=== PATIENT | female | born 1965 | race Two or more races ===

== ENCOUNTER 2018-10-23 18:36 | Inpatient (IN) | payer MEDICAID, OTHER ==
[~2018-10-23] VITALS: Ht 157.5 cm; Wt 84.8 kg
[2018-10-23] MEDS ORDERED: Nitroglycerin 2% oint pkt TOPIC ONE (19:00)
[2018-10-23 19:06] VITALS: BP 151/69
--- NOTE | 2018-10-23 19:06 | Emergency Room Report ---
History of Present Illness General Chief Complaint: Dyspnea/Respdistress Source: Patient Present Illness HPI Patient presents with chest pain and shortness of breath. Started off more with shortness of breath 4 days ago. The chest pain is been intermittent. She rates at 6/10 at this time and feels more pressure. It doesn't radiate. It's more dyspnea on exertion than orthopnea. The shortness of breath gets better with rest and with laying down. She has edema bilaterally and she states that it's worse on the left-hand side. She is a history of congestive heart failure although she denies this. She's also diabetic, has high cholesterol and hypertension. She states her blood sugar was 192 this morning and she states that that was "high" area she denies fevers or chills. There's no productive cough. The patient was admitted at [facility] a few months ago and told that she had fluid in her lungs and around her heart. Slight constipation. No passing of blood. No dysuria. She's not taking water pill at this time. The patient states that she's had problems with her kidneys for 15 years. She' s never had to have dialysis. She complains about some dizziness. She denies any headache or change in her vision. No palpitations, rashes. No easy bruising. Recent eval for possible PE - studies were negative at [facility]. She denies depression, though is slow to respond and looks sad. Allergies: Coded Allergies: No Known Allergies (Verified Allergy, Unknown, 02/17/11) Patient History Past Medical History: see triage record Social History: Denies: smoking, alcohol use, drug use Social History Narrative with daughter Last Menstrual Period: none Now: No : 5 Para: 5 Reviewed Nursing Documentation: PMH: Agreed; PSxH: Agreed Nursing Documentation-PMH Hx Cardiac Problems: Yes - high cholesterol Hx Hypertension: Yes Hx Diabetes: Yes Hx Gastrointestinal Problems: No - hyperthyroidism Review of Systems All Other Systems: negative except mentioned in HPI Physical Exam Vital Signs Date Time Temp Pulse Resp B/P (MAP) Pulse Ox O2 Delivery O2 Flow Rate FiO2 10/23/18 18:38 98.4 74 18 160/78 85 Room Air Sp02 EP Interpretation: abnormal - hypoxia on room air General Appearance: GCS 15, non-toxic, Chronically Ill Head: normocephalic, atraumatic Eyes: bilateral eye normal inspection, bilateral eye PERRL ENT: moist mucus membranes Neck: full range of motion, supple Respiratory: decreased breath sounds, rales Cardiovascular #1: regular rate, rhythm, JVD, edema - One to 2+ bilaterally Cardiovascular #2: 2+ radial (L) Gastrointestinal: non tender, soft, decreased bowel sounds Genitourinary: no CVA tenderness Musculoskeletal: back normal, normal range of motion, no calf tenderness, Jairon 's Sign negative Neurologic: alert, responsive Psychiatric: depressed affect Skin: other - sallo Procedures Critical Care Time Critical Care Time Total Critical Care Time: 30 min bedside evaluation and treatment excludes procedures (EKG). Reason for critical care: CHF, NSTEMI, hypoxia, consultation with PMD and specialist Possible complications: hypotension, hypertension, FL, shock, arrhythmias, metabolic acidosis, end organ damage, respiratory failure. Interventions: Aspirin, Nitrates, lasix, repeat evaluations Course: Patient with hypoxia, chest pain. EKG no injury. CHF on CXR. Aspirin , nitrates and lasix given. Diuresing. + troponin. Lovenox given. Repeat evaluation with good increase in O2 sat on oxygen - review of information and felt may not be PE (however Lovenox given for +trop). Discussed with admitting MD and pulmonary specialists. Improved. Admit ICU. Consultations: nursing staff, EMS, family, admitting MD, pulm consult. Discussed with family possible dialysis, but as diuresing, will need to assess. Hypothyroid felt to contribute - cortisol declined by admitting MD. Performed by: Dr. Persaud Tolerated well condition = serious Medical Decision Making Diagnostic Impression: Primary Impression: Hypoxia Additional Impressions: Chest pain Qualified Codes: R07.9 - Chest pain, unspecified CHF (congestive heart failure) Qualified Codes: I50.9 - Heart failure, unspecified Hypothyroid Qualified Codes: E03.9 - Hypothyroidism, unspecified Renal failure (ARF), acute on chronic Qualified Codes: N17.9 - Acute kidney failure, unspecified; N18.4 - Chronic kidney disease, stage 4 (severe) NSTEMI (non-ST elevated myocardial infarction) ER Course Patient presents with chest pain and physical evidence of congestive heart failure. Differential includes acute cardial infarction, congestive heart failure, acute coronary syndrome, coronary embolus amongst others. Evaluation will be with EKG, chest x-ray and labs. The patient will be treated with aspirin, nitroglycerin paste and Lasix. She is placed on a satellite project site monitor. In triage she was hypoxemic and most likely will need to be admitted to the hospital. EKG with normal sinus rhythm rate [address]-T wave changes. CXR CHF and pleural effusions. Labs with min elevated WBC. Renal failure. Elevated BNP. UA clear. Elevated TSH. Lab call with + troponin. Patient diuresing. Espinal placed as need for bedrest and continuous cardiac monitoring. Lovenox given (though doubt PE, still covered). As O2 corrects with low dose oxygen, PE less likely. Dr. Ray on way in (after attempt contact Fidelina LANDEROS). Evaluated by Dr. Ray and electronic health records specialist. Discussed cortisol and declined. Admit ICU. Laboratory Tests Test 10/23/18 18:55 10/23/18 20:45 White Blood Count 11.6 K/UL (4.8-10.8) H Red Blood Count 3.68 M/UL (4.20-5.40) L Hemoglobin 10.0 G/DL (12.0-16.0) L Hematocrit 29.8 % (37.0-47.0) L Mean Corpuscular Volume 81 FL (80-99) Mean Corpuscular Hemoglobin 27.2 PG (27.0-31.0) Mean Corpuscular Hemoglobin Concent 33.6 G/DL (32.0-36.0) Red Cell Distribution Width 13.1 % (11.6-14.8) Platelet Count 283 K/UL (150-450) Mean Platelet Volume 7.3 FL (6.5-10.1) Neutrophils (%) (Auto) 58.7 % (45.0-75.0) Lymphocytes (%) (Auto) 31.1 % (20.0-45.0) Monocytes (%) (Auto) 5.3 % (1.0-10.0) Eosinophils (%) (Auto) 3.8 % (0.0-3.0) H Basophils (%) (Auto) 1.1 % (0.0-2.0) Prothrombin Time 10.5 SEC (9.30-11.50) Prothrombin Time INR 1.0 (0.9-1.1) PTT 33 SEC (23-33) Sodium Level 136 MMOL/L (136-145) Potassium Level 4.3 MMOL/L (3.5-5.1) Chloride Level 104 MMOL/L (98-107) Carbon Dioxide Level 23 MMOL/L (21-32) Anion Gap 10 mmol/L (5-15) Blood Urea Nitrogen 47 mg/dL (7-18) H Creatinine 4.0 MG/DL (0.55-1.30) H Estimate Glomerular Filtration Rate 11.6 mL/min (>60) Glucose Level 82 MG/DL (74-106) Calcium Level 8.4 MG/DL (8.5-10.1) L Total Bilirubin 0.3 MG/DL (0.2-1.0) Aspartate Amino Transferase (AST) 12 U/L (15-37) L Alanine Aminotransferase (ALT) 18 U/L (12-78) Alkaline Phosphatase 121 U/L (46-116) H Total Creatine Kinase 141 U/L (26-308) Troponin I 0.285 ng/mL (0.000-0.056) Pro-B-Type Natriuretic Peptide 4304 pg/mL (0-125) H Total Protein 6.9 G/DL (6.4-8.2) Albumin 2.7 G/DL (3.4-5.0) L Globulin 4.2 g/dL Albumin/Globulin Ratio 0.6 (1.0-2.7) L Thyroid Stimulating Hormone (TSH) 5.211 uiU/mL (0.358-3.740) Urine Color Pale yellow Urine Appearance Clear Urine pH 6.5 (4.5-8.0) Urine Specific [place] 1.005 (1.005-1.035) Urine Protein 4+ (NEGATIVE) H Urine Glucose (UA) Negative (NEGATIVE) Urine Ketones Negative (NEGATIVE) Urine Blood 2+ (NEGATIVE) H Urine Nitrite Negative (NEGATIVE) Urine Bilirubin Negative (NEGATIVE) Urine Urobilinogen Normal MG/DL (0.0-1.0) Urine Leukocyte Esterase 1+ (NEGATIVE) H Urine RBC 2-4 /HPF (0 - 2) H Urine WBC 0-2 /HPF (0 - 2) Urine Squamous Epithelial Cells Few /LPF (NONE/OCC) Urine Bacteria Few /HPF (NONE) EKG Diagnostic Results Rate: normal Rhythm: NSR ST Segments: no acute changes Rhythm Strip Diag. Results EP Interpretation: yes Rhythm: NSR, no PVC's, no ectopy Chest X-Ray Diagnostic Results Chest X-Ray Diagnostic Results : Chest X-Ray Ordered: Yes # of Views/Limited/Complete: 1 View Indication: Other EP Interpretation: Yes Interpretation: no pneumothorax, other - CHF and bilat effusions Impression: Other Electronically Signed by: Electronically signed by Panchito Persaud MD Last Vital Signs Date Time Temp Pulse Resp B/P (MAP) Pulse Ox O2 Delivery O2 Flow Rate FiO2 10/24/18 01:39 Nasal Cannula 2.0 10/24/18 01:00 56 22 111/71 (84) 97 10/24/18 00:47 97.0 Status: improved Disposition: ADMITTED INPATIENT Condition: Critical Referrals: [facility],REFERRING (PCP) Panchito Persaud MD Oct 23, 2018 19:06
[2018-10-23] MEDS ORDERED: FERROUS SULFAT325 MG ORAL (19:16)
[2018-10-23] MEDS ORDERED: HUMALOG KW200 UNIT/1 SQ (19:16)
[2018-10-23] MEDS ORDERED: GLIPIZIDE5 MG ORAL (19:16)
[2018-10-23] MEDS ORDERED: LANTUS SOL100 UNIT/1 SUBQ (19:16)
[2018-10-23] MEDS ORDERED: CARVEDILOL3.125 MG ORAL (19:16)
[2018-10-23] MEDS ORDERED: ATORVASTATIN CA80 MG ORAL (19:16)
[2018-10-23] MEDS ORDERED: SYNTHROID25 MCG ORAL (19:16)
[2018-10-23] MEDS ORDERED: HYDRALAZINE HCL10 MG ORAL (19:16)
[2018-10-23 19:30] VITALS: BP 162/73
[2018-10-23 19:38] LABS: BASOPHILS % (AUTO) 1.1 % (0.0-2.0); EOSINOPHILS % (AUTO) 3.8 % (0.0-3.0); HEMATOCRIT 29.8 % (37.0-47.0); LYMPHOCYTES % (AUTO) 31.1 % (20.0-45.0); MEAN CORPUSCULAR VOLUME 81 FL (80-99); MONOCYTES % (AUTO) 5.3 % (1.0-10.0); NEUTROPHILS % (AUTO) 58.7 % (45.0-75.0); PLATELET COUNT 283 K/UL (150-450); RED BLOOD COUNT 3.68 M/UL (4.20-5.40); RED CELL DISTRIBUTION WIDTH 13.1 % (11.6-14.8); WHITE BLOOD COUNT 11.6 K/UL (4.8-10.8)
[2018-10-23 19:45] LABS: ANION GAP 10 mmol/L (5-15); BLOOD UREA NITROGEN 47 mg/dL (7-18); CALCIUM 8.4 MG/DL (8.5-10.1); CARBON DIOXIDE 23 MMOL/L (21-32); CHLORIDE 104 MMOL/L (98-107); POTASSIUM 4.3 MMOL/L (3.5-5.1); SODIUM 136 MMOL/L (136-145)
[2018-10-23 19:55] LABS: ALANINE AMINOTRANSFERASE 18 U/L (12-78); ALBUMIN 2.7 G/DL (3.4-5.0); ALBUMIN/GLOBULIN RATIO 0.6 (1.0-2.7); ALKALINE PHOSPHATASE 121 U/L (46-116); ASPARTATE AMINO TRANSFERASE 12 U/L (15-37); BILIRUBIN,TOTAL 0.3 MG/DL (0.2-1.0); CREATINE KINASE 141 U/L (26-308)
--- NOTE | 2018-10-23 20:20 | Diagnostic Imaging Report ---
EXAM: XR Chest, 1 View CLINICAL HISTORY: DYSPNEA TECHNIQUE: Frontal view of the chest. COMPARISON: Poor/26/09. FINDINGS/IMPRESSION: Basilar opacities, likely a combination of pleural fluid and atelectasis/consolidation. Cardiomegaly.
[2018-10-23] MEDS ORDERED: Enoxaparin 80mg Inj SUBQ ONE (20:30)
[2018-10-23 21:07] LABS: APPEARANCE,URINE CLEAR; BILIRUBIN, URINE NEGATIVE (NEGATIVE); COLOR,URINE PALE YELLOW; GLUCOSE, URINE (UA) NEGATIVE (NEGATIVE); KETONES,URINE NEGATIVE (NEGATIVE); LEUKOCYTE ESTERASE ,URINE 1+ (NEGATIVE); NITRITE,URINE NEGATIVE (NEGATIVE); PH,URINE 6.5 (4.5-8.0); PROTEIN,URINE 4+ (NEGATIVE); UROBILINOGEN,URINE NORMAL MG/DL (0.0-1.0)
[2018-10-23 21:30] VITALS: BP 158/75
[2018-10-23 22:54] VITALS: BP 150/75
[2018-10-23] MEDS ORDERED: Morphine Sulfate 2mg/ml Inj IVP PRN (23:45)
[2018-10-23] MEDS ORDERED: cefTRIAXone 1 GM in D5W 55 ML IVPB SCH (23:45)
--- NOTE | 2018-10-23 23:46 | History & Physical ---
History and Physical History & Physicial History and Physical HPI Patient is a 53 year old woman who presents with chest pain and shortness of breath. Started off more with shortness of breath 4 days ago. The chest pain is been intermittent. She rates at 6/10 at this time and feels more pressure. It doesn't radiate. It's more dyspnea on exertion than orthopnea. The shortness of breath gets better with rest and with laying down. She has edema bilaterally and she states that it's worse on the left-hand side. She is a history of congestive heart failure although she denies this. She's also diabetic, has high cholesterol and hypertension. She states her blood sugar was 192 this morning and she states that that was "high" area she denies fevers or chills. There's no productive cough. The patient was admitted at [facility] a few months ago and told that she had fluid in her lungs and around her heart. Slight constipation. No passing of blood. No dysuria. She's not taking water pill at this time. The patient states that she's had problems with her kidneys for 15 years. She' s never had to have dialysis. She complains about some dizziness. She denies any headache or change in her vision. No palpitations, rashes. No easy bruising. Recent eval for possible PE - studies were negative. Allergies: Coded Allergies: No Known Allergies (Verified Allergy, Unknown, 02/17/11) Patient History Past Medical History: CHF, Hypertension, Hyperlipidemia, Type 2 Diabetes, CKD, Hypothyroidism Social History: Denies: smoking, alcohol use, drug use All Other Systems: negative except mentioned in HPI Objective Vital Signs Date Time Temp Pulse Resp B/P (MAP) Pulse Ox O2 Delivery O2 Flow Rate FiO2 10/23/18 18:38 98.4 74 18 160/78 85 Room Air NCAT, moist mm JVP 8cm Chest: Few basal crackles Heart: HS1, HS2, RRR Abdomen: Soft, NT, ND Extremities: Well perfused, mild edema COAGULATOR: Intact, no focal signs Investigations: Laboratory Tests Test 10/23/18 18:55 10/23/18 20:45 White Blood Count 11.6 K/UL (4.8-10.8) H Red Blood Count 3.68 M/UL (4.20-5.40) L Hemoglobin 10.0 G/DL (12.0-16.0) L Hematocrit 29.8 % (37.0-47.0) L Mean Corpuscular Volume 81 FL (80-99) Mean Corpuscular Hemoglobin 27.2 PG (27.0-31.0) Mean Corpuscular Hemoglobin Concent 33.6 G/DL (32.0-36.0) Red Cell Distribution Width 13.1 % (11.6-14.8) Platelet Count 283 K/UL (150-450) Mean Platelet Volume 7.3 FL (6.5-10.1) Neutrophils (%) (Auto) 58.7 % (45.0-75.0) Lymphocytes (%) (Auto) 31.1 % (20.0-45.0) Monocytes (%) (Auto) 5.3 % (1.0-10.0) Eosinophils (%) (Auto) 3.8 % (0.0-3.0) H Basophils (%) (Auto) 1.1 % (0.0-2.0) Prothrombin Time 10.5 SEC (9.30-11.50) Prothrombin Time INR 1.0 (0.9-1.1) PTT 33 SEC (23-33) Sodium Level 136 MMOL/L (136-145) Potassium Level 4.3 MMOL/L (3.5-5.1) Chloride Level 104 MMOL/L (98-107) Carbon Dioxide Level 23 MMOL/L (21-32) Anion Gap 10 mmol/L (5-15) Blood Urea Nitrogen 47 mg/dL (7-18) H Creatinine 4.0 MG/DL (0.55-1.30) H Estimate Glomerular Filtration Rate 11.6 mL/min (>60) Glucose Level 82 MG/DL (74-106) Calcium Level 8.4 MG/DL (8.5-10.1) L Total Bilirubin 0.3 MG/DL (0.2-1.0) Aspartate Amino Transferase (AST) 12 U/L (15-37) L Alanine Aminotransferase (ALT) 18 U/L (12-78) Alkaline Phosphatase 121 U/L (46-116) H Total Creatine Kinase 141 U/L (26-308) Troponin I 0.285 ng/mL (0.000-0.056) Pro-B-Type Natriuretic Peptide 4304 pg/mL (0-125) H Total Protein 6.9 G/DL (6.4-8.2) Albumin 2.7 G/DL (3.4-5.0) L Globulin 4.2 g/dL Albumin/Globulin Ratio 0.6 (1.0-2.7) L Thyroid Stimulating Hormone (TSH) 5.211 uiU/mL (0.358-3.740) Urine Color Pale yellow Urine Appearance Clear Urine pH 6.5 (4.5-8.0) Urine Specific [place] 1.005 (1.005-1.035) Urine Protein 4+ (NEGATIVE) H Urine Glucose (UA) Negative (NEGATIVE) Urine Ketones Negative (NEGATIVE) Urine Blood 2+ (NEGATIVE) H Urine Nitrite Negative (NEGATIVE) Urine Bilirubin Negative (NEGATIVE) Urine Urobilinogen Normal MG/DL (0.0-1.0) Urine Leukocyte Esterase 1+ (NEGATIVE) H Urine RBC 2-4 /HPF (0 - 2) H Urine WBC 0-2 /HPF (0 - 2) Urine Squamous Epithelial Cells Few /LPF (NONE/OCC) Urine Bacteria Few /HPF (NONE) EKG Diagnostic Results Rate: normal Rhythm: NSR ST Segments: no acute changes Rhythm Strip Diag. Results EP Interpretation: yes Rhythm: NSR, no PVC's, no ectopy Chest X-Ray Diagnostic Results Chest X-Ray Diagnostic Results : Chest X-Ray Ordered: Yes # of Views/Limited/Complete: 1 View Indication: Other EP Interpretation: Yes Interpretation: no pneumothorax, other - CHF and bilat effusions Impression: Other Labs noted EKG with normal sinus rhythm rate [address]-T wave changes. CXR CHF and pleural effusions. Impression: Chest pain, NSTEMI CHF (congestive heart failure) CKD Type 2 Diabetes Hyperlipidemia Hypothyroid Plan: Trend troponins VQ scan LE Dupplex Treat for possible community aquired pneumonia given basal atelectasis on CXR: Ceftriaxone and Doxycycline Lasix PRN Lovenox per Pharmacy Nitro paste ASA Pain meds ISS Panchito Cha MD Oct 23, 2018 23:46
[2018-10-24] VITALS (21 sets, daily range): BP systolic 111–156; BP diastolic 33–76
[2018-10-24] MEDS ORDERED: Metoprolol Succinate XL 25mg tab ORAL ONE (00:30)
[2018-10-24] MEDS: Heparin 5000 units/ml inj SUBQ SCH ×3 (00:30→20:49)
[2018-10-24] MEDS ORDERED: Nitroglycerin Subl 0.4mg tab SL PRN ×2 (00:30→17:45)
--- NOTE | 2018-10-24 00:31 | History & Physical ---
History and Physical History & Physicial Patient seen and examined. Full Dictation completed Rema Ray MD Oct 24, 2018 00:31
--- NOTE | 2018-10-24 01:30 | History and Physical Report ---
DATE OF ADMISSION: 10/23/2018 SOURCE OF INFORMATION: The patient and EMR. HISTORY OF PRESENT ILLNESS: The patient is a 53-year-old female with prior history of diabetes and chronic kidney disease, who presented with worsening shortness of breath and chest pain for the last 3 days. The patient reported sharp pain with no radiation. Denies any nausea, vomiting, diarrhea, or constipation. Denies any blurry vision. PAST MEDICAL HISTORY: Hypertension, diabetes type 2, hyperlipidemia, and hypothyroidism. PAST SURGICAL HISTORY: The patient denies. CURRENT HOSPITAL MEDICATIONS: Aspirin, atorvastatin, Lasix, NovoLog, and metoprolol. ALLERGIES: NKDA. SOCIAL HISTORY: The patient reported that she lives with the family. Denies prior history of illicit drug abuse, smoking, or alcohol abuse. FAMILY HISTORY: Reviewed and noncontributory. REVIEW OF SYSTEMS: All 14 elements of review of systems reviewed. Pertinent positive and negative as above. Chest x-ray dated 10/23/2018 shows bibasilar opacities, likely pleural fluid. PHYSICAL EXAMINATION: VITAL SIGNS: Blood pressure 160/80, temperature 98.2, pulse oximetry 98% on room air, and respiratory rate 18. HEAD AND NECK: Atraumatic and normocephalic. CHEST: Diffuse bronchial breathing sounds. Positive for fine crackles in both lower lungs. ABDOMEN: Obese. Bowel sounds are normal. No organomegaly. MUSCULOSKELETAL: Diffuse swelling and edema in all the extremities, especially in the dependent areas. No gross lateralized motor deficit. NEUROLOGY: The patient is awake, alert, and oriented x3. LABORATORY DATA: Dated 10/23/2018, WBC 11.6, hemoglobin 10, and platelet count of 283. Sodium 136, potassium 4.3, BUN 47, and creatinine 4. AST 12 and ALT 18. TSH of 5.2. Troponin 0.285. ASSESSMENT AND PLAN: 1. Acute congestive heart failure exacerbation - new onset. 2. Community-acquired pneumonia. 3. Renal failure - age indeterminate. 4. Hypothyroidism. 5. Diabetes type 2. 6. Hypertension. 7. Gastrointestinal and deep vein thrombosis prophylaxis. PLAN OF CARE: We will continue with aspirin high dose 325. We will monitor the troponin levels and we will trend. Continue with the levothyroxine. I will check for the echocardiogram. I would start the patient on heparin subcutaneous for the DVT prophylaxis. Continue with nasal oxygen and empiric antibiotic treatment. Dr. Brijesh ____ is consulted. Cardiology and Nephrology are consulted as well. Rema Ray M.D. DR: ZAHRA JOB#: [id number] CC:
[2018-10-24 05:03] LABS: BASOPHILS % (AUTO) 1.1 % (0.0-2.0); HEMATOCRIT 28.4 % (37.0-47.0); HEMOGLOBIN 9.4 G/DL (12.0-16.0); LYMPHOCYTES % (AUTO) 23.5 % (20.0-45.0); MEAN CORPUSCULAR VOLUME 81 FL (80-99); MONOCYTES % (AUTO) 3.9 % (1.0-10.0); NEUTROPHILS % (AUTO) 70.6 % (45.0-75.0); PLATELET COUNT 267 K/UL (150-450); RED BLOOD COUNT 3.51 M/UL (4.20-5.40); RED CELL DISTRIBUTION WIDTH 12.9 % (11.6-14.8); WHITE BLOOD COUNT 8.2 K/UL (4.8-10.8)
[2018-10-24] MEDS: NovoLOG Insulin Flexpen SUBQ SCH ×4 (05:31→20:45)
[2018-10-24 05:41] LABS: % IRON SATURATION 15 % (15-50); IRON 37 ug/dL (50-175); TOTAL IRON BINDING CAPACITY 250 ug/dL (250-450)
[2018-10-24 05:42] LABS: ALANINE AMINOTRANSFERASE 15 U/L (12-78); ALBUMIN 2.4 G/DL (3.4-5.0); ALBUMIN/GLOBULIN RATIO 0.6 (1.0-2.7); ALKALINE PHOSPHATASE 111 U/L (46-116); ANION GAP 8 mmol/L (5-15); ASPARTATE AMINO TRANSFERASE 14 U/L (15-37); BILIRUBIN,TOTAL 0.2 MG/DL (0.2-1.0); BLOOD UREA NITROGEN 50 mg/dL (7-18); CALCIUM 8.5 MG/DL (8.5-10.1); CARBON DIOXIDE 26 MMOL/L (21-32); CHLORIDE 105 MMOL/L (98-107); CREATININE 4.1 MG/DL (0.55-1.30); POTASSIUM 4.5 MMOL/L (3.5-5.1); SODIUM 138 MMOL/L (136-145)
[2018-10-24] MEDS: Nitroglycerin 2% oint pkt TOPIC SCH ×3 (05:46→18:29)
[2018-10-24] MEDS ORDERED: Metoprolol 25mg tab ORAL SCH (09:00)
[2018-10-24] MEDS ORDERED: Metoprolol Succinate XL 25mg tab ORAL SCH (09:00)
--- NOTE | 2018-10-24 13:42 | Consultation ---
Consult Note Consult Note asked to eval for renal failure- Patient presents with chest pain and shortness of breath. Started off more with shortness of breath 4 days ago. The chest pain is been intermittent. She rates at 6/10 at this time and feels more pressure. It doesn't radiate. It's more dyspnea on exertion than orthopnea. The shortness of breath gets better with rest and with laying down. She has edema bilaterally and she states that it's worse on the left-hand side. She is a history of congestive heart failure although she denies this. She's also diabetic, has high cholesterol and hypertension. She states her blood sugar was 192 this morning and she states that that was "high" area she denies fevers or chills. There's no productive cough. The patient was admitted at [facility] a few months ago and told that she had fluid in her lungs and around her heart. Slight constipation. No passing of blood. No dysuria. She's not taking water pill at this time. The patient states that she's had problems with her kidneys for 15 years. She' s never had to have dialysis. She complains about some dizziness. She denies any headache or change in her vision. No palpitations, rashes. No easy bruising. Recent eval for possible PE - studies were negative at [facility]. She denies depression, though is slow to respond and looks sad. seen examined data reviewed discussed with fermentologist/Plan Renal failure, likely diabetic nephropathy and Nephrotic syndrom Hypoxia, CHF Chest pain, NSTEMI (non-ST elevated myocardial infarction) Hypothyroid Anemia 2D echo- 24 h urine CrCl and Total protein Kidney TANK Anemia llamas avoid Nephrotoxics per orders Lito Frank MD Oct 24, 2018 13:42
--- NOTE | 2018-10-24 13:56 | Infectious Diseases Prog Note ---
Assessment/Plan Problems: (1) Community acquired pneumonia Assessment & Plan: continue ceftriaxone and doxycycline empirically , recommend influenza vaccination at discharge (2) CHF (congestive heart failure) Assessment & Plan: with possible exacerbation, continue diuresis , cardiology is following (3) Renal failure (ARF), acute on chronic Assessment & Plan: monitor renal function, avoid nephrotoxics, renal eval (4) Hypoxia Assessment & Plan: due to the above , continue oxygen and nebulizers , may need thoracentesis Subjective Allergies: Coded Allergies: No Known Allergies (Verified Allergy, Unknown, 02/17/11) Objective Vital Signs Last 24 Hour Vital Signs Date Time Temp Pulse Resp B/P (MAP) Pulse Ox O2 Delivery O2 Flow Rate FiO2 10/24/18 12:00 156/67 10/24/18 10:00 75 15 156/67 (96) 99 10/24/18 09:02 72 149/76 10/24/18 09:00 72 15 140/76 (97) 99 10/24/18 08:00 98.0 78 20 145/69 (94) 98 10/24/18 08:00 Nasal Cannula 2.0 10/24/18 08:00 62 10/24/18 07:00 65 15 149/76 (100) 99 10/24/18 06:00 98.0 78 20 155/70 (98) 98 10/24/18 05:46 153/69 10/24/18 05:00 65 15 153/69 (97) 98 10/24/18 04:00 98.0 61 15 124/60 (81) 98 10/24/18 04:00 Nasal Cannula 2.0 10/24/18 03:00 86 19 122/74 (90) 98 10/24/18 02:00 58 16 150/68 (95) 98 10/24/18 01:39 Nasal Cannula 2.0 10/24/18 01:00 56 22 111/71 (84) 97 10/24/18 01:00 97.8 78 16 111/71 (84) 98 10/24/18 01:00 56 111/71 10/24/18 00:54 58 10/24/18 00:47 97.0 58 23 133/60 (84) 94 10/24/18 00:40 97.5 54 18 153/74 97 Nasal Cannula 2.0 10/24/18 00:08 97.5 54 18 153/74 97 Nasal Cannula 2.0 10/23/18 22:54 60 20 150/75 98 Nasal Cannula 2.0 10/23/18 21:30 62 17 158/75 97 Nasal Cannula 2.0 10/23/18 19:30 70 20 162/73 96 Nasal Cannula 2.0 10/23/18 19:19 166/72 10/23/18 19:06 98.4 72 17 151/69 87 Room Air 10/23/18 18:59 74 18 Room Air 10/23/18 18:38 98.4 74 18 160/78 85 Room Air Height (Feet): 5 Height (Inches): 2.00 Weight (Pounds): 192 Laboratory Tests Test 10/23/18 18:55 10/23/18 20:45 10/24/18 04:15 10/24/18 11:54 White Blood Count 11.6 K/UL (4.8-10.8) H 8.2 K/UL (4.8-10.8) Red Blood Count 3.68 M/UL (4.20-5.40) L 3.51 M/UL (4.20-5.40) L Hemoglobin 10.0 G/DL (12.0-16.0) L 9.4 G/DL (12.0-16.0) L Hematocrit 29.8 % (37.0-47.0) L 28.4 % (37.0-47.0) L Mean Corpuscular Volume 81 FL (80-99) 81 FL (80-99) Mean Corpuscular Hemoglobin 27.2 PG (27.0-31.0) 26.8 PG (27.0-31.0) L Mean Corpuscular Hemoglobin Concent 33.6 G/DL (32.0-36.0) 33.2 G/DL (32.0-36.0) Red Cell Distribution Width 13.1 % (11.6-14.8) 12.9 % (11.6-14.8) Platelet Count 283 K/UL (150-450) 267 K/UL (150-450) Mean Platelet Volume 7.3 FL (6.5-10.1) 6.9 FL (6.5-10.1) Neutrophils (%) (Auto) 58.7 % (45.0-75.0) 70.6 % (45.0-75.0) Lymphocytes (%) (Auto) 31.1 % (20.0-45.0) 23.5 % (20.0-45.0) Monocytes (%) (Auto) 5.3 % (1.0-10.0) 3.9 % (1.0-10.0) Eosinophils (%) (Auto) 3.8 % (0.0-3.0) H 1.0 % (0.0-3.0) Basophils (%) (Auto) 1.1 % (0.0-2.0) 1.1 % (0.0-2.0) Prothrombin Time 10.5 SEC (9.30-11.50) Prothromb Time International Ratio 1.0 (0.9-1.1) Activated Partial Thromboplast Time 33 SEC (23-33) Sodium Level 136 MMOL/L (136-145) 138 MMOL/L (136-145) Potassium Level 4.3 MMOL/L (3.5-5.1) 4.5 MMOL/L (3.5-5.1) Chloride Level 104 MMOL/L (98-107) 105 MMOL/L (98-107) Carbon Dioxide Level 23 MMOL/L (21-32) 26 MMOL/L (21-32) Anion Gap 10 mmol/L (5-15) 8 mmol/L (5-15) Blood Urea Nitrogen 47 mg/dL (7-18) H 50 mg/dL (7-18) H Creatinine 4.0 MG/DL (0.55-1.30) H 4.1 MG/DL (0.55-1.30) H Estimat Glomerular Filtration Rate 11.6 mL/min (>60) 11.4 mL/min (>60) Glucose Level 82 MG/DL (74-106) 152 MG/DL (74-106) H Calcium Level 8.4 MG/DL (8.5-10.1) L 8.5 MG/DL (8.5-10.1) Total Bilirubin 0.3 MG/DL (0.2-1.0) 0.2 MG/DL (0.2-1.0) Aspartate Amino Transf (AST/SGOT) 12 U/L (15-37) L 14 U/L (15-37) L Alanine Aminotransferase (ALT/SGPT) 18 U/L (12-78) 15 U/L (12-78) Alkaline Phosphatase 121 U/L (46-116) H 111 U/L (46-116) Total Creatine Kinase 141 U/L (26-308) Troponin I 0.285 ng/mL (0.000-0.056) 0.204 ng/mL (0.000-0.056) 0.192 ng/mL (0.000-0.056) Pro-B-Type Natriuretic Peptide 4304 pg/mL (0-125) H Total Protein 6.9 G/DL (6.4-8.2) 6.4 G/DL (6.4-8.2) Albumin 2.7 G/DL (3.4-5.0) L 2.4 G/DL (3.4-5.0) L Globulin 4.2 g/dL 4.0 g/dL Albumin/Globulin Ratio 0.6 (1.0-2.7) L 0.6 (1.0-2.7) L Thyroid Stimulating Hormone (TSH) 5.211 uiU/mL (0.358-3.740) 2.665 uiU/mL (0.358-3.740) Urine Color Pale yellow Urine Appearance Clear Urine pH 6.5 (4.5-8.0) Urine Specific [place] 1.005 (1.005-1.035) Urine Protein 4+ (NEGATIVE) H Urine Glucose (UA) Negative (NEGATIVE) Urine Ketones Negative (NEGATIVE) Urine Blood 2+ (NEGATIVE) H Urine Nitrite Negative (NEGATIVE) Urine Bilirubin Negative (NEGATIVE) Urine Urobilinogen Normal MG/DL (0.0-1.0) Urine Leukocyte Esterase 1+ (NEGATIVE) H Urine RBC 2-4 /HPF (0 - 2) H Urine WBC 0-2 /HPF (0 - 2) Urine Squamous Epithelial Cells Few /LPF (NONE/OCC) Urine Bacteria Few /HPF (NONE) Iron Level 37 ug/dL (50-175) L Total Iron Binding Capacity 250 ug/dL (250-450) Percent Iron Saturation 15 % (15-50) Unsaturated Iron Binding 213 ug/dL (112-346) Ferritin 102 NG/ML (8-388) Vitamin B12 Level 1113 PG/ML (193-986) H Folate 18.5 NG/ML (8.6-58.9) Free Thyroxine 1.08 NG/DL (0.76-1.46) Current Medications Medications (Trade) Dose Ordered Sig/Miguel Route PRN Reason Start Time Stop Time Status Last Admin Dose Admin Acetaminophen (Tylenol) 650 mg EVERY 6 HOURS PRN ORAL Prn Mod pain/Fever 10/23/18 23:45 11/22/18 23:44 Amlodipine Besylate (Norvasc) 5 mg DAILY ORAL 10/25/18 09:00 11/24/18 08:59 Amlodipine Besylate (Norvasc) 5 mg ONCE ORAL 10/24/18 13:51 10/24/18 14:51 Aspirin (ASA) 325 mg DAILY ORAL 10/24/18 09:00 11/23/18 08:59 10/24/18 09:02 Atorvastatin Calcium (Lipitor) 20 mg BEDTIME ORAL 10/24/18 21:00 11/23/18 20:59 Ceftriaxone Sodium 1 gm/ Dextrose 55 ml @ 110 mls/hr Q24H IVPB 10/23/18 23:45 10/30/18 23:44 10/24/18 02:07 Dextrose (Dextrose 50%) 25 ml Q30M PRN IV Hypoglycemia 10/24/18 00:00 11/23/18 00:00 Dextrose (Dextrose 50%) 50 ml Q30M PRN IV Hypoglycemia 10/24/18 00:00 11/23/18 00:00 Doxycycline Monohydrate (Vibramycin) 100 mg BID ORAL 10/24/18 09:00 10/31/18 08:59 10/24/18 09:03 Furosemide (Lasix) 40 mg EVERY 12 HOURS IV 10/24/18 09:00 11/23/18 08:59 10/24/18 09:03 Heparin Sodium (Porcine) (Heparin 5000 units/ml) 5,000 units EVERY 12 HOURS SUBQ 10/24/18 00:30 11/23/18 00:29 10/24/18 09:04 Insulin Aspart (NovoLOG) BEFORE MEALS AND HS SUBQ 10/24/18 06:30 11/23/18 06:29 Metoprolol Succinate (Toprol XL) 25 mg DAILY ORAL 10/24/18 09:00 11/23/18 08:59 10/24/18 09:02 Morphine Sulfate (Morphine Sulfate) 2 mg EVERY 3 HOURS PRN IVP Severe Pain (Pain Scale 7-10) 10/23/18 23:45 10/30/18 23:44 Nitroglycerin (Nitro-Bid) 1 inch TID@0600,1200,1800 TOPIC 10/24/18 06:00 11/23/18 05:59 10/24/18 12:00 Nitroglycerin (Ntg) 0.4 mg Q5M PRN SL Prn Chest Pain 10/24/18 00:30 11/23/18 00:29 Pantoprazole (Protonix) 40 mg DAILY ORAL 10/24/18 13:49 11/23/18 13:48 Kandis Lipscomb M.D. Oct 24, 2018 13:56
--- NOTE | 2018-10-24 14:47 | General Progress Note ---
Assessment/Plan Assessment/Plan S: My sob is better O: appears comfortable, seen in ICU. at the bedside. PHYSICAL EXAMINATION: HEAD AND NECK: Atraumatic and normocephalic. CHEST: Diffuse bronchial breathing sounds. Positive for fine crackles in both lower lungs. ABDOMEN: Obese. Bowel sounds are normal. No organomegaly. MUSCULOSKELETAL: Diffuse swelling and edema in all the extremities, especially in the dependent areas. No gross lateralized motor deficit. NEUROLOGY: The patient is awake, alert, and oriented x3. Meds: reviewed and reconciled in the chart ASSESSMENT AND PLAN: 1. Acute congestive heart failure exacerbation - new onset. 2. Community-acquired pneumonia. 3. Renal failure - age indeterminate. 4. Hypothyroidism. 5. Diabetes type 2. 6. Hypertension. 7. Gastrointestinal and deep vein thrombosis prophylaxis. Plan: Ok to transfer out of ICU Will monitor renal function Notes from ID and nephro reviewed continue diuresis Subjective Allergies: Coded Allergies: No Known Allergies (Verified Allergy, Unknown, 02/17/11) Objective Last 24 Hour Vital Signs Date Time Temp Pulse Resp B/P (MAP) Pulse Ox O2 Delivery O2 Flow Rate FiO2 10/24/18 14:18 75 156/67 10/24/18 14:00 72 16 118/58 (78) 99 10/24/18 13:00 75 16 122/70 (87) 99 10/24/18 12:00 Nasal Cannula 2.0 10/24/18 12:00 71 10/24/18 12:00 156/67 10/24/18 12:00 97.9 78 20 120/60 (80) 98 10/24/18 11:00 76 15 150/67 (94) 99 10/24/18 10:00 75 15 156/67 (96) 99 10/24/18 09:02 72 149/76 10/24/18 09:00 72 15 140/76 (97) 99 10/24/18 08:00 98.0 78 20 145/69 (94) 98 10/24/18 08:00 Nasal Cannula 2.0 10/24/18 08:00 62 10/24/18 07:00 65 15 149/76 (100) 99 10/24/18 06:00 98.0 78 20 155/70 (98) 98 10/24/18 05:46 153/69 10/24/18 05:00 65 15 153/69 (97) 98 10/24/18 04:00 98.0 61 15 124/60 (81) 98 10/24/18 04:00 Nasal Cannula 2.0 10/24/18 03:00 86 19 122/74 (90) 98 10/24/18 02:00 58 16 150/68 (95) 98 10/24/18 01:39 Nasal Cannula 2.0 10/24/18 01:00 56 22 111/71 (84) 97 10/24/18 01:00 97.8 78 16 111/71 (84) 98 10/24/18 01:00 56 111/71 10/24/18 00:54 58 10/24/18 00:47 97.0 58 23 133/60 (84) 94 10/24/18 00:40 97.5 54 18 153/74 97 Nasal Cannula 2.0 10/24/18 00:08 97.5 54 18 153/74 97 Nasal Cannula 2.0 10/23/18 22:54 60 20 150/75 98 Nasal Cannula 2.0 10/23/18 21:30 62 17 158/75 97 Nasal Cannula 2.0 10/23/18 19:30 70 20 162/73 96 Nasal Cannula 2.0 10/23/18 19:19 166/72 10/23/18 19:06 98.4 72 17 151/69 87 Room Air 10/23/18 18:59 74 18 Room Air 10/23/18 18:38 98.4 74 18 160/78 85 Room Air Intake and Output 10/23/18 10/24/18 18:59 06:59 Intake Total 175 ml Output Total 1400 ml Balance -1225 ml Intake Oral 120 ml IV Total 55 ml Output Urine Total 1400 ml Laboratory Tests 10/23/18 18:55: White Blood Count 11.6H, Red Blood Count 3.68L, Hemoglobin 10.0L, Hematocrit 29.8L, Mean Corpuscular Volume 81, Mean Corpuscular Hemoglobin 27.2, Mean Corpuscular Hemoglobin Concent 33.6, Red Cell Distribution Width 13.1, Platelet Count 283, Mean Platelet Volume 7.3, Neutrophils (%) (Auto) 58.7, Lymphocytes (% ) (Auto) 31.1, Monocytes (%) (Auto) 5.3, Eosinophils (%) (Auto) 3.8H, Basophils (%) (Auto) 1.1, Prothrombin Time 10.5, Prothromb Time International Ratio 1.0, Activated Partial Thromboplast Time 33, Sodium Level 136, Potassium Level 4.3, Chloride Level 104, Carbon Dioxide Level 23, Anion Gap 10, Blood Urea Nitrogen 47H, Creatinine 4.0H, Estimat Glomerular Filtration Rate 11.6, Glucose Level 82 , Calcium Level 8.4L, Total Bilirubin 0.3, Aspartate Amino Transf (AST/SGOT) 12L , Alanine Aminotransferase (ALT/SGPT) 18, Alkaline Phosphatase 121H, Total Creatine Kinase 141, Troponin I 0.285H, Pro-B-Type Natriuretic Peptide 4304H, Total Protein 6.9, Albumin 2.7L, Globulin 4.2, Albumin/Globulin Ratio 0.6L, Thyroid Stimulating Hormone (TSH) 5.211H 10/23/18 20:45: Urine Color Pale yellow, Urine Appearance Clear, Urine pH 6.5, Urine Specific [place] 1.005, Urine Protein 4+H, Urine Glucose (UA) Negative, Urine Ketones Negative, Urine Blood 2+H, Urine Nitrite Negative, Urine Bilirubin Negative, Urine Urobilinogen Normal, Urine Leukocyte Esterase 1+H, Urine RBC 2-4H, Urine WBC 0-2, Urine Squamous Epithelial Cells Few, Urine Bacteria Few 10/24/18 04:15: White Blood Count 8.2, Red Blood Count 3.51L, Hemoglobin 9.4L, Hematocrit 28.4L , Mean Corpuscular Volume 81, Mean Corpuscular Hemoglobin 26.8L, Mean Corpuscular Hemoglobin Concent 33.2, Red Cell Distribution Width 12.9, Platelet Count 267, Mean Platelet Volume 6.9, Neutrophils (%) (Auto) 70.6, Lymphocytes (% ) (Auto) 23.5, Monocytes (%) (Auto) 3.9, Eosinophils (%) (Auto) 1.0, Basophils ( %) (Auto) 1.1, Sodium Level 138, Potassium Level 4.5, Chloride Level 105, Carbon Dioxide Level 26, Anion Gap 8, Blood Urea Nitrogen 50H, Creatinine 4.1H, Estimat Glomerular Filtration Rate 11.4, Glucose Level 152H, Calcium Level 8.5, Total Bilirubin 0.2, Aspartate Amino Transf (AST/SGOT) 14L, Alanine Aminotransferase (ALT/SGPT) 15, Alkaline Phosphatase 111, Troponin I 0.204H, Total Protein 6.4, Albumin 2.4L, Globulin 4.0, Albumin/Globulin Ratio 0.6L, Thyroid Stimulating Hormone (TSH) 2.665, Iron Level 37L, Total Iron Binding Capacity 250, Percent Iron Saturation 15, Unsaturated Iron Binding 213, Ferritin 102, Vitamin B12 Level 1113H, Folate 18.5, Free Thyroxine 1.08 10/24/18 11:54: Troponin I 0.192H, C-Reactive Protein, Quantitative 1.6H Height (Feet): 5 Height (Inches): 2.00 Weight (Pounds): 192 Rema Ray MD Oct 24, 2018 14:47
--- NOTE | 2018-10-24 14:57 | Cardiology Progress Note ---
Assessment/Plan Assessment/Plan The patient is seen and examined, full consult note will be dictated shortly. Objective Last 24 Hour Vital Signs Date Time Temp Pulse Resp B/P (MAP) Pulse Ox O2 Delivery O2 Flow Rate FiO2 10/24/18 14:18 75 156/67 10/24/18 14:00 72 16 118/58 (78) 99 10/24/18 13:00 75 16 122/70 (87) 99 10/24/18 12:00 Nasal Cannula 2.0 10/24/18 12:00 71 10/24/18 12:00 156/67 10/24/18 12:00 97.9 78 20 120/60 (80) 98 10/24/18 11:00 76 15 150/67 (94) 99 10/24/18 10:00 75 15 156/67 (96) 99 10/24/18 09:02 72 149/76 10/24/18 09:00 72 15 140/76 (97) 99 10/24/18 08:00 98.0 78 20 145/69 (94) 98 10/24/18 08:00 Nasal Cannula 2.0 10/24/18 08:00 62 10/24/18 07:00 65 15 149/76 (100) 99 10/24/18 06:00 98.0 78 20 155/70 (98) 98 10/24/18 05:46 153/69 10/24/18 05:00 65 15 153/69 (97) 98 10/24/18 04:00 98.0 61 15 124/60 (81) 98 10/24/18 04:00 Nasal Cannula 2.0 10/24/18 03:00 86 19 122/74 (90) 98 10/24/18 02:00 58 16 150/68 (95) 98 10/24/18 01:39 Nasal Cannula 2.0 10/24/18 01:00 56 22 111/71 (84) 97 10/24/18 01:00 97.8 78 16 111/71 (84) 98 10/24/18 01:00 56 111/71 10/24/18 00:54 58 10/24/18 00:47 97.0 58 23 133/60 (84) 94 10/24/18 00:40 97.5 54 18 153/74 97 Nasal Cannula 2.0 12/16/18 00:08 97.5 54 18 153/74 97 Nasal Cannula 2.0 10/23/18 22:54 60 20 150/75 98 Nasal Cannula 2.0 10/23/18 21:30 62 17 158/75 97 Nasal Cannula 2.0 10/23/18 19:30 70 20 162/73 96 Nasal Cannula 2.0 10/23/18 19:19 166/72 10/23/18 19:06 98.4 72 17 151/69 87 Room Air 10/23/18 18:59 74 18 Room Air 10/23/18 18:38 98.4 74 18 160/78 85 Room Air Intake and Output 10/23/18 10/24/18 18:59 06:59 Intake Total 175 ml Output Total 1400 ml Balance -1225 ml Intake Oral 120 ml IV Total 55 ml Output Urine Total 1400 ml Laboratory Tests Test 10/23/18 18:55 10/23/18 20:45 10/24/18 04:15 10/24/18 11:54 White Blood Count 11.6 K/UL (4.8-10.8) H 8.2 K/UL (4.8-10.8) Red Blood Count 3.68 M/UL (4.20-5.40) L 3.51 M/UL (4.20-5.40) L Hemoglobin 10.0 G/DL (12.0-16.0) L 9.4 G/DL (12.0-16.0) L Hematocrit 29.8 % (37.0-47.0) L 28.4 % (37.0-47.0) L Mean Corpuscular Volume 81 FL (80-99) 81 FL (80-99) Mean Corpuscular Hemoglobin 27.2 PG (27.0-31.0) 26.8 PG (27.0-31.0) L Mean Corpuscular Hemoglobin Concent 33.6 G/DL (32.0-36.0) 33.2 G/DL (32.0-36.0) Red Cell Distribution Width 13.1 % (11.6-14.8) 12.9 % (11.6-14.8) Platelet Count 283 K/UL (150-450) 267 K/UL (150-450) Mean Platelet Volume 7.3 FL (6.5-10.1) 6.9 FL (6.5-10.1) Neutrophils (%) (Auto) 58.7 % (45.0-75.0) 70.6 % (45.0-75.0) Lymphocytes (%) (Auto) 31.1 % (20.0-45.0) 23.5 % (20.0-45.0) Monocytes (%) (Auto) 5.3 % (1.0-10.0) 3.9 % (1.0-10.0) Eosinophils (%) (Auto) 3.8 % (0.0-3.0) H 1.0 % (0.0-3.0) Basophils (%) (Auto) 1.1 % (0.0-2.0) 1.1 % (0.0-2.0) Prothrombin Time 10.5 SEC (9.30-11.50) Prothromb Time International Ratio 1.0 (0.9-1.1) Activated Partial Thromboplast Time 33 SEC (23-33) Sodium Level 136 MMOL/L (136-145) 138 MMOL/L (136-145) Potassium Level 4.3 MMOL/L (3.5-5.1) 4.5 MMOL/L (3.5-5.1) Chloride Level 104 MMOL/L (98-107) 105 MMOL/L (98-107) Carbon Dioxide Level 23 MMOL/L (21-32) 26 MMOL/L (21-32) Anion Gap 10 mmol/L (5-15) 8 mmol/L (5-15) Blood Urea Nitrogen 47 mg/dL (7-18) H 50 mg/dL (7-18) H Creatinine 4.0 MG/DL (0.55-1.30) H 4.1 MG/DL (0.55-1.30) H Estimat Glomerular Filtration Rate 11.6 mL/min (>60) 11.4 mL/min (>60) Glucose Level 82 MG/DL (74-106) 152 MG/DL (74-106) H Calcium Level 8.4 MG/DL (8.5-10.1) L 8.5 MG/DL (8.5-10.1) Total Bilirubin 0.3 MG/DL (0.2-1.0) 0.2 MG/DL (0.2-1.0) Aspartate Amino Transf (AST/SGOT) 12 U/L (15-37) L 14 U/L (15-37) L Alanine Aminotransferase (ALT/SGPT) 18 U/L (12-78) 15 U/L (12-78) Alkaline Phosphatase 121 U/L (46-116) H 111 U/L (46-116) Total Creatine Kinase 141 U/L (26-308) Troponin I 0.285 ng/mL (0.000-0.056) 0.204 ng/mL (0.000-0.056) 0.192 ng/mL (0.000-0.056) Pro-B-Type Natriuretic Peptide 4304 pg/mL (0-125) H Total Protein 6.9 G/DL (6.4-8.2) 6.4 G/DL (6.4-8.2) Albumin 2.7 G/DL (3.4-5.0) L 2.4 G/DL (3.4-5.0) L Globulin 4.2 g/dL 4.0 g/dL Albumin/Globulin Ratio 0.6 (1.0-2.7) L 0.6 (1.0-2.7) L Thyroid Stimulating Hormone (TSH) 5.211 uiU/mL (0.358-3.740) 2.665 uiU/mL (0.358-3.740) Urine Color Pale yellow Urine Appearance Clear Urine pH 6.5 (4.5-8.0) Urine Specific [place] 1.005 (1.005-1.035) Urine Protein 4+ (NEGATIVE) H Urine Glucose (UA) Negative (NEGATIVE) Urine Ketones Negative (NEGATIVE) Urine Blood 2+ (NEGATIVE) H Urine Nitrite Negative (NEGATIVE) Urine Bilirubin Negative (NEGATIVE) Urine Urobilinogen Normal MG/DL (0.0-1.0) Urine Leukocyte Esterase 1+ (NEGATIVE) H Urine RBC 2-4 /HPF (0 - 2) H Urine WBC 0-2 /HPF (0 - 2) Urine Squamous Epithelial Cells Few /LPF (NONE/OCC) Urine Bacteria Few /HPF (NONE) Iron Level 37 ug/dL (50-175) L Total Iron Binding Capacity 250 ug/dL (250-450) Percent Iron Saturation 15 % (15-50) Unsaturated Iron Binding 213 ug/dL (112-346) Ferritin 102 NG/ML (8-388) Vitamin B12 Level 1113 PG/ML (193-986) H Folate 18.5 NG/ML (8.6-58.9) Free Thyroxine 1.08 NG/DL (0.76-1.46) C-Reactive Protein, Quantitative 1.6 mg/dL (0.00-0.90) H Gilmer Lam MD Oct 24, 2018 14:57
[2018-10-24] MEDS ORDERED: Morphine Sulfate 2mg/ml Inj IVP PRN (18:00)
--- NOTE | 2018-10-24 19:29 | Consultation ---
DATE OF CONSULTATION: INFECTIOUS DISEASE CONSULTATION CONSULTING PHYSICIAN: Kandis Lipscomb M.D. REQUESTING PHYSICIAN: Rema Ray M.D. REASON FOR CONSULTATION: Bilateral pulmonary infiltrates and community-acquired pneumonia, recommendation for antibiotics treatment. HISTORY OF PRESENT ILLNESS: The patient is a 53-year-old female with past medical history of hyperlipidemia, hypertension, diabetes, cardiac disease, and presented to [facility] with progressive shortness of breath over the last five days. The patient's short of breath gets worse with activities. It does not change with lying flat or at night at all. She also noticed swelling in both legs, which has been also progressive with her shortness of breath. No phlegm. No recent travel or sick contact. No fever or chills. She was recently hospitalized at [facility] and had extensive workup including cardiac echo, which did not show evidence of heart failure, but her symptom was attributed mainly to her kidney failure at that time as per her son report. In ED, the patient had a chest x-ray, which showed bilateral basal infiltrate with pleural effusions. So, she was started on ceftriaxone and doxycycline empirically and Infectious Disease consultation was requested for antibiotics treatment and further management. The patient denied taking any influenza vaccine this year so far. REVIEW OF SYSTEMS: A 14-point of system reviewed were all negative apart from the one I mentioned above in my History and Physical. PAST MEDICAL HISTORY: Significant for hyperlipidemia, diabetes, coronary artery disease, hypertension, and . PAST SURGICAL HISTORY: Not on record. FAMILY HISTORY: Not significant for coronary artery disease in her father who because of it at uncertain age. SOCIAL HISTORY: The patient lives at home with daughter. No recent drugs, tobacco, or alcohol. She is unemployed. ALLERGIES: No known drug allergy. MEDICATIONS: Currently, she is on doxy and ceftriaxone. For the rest of her medications, please refer to MAR. PHYSICAL EXAMINATION: VITAL SIGNS: Temperature 98 degrees, pulse 78, respirations 20, blood pressure 145/69, and saturation 98% on 2 L nasal cannula. GENERAL: A middle-aged female, lying in bed, awake, alert, oriented x3, not in acute distress. HEENT: Normocephalic and atraumatic. Pupils are reactive to light equally. Pale sclerae. Moist oral mucosa. No exudate or thrush. NECK: Supple. No lymphadenopathy. CARDIOVASCULAR: Regular rate and rhythm. No murmur or gallop. LUNGS: Showed diminished breathing sounds at the bases on both sides with crackles. Normal breathing efforts. ABDOMEN: Soft, obese, nontender, and nondistended. Normal bowel sounds. No hepatosplenomegaly or ascites. EXTREMITIES: Edema +1, distal pulses +2 in both lower extremities. SKIN: No rash or hives. LABORATORY DATA: Labs showed white count of 11.6, hemoglobin of 10, and platelet count of 283,000. BUN of 50, creatinine of 4.1, AST of 14, and ALT of 15. Urinalysis showed negative bilirubin, +1 leukocyte esterase, wbc's 0 to 2, and few bacteria. IMAGING DATA: Chest x-ray showed basilar opacities likely combination of pleural fluid and atelectasis and consolidation with cardiomegaly. ASSESSMENT AND RECOMMENDATION: 1. Community-acquired pneumonia with bilateral basal infiltration or consolidation. We will continue ceftriaxone and doxycycline empiric coverage for community-acquired pneumonia. Monitor chest x-ray. We will send sputum culture if she produces any. Recommend influenza vaccine upon discharge since she did not receive at this year. 2. Congestive heart failure with exacerbation with bilateral pleural effusion. Recommend cardiac evaluation and echo. The patient may need dialysis in the future down the road if she does not respond to diuretics well. Monitor chest x-ray. 3. Acute on chronic renal failure, might be attributing to her fluid overload. The patient may need dialysis if no improvement with diuresis only. Recommend renal evaluation. Avoid nephrotoxics. 4. Hypoxia suspect due to the above. Continue nebulizer treatment, oxygen, and diuresis as needed. Thank you for the consult. ID will continue to follow. Kandis Lipscomb M.D. DR: FRANCINE JOB#: [id number] CC:
[2018-10-24] MEDS: Atorvastatin 20mg tab ORAL SCH (20:44)
[2018-10-24] MEDS ORDERED: Atorvastatin 20mg tab ORAL SCH (21:00)
--- NOTE | 2018-10-24 21:45 | Pulmonology Progress Note ---
Assessment/Plan Assessment/Plan Pulmonary Follow Up HPI Patient is a 53 year old woman who presents with chest pain and shortness of breath. Started off more with shortness of breath 4 days ago. The chest pain is been intermittent. She rates at 6/10 at this time and feels more pressure. It doesn't radiate. It's more dyspnea on exertion than orthopnea. The shortness of breath gets better with rest and with laying down. She has edema bilaterally and she states that it's worse on the left-hand side. She is a history of congestive heart failure although she denies this. She's also diabetic, has high cholesterol and hypertension. She states her blood sugar was 192 this morning and she states that that was "high" area she denies fevers or chills. There's no productive cough. The patient was admitted at [facility] a few months ago and told that she had fluid in her lungs and around her heart. Slight constipation. No passing of blood. No dysuria. She's not taking water pill at this time. The patient states that she's had problems with her kidneys for 15 years. She' s never had to have dialysis. She complains about some dizziness. She denies any headache or change in her vision. No palpitations, rashes. No easy bruising. Recent eval for possible PE - studies were negative. Allergies: Coded Allergies: No Known Allergies (Verified Allergy, Unknown, 02/17/11) Patient History Past Medical History: CHF, Hypertension, Hyperlipidemia, Type 2 Diabetes, CKD, Hypothyroidism Social History: Denies: smoking, alcohol use, drug use All Other Systems: negative except mentioned in HPI Objective Vital Signs Noted NCAT, moist mm JVP 6cm Chest: CTAB Heart: HS1, HS2, RRR Abdomen: Soft, NT, ND Extremities: Well perfused, minimal edema INTENSIVE CARE NURSE: Intact, no focal signs Investigations: Laboratory Tests Test 10/23/18 18:55 10/23/18 20:45 White Blood Count 11.6 K/UL (4.8-10.8) H Red Blood Count 3.68 M/UL (4.20-5.40) L Hemoglobin 10.0 G/DL (12.0-16.0) L Hematocrit 29.8 % (37.0-47.0) L Mean Corpuscular Volume 81 FL (80-99) Mean Corpuscular Hemoglobin 27.2 PG (27.0-31.0) Mean Corpuscular Hemoglobin Concent 33.6 G/DL (32.0-36.0) Red Cell Distribution Width 13.1 % (11.6-14.8) Platelet Count 283 K/UL (150-450) Mean Platelet Volume 7.3 FL (6.5-10.1) Neutrophils (%) (Auto) 58.7 % (45.0-75.0) Lymphocytes (%) (Auto) 31.1 % (20.0-45.0) Monocytes (%) (Auto) 5.3 % (1.0-10.0) Eosinophils (%) (Auto) 3.8 % (0.0-3.0) H Basophils (%) (Auto) 1.1 % (0.0-2.0) Prothrombin Time 10.5 SEC (9.30-11.50) Prothrombin Time INR 1.0 (0.9-1.1) PTT 33 SEC (23-33) Sodium Level 136 MMOL/L (136-145) Potassium Level 4.3 MMOL/L (3.5-5.1) Chloride Level 104 MMOL/L (98-107) Carbon Dioxide Level 23 MMOL/L (21-32) Anion Gap 10 mmol/L (5-15) Blood Urea Nitrogen 47 mg/dL (7-18) H Creatinine 4.0 MG/DL (0.55-1.30) H Estimate Glomerular Filtration Rate 11.6 mL/min (>60) Glucose Level 82 MG/DL (74-106) Calcium Level 8.4 MG/DL (8.5-10.1) L Total Bilirubin 0.3 MG/DL (0.2-1.0) Aspartate Amino Transferase (AST) 12 U/L (15-37) L Alanine Aminotransferase (ALT) 18 U/L (12-78) Alkaline Phosphatase 121 U/L (46-116) H Total Creatine Kinase 141 U/L (26-308) Troponin I 0.285 ng/mL (0.000-0.056) Pro-B-Type Natriuretic Peptide 4304 pg/mL (0-125) H Total Protein 6.9 G/DL (6.4-8.2) Albumin 2.7 G/DL (3.4-5.0) L Globulin 4.2 g/dL Albumin/Globulin Ratio 0.6 (1.0-2.7) L Thyroid Stimulating Hormone (TSH) 5.211 uiU/mL (0.358-3.740) Urine Color Pale yellow Urine Appearance Clear Urine pH 6.5 (4.5-8.0) Urine Specific [place] 1.005 (1.005-1.035) Urine Protein 4+ (NEGATIVE) H Urine Glucose (UA) Negative (NEGATIVE) Urine Ketones Negative (NEGATIVE) Urine Blood 2+ (NEGATIVE) H Urine Nitrite Negative (NEGATIVE) Urine Bilirubin Negative (NEGATIVE) Urine Urobilinogen Normal MG/DL (0.0-1.0) Urine Leukocyte Esterase 1+ (NEGATIVE) H Urine RBC 2-4 /HPF (0 - 2) H Urine WBC 0-2 /HPF (0 - 2) Urine Squamous Epithelial Cells Few /LPF (NONE/OCC) Urine Bacteria Few /HPF (NONE) EKG Diagnostic Results Rate: normal Rhythm: NSR ST Segments: no acute changes Rhythm Strip Diag. Results EP Interpretation: yes Rhythm: NSR, no PVC's, no ectopy Chest X-Ray Diagnostic Results Chest X-Ray Diagnostic Results : Chest X-Ray Ordered: Yes # of Views/Limited/Complete: 1 View Indication: Other EP Interpretation: Yes Interpretation: no pneumothorax, other - CHF and bilat effusions Impression: Other Labs noted EKG with normal sinus rhythm rate [address]-T wave changes. CXR CHF and pleural effusions. Impression: Chest pain, NSTEMI CHF (congestive heart failure) CKD Type 2 Diabetes Hyperlipidemia Hypothyroid Plan: Trend troponins VQ scan LE Dupplex Treat for possible community aquired pneumonia given basal atelectasis on CXR: Ceftriaxone and Doxycycline Lasix PRN Lovenox per Pharmacy Nitro paste ASA Pain meds ISS Oct 23, 2018 23:46 Subjective ROS Limited/Unobtainable: No Allergies: Coded Allergies: No Known Allergies (Verified Allergy, Unknown, 02/17/11) Objective Last 24 Hour Vital Signs Date Time Temp Pulse Resp B/P (MAP) Pulse Ox O2 Delivery O2 Flow Rate FiO2 10/24/18 21:00 Nasal Cannula 2.0 10/24/18 20:00 99.1 76 18 137/68 (91) 95 10/24/18 20:00 77 10/24/18 18:29 133/75 10/24/18 17:00 72 16 120/33 (62) 99 18 16:00 75 10/24/18 16:00 Nasal Cannula 2.0 10/24/18 16:00 98.0 78 16 111/69 (83) 98 18 15:00 75 16 120/58 (78) 99 10/24/18 14:18 75 156/67 10/24/18 14:00 72 16 118/58 (78) 99 10/24/18 13:00 75 16 122/70 (87) 99 10/24/18 12:00 Nasal Cannula 2.0 10/24/18 12:00 71 10/24/18 12:00 156/67 10/24/18 12:00 97.9 78 20 120/60 (80) 98 10/24/18 11:00 76 15 150/67 (94) 99 10/24/18 10:00 75 15 156/67 (96) 99 10/24/18 09:02 72 149/76 10/24/18 09:00 72 15 140/76 (97) 99 10/24/18 08:00 98.0 78 20 145/69 (94) 98 10/24/18 08:00 Nasal Cannula 2.0 10/24/18 08:00 62 10/24/18 07:00 65 15 149/76 (100) 99 10/24/18 06:00 98.0 78 20 155/70 (98) 98 18 05:46 153/69 10/24/18 05:00 65 15 153/69 (97) 98 10/24/18 04:00 98.0 61 15 124/60 (81) 98 10/24/18 04:00 Nasal Cannula 2.0 10/24/18 03:00 86 19 122/74 (90) 98 10/24/18 02:00 58 16 150/68 (95) 98 10/24/18 01:39 Nasal Cannula 2.0 10/24/18 01:00 56 22 111/71 (84) 97 10/24/18 01:00 97.8 78 16 111/71 (84) 98 18 01:00 56 111/71 18 00:54 58 10/24/18 00:47 97.0 58 23 133/60 (84) 94 12/16/18 00:40 97.5 54 18 153/74 97 Nasal Cannula 2.0 10/24/18 00:08 97.5 54 18 153/74 97 Nasal Cannula 2.0 10/23/18 22:54 60 20 150/75 98 Nasal Cannula 2.0 Intake and Output 10/23/18 10/24/18 19:00 07:00 Intake Total 175 ml Output Total 1600 ml Balance -1425 ml Intake Oral 120 ml IV Total 55 ml Output Urine Total 1600 ml Laboratory Tests 10/24/18 04:15: White Blood Count 8.2, Red Blood Count 3.51L, Hemoglobin 9.4L, Hematocrit 28.4L , Mean Corpuscular Volume 81, Mean Corpuscular Hemoglobin 26.8L, Mean Corpuscular Hemoglobin Concent 33.2, Red Cell Distribution Width 12.9, Platelet Count 267, Mean Platelet Volume 6.9, Neutrophils (%) (Auto) 70.6, Lymphocytes (% ) (Auto) 23.5, Monocytes (%) (Auto) 3.9, Eosinophils (%) (Auto) 1.0, Basophils ( %) (Auto) 1.1, Sodium Level 138, Potassium Level 4.5, Chloride Level 105, Carbon Dioxide Level 26, Anion Gap 8, Blood Urea Nitrogen 50H, Creatinine 4.1H, Estimat Glomerular Filtration Rate 11.4, Glucose Level 152H, Calcium Level 8.5, Iron Level 37L, Total Iron Binding Capacity 250, Percent Iron Saturation 15, Unsaturated Iron Binding 213, Ferritin 102, Total Bilirubin 0.2, Aspartate Amino Transf (AST/SGOT) 14L, Alanine Aminotransferase (ALT/SGPT) 15, Alkaline Phosphatase 111, Troponin I 0.204H, Total Protein 6.4, Albumin 2.4L, Globulin 4.0, Albumin/Globulin Ratio 0.6L, Vitamin B12 Level 1113H, Folate 18.5, Thyroid Stimulating Hormone (TSH) 2.665, Free Thyroxine 1.08 10/24/18 11:54: Troponin I 0.192H, C-Reactive Protein, Quantitative 1.6H Current Medications Medications (Trade) Dose Ordered Sig/Miguel Route PRN Reason Start Time Stop Time Status Last Admin Dose Admin Acetaminophen (Tylenol) 650 mg Q6H PRN ORAL Prn Mod pain/Fever 10/24/18 18:00 11/23/18 17:59 Amlodipine Besylate (Norvasc) 5 mg DAILY ORAL 10/25/18 09:00 11/24/18 08:59 Aspirin (ASA) 325 mg DAILY ORAL 10/25/18 09:00 11/23/18 08:59 Atorvastatin Calcium (Lipitor) 20 mg BEDTIME ORAL 10/24/18 21:00 11/23/18 20:59 10/24/18 20:44 Ceftriaxone Sodium 1 gm/ Dextrose 55 ml @ 110 mls/hr DAILY IVPB 10/25/18 09:00 11/01/18 08:59 Dextrose (Dextrose 50%) 25 ml Q30M PRN IV Hypoglycemia 10/24/18 18:00 11/23/18 00:00 Dextrose (Dextrose 50%) 50 ml Q30M PRN IV Hypoglycemia 10/24/18 18:00 11/23/18 00:00 Doxycycline Monohydrate (Vibramycin) 100 mg BID ORAL 10/24/18 18:00 10/31/18 08:59 10/24/18 18:28 Furosemide (Lasix) 40 mg EVERY 12 HOURS IV 10/24/18 21:00 11/23/18 08:59 10/24/18 20:44 Heparin Sodium (Porcine) (Heparin 5000 units/ml) 5,000 units EVERY 12 HOURS SUBQ 10/24/18 21:00 11/23/18 00:29 10/24/18 20:49 Insulin Aspart (NovoLOG) BEFORE MEALS AND HS SUBQ 10/24/18 21:00 11/23/18 06:29 10/24/18 20:45 Metoprolol Succinate (Toprol XL) 25 mg DAILY ORAL 10/25/18 09:00 11/23/18 08:59 Morphine Sulfate (Morphine Sulfate) 2 mg Q3H PRN IVP Severe Pain (Pain Scale 7-10) 10/24/18 18:00 10/31/18 17:59 Nitroglycerin (Nitro-Bid) 1 inch TID@0600,1200,1800 TOPIC 10/24/18 18:00 11/23/18 05:59 10/24/18 18:29 Nitroglycerin (Ntg) 0.4 mg Q5M PRN SL Prn Chest Pain 10/24/18 17:45 11/23/18 00:29 Pantoprazole (Protonix) 40 mg DAILY ORAL 10/25/18 09:00 11/23/18 13:48 Panchito Cha MD Oct 24, 2018 21:45
--- NOTE | 2018-10-24 23:15 | Consultation ---
DATE OF CONSULTATION: 10/24/2018 CARDIOLOGY CONSULTATION CONSULTING PHYSICIAN: Gilmer Lam M.D. REFERRING PHYSICIAN: Rema Ray M.D. REASON FOR CONSULTATION: Management of elevated troponin I level. HISTORY OF PRESENT ILLNESS: The patient is a very unfortunate 53-year-old female, who presents to the hospital with complaints of chest pain and shortness of breath that has started about four days ago. Chest pain is intermittent, grade of 6/10 on a scale of 1 to 10, and feels more pressure-like and nonradiating with associated shortness of breath. The patient has been having trouble with bilateral lower extremity edema, worse on the left than the right. She has a prior history of congestive heart failure and renal failure according to the patient's next of kin at the bedside. She was told that her kidney function is okay. Her history is also significant for presence of fluid in her lungs and around her heart. PAST MEDICAL HISTORY: History of renal failure, history of congestive heart failure, history of pericardial effusion, history of pleural effusion, history of recent admission to [facility] for shortness of breath and renal failure and congestive heart failure. PAST SURGICAL HISTORY: None. MEDICATIONS: List of medications, atorvastatin 80 mg p.o. nightly, carvedilol 3.125 mg q.12 h., ferrous sulfate 325 mg twice daily, glipizide 5 mg p.o. twice daily, hydralazine 10 mg p.o. q.i.d., insulin Lantus, and levothyroxine 50 mcg p.o. daily. ALLERGIES: No known drug allergies. SOCIAL HISTORY: Denies any tobacco, alcohol, or illicit drug use. She is accompanied by her daughter. REVIEW OF SYSTEMS: A 12-system review done essentially negative except what mentioned in the history of present illness. PHYSICAL EXAMINATION: GENERAL: The patient is a very unfortunate 53-year-old lady, who is in no apparent respiratory distress. Alert and oriented x4. as well as Icelandic. VITAL SIGNS: Blood pressure is 160/78, respirations of 18, pulse of 74, temperature 98.4 degrees Fahrenheit, and O2 saturation 85% on room air. At the time of arrival, currently saturation is 95%. HEENT: Atraumatic and normocephalic. Anicteric. Periorbital edema. Pale conjunctivae. NECK: JVP is less than 5 cm. No carotid bruits. Carotid upstrokes 2+ bilaterally. CARDIOVASCULAR: Normal S1 and S2. Regular rate and rhythm. No murmurs, gallops, or rubs. PMI is at fourth intercostal space in the mid clavicular line. LUNGS: Diminished breath sounds in both bases with associated rales. ABDOMEN: Soft, nontender, and nondistended. No hepatosplenomegaly. Positive bowel sounds. EXTREMITIES: There is bilateral lower extremity edema of 1+ to 2+. LABORATORY AND DIAGNOSTIC DATA: Laboratory findings, WBC was 11.6, hemoglobin was 10.0, hematocrit was 29.8, and platelet count is 283,000. Sodium was 136, potassium is 4.3, chloride 104, bicarbonate 23, BUN of 47, creatinine 4.0, glucose 82, and calcium is 8.4. Troponin I is 0.285 and 0.204. ProBNP was 4304. INR was 1.0. A chest x-ray showed cardiomegaly with bilateral pleural effusion as well as atelectasis and possible consolidation. ASSESSMENT AND PLAN: The patient is a very unfortunate 53-year-old lady, who is seen in Cardiology consultation. 1. Most likely acute heart failure with normal ejection fraction in view of chronic kidney disease, accelerated hypertension in this patient being a female. The patient will require to have diuretic, reduction of preload with combination of Lasix as well as metolazone. The patient would require a 2D echocardiography for assessment of left ventricular systolic and diastolic function and re-evaluation of pericardial effusion. 2. Presence of hypervolemia with bilateral pleural effusion, likely secondary to end-stage renal disease in view of stage 5. As the patient may require hemodialysis, Nephrology consultation is warranted. 3. Slight elevation of troponin I, could be secondary to troponin leak due to chronic kidney disease as the pattern of the rise is . There is no evidence of ischemia on 12-lead electrocardiogram. At this time, we will continue with conservative management. In the future, the patient may benefit from cardiac catheterization, however, she requires to be started on dialysis before cardiac catheterization can be proceeded. 4. Further therapeutic and diagnostic decisions will be based on the results of 2D echocardiography and her clinical course in the next few days. 5. Accelerated hypertension. We will use combination of calcium channel elida, beta-blockers, as well as hydralazine to control blood pressure. I would like to thank, Dr. Ray, for the courtesy of this consultation. Gilmer Lam M.D. DR: Francisca JOB#: [id number] CC:
[2018-10-25 04:00] VITALS: BP 135/65
[2018-10-25] MEDS: Nitroglycerin 2% oint pkt TOPIC SCH ×3 (05:59→19:03)
[2018-10-25] MEDS: NovoLOG Insulin Flexpen SUBQ SCH ×4 (06:07→22:07)
[2018-10-25 06:32] LABS: EOSINOPHILS % (AUTO) 3.4 % (0.0-3.0); HEMATOCRIT 28.1 % (37.0-47.0); HEMOGLOBIN 9.2 G/DL (12.0-16.0); LYMPHOCYTES % (AUTO) 32.2 % (20.0-45.0); MEAN CORPUSCULAR VOLUME 82 FL (80-99); MONOCYTES % (AUTO) 5.9 % (1.0-10.0); NEUTROPHILS % (AUTO) 57.6 % (45.0-75.0); PLATELET COUNT 263 K/UL (150-450); RED BLOOD COUNT 3.41 M/UL (4.20-5.40); RED CELL DISTRIBUTION WIDTH 13.5 % (11.6-14.8); WHITE BLOOD COUNT 10.1 K/UL (4.8-10.8)
[2018-10-25 07:15] LABS: ALANINE AMINOTRANSFERASE 13 U/L (12-78); ALBUMIN 2.3 G/DL (3.4-5.0); ALBUMIN/GLOBULIN RATIO 0.6 (1.0-2.7); ALKALINE PHOSPHATASE 111 U/L (46-116); ANION GAP 8 mmol/L (5-15); ASPARTATE AMINO TRANSFERASE 9 U/L (15-37); BILIRUBIN,TOTAL 0.1 MG/DL (0.2-1.0); BLOOD UREA NITROGEN 53 mg/dL (7-18); CALCIUM 8.4 MG/DL (8.5-10.1); CARBON DIOXIDE 26 MMOL/L (21-32); CHLORIDE 106 MMOL/L (98-107); CHOLESTEROL 167 MG/DL (< 200); CREATINE KINASE 46 U/L (26-308); CREATININE 4.8 MG/DL (0.55-1.30); GAMMA GLUTAMYL TRANSPEPTIDASE 28 U/L (5-85); HDL CHOLESTEROL 36 MG/DL (40-60); PHOSPHORUS 5.9 MG/DL (2.5-4.9); POTASSIUM 4.2 MMOL/L (3.5-5.1); SODIUM 140 MMOL/L (136-145); TRIGLYCERIDES 177 MG/DL (30-150)
[2018-10-25 08:00] VITALS: BP 143/68
[2018-10-25] MEDS: cefTRIAXone 1 GM in D5W 55 ML IVPB SCH (08:56)
[2018-10-25] MEDS: Metoprolol Succinate XL 25mg tab ORAL SCH (08:57)
[2018-10-25] MEDS: Heparin 5000 units/ml inj SUBQ SCH ×2 (09:05→22:05)
--- NOTE | 2018-10-25 09:15 | Nephrology Progress Note ---
Assessment/Plan Assessment Renal failure, likely diabetic nephropathy and Nephrotic syndrom Hypoxia, CHF Chest pain, NSTEMI (non-ST elevated myocardial infarction) Hypothyroid Anemia Plan 2D echo- noted 24 h urine CrCl and Total protein Kidney TANK pending Anemia llamas avoid Nephrotoxics hold lasix adjust bp meds per orders Subjective ROS Limited/Unobtainable: No Constitutional: Reports: weakness Objective Objective Last 24 Hour Vital Signs Date Time Temp Pulse Resp B/P (MAP) Pulse Ox O2 Delivery O2 Flow Rate FiO2 10/25/18 08:57 74 143/68 18 08:57 74 143/68 18 05:59 135/65 10/25/18 04:00 71 10/25/18 04:00 98.5 72 18 135/65 (88) 96 10/25/18 00:00 76 10/24/18 23:35 98.5 73 18 120/60 (80) 96 10/24/18 21:00 Nasal Cannula 2.0 10/24/18 20:00 99.1 76 18 137/68 (91) 95 10/24/18 20:00 77 18 18:29 133/75 10/24/18 17:00 72 16 120/33 (62) 99 10/24/18 16:00 75 10/24/18 16:00 Nasal Cannula 2.0 10/24/18 16:00 98.0 78 16 111/69 (83) 98 10/24/18 15:00 75 16 120/58 (78) 99 18 14:18 75 156/67 10/24/18 14:00 72 16 118/58 (78) 99 10/24/18 13:00 75 16 122/70 (87) 99 10/24/18 12:00 Nasal Cannula 2.0 10/24/18 12:00 71 10/24/18 12:00 156/67 10/24/18 12:00 97.9 78 20 120/60 (80) 98 10/24/18 11:00 76 15 150/67 (94) 99 18 10:00 75 15 156/67 (96) 99 Intake and Output 10/24/18 10/25/18 19:00 07:00 Intake Total 200 ml Output Total 1900 ml 1300 ml Balance -1700 ml -1300 ml Intake Oral 200 ml Output Urine Total 1900 ml 1300 ml Laboratory Tests 10/24/18 11:54: Troponin I 0.192H, C-Reactive Protein, Quantitative 1.6H 10/25/18 05:40: Troponin I 0.150H, White Blood Count 10.1, Red Blood Count 3.41L, Hemoglobin 9.2L, Hematocrit 28.1L, Mean Corpuscular Volume 82, Mean Corpuscular Hemoglobin 26.9L, Mean Corpuscular Hemoglobin Concent 32.6, Red Cell Distribution Width 13.5, Platelet Count 263, Mean Platelet Volume 7.2, Neutrophils (%) (Auto) 57.6 , Lymphocytes (%) (Auto) 32.2, Monocytes (%) (Auto) 5.9, Eosinophils (%) (Auto) 3.4H, Basophils (%) (Auto) 1.0, Sodium Level 140, Potassium Level 4.2, Chloride Level 106, Carbon Dioxide Level 26, Anion Gap 8, Blood Urea Nitrogen 53H, Creatinine 4.8H, Estimat Glomerular Filtration Rate 9.4, Glucose Level 165H, Hemoglobin A1c 12.4H, Uric Acid 7.8H, Calcium Level 8.4L, Phosphorus Level 5.9H , Magnesium Level 2.2, Total Bilirubin 0.1L, Gamma Glutamyl Transpeptidase 28, Aspartate Amino Transf (AST/SGOT) 9L, Alanine Aminotransferase (ALT/SGPT) 13, Alkaline Phosphatase 111, Total Creatine Kinase 46, Pro-B-Type Natriuretic Peptide 2735H, Total Protein 6.3L, Albumin 2.3L, Globulin 4.0, Albumin/Globulin Ratio 0.6L, Triglycerides Level 177H, Cholesterol Level 167, LDL Cholesterol 103H, HDL Cholesterol 36L, Cholesterol/HDL Ratio 4.6H Height (Feet): 5 Height (Inches): 2.00 Weight (Pounds): 192 General Appearance: no apparent distress Cardiovascular: normal rate Respiratory/Chest: decreased breath sounds Abdomen: soft, other - obese Lito Frank MD Oct 25, 2018 09:15
--- NOTE | 2018-10-25 11:35 | Diagnostic Imaging Report ---
Indications: Towards of breath and chest pain Technique: IV administration 5.5 mCi 99m technetium macroaggregated albumin. Images obtained over the lungs in multiple projections. Previously, patient inhaled 42 mCi aerosolized 99M technetium DTPA. Images obtained over the lungs in multiple projections Comparison: Chest radiograph dated 10/23/2018 Findings: There is slight heterogeneity to tracer distribution on the perfusion images, but no segmental or subsegmental perfusion defects are demonstrated. No evidence of perfusion aerosol mismatch Impression: Findings deemed low probability for pulmonary embolus
--- NOTE | 2018-10-25 14:47 | General Progress Note ---
Assessment/Plan Assessment/Plan S: My sob is better O: appears comfortable, seen in Telemetry. Son at the bed side PHYSICAL EXAMINATION: HEAD AND NECK: Atraumatic and normocephalic. CHEST: Diffuse bronchial breathing sounds. Positive for fine crackles in both lower lungs. ABDOMEN: Obese. Bowel sounds are normal. No organomegaly. MUSCULOSKELETAL: Diffuse swelling and edema in all the extremities, especially in the dependent areas. No gross lateralized motor deficit. NEUROLOGY: The patient is awake, alert, and oriented x3. Meds: reviewed and reconciled in the chart ASSESSMENT AND PLAN: 1. Acute congestive heart failure exacerbation - new onset. 2. Community-acquired pneumonia, less likely 3. Renal failure - age indeterminate. stable 4. Hypothyroidism. 5. Diabetes type 2. 6. Hypertension. 7. Gastrointestinal and deep vein thrombosis prophylaxis. Plan: Will restart Diuresis Will monitor renal function Notes from ID and nephro reviewed Subjective Allergies: Coded Allergies: No Known Allergies (Verified Allergy, Unknown, 02/17/11) Objective Last 24 Hour Vital Signs Date Time Temp Pulse Resp B/P (MAP) Pulse Ox O2 Delivery O2 Flow Rate FiO2 10/25/18 13:06 152/76 10/25/18 09:00 Nasal Cannula 2.0 10/25/18 08:57 74 143/68 10/25/18 08:57 74 143/68 10/25/18 08:00 98.1 74 19 143/68 (93) 97 10/25/18 08:00 77 10/25/18 05:59 135/65 10/25/18 04:00 71 10/25/18 04:00 98.5 72 18 135/65 (88) 96 10/25/18 00:00 76 10/24/18 23:35 98.5 73 18 120/60 (80) 96 10/24/18 21:00 Nasal Cannula 2.0 10/24/18 20:00 99.1 76 18 137/68 (91) 95 10/24/18 20:00 77 10/24/18 18:29 133/75 10/24/18 17:00 72 16 120/33 (62) 99 10/24/18 16:00 75 10/24/18 16:00 Nasal Cannula 2.0 10/24/18 16:00 98.0 78 16 111/69 (83) 98 10/24/18 15:00 75 16 120/58 (78) 99 Intake and Output 10/24/18 10/25/18 19:00 07:00 Intake Total 200 ml Output Total 1900 ml 1300 ml Balance -1700 ml -1300 ml Intake Oral 200 ml Output Urine Total 1900 ml 1300 ml Laboratory Tests 10/25/18 05:40: White Blood Count 10.1, Red Blood Count 3.41L, Hemoglobin 9.2L, Hematocrit 28.1L , Mean Corpuscular Volume 82, Mean Corpuscular Hemoglobin 26.9L, Mean Corpuscular Hemoglobin Concent 32.6, Red Cell Distribution Width 13.5, Platelet Count 263, Mean Platelet Volume 7.2, Neutrophils (%) (Auto) 57.6, Lymphocytes (% ) (Auto) 32.2, Monocytes (%) (Auto) 5.9, Eosinophils (%) (Auto) 3.4H, Basophils (%) (Auto) 1.0, Sodium Level 140, Potassium Level 4.2, Chloride Level 106, Carbon Dioxide Level 26, Anion Gap 8, Blood Urea Nitrogen 53H, Creatinine 4.8H, Estimat Glomerular Filtration Rate 9.4, Glucose Level 165H, Hemoglobin A1c 12.4H , Uric Acid 7.8H, Calcium Level 8.4L, Phosphorus Level 5.9H, Magnesium Level 2.2 , Total Bilirubin 0.1L, Gamma Glutamyl Transpeptidase 28, Aspartate Amino Transf (AST/SGOT) 9L, Alanine Aminotransferase (ALT/SGPT) 13, Alkaline Phosphatase 111, Total Creatine Kinase 46, Troponin I 0.150H, Pro-B-Type Natriuretic Peptide 2735H, Total Protein 6.3L, Albumin 2.3L, Globulin 4.0, Albumin/Globulin Ratio 0.6L, Triglycerides Level 177H, Cholesterol Level 167, LDL Cholesterol 103H, HDL Cholesterol 36L, Cholesterol/HDL Ratio 4.6H Height (Feet): 5 Height (Inches): 2.00 Weight (Pounds): 192 Rema Ray MD Oct 25, 2018 14:47
--- NOTE | 2018-10-25 14:50 | Infectious Diseases Prog Note ---
Assessment/Plan Problems: (1) Community acquired pneumonia Assessment & Plan: continue ceftriaxone and switch doxycycline to azithromycin empirically , recommend influenza vaccination at discharge (2) CHF (congestive heart failure) Assessment & Plan: with possible exacerbation, continue diuresis , cardiology is following (3) Renal failure (ARF), acute on chronic Assessment & Plan: monitor renal function, avoid nephrotoxics, may need HD in the future , nephrology is following (4) Hypoxia Assessment & Plan: due to the above , continue oxygen and nebulizers , monitor CXR, may need thoracentesis Subjective Constitutional: Reports: no symptoms HEENT: Reports: no symptoms Respiratory: Reports: no symptoms Breasts: Reports: no symptoms Cardiovascular: Reports: no symptoms Gastrointestinal/Abdominal: Reports: no symptoms Genitourinary: Reports: no symptoms Neurologic: Reports: no symptoms Psychiatric: Reports: no symptoms Skin: Reports: no symptoms Endocrine: Reports: no symptoms Hematologic: Reports: no symptoms Musculoskeletal: Reports: no symptoms Allergies: Coded Allergies: No Known Allergies (Verified Allergy, Unknown, 02/17/11) Objective Vital Signs Last 24 Hour Vital Signs Date Time Temp Pulse Resp B/P (MAP) Pulse Ox O2 Delivery O2 Flow Rate FiO2 10/25/18 13:06 152/76 10/25/18 09:00 Nasal Cannula 2.0 10/25/18 08:57 74 143/68 10/25/18 08:57 74 143/68 10/25/18 08:00 98.1 74 19 143/68 (93) 97 10/25/18 08:00 77 10/25/18 05:59 135/65 10/25/18 04:00 71 10/25/18 04:00 98.5 72 18 135/65 (88) 96 10/25/18 00:00 76 10/24/18 23:35 98.5 73 18 120/60 (80) 96 10/24/18 21:00 Nasal Cannula 2.0 10/24/18 20:00 99.1 76 18 137/68 (91) 95 10/24/18 20:00 77 18 18:29 133/75 10/24/18 17:00 72 16 120/33 (62) 99 10/24/18 16:00 75 10/24/18 16:00 Nasal Cannula 2.0 10/24/18 16:00 98.0 78 16 111/69 (83) 98 10/24/18 15:00 75 16 120/58 (78) 99 Height (Feet): 5 Height (Inches): 2.00 Weight (Pounds): 192 General Appearance: WD/WN, no acute distress HEENT: normocephalic, atraumatic, anicteric, mucous membranes moist, PERRL Respiratory/Chest: chest wall non-tender, normal breath sounds, no respiratory distress, no accessory muscle use, decreased breath sounds Cardiovascular: normal peripheral pulses, normal rate, regular rhythm, no gallop/murmur, no JVD Abdomen: normal bowel sounds, soft, non tender, no organomegaly, non distended , no mass, no scars Genitourinary: normal external genitalia Extremities: no cyanosis, no clubbing Skin: no rash, no lesions, no ulcers Neurologic/Psychiatric: alert, oriented x 3, responsive Lymphatic: no neck adenopathy, no groin adenopathy Musculoskeletal: normal muscle bulk, no effusion Laboratory Tests Test 10/25/18 05:40 White Blood Count 10.1 K/UL (4.8-10.8) Red Blood Count 3.41 M/UL (4.20-5.40) L Hemoglobin 9.2 G/DL (12.0-16.0) L Hematocrit 28.1 % (37.0-47.0) L Mean Corpuscular Volume 82 FL (80-99) Mean Corpuscular Hemoglobin 26.9 PG (27.0-31.0) L Mean Corpuscular Hemoglobin Concent 32.6 G/DL (32.0-36.0) Red Cell Distribution Width 13.5 % (11.6-14.8) Platelet Count 263 K/UL (150-450) Mean Platelet Volume 7.2 FL (6.5-10.1) Neutrophils (%) (Auto) 57.6 % (45.0-75.0) Lymphocytes (%) (Auto) 32.2 % (20.0-45.0) Monocytes (%) (Auto) 5.9 % (1.0-10.0) Eosinophils (%) (Auto) 3.4 % (0.0-3.0) H Basophils (%) (Auto) 1.0 % (0.0-2.0) Sodium Level 140 MMOL/L (136-145) Potassium Level 4.2 MMOL/L (3.5-5.1) Chloride Level 106 MMOL/L (98-107) Carbon Dioxide Level 26 MMOL/L (21-32) Anion Gap 8 mmol/L (5-15) Blood Urea Nitrogen 53 mg/dL (7-18) H Creatinine 4.8 MG/DL (0.55-1.30) H Estimat Glomerular Filtration Rate 9.4 mL/min (>60) Glucose Level 165 MG/DL (74-106) H Hemoglobin A1c 12.4 % (4.3-6.0) H Uric Acid 7.8 MG/DL (2.6-7.2) H Calcium Level 8.4 MG/DL (8.5-10.1) L Phosphorus Level 5.9 MG/DL (2.5-4.9) H Magnesium Level 2.2 MG/DL (1.8-2.4) Total Bilirubin 0.1 MG/DL (0.2-1.0) L Gamma Glutamyl Transpeptidase 28 U/L (5-85) Aspartate Amino Transf (AST/SGOT) 9 U/L (15-37) L Alanine Aminotransferase (ALT/SGPT) 13 U/L (12-78) Alkaline Phosphatase 111 U/L (46-116) Total Creatine Kinase 46 U/L (26-308) Troponin I 0.150 ng/mL (0.000-0.056) Pro-B-Type Natriuretic Peptide 2735 pg/mL (0-125) H Total Protein 6.3 G/DL (6.4-8.2) L Albumin 2.3 G/DL (3.4-5.0) L Globulin 4.0 g/dL Albumin/Globulin Ratio 0.6 (1.0-2.7) L Triglycerides Level 177 MG/DL (30-150) H Cholesterol Level 167 MG/DL (< 200) LDL Cholesterol 103 mg/dL (<100) H HDL Cholesterol 36 MG/DL (40-60) L Cholesterol/HDL Ratio 4.6 (3.3-4.4) H Current Medications Medications (Trade) Dose Ordered Sig/Miguel Route PRN Reason Start Time Stop Time Status Last Admin Dose Admin Acetaminophen (Tylenol) 650 mg Q6H PRN ORAL Prn Mod pain/Fever 10/24/18 18:00 11/23/18 17:59 Amlodipine Besylate (Norvasc) 5 mg BID ORAL 10/25/18 18:00 11/24/18 08:59 Aspirin (ASA) 325 mg DAILY ORAL 10/25/18 09:00 11/23/18 08:59 10/25/18 08:56 Atorvastatin Calcium (Lipitor) 20 mg BEDTIME ORAL 10/24/18 21:00 11/23/18 20:59 10/24/18 20:44 Azithromycin (Zithromax) 250 mg DAILY ORAL 10/26/18 09:00 11/02/18 08:59 Ceftriaxone Sodium 1 gm/ Dextrose 55 ml @ 110 mls/hr DAILY IVPB 10/25/18 09:00 11/01/18 08:59 10/25/18 08:56 Dextrose (Dextrose 50%) 25 ml Q30M PRN IV Hypoglycemia 10/24/18 18:00 11/23/18 00:00 Dextrose (Dextrose 50%) 50 ml Q30M PRN IV Hypoglycemia 10/24/18 18:00 11/23/18 00:00 Furosemide (Lasix) 40 mg DAILY IV 10/25/18 14:45 11/24/18 14:44 UNV Heparin Sodium (Porcine) (Heparin 5000 units/ml) 5,000 units EVERY 12 HOURS SUBQ 10/24/18 21:00 11/23/18 00:29 10/25/18 09:05 Insulin Aspart (NovoLOG) BEFORE MEALS AND HS SUBQ 10/24/18 21:00 11/23/18 06:29 10/25/18 13:11 Metoprolol Succinate (Toprol XL) 25 mg DAILY ORAL 10/25/18 09:00 11/23/18 08:59 10/25/18 08:57 Morphine Sulfate (Morphine Sulfate) 2 mg Q3H PRN IVP Severe Pain (Pain Scale 7-10) 10/24/18 18:00 10/31/18 17:59 Nitroglycerin (Nitro-Bid) 1 inch TID@0600,1200,1800 TOPIC 10/24/18 18:00 11/23/18 05:59 10/25/18 13:06 Nitroglycerin (Ntg) 0.4 mg Q5M PRN SL Prn Chest Pain 10/24/18 17:45 11/23/18 00:29 Pantoprazole (Protonix) 40 mg DAILY ORAL 10/25/18 09:00 11/23/18 13:48 10/25/18 08:56 Kandis Lipscomb M.D. Oct 25, 2018 14:50
[2018-10-25 16:00] VITALS: BP 147/68
[2018-10-25 20:00] VITALS: BP 135/60
[2018-10-25] MEDS: Atorvastatin 20mg tab ORAL SCH (22:04)
[2018-10-25] MEDS: Levemir Flexpen SUBQ SCH (22:08)
--- NOTE | 2018-10-25 23:00 | Pulmonology Progress Note ---
Assessment/Plan Assessment/Plan Pulmonary Follow Up HPI Patient is a 53 year old woman who presents with chest pain and shortness of breath. Started off more with shortness of breath 4 days ago. The chest pain is been intermittent. She rates at 6/10 at this time and feels more pressure. It doesn't radiate. It's more dyspnea on exertion than orthopnea. The shortness of breath gets better with rest and with laying down. She has edema bilaterally and she states that it's worse on the left-hand side. She is a history of congestive heart failure although she denies this. She's also diabetic, has high cholesterol and hypertension. She states her blood sugar was 192 this morning and she states that that was "high" area she denies fevers or chills. There's no productive cough. The patient was admitted at [facility] a few months ago and told that she had fluid in her lungs and around her heart. Slight constipation. No passing of blood. No dysuria. She's not taking water pill at this time. The patient states that she's had problems with her kidneys for 15 years. She' s never had to have dialysis. She complains about some dizziness. She denies any headache or change in her vision. No palpitations, rashes. No easy bruising. Recent eval for possible PE - studies were negative. Improved condition Allergies: Coded Allergies: No Known Allergies (Verified Allergy, Unknown, 02/17/11) Patient History Past Medical History: CHF, Hypertension, Hyperlipidemia, Type 2 Diabetes, CKD, Hypothyroidism Social History: Denies: smoking, alcohol use, drug use All Other Systems: negative except mentioned in HPI Objective Vital Signs Noted NCAT, moist mm JVP 6cm Chest: CTAB Heart: HS1, HS2, RRR Abdomen: Soft, NT, ND Extremities: Well perfused, minimal edema TESTING LEAD: Intact, no focal signs Investigations: Laboratory Tests Test 10/23/18 18:55 10/23/18 20:45 White Blood Count 11.6 K/UL (4.8-10.8) H Red Blood Count 3.68 M/UL (4.20-5.40) L Hemoglobin 10.0 G/DL (12.0-16.0) L Hematocrit 29.8 % (37.0-47.0) L Mean Corpuscular Volume 81 FL (80-99) Mean Corpuscular Hemoglobin 27.2 PG (27.0-31.0) Mean Corpuscular Hemoglobin Concent 33.6 G/DL (32.0-36.0) Red Cell Distribution Width 13.1 % (11.6-14.8) Platelet Count 283 K/UL (150-450) Mean Platelet Volume 7.3 FL (6.5-10.1) Neutrophils (%) (Auto) 58.7 % (45.0-75.0) Lymphocytes (%) (Auto) 31.1 % (20.0-45.0) Monocytes (%) (Auto) 5.3 % (1.0-10.0) Eosinophils (%) (Auto) 3.8 % (0.0-3.0) H Basophils (%) (Auto) 1.1 % (0.0-2.0) Prothrombin Time 10.5 SEC (9.30-11.50) Prothrombin Time INR 1.0 (0.9-1.1) PTT 33 SEC (23-33) Sodium Level 136 MMOL/L (136-145) Potassium Level 4.3 MMOL/L (3.5-5.1) Chloride Level 104 MMOL/L (98-107) Carbon Dioxide Level 23 MMOL/L (21-32) Anion Gap 10 mmol/L (5-15) Blood Urea Nitrogen 47 mg/dL (7-18) H Creatinine 4.0 MG/DL (0.55-1.30) H Estimate Glomerular Filtration Rate 11.6 mL/min (>60) Glucose Level 82 MG/DL (74-106) Calcium Level 8.4 MG/DL (8.5-10.1) L Total Bilirubin 0.3 MG/DL (0.2-1.0) Aspartate Amino Transferase (AST) 12 U/L (15-37) L Alanine Aminotransferase (ALT) 18 U/L (12-78) Alkaline Phosphatase 121 U/L (46-116) H Total Creatine Kinase 141 U/L (26-308) Troponin I 0.285 ng/mL (0.000-0.056) Pro-B-Type Natriuretic Peptide 4304 pg/mL (0-125) H Total Protein 6.9 G/DL (6.4-8.2) Albumin 2.7 G/DL (3.4-5.0) L Globulin 4.2 g/dL Albumin/Globulin Ratio 0.6 (1.0-2.7) L Thyroid Stimulating Hormone (TSH) 5.211 uiU/mL (0.358-3.740) Urine Color Pale yellow Urine Appearance Clear Urine pH 6.5 (4.5-8.0) Urine Specific [place] 1.005 (1.005-1.035) Urine Protein 4+ (NEGATIVE) H Urine Glucose (UA) Negative (NEGATIVE) Urine Ketones Negative (NEGATIVE) Urine Blood 2+ (NEGATIVE) H Urine Nitrite Negative (NEGATIVE) Urine Bilirubin Negative (NEGATIVE) Urine Urobilinogen Normal MG/DL (0.0-1.0) Urine Leukocyte Esterase 1+ (NEGATIVE) H Urine RBC 2-4 /HPF (0 - 2) H Urine WBC 0-2 /HPF (0 - 2) Urine Squamous Epithelial Cells Few /LPF (NONE/OCC) Urine Bacteria Few /HPF (NONE) EKG Diagnostic Results Rate: normal Rhythm: NSR ST Segments: no acute changes Rhythm Strip Diag. Results EP Interpretation: yes Rhythm: NSR, no PVC's, no ectopy Chest X-Ray Diagnostic Results Chest X-Ray Diagnostic Results : Chest X-Ray Ordered: Yes # of Views/Limited/Complete: 1 View Indication: Other EP Interpretation: Yes Interpretation: no pneumothorax, other - CHF and bilat effusions Impression: Other Labs noted EKG with normal sinus rhythm rate [address]-T wave changes. CXR CHF and pleural effusions. Impression: Chest pain, NSTEMI CHF (congestive heart failure) CKD Type 2 Diabetes Hyperlipidemia Hypothyroid Plan: Trend troponins VQ scan LE Dupplex Treat for possible community aquired pneumonia given basal atelectasis on CXR: Ceftriaxone and Doxycycline Lasix PRN Lovenox per Pharmacy Nitro paste ASA Pain meds ISS Oct 23, 2018 23:46 Subjective ROS Limited/Unobtainable: No Allergies: Coded Allergies: No Known Allergies (Verified Allergy, Unknown, 02/17/11) Objective Last 24 Hour Vital Signs Date Time Temp Pulse Resp B/P (MAP) Pulse Ox O2 Delivery O2 Flow Rate FiO2 10/25/18 21:00 68 10/25/18 20:00 97.5 70 16 135/60 (85) 93 10/25/18 19:57 Nasal Cannula 2.0 12/17/18 19:03 72 147/66 10/25/18 19:03 147/66 10/25/18 16:59 98.7 10/25/18 16:00 74 10/25/18 16:00 100.2 62 18 147/68 (94) 92 10/25/18 13:06 152/76 10/25/18 12:00 72 10/25/18 09:00 Nasal Cannula 2.0 10/25/18 08:57 74 143/68 10/25/18 08:57 74 143/68 10/25/18 08:00 98.1 74 19 143/68 (93) 97 10/25/18 08:00 77 10/25/18 05:59 135/65 10/25/18 04:00 71 10/25/18 04:00 98.5 72 18 135/65 (88) 96 10/25/18 00:00 76 10/24/18 23:35 98.5 73 18 120/60 (80) 96 Intake and Output 10/24/18 10/25/18 19:00 07:00 Intake Total 200 ml Output Total 1900 ml 1300 ml Balance -1700 ml -1300 ml Intake Oral 200 ml Output Urine Total 1900 ml 1300 ml Laboratory Tests 10/25/18 05:40: White Blood Count 10.1, Red Blood Count 3.41L, Hemoglobin 9.2L, Hematocrit 28.1L , Mean Corpuscular Volume 82, Mean Corpuscular Hemoglobin 26.9L, Mean Corpuscular Hemoglobin Concent 32.6, Red Cell Distribution Width 13.5, Platelet Count 263, Mean Platelet Volume 7.2, Neutrophils (%) (Auto) 57.6, Lymphocytes (% ) (Auto) 32.2, Monocytes (%) (Auto) 5.9, Eosinophils (%) (Auto) 3.4H, Basophils (%) (Auto) 1.0, Sodium Level 140, Potassium Level 4.2, Chloride Level 106, Carbon Dioxide Level 26, Anion Gap 8, Blood Urea Nitrogen 53H, Creatinine 4.8H, Estimat Glomerular Filtration Rate 9.4, Glucose Level 165H, Hemoglobin A1c 12.4H , Uric Acid 7.8H, Calcium Level 8.4L, Phosphorus Level 5.9H, Magnesium Level 2.2 , Total Bilirubin 0.1L, Gamma Glutamyl Transpeptidase 28, Aspartate Amino Transf (AST/SGOT) 9L, Alanine Aminotransferase (ALT/SGPT) 13, Alkaline Phosphatase 111, Total Creatine Kinase 46, Troponin I 0.150H, Pro-B-Type Natriuretic Peptide 2735H, Total Protein 6.3L, Albumin 2.3L, Globulin 4.0, Albumin/Globulin Ratio 0.6L, Triglycerides Level 177H, Cholesterol Level 167, LDL Cholesterol 103H, HDL Cholesterol 36L, Cholesterol/HDL Ratio 4.6H Current Medications Medications (Trade) Dose Ordered Sig/Miguel Route PRN Reason Start Time Stop Time Status Last Admin Dose Admin Acetaminophen (Tylenol) 650 mg Q6H PRN ORAL Prn Mod pain/Fever 10/24/18 18:00 11/23/18 17:59 10/25/18 16:29 Amlodipine Besylate (Norvasc) 5 mg BID ORAL 10/25/18 18:00 11/24/18 08:59 10/25/18 19:03 Aspirin (ASA) 325 mg DAILY ORAL 10/25/18 09:00 11/23/18 08:59 10/25/18 08:56 Atorvastatin Calcium (Lipitor) 20 mg BEDTIME ORAL 10/24/18 21:00 11/23/18 20:59 10/25/18 22:04 Azithromycin (Zithromax) 250 mg DAILY ORAL 10/26/18 09:00 11/02/18 08:59 Ceftriaxone Sodium 1 gm/ Dextrose 55 ml @ 110 mls/hr DAILY IVPB 10/25/18 09:00 11/01/18 08:59 10/25/18 08:56 Dextrose (Dextrose 50%) 25 ml Q30M PRN IV Hypoglycemia 10/24/18 18:00 11/23/18 00:00 Dextrose (Dextrose 50%) 50 ml Q30M PRN IV Hypoglycemia 10/24/18 18:00 11/23/18 00:00 Furosemide (Lasix) 40 mg DAILY IV 10/25/18 14:45 11/24/18 14:44 10/25/18 16:27 Heparin Sodium (Porcine) (Heparin 5000 units/ml) 5,000 units EVERY 12 HOURS SUBQ 10/24/18 21:00 11/23/18 00:29 10/25/18 22:05 Insulin Aspart (NovoLOG) BEFORE MEALS AND HS SUBQ 10/24/18 21:00 11/23/18 06:29 10/25/18 22:07 Insulin Detemir (Levemir) 5 units DAILY SUBQ 10/25/18 17:00 11/24/18 16:59 10/25/18 22:08 Metoprolol Succinate (Toprol XL) 25 mg DAILY ORAL 10/25/18 09:00 11/23/18 08:59 10/25/18 08:57 Morphine Sulfate (Morphine Sulfate) 2 mg Q3H PRN IVP Severe Pain (Pain Scale 7-10) 10/24/18 18:00 10/31/18 17:59 Nitroglycerin (Nitro-Bid) 1 inch TID@0600,1200,1800 TOPIC 10/24/18 18:00 11/23/18 05:59 10/25/18 19:03 Nitroglycerin (Ntg) 0.4 mg Q5M PRN SL Prn Chest Pain 10/24/18 17:45 11/23/18 00:29 Pantoprazole (Protonix) 40 mg DAILY ORAL 10/25/18 09:00 11/23/18 13:48 10/25/18 08:56 Panchito Cha MD Oct 25, 2018 23:00
[2018-10-26] VITALS: BP 147/71
[2018-10-26 04:00] VITALS: BP 133/63
--- NOTE | 2018-10-26 05:23 | Cardiology Progress Note ---
Assessment/Plan Assessment/Plan LATE ENTRY PROGRESS NOTE: DOS: OCT 25, 2017 TIME THE PATIENT SEEN: 12:17pm 1. Most likely acute heart failure with normal ejection fraction in view of chronic kidney disease and accelerated hypertension, continue furosemide and metoprolol, 2D echo has confirmed normal LVEF with mild pulmonary HTN. 2. Large left pleural effusion on echo, pulmonary F/U, continue lasix. 3. Slight elevation of troponin I, most likely troponin leak due to chronic kidney disease as the pattern of the rise is plateaued. There is no evidence of ischemia on 12-lead electrocardiogram. At this time, we will continue with conservative management. Will consider cardiac catheterization once renal function improves or decision about HD made. 4. Accelerated hypertension, continue amlodipine and metoprolol, will add hydralazine if needed to control blood pressure. Subjective Subjective Sinus rhythm at rate of 71. Objective Last 24 Hour Vital Signs Date Time Temp Pulse Resp B/P (MAP) Pulse Ox O2 Delivery O2 Flow Rate FiO2 10/26/18 00:00 97.5 71 16 147/71 (96) 94 10/26/18 00:00 68 10/25/18 21:00 68 10/25/18 20:00 97.5 70 16 135/60 (85) 93 10/25/18 19:57 Nasal Cannula 2.0 10/25/18 19:03 72 147/66 10/25/18 19:03 147/66 10/25/18 16:59 98.7 10/25/18 16:00 74 10/25/18 16:00 100.2 62 18 147/68 (94) 92 10/25/18 13:06 152/76 10/25/18 12:00 72 10/25/18 09:00 Nasal Cannula 2.0 10/25/18 08:57 74 143/68 10/25/18 08:57 74 143/68 10/25/18 08:00 98.1 74 19 143/68 (93) 97 10/25/18 08:00 77 10/25/18 05:59 135/65 Intake and Output 10/25/18 10/26/18 19:00 07:00 Output Total 850 ml Balance -850 ml Output Urine Total 850 ml # Bowel Movements 1 2D Echo: LVEF 55%, small Lucy.eff., large left pl. eff., RVSP 3, Mild LVH, Mild MR Laboratory Tests Test 10/25/18 05:40 White Blood Count 10.1 K/UL (4.8-10.8) Red Blood Count 3.41 M/UL (4.20-5.40) L Hemoglobin 9.2 G/DL (12.0-16.0) L Hematocrit 28.1 % (37.0-47.0) L Mean Corpuscular Volume 82 FL (80-99) Mean Corpuscular Hemoglobin 26.9 PG (27.0-31.0) L Mean Corpuscular Hemoglobin Concent 32.6 G/DL (32.0-36.0) Red Cell Distribution Width 13.5 % (11.6-14.8) Platelet Count 263 K/UL (150-450) Mean Platelet Volume 7.2 FL (6.5-10.1) Neutrophils (%) (Auto) 57.6 % (45.0-75.0) Lymphocytes (%) (Auto) 32.2 % (20.0-45.0) Monocytes (%) (Auto) 5.9 % (1.0-10.0) Eosinophils (%) (Auto) 3.4 % (0.0-3.0) H Basophils (%) (Auto) 1.0 % (0.0-2.0) Sodium Level 140 MMOL/L (136-145) Potassium Level 4.2 MMOL/L (3.5-5.1) Chloride Level 106 MMOL/L (98-107) Carbon Dioxide Level 26 MMOL/L (21-32) Anion Gap 8 mmol/L (5-15) Blood Urea Nitrogen 53 mg/dL (7-18) H Creatinine 4.8 MG/DL (0.55-1.30) H Estimat Glomerular Filtration Rate 9.4 mL/min (>60) Glucose Level 165 MG/DL (74-106) H Hemoglobin A1c 12.4 % (4.3-6.0) H Uric Acid 7.8 MG/DL (2.6-7.2) H Calcium Level 8.4 MG/DL (8.5-10.1) L Phosphorus Level 5.9 MG/DL (2.5-4.9) H Magnesium Level 2.2 MG/DL (1.8-2.4) Total Bilirubin 0.1 MG/DL (0.2-1.0) L Gamma Glutamyl Transpeptidase 28 U/L (5-85) Aspartate Amino Transf (AST/SGOT) 9 U/L (15-37) L Alanine Aminotransferase (ALT/SGPT) 13 U/L (12-78) Alkaline Phosphatase 111 U/L (46-116) Total Creatine Kinase 46 U/L (26-308) Troponin I 0.150 ng/mL (0.000-0.056) Pro-B-Type Natriuretic Peptide 2735 pg/mL (0-125) H Total Protein 6.3 G/DL (6.4-8.2) L Albumin 2.3 G/DL (3.4-5.0) L Globulin 4.0 g/dL Albumin/Globulin Ratio 0.6 (1.0-2.7) L Triglycerides Level 177 MG/DL (30-150) H Cholesterol Level 167 MG/DL (< 200) LDL Cholesterol 103 mg/dL (<100) H HDL Cholesterol 36 MG/DL (40-60) L Cholesterol/HDL Ratio 4.6 (3.3-4.4) H Objective HEENT: Atraumatic and normocephalic. Anicteric. Periorbital edema. Pale conjunctivae. NECK: JVP is less than 5 cm. No carotid bruits. Carotid upstrokes 2+ bilaterally. CARDIOVASCULAR: Normal S1 and S2. Regular rate and rhythm. No murmurs, gallops, or rubs. PMI is at fourth intercostal space in the mid clavicular line. LUNGS: Diminished breath sounds in both bases with associated rales. ABDOMEN: Soft, nontender, and nondistended. No hepatosplenomegaly. Positive bowel sounds. EXTREMITIES: There is bilateral lower extremity edema of 1+ to 2+. Gilmer Lam MD Oct 26, 2018 05:23
[2018-10-26] MEDS: Nitroglycerin 2% oint pkt TOPIC SCH ×3 (06:05→17:14)
[2018-10-26] MEDS: NovoLOG Insulin Flexpen SUBQ SCH ×5 (06:16→21:47)
[2018-10-26 08:00] VITALS: BP 139/71
[2018-10-26] MEDS: Metoprolol Succinate XL 25mg tab ORAL SCH (08:51)
[2018-10-26] MEDS: Azithromycin 250mg tab ORAL SCH (08:52)
[2018-10-26] MEDS: Heparin 5000 units/ml inj SUBQ SCH ×2 (08:55→21:43)
[2018-10-26] MEDS: Levemir Flexpen SUBQ SCH (09:01)
[2018-10-26] MEDS: cefTRIAXone 1 GM in D5W 55 ML IVPB SCH (09:01)
--- NOTE | 2018-10-26 09:03 | Diagnostic Imaging Report ---
Indication: Acute renal failure Technique: Grayscale and duplex images of the kidneys, retroperitoneum, and bladder were obtained. Comparison: Ct abdomen pelvis CT 02/16/2011, ultrasound abdomen 02/17/2011 Findings: Right kidney measures 12.8 cm in length. Left kidney measures 10.2 cm in length. Both kidneys demonstrate normal echogenicity. No hydronephrosis. 6 round hyperechoic focus is seen in the left renal parenchyma, measuring 13 mm in diameter. Similar peripheral focus is seen in the right kidney, smaller. A small parapelvic cysts is seen in the right upper pole. Normal inferior vena cava. Bladder is normal. Impression: Negative for hydronephrosis Bilateral parenchymal echogenic foci. Of uncertain significance, given absence of corresponding abnormality on 2011 CT scan. These nonetheless could represent small angiomyolipomas which have developed in the interim. Small right upper pole parapelvic cyst.
[2018-10-26 12:00] VITALS: BP 140/72
--- NOTE | 2018-10-26 12:15 | Nephrology Progress Note ---
Assessment/Plan Problem List: (1) Renal failure (ARF), acute on chronic (2) Nephrotic syndrome (3) Diabetic nephropathy Assessment Renal failure, likely diabetic nephropathy and Nephrotic syndrom Hypoxia, CHF Chest pain, NSTEMI (non-ST elevated myocardial infarction) Hypothyroid Anemia Plan DC douglas DC Lasix PT eval DC Planning [place] need for HD CrCl 15 8 grams Protein in urine 24 h 2D echo- noted 24 h urine CrCl and Total protein noted Kidney TANK noted Anemia llaams avoid Nephrotoxics adjust bp meds per orders Subjective ROS Limited/Unobtainable: No Constitutional: Reports: malaise, weakness Objective Objective Last 24 Hour Vital Signs Date Time Temp Pulse Resp B/P (MAP) Pulse Ox O2 Delivery O2 Flow Rate FiO2 10/26/18 12:09 140/72 10/26/18 09:00 Nasal Cannula 2.0 10/26/18 08:52 75 139/71 10/26/18 08:51 75 139/71 10/26/18 08:00 99.9 75 20 139/71 (93) 94 10/26/18 07:56 75 10/26/18 06:05 133/63 10/26/18 04:00 97.9 72 16 133/63 (86) 92 10/26/18 04:00 74 10/26/18 00:00 97.5 71 16 147/71 (96) 94 10/26/18 00:00 68 10/25/18 21:00 68 10/25/18 20:00 97.5 70 16 135/60 (85) 93 10/25/18 19:57 Nasal Cannula 2.0 10/25/18 19:03 72 147/66 10/25/18 19:03 147/66 10/25/18 16:59 98.7 10/25/18 16:00 74 10/25/18 16:00 100.2 62 18 147/68 (94) 92 10/25/18 13:06 152/76 Intake and Output 10/25/18 10/26/18 19:00 07:00 Output Total 850 ml 1400 ml Balance -850 ml -1400 ml Output Urine Total 850 ml 1400 ml # Bowel Movements 1 Height (Feet): 5 Height (Inches): 2.00 Weight (Pounds): 189 General Appearance: no apparent distress Cardiovascular: normal rate Respiratory/Chest: decreased breath sounds Abdomen: soft Objective no signs of CHF Lito Frank MD Oct 26, 2018 12:15
[2018-10-26 12:36] LABS: EOSINOPHILS % (AUTO) 4.5 % (0.0-3.0); HEMATOCRIT 30.5 % (37.0-47.0); HEMOGLOBIN 9.8 G/DL (12.0-16.0); LYMPHOCYTES % (AUTO) 30.5 % (20.0-45.0); MEAN CORPUSCULAR VOLUME 84 FL (80-99); MONOCYTES % (AUTO) 5.4 % (1.0-10.0); NEUTROPHILS % (AUTO) 58.6 % (45.0-75.0); PLATELET COUNT 278 K/UL (150-450); RED BLOOD COUNT 3.62 M/UL (4.20-5.40); RED CELL DISTRIBUTION WIDTH 12.7 % (11.6-14.8); WHITE BLOOD COUNT 9.4 K/UL (4.8-10.8)
--- NOTE | 2018-10-26 13:01 | General Progress Note ---
Assessment/Plan Assessment/Plan S: My sob is better O: appears comfortable, seen in Telemetry. Son at the bed side PHYSICAL EXAMINATION: HEAD AND NECK: Atraumatic and normocephalic. CHEST: Diffuse bronchial breathing sounds. Positive for fine crackles in both lower lungs. ABDOMEN: Obese. Bowel sounds are normal. No organomegaly. MUSCULOSKELETAL: Diffuse swelling and edema in all the extremities, especially in the dependent areas. No gross lateralized motor deficit. NEUROLOGY: The patient is awake, alert, and oriented x3. Meds: reviewed and reconciled in the chart ASSESSMENT AND PLAN: 1. Acute congestive heart failure exacerbation - new onset. 2. Community-acquired pneumonia, less likely 3. Renal failure - age indeterminate. stable 4. Hypothyroidism. 5. Diabetes type 2. 6. Hypertension. 7. Gastrointestinal and deep vein thrombosis prophylaxis. Plan: Will otimize Diuresis Will monitor renal function Notes from ID and nephro reviewed Subjective Allergies: Coded Allergies: No Known Allergies (Verified Allergy, Unknown, 02/17/11) Objective Last 24 Hour Vital Signs Date Time Temp Pulse Resp B/P (MAP) Pulse Ox O2 Delivery O2 Flow Rate FiO2 10/26/18 12:09 140/72 10/26/18 09:00 Nasal Cannula 2.0 10/26/18 08:52 75 139/71 10/26/18 08:51 75 139/71 10/26/18 08:00 99.9 75 20 139/71 (93) 94 10/26/18 07:56 75 10/26/18 06:05 133/63 10/26/18 04:00 97.9 72 16 133/63 (86) 92 10/26/18 04:00 74 10/26/18 00:00 97.5 71 16 147/71 (96) 94 10/26/18 00:00 68 10/25/18 21:00 68 10/25/18 20:00 97.5 70 16 135/60 (85) 93 10/25/18 19:57 Nasal Cannula 2.0 10/25/18 19:03 72 147/66 18 19:03 147/66 10/25/18 16:59 98.7 10/25/18 16:00 74 10/25/18 16:00 100.2 62 18 147/68 (94) 92 10/25/18 13:06 152/76 Intake and Output 12/17/18 12/18/18 19:00 07:00 Output Total 850 ml 1400 ml Balance -850 ml -1400 ml Output Urine Total 850 ml 1400 ml # Bowel Movements 1 Laboratory Tests 10/26/18 11:10: White Blood Count 9.4, Red Blood Count 3.62L, Hemoglobin 9.8L, Hematocrit 30.5L , Mean Corpuscular Volume 84, Mean Corpuscular Hemoglobin 27.1, Mean Corpuscular Hemoglobin Concent 32.2, Red Cell Distribution Width 12.7, Platelet Count 278, Mean Platelet Volume 6.9, Neutrophils (%) (Auto) 58.6, Lymphocytes (% ) (Auto) 30.5, Monocytes (%) (Auto) 5.4, Eosinophils (%) (Auto) 4.5H, Basophils (%) (Auto) 1.0 10/26/18 12:00: Urine Collection Time [Pending], Urine Total Volume [Pending], Urine Creatinine [Pending], Urine Creatinine 24 Hour [Pending], Patient Height Inches (Creat Clear) [Pending], Patient Weight Pounds (Creat Clear) [Pending], Creatinine Clearance [Pending], Urine Total Protein mg/dL [Pending], Urine Total Protein 24 Hour [Pending] Height (Feet): 5 Height (Inches): 2.00 Weight (Pounds): 189 Rema Ray MD Oct 26, 2018 13:01
[2018-10-26 14:02] LABS: ANION GAP 13 mmol/L (5-15); BLOOD UREA NITROGEN 62 mg/dL (7-18); CALCIUM 8.6 MG/DL (8.5-10.1); CARBON DIOXIDE 23 MMOL/L (21-32); CHLORIDE 104 MMOL/L (98-107); CREATININE 4.8 MG/DL (0.55-1.30); POTASSIUM 4.2 MMOL/L (3.5-5.1); SODIUM 140 MMOL/L (136-145)
[2018-10-26 14:03] LABS: CREATININE 4.8 MG/DL (0.55-1.30)
[2018-10-26 14:06] LABS: ALANINE AMINOTRANSFERASE 15 U/L (12-78); ALBUMIN 2.4 G/DL (3.4-5.0); ALBUMIN/GLOBULIN RATIO 0.6 (1.0-2.7); ALKALINE PHOSPHATASE 120 U/L (46-116); ASPARTATE AMINO TRANSFERASE 9 U/L (15-37); BILIRUBIN,TOTAL 0.2 MG/DL (0.2-1.0); PHOSPHORUS 6.1 MG/DL (2.5-4.9)
--- NOTE | 2018-10-26 14:22 | Cardiology Report ---
APPROVED REPORT EXAM: Two-dimensional and M-mode echocardiogram with Doppler and color Doppler. INDICATION Congestive Heart Failure M-Mode DIMENSIONS IVSd1.4 (0.7-1.1cm)Left Atrium (MM)4.0 (1.6-4.0cm) LVDd5.0 (3.5-5.6cm) PWd1.1 (0.7-1.1cm) IVSs1.8 cm LVDs2.9 (2.5-4.0cm) PWs1.5 cm Normal left ventricular chamber size, systolic function and wall motion . Left ventricular ejection fraction estimated to be 55-60 %. Mild left ventricular hypertrophy. Small posterior pericardial effusion. Large posterior peural effusion . All other cardiac chamber sizes are within normal limits. Focal aortic valve sclerosis with adequate cusp excursion. Mildly thickened mitral valve leaflets with normal excursion. Mitral annulus and aortic root calcification. Pulmonic valve structure not well visualized . Normal tricuspid valve structure. IVC in normal size with physiologic collapse . A color flow and spectral Doppler study was performed and revealed: No aortic regurgitation. Mild to moderate mitral regurgitation. Normal left ventricular diastolic function. Mild tricuspid regurgitation. Tricuspid systolic velocities suggests peak right ventricular systolic pressure of 34 mmHg,consistent with moderate pulmonary hypertension .
--- NOTE | 2018-10-26 14:42 | Cardiology Report ---
APPROVED REPORT EKG Measurement Heart [id number] Normal sinus rhythm Nonspecific T wave abnormality Abnormal ECG
--- NOTE | 2018-10-26 15:15 | Pulmonology Progress Note ---
Assessment/Plan Assessment/Plan Pulmonary Follow Up HPI Patient is a 53 year old woman who presents with chest pain and shortness of breath. Started off more with shortness of breath 4 days ago. The chest pain is been intermittent. She rates at 6/10 at this time and feels more pressure. It doesn't radiate. It's more dyspnea on exertion than orthopnea. The shortness of breath gets better with rest and with laying down. She has edema bilaterally and she states that it's worse on the left-hand side. She is a history of congestive heart failure although she denies this. She's also diabetic, has high cholesterol and hypertension. She states her blood sugar was 192 this morning and she states that that was "high" area she denies fevers or chills. There's no productive cough. The patient was admitted at [facility] a few months ago and told that she had fluid in her lungs and around her heart. Slight constipation. No passing of blood. No dysuria. She's not taking water pill at this time. The patient states that she's had problems with her kidneys for 15 years. She' s never had to have dialysis. She complains about some dizziness. She denies any headache or change in her vision. No palpitations, rashes. No easy bruising. Recent eval for possible PE - studies were negative. 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, no focal signs Investigations: Laboratory Tests Test 10/23/18 18:55 10/23/18 20:45 White Blood Count 11.6 K/UL (4.8-10.8) H Red Blood Count 3.68 M/UL (4.20-5.40) L Hemoglobin 10.0 G/DL (12.0-16.0) L Hematocrit 29.8 % (37.0-47.0) L Mean Corpuscular Volume 81 FL (80-99) Mean Corpuscular Hemoglobin 27.2 PG (27.0-31.0) Mean Corpuscular Hemoglobin Concent 33.6 G/DL (32.0-36.0) Red Cell Distribution Width 13.1 % (11.6-14.8) Platelet Count 283 K/UL (150-450) Mean Platelet Volume 7.3 FL (6.5-10.1) Neutrophils (%) (Auto) 58.7 % (45.0-75.0) Lymphocytes (%) (Auto) 31.1 % (20.0-45.0) Monocytes (%) (Auto) 5.3 % (1.0-10.0) Eosinophils (%) (Auto) 3.8 % (0.0-3.0) H Basophils (%) (Auto) 1.1 % (0.0-2.0) Prothrombin Time 10.5 SEC (9.30-11.50) Prothrombin Time INR 1.0 (0.9-1.1) PTT 33 SEC (23-33) Sodium Level 136 MMOL/L (136-145) Potassium Level 4.3 MMOL/L (3.5-5.1) Chloride Level 104 MMOL/L (98-107) Carbon Dioxide Level 23 MMOL/L (21-32) Anion Gap 10 mmol/L (5-15) Blood Urea Nitrogen 47 mg/dL (7-18) H Creatinine 4.0 MG/DL (0.55-1.30) H Estimate Glomerular Filtration Rate 11.6 mL/min (>60) Glucose Level 82 MG/DL (74-106) Calcium Level 8.4 MG/DL (8.5-10.1) L Total Bilirubin 0.3 MG/DL (0.2-1.0) Aspartate Amino Transferase (AST) 12 U/L (15-37) L Alanine Aminotransferase (ALT) 18 U/L (12-78) Alkaline Phosphatase 121 U/L (46-116) H Total Creatine Kinase 141 U/L (26-308) Troponin I 0.285 ng/mL (0.000-0.056) Pro-B-Type Natriuretic Peptide 4304 pg/mL (0-125) H Total Protein 6.9 G/DL (6.4-8.2) Albumin 2.7 G/DL (3.4-5.0) L Globulin 4.2 g/dL Albumin/Globulin Ratio 0.6 (1.0-2.7) L Thyroid Stimulating Hormone (TSH) 5.211 uiU/mL (0.358-3.740) Urine Color Pale yellow Urine Appearance Clear Urine pH 6.5 (4.5-8.0) Urine Specific [place] 1.005 (1.005-1.035) Urine Protein 4+ (NEGATIVE) H Urine Glucose (UA) Negative (NEGATIVE) Urine Ketones Negative (NEGATIVE) Urine Blood 2+ (NEGATIVE) H Urine Nitrite Negative (NEGATIVE) Urine Bilirubin Negative (NEGATIVE) Urine Urobilinogen Normal MG/DL (0.0-1.0) Urine Leukocyte Esterase 1+ (NEGATIVE) H Urine RBC 2-4 /HPF (0 - 2) H Urine WBC 0-2 /HPF (0 - 2) Urine Squamous Epithelial Cells Few /LPF (NONE/OCC) Urine Bacteria Few /HPF (NONE) EKG Diagnostic Results Rate: normal Rhythm: NSR ST Segments: no acute changes Rhythm Strip Diag. Results EP Interpretation: yes Rhythm: NSR, no PVC's, no ectopy Chest X-Ray Diagnostic Results Chest X-Ray Diagnostic Results : Chest X-Ray Ordered: Yes # of Views/Limited/Complete: 1 View Indication: Other EP Interpretation: Yes Interpretation: no pneumothorax, other - CHF and bilat effusions Impression: Other Labs noted EKG with normal sinus rhythm rate [address]-T wave changes. CXR CHF and pleural effusions. Impression: Chest pain, NSTEMI CHF (congestive heart failure) CKD Type 2 Diabetes Hyperlipidemia Hypothyroid Plan: Trend troponins VQ scan LE Dupplex Treat for possible community aquired pneumonia given basal atelectasis on CXR: Ceftriaxone and Doxycycline Lasix PRN Lovenox per Pharmacy Nitro paste ASA Pain meds ISS Oct 23, 2018 23:46 Subjective ROS Limited/Unobtainable: No Allergies: Coded Allergies: No Known Allergies (Verified Allergy, Unknown, 02/17/11) Objective Last 24 Hour Vital Signs Date Time Temp Pulse Resp B/P (MAP) Pulse Ox O2 Delivery O2 Flow Rate FiO2 10/26/18 12:09 140/72 10/26/18 12:00 98.1 70 20 140/72 (94) 98 10/26/18 09:00 Nasal Cannula 2.0 10/26/18 08:52 75 139/71 10/26/18 08:51 75 139/71 10/26/18 08:00 99.9 75 20 139/71 (93) 94 10/26/18 07:56 75 10/26/18 06:05 133/63 10/26/18 04:00 97.9 72 16 133/63 (86) 92 10/26/18 04:00 74 10/26/18 00:00 97.5 71 16 147/71 (96) 94 10/26/18 00:00 68 10/25/18 21:00 68 10/25/18 20:00 97.5 70 16 135/60 (85) 93 10/25/18 19:57 Nasal Cannula 2.0 10/25/18 19:03 72 147/66 10/25/18 19:03 147/66 10/25/18 16:59 98.7 10/25/18 16:00 74 10/25/18 16:00 100.2 62 18 147/68 (94) 92 Intake and Output 10/25/18 10/26/18 19:00 07:00 Output Total 850 ml 1400 ml Balance -850 ml -1400 ml Output Urine Total 850 ml 1400 ml # Bowel Movements 1 Microbiology Date/Time Source Procedure Growth Status 10/24/18 01:00 Nasal Nares Right MRSA Culture - Final NO METHICILLIN RESISTANT STAPH AUREUS... Complete 10/24/18 01:00 Rectum VRE Culture - Final NO VANCOMYCIN RESISTANT ENTEROCOCCUS ... Complete 10/24/18 01:00 Rectum - Final NO CARBAPENEM-RESISTANT ENTEROBACTERI... Complete Laboratory Tests 10/26/18 11:10: White Blood Count 9.4, Red Blood Count 3.62L, Hemoglobin 9.8L, Hematocrit 30.5L , Mean Corpuscular Volume 84, Mean Corpuscular Hemoglobin 27.1, Mean Corpuscular Hemoglobin Concent 32.2, Red Cell Distribution Width 12.7, Platelet Count 278, Mean Platelet Volume 6.9, Neutrophils (%) (Auto) 58.6, Lymphocytes (% ) (Auto) 30.5, Monocytes (%) (Auto) 5.4, Eosinophils (%) (Auto) 4.5H, Basophils (%) (Auto) 1.0, Sodium Level 140, Potassium Level 4.2, Chloride Level 104, Carbon Dioxide Level 23, Anion Gap 13, Blood Urea Nitrogen 62H, Creatinine 4.8H , Estimat Glomerular Filtration Rate 9.4, Glucose Level 261H, Calcium Level 8.6 , Phosphorus Level 6.1H, Magnesium Level 2.1, Total Bilirubin 0.2, Aspartate Amino Transf (AST/SGOT) 9L, Alanine Aminotransferase (ALT/SGPT) 15, Alkaline Phosphatase 120H, Total Protein 6.5, Albumin 2.4L, Globulin 4.1, Albumin/ Globulin Ratio 0.6L 10/26/18 12:00: Creatinine 4.8H, Estimat Glomerular Filtration Rate 9.4, Urine Collection Time 24, Urine Total Volume 3000, Urine Creatinine 36, Urine Creatinine 24 Hour 1080 , Patient Height Inches (Creat Clear) 62, Patient Weight Pounds (Creat Clear) 189, Creatinine Clearance 15L, Urine Total Protein mg/dL 289, Urine Total Protein 24 Hour 8670.0H Current Medications Medications (Trade) Dose Ordered Sig/Miguel Route PRN Reason Start Time Stop Time Status Last Admin Dose Admin Acetaminophen (Tylenol) 650 mg Q6H PRN ORAL Prn Mod pain/Fever 10/24/18 18:00 11/23/18 17:59 10/25/18 16:29 Allopurinol (Allopurinol) 300 mg DAILY ORAL 10/27/18 09:00 11/26/18 08:59 Allopurinol (Allopurinol) 300 mg ONCE ORAL 10/26/18 15:00 10/26/18 16:30 Amlodipine Besylate (Norvasc) 5 mg BID ORAL 10/25/18 18:00 11/24/18 08:59 10/26/18 08:52 Aspirin (ASA) 325 mg DAILY ORAL 10/25/18 09:00 11/23/18 08:59 10/26/18 08:52 Atorvastatin Calcium (Lipitor) 20 mg BEDTIME ORAL 10/24/18 21:00 11/23/18 20:59 10/25/18 22:04 Azithromycin (Zithromax) 250 mg DAILY ORAL 10/26/18 09:00 11/02/18 08:59 10/26/18 08:52 Ceftriaxone Sodium 1 gm/ Dextrose 55 ml @ 110 mls/hr DAILY IVPB 10/25/18 09:00 11/01/18 08:59 10/26/18 09:01 Dextrose (Dextrose 50%) 25 ml Q30M PRN IV Hypoglycemia 10/24/18 18:00 11/23/18 00:00 Dextrose (Dextrose 50%) 50 ml Q30M PRN IV Hypoglycemia 10/24/18 18:00 11/23/18 00:00 Heparin Sodium (Porcine) (Heparin 5000 units/ml) 5,000 units EVERY 12 HOURS SUBQ 10/24/18 21:00 11/23/18 00:29 10/26/18 08:55 Insulin Aspart (NovoLOG) BEFORE MEALS AND HS SUBQ 10/24/18 21:00 11/23/18 06:29 10/26/18 12:14 Insulin Detemir (Levemir) 5 units DAILY SUBQ 10/25/18 17:00 11/24/18 16:59 10/26/18 09:01 Metoprolol Succinate (Toprol XL) 25 mg DAILY ORAL 10/25/18 09:00 11/23/18 08:59 10/26/18 08:51 Morphine Sulfate (Morphine Sulfate) 2 mg Q3H PRN IVP Severe Pain (Pain Scale 7-10) 10/24/18 18:00 10/31/18 17:59 Nitroglycerin (Nitro-Bid) 1 inch TID@0600,1200,1800 TOPIC 10/24/18 18:00 11/23/18 05:59 10/26/18 12:09 Nitroglycerin (Ntg) 0.4 mg Q5M PRN SL Prn Chest Pain 10/24/18 17:45 11/23/18 00:29 Pantoprazole (Protonix) 40 mg DAILY ORAL 10/25/18 09:00 11/23/18 13:48 10/26/18 08:51 Panchito Cha MD Oct 26, 2018 15:15
--- NOTE | 2018-10-26 15:23 | Infectious Diseases Prog Note ---
Assessment/Plan Problems: (1) Community acquired pneumonia Assessment & Plan: continue ceftriaxone and azithromycin empirically for 7 days , recommend influenza vaccination at discharge (2) CHF (congestive heart failure) Assessment & Plan: with possible exacerbation, continue diuresis , cardiology is following (3) Renal failure (ARF), acute on chronic Assessment & Plan: monitor renal function, avoid nephrotoxics, may need HD in the future , nephrology is following (4) Hypoxia Assessment & Plan: due to the above , continue oxygen and nebulizers , monitor CXR, may need thoracentesis Subjective Constitutional: Reports: no symptoms HEENT: Reports: no symptoms Respiratory: Reports: dry cough Breasts: Reports: no symptoms Cardiovascular: Reports: no symptoms Gastrointestinal/Abdominal: Reports: no symptoms Genitourinary: Reports: no symptoms Neurologic: Reports: no symptoms Psychiatric: Reports: no symptoms Skin: Reports: no symptoms Endocrine: Reports: no symptoms Hematologic: Reports: no symptoms Musculoskeletal: Reports: no symptoms Allergies: Coded Allergies: No Known Allergies (Verified Allergy, Unknown, 02/17/11) Objective Vital Signs Last 24 Hour Vital Signs Date Time Temp Pulse Resp B/P (MAP) Pulse Ox O2 Delivery O2 Flow Rate FiO2 10/26/18 12:09 140/72 10/26/18 12:00 98.1 70 20 140/72 (94) 98 10/26/18 09:00 Nasal Cannula 2.0 10/26/18 08:52 75 139/71 10/26/18 08:51 75 139/71 10/26/18 08:00 99.9 75 20 139/71 (93) 94 10/26/18 07:56 75 10/26/18 06:05 133/63 10/26/18 04:00 97.9 72 16 133/63 (86) 92 10/26/18 04:00 74 10/26/18 00:00 97.5 71 16 147/71 (96) 94 10/26/18 00:00 68 10/25/18 21:00 68 10/25/18 20:00 97.5 70 16 135/60 (85) 93 10/25/18 19:57 Nasal Cannula 2.0 10/25/18 19:03 72 147/66 10/25/18 19:03 147/66 10/25/18 16:59 98.7 10/25/18 16:00 74 10/25/18 16:00 100.2 62 18 147/68 (94) 92 Height (Feet): 5 Height (Inches): 2.00 Weight (Pounds): 189 General Appearance: WD/WN, no acute distress HEENT: normocephalic, atraumatic, anicteric, mucous membranes moist, PERRL, pharynx normal, supple, no JVD Respiratory/Chest: chest wall non-tender, lungs clear, normal breath sounds, no respiratory distress, no accessory muscle use Cardiovascular: normal peripheral pulses, normal rate, regular rhythm, no gallop/murmur, no JVD Abdomen: normal bowel sounds, soft, non tender, no organomegaly, non distended , no mass, no scars Extremities: no cyanosis, no clubbing Skin: no rash, no lesions, no ulcers Neurologic/Psychiatric: alert, oriented x 3, responsive Lymphatic: no neck adenopathy, no groin adenopathy Musculoskeletal: normal muscle bulk, no effusion Microbiology Date/Time Source Procedure Growth Status 10/24/18 01:00 Nasal Nares Right MRSA Culture - Final NO METHICILLIN RESISTANT STAPH AUREUS... Complete 10/24/18 01:00 Rectum VRE Culture - Final NO VANCOMYCIN RESISTANT ENTEROCOCCUS ... Complete 10/24/18 01:00 Rectum - Final NO CARBAPENEM-RESISTANT ENTEROBACTERI... Complete Laboratory Tests Test 10/26/18 11:10 10/26/18 12:00 White Blood Count 9.4 K/UL (4.8-10.8) Red Blood Count 3.62 M/UL (4.20-5.40) L Hemoglobin 9.8 G/DL (12.0-16.0) L Hematocrit 30.5 % (37.0-47.0) L Mean Corpuscular Volume 84 FL (80-99) Mean Corpuscular Hemoglobin 27.1 PG (27.0-31.0) Mean Corpuscular Hemoglobin Concent 32.2 G/DL (32.0-36.0) Red Cell Distribution Width 12.7 % (11.6-14.8) Platelet Count 278 K/UL (150-450) Mean Platelet Volume 6.9 FL (6.5-10.1) Neutrophils (%) (Auto) 58.6 % (45.0-75.0) Lymphocytes (%) (Auto) 30.5 % (20.0-45.0) Monocytes (%) (Auto) 5.4 % (1.0-10.0) Eosinophils (%) (Auto) 4.5 % (0.0-3.0) H Basophils (%) (Auto) 1.0 % (0.0-2.0) Sodium Level 140 MMOL/L (136-145) Potassium Level 4.2 MMOL/L (3.5-5.1) Chloride Level 104 MMOL/L (98-107) Carbon Dioxide Level 23 MMOL/L (21-32) Anion Gap 13 mmol/L (5-15) Blood Urea Nitrogen 62 mg/dL (7-18) H Creatinine 4.8 MG/DL (0.55-1.30) H 4.8 MG/DL (0.55-1.30) H Estimat Glomerular Filtration Rate 9.4 mL/min (>60) 9.4 mL/min (>60) Glucose Level 261 MG/DL (74-106) H Calcium Level 8.6 MG/DL (8.5-10.1) Phosphorus Level 6.1 MG/DL (2.5-4.9) H Magnesium Level 2.1 MG/DL (1.8-2.4) Total Bilirubin 0.2 MG/DL (0.2-1.0) Aspartate Amino Transf (AST/SGOT) 9 U/L (15-37) L Alanine Aminotransferase (ALT/SGPT) 15 U/L (12-78) Alkaline Phosphatase 120 U/L (46-116) H Total Protein 6.5 G/DL (6.4-8.2) Albumin 2.4 G/DL (3.4-5.0) L Globulin 4.1 g/dL Albumin/Globulin Ratio 0.6 (1.0-2.7) L Urine Collection Time 24 HRS Urine Total Volume 3000 ML Urine Creatinine 36 MG/DL Urine Creatinine 24 Hour 1080 mg/24hr (740-1570) Patient Height Inches (Creat Clear) 62 INCHES Patient Weight Pounds (Creat Clear) 189 LBS Creatinine Clearance 15 mL/min (71-151) L Urine Total Protein mg/dL 289 mg/dL Urine Total Protein 24 Hour 8670.0 mg/24hr (< 150) H Current Medications Medications (Trade) Dose Ordered Sig/Miguel Route PRN Reason Start Time Stop Time Status Last Admin Dose Admin Acetaminophen (Tylenol) 650 mg Q6H PRN ORAL Prn Mod pain/Fever 10/24/18 18:00 11/23/18 17:59 10/25/18 16:29 Allopurinol (Allopurinol) 300 mg DAILY ORAL 10/27/18 09:00 11/26/18 08:59 Allopurinol (Allopurinol) 300 mg ONCE ORAL 10/26/18 15:00 10/26/18 16:30 Amlodipine Besylate (Norvasc) 5 mg BID ORAL 10/25/18 18:00 11/24/18 08:59 10/26/18 08:52 Aspirin (ASA) 325 mg DAILY ORAL 10/25/18 09:00 11/23/18 08:59 10/26/18 08:52 Atorvastatin Calcium (Lipitor) 20 mg BEDTIME ORAL 10/24/18 21:00 11/23/18 20:59 10/25/18 22:04 Azithromycin (Zithromax) 250 mg DAILY ORAL 10/26/18 09:00 11/02/18 08:59 10/26/18 08:52 Ceftriaxone Sodium 1 gm/ Dextrose 55 ml @ 110 mls/hr DAILY IVPB 10/25/18 09:00 11/01/18 08:59 10/26/18 09:01 Dextrose (Dextrose 50%) 25 ml Q30M PRN IV Hypoglycemia 10/24/18 18:00 11/23/18 00:00 Dextrose (Dextrose 50%) 50 ml Q30M PRN IV Hypoglycemia 10/24/18 18:00 11/23/18 00:00 Heparin Sodium (Porcine) (Heparin 5000 units/ml) 5,000 units EVERY 12 HOURS SUBQ 10/24/18 21:00 11/23/18 00:29 10/26/18 08:55 Insulin Aspart (NovoLOG) BEFORE MEALS AND HS SUBQ 10/24/18 21:00 11/23/18 06:29 10/26/18 12:14 Insulin Detemir (Levemir) 5 units DAILY SUBQ 10/25/18 17:00 11/24/18 16:59 10/26/18 09:01 Metoprolol Succinate (Toprol XL) 25 mg DAILY ORAL 10/25/18 09:00 11/23/18 08:59 10/26/18 08:51 Morphine Sulfate (Morphine Sulfate) 2 mg Q3H PRN IVP Severe Pain (Pain Scale 7-10) 10/24/18 18:00 10/31/18 17:59 Nitroglycerin (Nitro-Bid) 1 inch TID@0600,1200,1800 TOPIC 10/24/18 18:00 11/23/18 05:59 10/26/18 12:09 Nitroglycerin (Ntg) 0.4 mg Q5M PRN SL Prn Chest Pain 10/24/18 17:45 11/23/18 00:29 Pantoprazole (Protonix) 40 mg DAILY ORAL 10/25/18 09:00 11/23/18 13:48 10/26/18 08:51 Kandis Lipscomb M.D. Oct 26, 2018 15:23
[2018-10-26 16:00] VITALS: BP 140/66
[2018-10-26 20:00] VITALS: BP 129/68
[2018-10-26] MEDS: Atorvastatin 20mg tab ORAL SCH (21:42)
--- NOTE | 2018-10-26 21:54 | Pulmonology Progress Note ---
Assessment/Plan Assessment/Plan Pulmonary Follow Up HPI Patient is a 53 year old woman who presents with chest pain and shortness of breath. Started off more with shortness of breath 4 days ago. The chest pain is been intermittent. She rates at 6/10 at this time and feels more pressure. It doesn't radiate. It's more dyspnea on exertion than orthopnea. The shortness of breath gets better with rest and with laying down. She has edema bilaterally and she states that it's worse on the left-hand side. She is a history of congestive heart failure although she denies this. She's also diabetic, has high cholesterol and hypertension. She states her blood sugar was 192 this morning and she states that that was "high" area she denies fevers or chills. There's no productive cough. The patient was admitted at [facility] a few months ago and told that she had fluid in her lungs and around her heart. Slight constipation. No passing of blood. No dysuria. She's not taking water pill at this time. The patient states that she's had problems with her kidneys for 15 years. She' s never had to have dialysis. She complains about some dizziness. She denies any headache or change in her vision. No palpitations, rashes. No easy bruising. Recent eval for possible PE - studies were negative. 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, no focal signs Investigations: Laboratory Tests Test 10/23/18 18:55 10/23/18 20:45 White Blood Count 11.6 K/UL (4.8-10.8) H Red Blood Count 3.68 M/UL (4.20-5.40) L Hemoglobin 10.0 G/DL (12.0-16.0) L Hematocrit 29.8 % (37.0-47.0) L Mean Corpuscular Volume 81 FL (80-99) Mean Corpuscular Hemoglobin 27.2 PG (27.0-31.0) Mean Corpuscular Hemoglobin Concent 33.6 G/DL (32.0-36.0) Red Cell Distribution Width 13.1 % (11.6-14.8) Platelet Count 283 K/UL (150-450) Mean Platelet Volume 7.3 FL (6.5-10.1) Neutrophils (%) (Auto) 58.7 % (45.0-75.0) Lymphocytes (%) (Auto) 31.1 % (20.0-45.0) Monocytes (%) (Auto) 5.3 % (1.0-10.0) Eosinophils (%) (Auto) 3.8 % (0.0-3.0) H Basophils (%) (Auto) 1.1 % (0.0-2.0) Prothrombin Time 10.5 SEC (9.30-11.50) Prothrombin Time INR 1.0 (0.9-1.1) PTT 33 SEC (23-33) Sodium Level 136 MMOL/L (136-145) Potassium Level 4.3 MMOL/L (3.5-5.1) Chloride Level 104 MMOL/L (98-107) Carbon Dioxide Level 23 MMOL/L (21-32) Anion Gap 10 mmol/L (5-15) Blood Urea Nitrogen 47 mg/dL (7-18) H Creatinine 4.0 MG/DL (0.55-1.30) H Estimate Glomerular Filtration Rate 11.6 mL/min (>60) Glucose Level 82 MG/DL (74-106) Calcium Level 8.4 MG/DL (8.5-10.1) L Total Bilirubin 0.3 MG/DL (0.2-1.0) Aspartate Amino Transferase (AST) 12 U/L (15-37) L Alanine Aminotransferase (ALT) 18 U/L (12-78) Alkaline Phosphatase 121 U/L (46-116) H Total Creatine Kinase 141 U/L (26-308) Troponin I 0.285 ng/mL (0.000-0.056) Pro-B-Type Natriuretic Peptide 4304 pg/mL (0-125) H Total Protein 6.9 G/DL (6.4-8.2) Albumin 2.7 G/DL (3.4-5.0) L Globulin 4.2 g/dL Albumin/Globulin Ratio 0.6 (1.0-2.7) L Thyroid Stimulating Hormone (TSH) 5.211 uiU/mL (0.358-3.740) Urine Color Pale yellow Urine Appearance Clear Urine pH 6.5 (4.5-8.0) Urine Specific [place] 1.005 (1.005-1.035) Urine Protein 4+ (NEGATIVE) H Urine Glucose (UA) Negative (NEGATIVE) Urine Ketones Negative (NEGATIVE) Urine Blood 2+ (NEGATIVE) H Urine Nitrite Negative (NEGATIVE) Urine Bilirubin Negative (NEGATIVE) Urine Urobilinogen Normal MG/DL (0.0-1.0) Urine Leukocyte Esterase 1+ (NEGATIVE) H Urine RBC 2-4 /HPF (0 - 2) H Urine WBC 0-2 /HPF (0 - 2) Urine Squamous Epithelial Cells Few /LPF (NONE/OCC) Urine Bacteria Few /HPF (NONE) EKG Diagnostic Results Rate: normal Rhythm: NSR ST Segments: no acute changes Rhythm Strip Diag. Results EP Interpretation: yes Rhythm: NSR, no PVC's, no ectopy Chest X-Ray Diagnostic Results Chest X-Ray Diagnostic Results : Chest X-Ray Ordered: Yes # of Views/Limited/Complete: 1 View Indication: Other EP Interpretation: Yes Interpretation: no pneumothorax, other - CHF and bilat effusions Impression: Other Labs noted EKG with normal sinus rhythm rate [address]-T wave changes. CXR CHF and pleural effusions. Impression: Chest pain, NSTEMI CHF (congestive heart failure) CKD Type 2 Diabetes Hyperlipidemia Hypothyroid Plan: Trend troponins VQ scan LE Dupplex Treat for possible community aquired pneumonia given basal atelectasis on CXR: Ceftriaxone and Doxycycline Lasix PRN Lovenox per Pharmacy Nitro paste ASA Pain meds ISS Oct 23, 2018 23:46 Subjective ROS Limited/Unobtainable: No Allergies: Coded Allergies: No Known Allergies (Verified Allergy, Unknown, 02/17/11) Objective Last 24 Hour Vital Signs Date Time Temp Pulse Resp B/P (MAP) Pulse Ox O2 Delivery O2 Flow Rate FiO2 10/26/18 17:14 69 140/66 10/26/18 17:14 140/66 10/26/18 16:00 97.9 69 21 140/66 (90) 97 10/26/18 16:00 74 10/26/18 12:09 140/72 10/26/18 12:00 98.1 70 20 140/72 (94) 98 10/26/18 11:45 71 10/26/18 09:00 Nasal Cannula 2.0 10/26/18 08:52 75 139/71 10/26/18 08:51 75 139/71 10/26/18 08:00 99.9 75 20 139/71 (93) 94 10/26/18 07:56 75 10/26/18 06:05 133/63 10/26/18 04:00 97.9 72 16 133/63 (86) 92 10/26/18 04:00 74 10/26/18 00:00 97.5 71 16 147/71 (96) 94 10/26/18 00:00 68 Intake and Output 10/25/18 10/26/18 18:59 06:59 Output Total 850 ml 1400 ml Balance -850 ml -1400 ml Output Urine Total 850 ml 1400 ml # Bowel Movements 1 Microbiology Date/Time Source Procedure Growth Status 10/24/18 01:00 Nasal Nares Right MRSA Culture - Final NO METHICILLIN RESISTANT STAPH AUREUS... Complete 10/24/18 01:00 Rectum VRE Culture - Final NO VANCOMYCIN RESISTANT ENTEROCOCCUS ... Complete 10/24/18 01:00 Rectum - Final NO CARBAPENEM-RESISTANT ENTEROBACTERI... Complete Laboratory Tests 10/26/18 11:10: White Blood Count 9.4, Red Blood Count 3.62L, Hemoglobin 9.8L, Hematocrit 30.5L , Mean Corpuscular Volume 84, Mean Corpuscular Hemoglobin 27.1, Mean Corpuscular Hemoglobin Concent 32.2, Red Cell Distribution Width 12.7, Platelet Count 278, Mean Platelet Volume 6.9, Neutrophils (%) (Auto) 58.6, Lymphocytes (% ) (Auto) 30.5, Monocytes (%) (Auto) 5.4, Eosinophils (%) (Auto) 4.5H, Basophils (%) (Auto) 1.0, Sodium Level 140, Potassium Level 4.2, Chloride Level 104, Carbon Dioxide Level 23, Anion Gap 13, Blood Urea Nitrogen 62H, Creatinine 4.8H , Estimat Glomerular Filtration Rate 9.4, Glucose Level 261H, Calcium Level 8.6 , Phosphorus Level 6.1H, Magnesium Level 2.1, Total Bilirubin 0.2, Aspartate Amino Transf (AST/SGOT) 9L, Alanine Aminotransferase (ALT/SGPT) 15, Alkaline Phosphatase 120H, Total Protein 6.5, Albumin 2.4L, Globulin 4.1, Albumin/ Globulin Ratio 0.6L 10/26/18 12:00: Creatinine 4.8H, Estimat Glomerular Filtration Rate 9.4, Urine Collection Time 24, Urine Total Volume 3000, Urine Creatinine 36, Urine Creatinine 24 Hour 1080 , Patient Height Inches (Creat Clear) 62, Patient Weight Pounds (Creat Clear) 189, Creatinine Clearance 15L, Urine Total Protein mg/dL 289, Urine Total Protein 24 Hour 8670.0H Current Medications Medications (Trade) Dose Ordered Sig/Miguel Route PRN Reason Start Time Stop Time Status Last Admin Dose Admin Acetaminophen (Tylenol) 650 mg Q6H PRN ORAL Prn Mod pain/Fever 10/24/18 18:00 11/23/18 17:59 10/25/18 16:29 Allopurinol (Allopurinol) 300 mg DAILY ORAL 10/27/18 09:00 11/26/18 08:59 Amlodipine Besylate (Norvasc) 5 mg BID ORAL 10/25/18 18:00 11/24/18 08:59 10/26/18 17:14 Aspirin (ASA) 325 mg DAILY ORAL 10/25/18 09:00 11/23/18 08:59 10/26/18 08:52 Atorvastatin Calcium (Lipitor) 20 mg BEDTIME ORAL 10/24/18 21:00 11/23/18 20:59 10/26/18 21:42 Azithromycin (Zithromax) 250 mg DAILY ORAL 10/26/18 09:00 11/02/18 08:59 10/26/18 08:52 Ceftriaxone Sodium 1 gm/ Dextrose 55 ml @ 110 mls/hr DAILY IVPB 10/25/18 09:00 11/01/18 08:59 10/26/18 09:01 Dextrose (Dextrose 50%) 25 ml Q30M PRN IV Hypoglycemia 10/24/18 18:00 11/23/18 00:00 Dextrose (Dextrose 50%) 50 ml Q30M PRN IV Hypoglycemia 10/24/18 18:00 11/23/18 00:00 Heparin Sodium (Porcine) (Heparin 5000 units/ml) 5,000 units EVERY 12 HOURS SUBQ 10/24/18 21:00 11/23/18 00:29 10/26/18 21:43 Insulin Aspart (NovoLOG) BEFORE MEALS AND HS SUBQ 10/24/18 21:00 11/23/18 06:29 10/26/18 21:47 Insulin Detemir (Levemir) 5 units DAILY SUBQ 10/25/18 17:00 11/24/18 16:59 10/26/18 09:01 Metoprolol Succinate (Toprol XL) 25 mg DAILY ORAL 10/25/18 09:00 11/23/18 08:59 10/26/18 08:51 Morphine Sulfate (Morphine Sulfate) 2 mg Q3H PRN IVP Severe Pain (Pain Scale 7-10) 10/24/18 18:00 10/31/18 17:59 Nitroglycerin (Nitro-Bid) 1 inch TID@0600,1200,1800 TOPIC 10/24/18 18:00 11/23/18 05:59 10/26/18 17:14 Nitroglycerin (Ntg) 0.4 mg Q5M PRN SL Prn Chest Pain 10/24/18 17:45 11/23/18 00:29 Pantoprazole (Protonix) 40 mg DAILY ORAL 10/25/18 09:00 11/23/18 13:48 10/26/18 08:51 Panchito Cha MD Oct 26, 2018 21:54
[2018-10-27] VITALS: BP 140/73
[2018-10-27 04:00] VITALS: BP 136/78
[2018-10-27] MEDS: Nitroglycerin 2% oint pkt TOPIC SCH ×2 (06:50→11:54)
[2018-10-27] MEDS: NovoLOG Insulin Flexpen SUBQ SCH ×3 (06:53→16:58)
[2018-10-27 07:56] LABS: EOSINOPHILS % (AUTO) 5.5 % (0.0-3.0); HEMATOCRIT 33.2 % (37.0-47.0); HEMOGLOBIN 10.8 G/DL (12.0-16.0); LYMPHOCYTES % (AUTO) 29.7 % (20.0-45.0); MEAN CORPUSCULAR VOLUME 84 FL (80-99); MONOCYTES % (AUTO) 5.2 % (1.0-10.0); NEUTROPHILS % (AUTO) 58.6 % (45.0-75.0); PLATELET COUNT 330 K/UL (150-450); RED BLOOD COUNT 3.94 M/UL (4.20-5.40); RED CELL DISTRIBUTION WIDTH 13.3 % (11.6-14.8); WHITE BLOOD COUNT 9.1 K/UL (4.8-10.8)
[2018-10-27 08:00] VITALS: BP 134/75
[2018-10-27 08:35] LABS: ALANINE AMINOTRANSFERASE 19 U/L (12-78); ALBUMIN 2.7 G/DL (3.4-5.0); ALBUMIN/GLOBULIN RATIO 0.6 (1.0-2.7); ALKALINE PHOSPHATASE 131 U/L (46-116); ANION GAP 11 mmol/L (5-15); ASPARTATE AMINO TRANSFERASE 12 U/L (15-37); BILIRUBIN,TOTAL 0.2 MG/DL (0.2-1.0); BLOOD UREA NITROGEN 66 mg/dL (7-18); CALCIUM 9.1 MG/DL (8.5-10.1); CARBON DIOXIDE 25 MMOL/L (21-32); CHLORIDE 103 MMOL/L (98-107); CREATININE 4.9 MG/DL (0.55-1.30); PHOSPHORUS 6.2 MG/DL (2.5-4.9); POTASSIUM 4.4 MMOL/L (3.5-5.1); SODIUM 139 MMOL/L (136-145)
[2018-10-27] MEDS: cefTRIAXone 1 GM in D5W 55 ML IVPB SCH (08:57)
[2018-10-27] MEDS: Metoprolol Succinate XL 25mg tab ORAL SCH (08:58)
[2018-10-27] MEDS: Azithromycin 250mg tab ORAL SCH (08:59)
[2018-10-27] MEDS: Levemir Flexpen SUBQ SCH (09:07)
[2018-10-27] MEDS: Heparin 5000 units/ml inj SUBQ SCH (09:07)
[2018-10-27] MEDS ORDERED: LIPITOR40 MG ORAL (09:56)
[2018-10-27] MEDS ORDERED: ASPIRIN81 MG ORAL (09:56)
[2018-10-27] MEDS ORDERED: VASOTEC5 MG ORAL (09:57)
[2018-10-27 12:00] VITALS: BP 141/72
--- NOTE | 2018-10-27 14:28 | General Progress Note ---
Assessment/Plan Assessment/Plan S: My sob is better O: appears comfortable, seen in Telemetry. having lunch. No shortness of breath PHYSICAL EXAMINATION: HEAD AND NECK: Atraumatic and normocephalic. CHEST: Diffuse bronchial breathing sounds. Positive for fine crackles in both lower lungs. ABDOMEN: Obese. Bowel sounds are normal. No organomegaly. MUSCULOSKELETAL: Diffuse swelling and edema in all the extremities, especially in the dependent areas. No gross lateralized motor deficit. NEUROLOGY: The patient is awake, alert, and oriented x3. Meds: reviewed and reconciled in the chart ASSESSMENT AND PLAN: 1. Acute congestive heart failure exacerbation - new onset. 2. Community-acquired pneumonia, less likely 3. Renal failure - age indeterminate. stable 4. Hypothyroidism. 5. Diabetes type 2. 6. Hypertension. 7. Gastrointestinal and deep vein thrombosis prophylaxis. Plan: Worsening renal functions. Will monitor renal function Notes from ID and nephro reviewed Subjective Allergies: Coded Allergies: No Known Allergies (Verified Allergy, Unknown, 02/17/11) Objective Last 24 Hour Vital Signs Date Time Temp Pulse Resp B/P (MAP) Pulse Ox O2 Delivery O2 Flow Rate FiO2 10/27/18 12:00 97.7 73 21 141/72 (95) 96 10/27/18 12:00 69 10/27/18 11:54 140/78 10/27/18 09:00 Nasal Cannula 2.0 10/27/18 08:58 75 134/75 10/27/18 08:58 75 134/75 10/27/18 08:00 73 10/27/18 08:00 97.7 75 21 134/75 (94) 97 10/27/18 06:50 136/78 10/27/18 04:00 97.9 71 18 136/78 (97) 97 10/27/18 04:00 72 10/27/18 00:00 98.1 71 23 140/73 (95) 93 10/27/18 00:00 68 10/26/18 21:00 Nasal Cannula 2.0 10/26/18 20:00 69 10/26/18 20:00 98.6 69 16 129/68 (88) 93 18 17:14 69 140/66 18 17:14 140/66 10/26/18 16:00 97.9 69 21 140/66 (90) 97 10/26/18 16:00 74 Intake and Output 10/26/18 10/27/18 19:00 07:00 Intake Total 660 ml 200 ml Balance 660 ml 200 ml Intake Oral 660 ml 200 ml Laboratory Tests 10/27/18 07:40: White Blood Count 9.1, Red Blood Count 3.94L, Hemoglobin 10.8L, Hematocrit 33.2L , Mean Corpuscular Volume 84, Mean Corpuscular Hemoglobin 27.5, Mean Corpuscular Hemoglobin Concent 32.6, Red Cell Distribution Width 13.3, Platelet Count 330, Mean Platelet Volume 6.6, Neutrophils (%) (Auto) 58.6, Lymphocytes (% ) (Auto) 29.7, Monocytes (%) (Auto) 5.2, Eosinophils (%) (Auto) 5.5H, Basophils (%) (Auto) 1.0, Sodium Level 139, Potassium Level 4.4, Chloride Level 103, Carbon Dioxide Level 25, Anion Gap 11, Blood Urea Nitrogen 66H, Creatinine 4.9H , Estimat Glomerular Filtration Rate 9.2, Glucose Level 243H, Uric Acid 8.1H, Calcium Level 9.1, Phosphorus Level 6.2H, Magnesium Level 2.1, Total Bilirubin 0.2, Aspartate Amino Transf (AST/SGOT) 12L, Alanine Aminotransferase (ALT/SGPT) 19, Alkaline Phosphatase 131H, Pro-B-Type Natriuretic Peptide 2215H, Total Protein 7.5, Albumin 2.7L, Globulin 4.8, Albumin/Globulin Ratio 0.6L, Thyroid Stimulating Hormone (TSH) 6.490H Height (Feet): 5 Height (Inches): 2.00 Weight (Pounds): 187 Rema Ray MD Oct 27, 2018 14:28
--- NOTE | 2018-10-27 14:54 | Nephrology Progress Note ---
Assessment/Plan Problem List: (1) Renal failure (ARF), acute on chronic (2) Nephrotic syndrome (3) Diabetic nephropathy Assessment Renal failure, likely diabetic nephropathy and Nephrotic syndrom Hypoxia, CHF Chest pain, NSTEMI (non-ST elevated myocardial infarction) Hypothyroid Anemia Plan DC douglas DC Lasix PT eval renal diet phos binders DC Planning Boarderline need for HD CrCl 15 8 grams Protein in urine 24 h fu OP 2D echo- noted 24 h urine CrCl and Total protein noted Kidney TANK noted Anemia llamas avoid Nephrotoxics adjust bp meds per orders Subjective ROS Limited/Unobtainable: No Objective Objective Last 24 Hour Vital Signs Date Time Temp Pulse Resp B/P (MAP) Pulse Ox O2 Delivery O2 Flow Rate FiO2 10/27/18 12:00 97.7 73 21 141/72 (95) 96 10/27/18 12:00 69 10/27/18 11:54 140/78 10/27/18 09:00 Nasal Cannula 2.0 10/27/18 08:58 75 134/75 10/27/18 08:58 75 134/75 10/27/18 08:00 73 10/27/18 08:00 97.7 75 21 134/75 (94) 97 10/27/18 06:50 136/78 10/27/18 04:00 97.9 71 18 136/78 (97) 97 10/27/18 04:00 72 10/27/18 00:00 98.1 71 23 140/73 (95) 93 10/27/18 00:00 68 10/26/18 21:00 Nasal Cannula 2.0 10/26/18 20:00 69 10/26/18 20:00 98.6 69 16 129/68 (88) 93 10/26/18 17:14 69 140/66 18 17:14 140/66 10/26/18 16:00 97.9 69 21 140/66 (90) 97 10/26/18 16:00 74 Intake and Output 10/26/18 10/27/18 19:00 07:00 Intake Total 660 ml 200 ml Balance 660 ml 200 ml Intake Oral 660 ml 200 ml Current Medications Medications (Trade) Dose Ordered Sig/Miguel Route PRN Reason Start Time Stop Time Status Last Admin Dose Admin Acetaminophen (Tylenol) 650 mg Q6H PRN ORAL Prn Mod pain/Fever 10/24/18 18:00 11/23/18 17:59 10/25/18 16:29 Allopurinol (Allopurinol) 300 mg DAILY ORAL 10/27/18 09:00 11/26/18 08:59 10/27/18 08:59 Amlodipine Besylate (Norvasc) 5 mg BID ORAL 10/25/18 18:00 11/24/18 08:59 10/27/18 08:58 Aspirin (ASA) 325 mg DAILY ORAL 10/25/18 09:00 11/23/18 08:59 10/27/18 08:59 Atorvastatin Calcium (Lipitor) 20 mg BEDTIME ORAL 10/24/18 21:00 11/23/18 20:59 10/26/18 21:42 Azithromycin (Zithromax) 250 mg DAILY ORAL 10/26/18 09:00 11/02/18 08:59 10/27/18 08:59 Ceftriaxone Sodium 1 gm/ Dextrose 55 ml @ 110 mls/hr DAILY IVPB 10/25/18 09:00 11/01/18 08:59 10/27/18 08:57 Dextrose (Dextrose 50%) 25 ml Q30M PRN IV Hypoglycemia 10/24/18 18:00 11/23/18 00:00 Dextrose (Dextrose 50%) 50 ml Q30M PRN IV Hypoglycemia 10/24/18 18:00 11/23/18 00:00 Heparin Sodium (Porcine) (Heparin 5000 units/ml) 5,000 units EVERY 12 HOURS SUBQ 10/24/18 21:00 11/23/18 00:29 10/27/18 09:07 Insulin Aspart (NovoLOG) BEFORE MEALS AND HS SUBQ 10/24/18 21:00 11/23/18 06:29 10/27/18 11:41 Insulin Detemir (Levemir) 5 units DAILY SUBQ 10/25/18 17:00 11/24/18 16:59 10/27/18 09:07 Metoprolol Succinate (Toprol XL) 25 mg DAILY ORAL 10/25/18 09:00 11/23/18 08:59 10/27/18 08:58 Morphine Sulfate (Morphine Sulfate) 2 mg Q3H PRN IVP Severe Pain (Pain Scale 7-10) 10/24/18 18:00 12/23/18 17:59 Nitroglycerin (Nitro-Bid) 1 inch TID@0600,1200,1800 TOPIC 10/24/18 18:00 11/23/18 05:59 10/27/18 11:54 Nitroglycerin (Ntg) 0.4 mg Q5M PRN SL Prn Chest Pain 10/24/18 17:45 11/23/18 00:29 Pantoprazole (Protonix) 40 mg DAILY ORAL 10/25/18 09:00 11/23/18 13:48 10/27/18 08:58 Laboratory Tests 10/27/18 07:40: White Blood Count 9.1, Red Blood Count 3.94L, Hemoglobin 10.8L, Hematocrit 33.2L , Mean Corpuscular Volume 84, Mean Corpuscular Hemoglobin 27.5, Mean Corpuscular Hemoglobin Concent 32.6, Red Cell Distribution Width 13.3, Platelet Count 330, Mean Platelet Volume 6.6, Neutrophils (%) (Auto) 58.6, Lymphocytes (% ) (Auto) 29.7, Monocytes (%) (Auto) 5.2, Eosinophils (%) (Auto) 5.5H, Basophils (%) (Auto) 1.0, Sodium Level 139, Potassium Level 4.4, Chloride Level 103, Carbon Dioxide Level 25, Anion Gap 11, Blood Urea Nitrogen 66H, Creatinine 4.9H , Estimat Glomerular Filtration Rate 9.2, Glucose Level 243H, Uric Acid 8.1H, Calcium Level 9.1, Phosphorus Level 6.2H, Magnesium Level 2.1, Total Bilirubin 0.2, Aspartate Amino Transf (AST/SGOT) 12L, Alanine Aminotransferase (ALT/SGPT) 19, Alkaline Phosphatase 131H, Pro-B-Type Natriuretic Peptide 2215H, Total Protein 7.5, Albumin 2.7L, Globulin 4.8, Albumin/Globulin Ratio 0.6L, Thyroid Stimulating Hormone (TSH) 6.490H Height (Feet): 5 Height (Inches): 2.00 Weight (Pounds): 187 General Appearance: no apparent distress Cardiovascular: normal rate Respiratory/Chest: lungs clear Abdomen: soft Objective no signs of CHF Lito Frank MD Oct 27, 2018 14:54
[2018-10-27] MEDS ORDERED: METOPROLOL SUCC25 MG ORAL (15:02)
[2018-10-27] MEDS ORDERED: NORVASC5 MG ORAL (15:02)
[2018-10-27] MEDS ORDERED: ASPIRIN325 MG ORAL (15:02)
[2018-10-27] MEDS ORDERED: ALLOPURINOL100 M1 ORAL (15:02)
[2018-10-27 16:00] VITALS: BP 137/68
--- NOTE | 2018-10-27 16:31 | Infectious Diseases Prog Note ---
Assessment/Plan Problems: (1) Community acquired pneumonia Assessment & Plan: will switch ceftriaxone to oral cefdinir and continue azithromycin orally for 5 more days , recommend influenza vaccination at discharge (2) CHF (congestive heart failure) Assessment & Plan: with possible exacerbation, continue diuresis , follow up with cardiology (3) Renal failure (ARF), acute on chronic Assessment & Plan: monitor renal function, avoid nephrotoxics, may need HD in the future , nephrology is following Subjective Constitutional: Reports: no symptoms HEENT: Reports: no symptoms Respiratory: Reports: no symptoms Breasts: Reports: no symptoms Cardiovascular: Reports: no symptoms Gastrointestinal/Abdominal: Reports: no symptoms Genitourinary: Reports: no symptoms Neurologic: Reports: no symptoms Psychiatric: Reports: no symptoms Skin: Reports: no symptoms Endocrine: Reports: no symptoms Hematologic: Reports: no symptoms Musculoskeletal: Reports: no symptoms Allergies: Coded Allergies: No Known Allergies (Verified Allergy, Unknown, 02/17/11) Objective Vital Signs Last 24 Hour Vital Signs Date Time Temp Pulse Resp B/P (MAP) Pulse Ox O2 Delivery O2 Flow Rate FiO2 10/27/18 16:00 97.5 71 20 137/68 (91) 93 10/27/18 12:00 97.7 73 21 141/72 (95) 96 10/27/18 12:00 69 10/27/18 11:54 140/78 10/27/18 09:00 Nasal Cannula 2.0 10/27/18 08:58 75 134/75 10/27/18 08:58 75 134/75 10/27/18 08:00 73 10/27/18 08:00 97.7 75 21 134/75 (94) 97 10/27/18 06:50 136/78 10/27/18 04:00 97.9 71 18 136/78 (97) 97 10/27/18 04:00 72 10/27/18 00:00 98.1 71 23 140/73 (95) 93 10/27/18 00:00 68 10/26/18 21:00 Nasal Cannula 2.0 18 20:00 69 10/26/18 20:00 98.6 69 16 129/68 (88) 93 1818 17:14 69 140/66 [id number] 17:14 140/66 Height (Feet): 5 Height (Inches): 2.00 Weight (Pounds): 187 General Appearance: WD/WN, no acute distress HEENT: normocephalic, atraumatic, anicteric, mucous membranes moist, PERRL Respiratory/Chest: chest wall non-tender, lungs clear, normal breath sounds, no respiratory distress, no accessory muscle use Cardiovascular: normal peripheral pulses, normal rate, regular rhythm, no gallop/murmur, no JVD Abdomen: normal bowel sounds, soft, non tender, no organomegaly, non distended , no mass, no scars Genitourinary: normal external genitalia Extremities: no cyanosis, no clubbing Skin: no rash, no lesions, no ulcers Neurologic/Psychiatric: alert, oriented x 3, responsive, normal mood/affect Lymphatic: no neck adenopathy, no groin adenopathy Musculoskeletal: normal muscle bulk, no effusion Laboratory Tests Test 10/27/18 07:40 White Blood Count 9.1 K/UL (4.8-10.8) Red Blood Count 3.94 M/UL (4.20-5.40) L Hemoglobin 10.8 G/DL (12.0-16.0) L Hematocrit 33.2 % (37.0-47.0) L Mean Corpuscular Volume 84 FL (80-99) Mean Corpuscular Hemoglobin 27.5 PG (27.0-31.0) Mean Corpuscular Hemoglobin Concent 32.6 G/DL (32.0-36.0) Red Cell Distribution Width 13.3 % (11.6-14.8) Platelet Count 330 K/UL (150-450) Mean Platelet Volume 6.6 FL (6.5-10.1) Neutrophils (%) (Auto) 58.6 % (45.0-75.0) Lymphocytes (%) (Auto) 29.7 % (20.0-45.0) Monocytes (%) (Auto) 5.2 % (1.0-10.0) Eosinophils (%) (Auto) 5.5 % (0.0-3.0) H Basophils (%) (Auto) 1.0 % (0.0-2.0) Sodium Level 139 MMOL/L (136-145) Potassium Level 4.4 MMOL/L (3.5-5.1) Chloride Level 103 MMOL/L (98-107) Carbon Dioxide Level 25 MMOL/L (21-32) Anion Gap 11 mmol/L (5-15) Blood Urea Nitrogen 66 mg/dL (7-18) H Creatinine 4.9 MG/DL (0.55-1.30) H Estimat Glomerular Filtration Rate 9.2 mL/min (>60) Glucose Level 243 MG/DL (74-106) H Uric Acid 8.1 MG/DL (2.6-7.2) H Calcium Level 9.1 MG/DL (8.5-10.1) Phosphorus Level 6.2 MG/DL (2.5-4.9) H Magnesium Level 2.1 MG/DL (1.8-2.4) Total Bilirubin 0.2 MG/DL (0.2-1.0) Aspartate Amino Transf (AST/SGOT) 12 U/L (15-37) L Alanine Aminotransferase (ALT/SGPT) 19 U/L (12-78) Alkaline Phosphatase 131 U/L (46-116) H Pro-B-Type Natriuretic Peptide 2215 pg/mL (0-125) H Total Protein 7.5 G/DL (6.4-8.2) Albumin 2.7 G/DL (3.4-5.0) L Globulin 4.8 g/dL Albumin/Globulin Ratio 0.6 (1.0-2.7) L Thyroid Stimulating Hormone (TSH) 6.490 uiU/mL (0.358-3.740) Current Medications Medications (Trade) Dose Ordered Sig/Miguel Route PRN Reason Start Time Stop Time Status Last Admin Dose Admin Acetaminophen (Tylenol) 650 mg Q6H PRN ORAL Prn Mod pain/Fever 10/24/18 18:00 11/23/18 17:59 10/25/18 16:29 Allopurinol (Allopurinol) 300 mg DAILY ORAL 10/27/18 09:00 11/26/18 08:59 10/27/18 08:59 Amlodipine Besylate (Norvasc) 5 mg BID ORAL 10/25/18 18:00 11/24/18 08:59 10/27/18 08:58 Aspirin (ASA) 325 mg DAILY ORAL 10/25/18 09:00 11/23/18 08:59 10/27/18 08:59 Atorvastatin Calcium (Lipitor) 20 mg BEDTIME ORAL 10/24/18 21:00 11/23/18 20:59 10/26/18 21:42 Azithromycin (Zithromax) 250 mg DAILY ORAL 10/26/18 09:00 11/02/18 08:59 10/27/18 08:59 Ceftriaxone Sodium 1 gm/ Dextrose 55 ml @ 110 mls/hr DAILY IVPB 10/25/18 09:00 11/01/18 08:59 10/27/18 08:57 Dextrose (Dextrose 50%) 25 ml Q30M PRN IV Hypoglycemia 10/24/18 18:00 11/23/18 00:00 Dextrose (Dextrose 50%) 50 ml Q30M PRN IV Hypoglycemia 10/24/18 18:00 11/23/18 00:00 Heparin Sodium (Porcine) (Heparin 5000 units/ml) 5,000 units EVERY 12 HOURS SUBQ 10/24/18 21:00 11/23/18 00:29 10/27/18 09:07 Insulin Aspart (NovoLOG) BEFORE MEALS AND HS SUBQ 10/24/18 21:00 11/23/18 06:29 10/27/18 11:41 Insulin Detemir (Levemir) 5 units DAILY SUBQ 10/25/18 17:00 11/24/18 16:59 10/27/18 09:07 Metoprolol Succinate (Toprol XL) 25 mg DAILY ORAL 10/25/18 09:00 11/23/18 08:59 10/27/18 08:58 Morphine Sulfate (Morphine Sulfate) 2 mg Q3H PRN IVP Severe Pain (Pain Scale 7-10) 10/24/18 18:00 10/31/18 17:59 Nitroglycerin (Nitro-Bid) 1 inch TID@0600,1200,1800 TOPIC 10/24/18 18:00 11/23/18 05:59 10/27/18 11:54 Nitroglycerin (Ntg) 0.4 mg Q5M PRN SL Prn Chest Pain 10/24/18 17:45 11/23/18 00:29 Pantoprazole (Protonix) 40 mg DAILY ORAL 10/25/18 09:00 11/23/18 13:48 10/27/18 08:58 Kandis Lipscomb M.D. Oct 27, 2018 16:31
--- NOTE | 2018-10-27 17:17 | Cardiology Progress Note ---
Assessment/Plan Assessment/Plan 1. Most likely acute heart failure with normal ejection fraction in view of chronic kidney disease and accelerated hypertension, continue metoprolol, 2D echo has confirmed normal LVEF with mild pulmonary HTN. 2. Large left pleural effusion on echo, pulmonary F/U, off lasix. 3. Slight elevation of troponin I, most likely troponin leak due to chronic kidney disease as the pattern of the rise is plateaued. There is no evidence of ischemia on 12-lead electrocardiogram. At this time, we will continue with conservative management. Cardiac catheterization is contraindicated in face of stage V CKD. Per nephrology, there os borderline indication for HD. 4. Accelerated hypertension, continue amlodipine and metoprolol, will add hydralazine if needed to control blood pressure. Subjective Subjective Sinus rhythm at rate of 71. Objective Last 24 Hour Vital Signs Date Time Temp Pulse Resp B/P (MAP) Pulse Ox O2 Delivery O2 Flow Rate FiO2 10/27/18 16:00 97.5 71 20 137/68 (91) 93 10/27/18 12:00 97.7 73 21 141/72 (95) 96 10/27/18 12:00 69 10/27/18 11:54 140/78 10/27/18 09:00 Nasal Cannula 2.0 10/27/18 08:58 75 134/75 10/27/18 08:58 75 134/75 10/27/18 08:00 73 10/27/18 08:00 97.7 75 21 134/75 (94) 97 10/27/18 06:50 136/78 10/27/18 04:00 97.9 71 18 136/78 (97) 97 10/27/18 04:00 72 10/27/18 00:00 98.1 71 23 140/73 (95) 93 10/27/18 00:00 68 10/26/18 21:00 Nasal Cannula 2.0 10/26/18 20:00 69 10/26/18 20:00 98.6 69 16 129/68 (88) 93 Intake and Output 10/26/18 10/27/18 19:00 07:00 Intake Total 660 ml 200 ml Balance 660 ml 200 ml Intake Oral 660 ml 200 ml 2D Echo: LVEF 55%, small Lucy.eff., large left pl. eff., RVSP 3, Mild LVH, Mild MR Laboratory Tests Test 10/27/18 07:40 White Blood Count 9.1 K/UL (4.8-10.8) Red Blood Count 3.94 M/UL (4.20-5.40) L Hemoglobin 10.8 G/DL (12.0-16.0) L Hematocrit 33.2 % (37.0-47.0) L Mean Corpuscular Volume 84 FL (80-99) Mean Corpuscular Hemoglobin 27.5 PG (27.0-31.0) Mean Corpuscular Hemoglobin Concent 32.6 G/DL (32.0-36.0) Red Cell Distribution Width 13.3 % (11.6-14.8) Platelet Count 330 K/UL (150-450) Mean Platelet Volume 6.6 FL (6.5-10.1) Neutrophils (%) (Auto) 58.6 % (45.0-75.0) Lymphocytes (%) (Auto) 29.7 % (20.0-45.0) Monocytes (%) (Auto) 5.2 % (1.0-10.0) Eosinophils (%) (Auto) 5.5 % (0.0-3.0) H Basophils (%) (Auto) 1.0 % (0.0-2.0) Sodium Level 139 MMOL/L (136-145) Potassium Level 4.4 MMOL/L (3.5-5.1) Chloride Level 103 MMOL/L (98-107) Carbon Dioxide Level 25 MMOL/L (21-32) Anion Gap 11 mmol/L (5-15) Blood Urea Nitrogen 66 mg/dL (7-18) H Creatinine 4.9 MG/DL (0.55-1.30) H Estimat Glomerular Filtration Rate 9.2 mL/min (>60) Glucose Level 243 MG/DL (74-106) H Uric Acid 8.1 MG/DL (2.6-7.2) H Calcium Level 9.1 MG/DL (8.5-10.1) Phosphorus Level 6.2 MG/DL (2.5-4.9) H Magnesium Level 2.1 MG/DL (1.8-2.4) Total Bilirubin 0.2 MG/DL (0.2-1.0) Aspartate Amino Transf (AST/SGOT) 12 U/L (15-37) L Alanine Aminotransferase (ALT/SGPT) 19 U/L (12-78) Alkaline Phosphatase 131 U/L (46-116) H Pro-B-Type Natriuretic Peptide 2215 pg/mL (0-125) H Total Protein 7.5 G/DL (6.4-8.2) Albumin 2.7 G/DL (3.4-5.0) L Globulin 4.8 g/dL Albumin/Globulin Ratio 0.6 (1.0-2.7) L Thyroid Stimulating Hormone (TSH) 6.490 uiU/mL (0.358-3.740) Objective HEENT: Atraumatic and normocephalic. Anicteric. Periorbital edema. Pale conjunctivae. NECK: JVP is less than 5 cm. No carotid bruits. Carotid upstrokes 2+ bilaterally. CARDIOVASCULAR: Normal S1 and S2. Regular rate and rhythm. No murmurs, gallops, or rubs. PMI is at fourth intercostal space in the mid clavicular line. LUNGS: Diminished breath sounds in both bases with associated rales. ABDOMEN: Soft, nontender, and nondistended. No hepatosplenomegaly. Positive bowel sounds. EXTREMITIES: There is bilateral lower extremity edema of 1+ to 2+. Gilmer Lam MD Oct 27, 2018 17:17
[2018-10-27] MEDS ORDERED: CEFDINIR300 MG PO (17:20)
[2018-10-27] MEDS ORDERED: ZITHROMAX250 MG ORAL (17:20)
[2018-10-27] MEDS ORDERED: NS 275ml ONE (18:27)
[2018-10-27] MEDS ORDERED: Tubing IV Secondary IV ONE (18:27)
--- NOTE | 2018-10-28 12:09 | Discharge Summary ---
Discharge Summary Discharge Summary _ DATE OF ADMISSION: 10/23/2018 DATE OF DISCHARGE: 10/27/2018 DISCHARGED BY: Dr. Rema Ray CONSULTANTS: [] BRIEF HOSPITAL COURSE: Patient is a 53-year-old female, with prior history of diabetes and chronic kidney disease, presented to ED complaining of worsening shortness of breath and chest pain for the past 3 days. Patient reported sharp pain with no radiation. Denied any nausea, vomiting, diarrhea or constipation. She has medical history significant for hypertension, diabetes type 2, hyperlipidemia and hypothyroidism. On evaluation at ED, blood pressure was 160/78, she was saturating 85% on room air. Blood work showed elevated troponin levels 0.28. EKG showed normal sinus rhythm at a rate of 73, with nonspecific ST to T wave changes. Chest x-ray showed evidence of CHF and pleural effusion. She had elevated BNP > 4000. TSH was elevated to 5. Urinalysis with +1 leukocyte esterase. He was given Lovenox. She was then admitted to ICU for acute CHF exacerbation. She was started on high dose of aspirin. Troponin levels were monitored. She was given heparin subcutaneous for DVT prophylaxis. She was given pulmonary support. She was started empirically on ceftriaxone and doxycycline. Cardiac evaluation was done. Patient was given diuretic for reduction of preload with combination of Lasix and metolazone. She was given conservative management. She was given metoprolol. She had elevated blood pressure. She was given amlodipine and metoprolol, hydralazine was added. There was elevation in troponin levels, most likely troponin leak due to chronic kidney disease. The levels were plateaued. There was no evidence of ischemia on twelve-lead electrocardiogram. Echocardiogram confirmed normal left ventricular ejection fraction with mild pulmonary hypertension. VQ scan was low probability for PE. Venous duplex was negative. Kidney status was monitored. Patient had renal failure, likely diabetic nephropathy. 24-hour urine with 8 g of protein. Creatinine clearance was 15. She was placed on renal diet. She was given phosphate binders. Kidney ultrasound was negative for hydronephrosis. There was bilateral parenchymal echogenic foci of uncertain significance, given absence of abnormality on 2010 CT scan. Doxycycline was switched to azithromycin empirically. He was continued on ceftriaxone and azithromycin. She was recommended may benefit from cardiac catheterization once renal function improved or decision about hemodialysis was made. Actually discharged home. FINAL DIAGNOSES: Acute diastolic heart failure Community-acquired pneumonia Chronic renal failure Large left pleural effusion Slight elevation of troponin, most likely troponin leak due to chronic kidney disease Accelerated hypertension Nephrotic syndrome Diabetic nephropathy Hypothyroidism Anemia DISPOSITION: Patient was discharged home. DISCHARGE MEDICATIONS: Refer to Discharge Medication List. DISCHARGE INSTRUCTIONS: Follow-up in a week. I have been assigned to dictate discharge summary on this account, and I was not involved in the patient's management. Ratna Koo NP Oct 28, 2018 12:09
== END 2018-10-27 18:28 | disposition home or self-care (01) | DRG 194 ==
LOC: EMR 18:52 → EDBEDREQ 20:21 → EDBEDREQSVC 20:21 → ICU 20:55 → EDBEDREQ 23:11 → 2E 10-24 17:40
DX: I13.0 Hypertensive heart and chronic kidney disease with heart failure and stage 1 through stage 4 chronic kidney disease, or unspecified chronic kidney disease (principal); J18.9 Pneumonia, unspecified organism; N17.9 Acute kidney failure, unspecified; E11.22 Type 2 diabetes mellitus with diabetic chronic kidney disease; I50.31 Acute diastolic (congestive) heart failure; N18.9 Chronic kidney disease, unspecified; E03.9 Hypothyroidism, unspecified; D64.9 Anemia, unspecified; R09.02 Hypoxemia; E78.5 Hyperlipidemia, unspecified; I25.10 Atherosclerotic heart disease of native coronary artery without angina pectoris; I27.20 Pulmonary hypertension, unspecified
CPT/HCPCS: 36415; 51702; 71045; 76770; 78579; 78580; 80053; 80061; 81003; 81050; 82550; 82565; 82575; 82607; 82728; 82746; 82962; 82977; 83036; 83540; 83550; 83735; 83880; 84100; 84156; 84439; 84443; 84484; 84550; 85025; 85610; 85730; 86140; 87081; 93005; 93306; 93970; 96374; 99291; A9503; J1815; S5561

== ENCOUNTER 2018-12-15 11:16 | Inpatient (IN) | payer OTHER ==
[~2018-12-15] VITALS: Ht 160 cm; Wt 85.7 kg
[~2018-12-15 11:16] MED LIST: ALLOPURINOL100 M1 ORAL; ASPIRIN325 MG ORAL; ASPIRIN81 MG ORAL; ATORVASTATIN CA80 MG ORAL; CARVEDILOL3.125 MG ORAL; CEFDINIR300 MG PO; FERROUS SULFAT325 MG ORAL; GLIPIZIDE5 MG ORAL; HUMALOG KW200 UNIT/1 SQ; HYDRALAZINE HCL10 MG ORAL; LANTUS SOL100 UNIT/1 SUBQ; LIPITOR40 MG ORAL; METOPROLOL SUCC25 MG ORAL; NORVASC5 MG ORAL; SYNTHROID25 MCG ORAL; VASOTEC5 MG ORAL; ZITHROMAX250 MG ORAL
[2018-12-15 11:33] VITALS: BP 148/75
--- NOTE | 2018-12-15 12:14 | NUR ---
ED Nurse Note: Pt. AAOx4. Ambulatory. came in to ER due to SOB x 5 days. pt was desatting in high 80's to low 90's. Pt. c/o generalized pain. Skin is intact. Continent for bowel and bladder. Gave 2 L of oxgen via NC.
[2018-12-15 12:29] LABS: BASOPHILS % (AUTO) 1.9 % (0.0-2.0); EOSINOPHILS % (AUTO) 5.1 % (0.0-3.0); HEMATOCRIT 29.4 % (37.0-47.0); HEMOGLOBIN 9.6 G/DL (12.0-16.0); LYMPHOCYTES % (AUTO) 32.1 % (20.0-45.0); MEAN CORPUSCULAR VOLUME 86 FL (80-99); MONOCYTES % (AUTO) 5.3 % (1.0-10.0); NEUTROPHILS % (AUTO) 55.7 % (45.0-75.0); PLATELET COUNT 295 K/UL (150-450); RED BLOOD COUNT 3.43 M/UL (4.20-5.40); RED CELL DISTRIBUTION WIDTH 15.7 % (11.6-14.8); WHITE BLOOD COUNT 9.3 K/UL (4.8-10.8)
--- NOTE | 2018-12-15 12:42 | Emergency Room Report ---
History of Present Illness General Chief Complaint: Dyspnea/Respdistress Source: Patient, PMD Present Illness HPI 53-year-old female sent in by PMD for shortness of breath for one week. No associated fevers, chills, cough. Patient endorsing increased swelling to lower extremities. She took her Lasix 20 mg that she takes normally at night last night. She's never been on BiPAP or been intubated previously. She has known history of CHF, COPD and diabetes. Allergies: Coded Allergies: No Known Allergies (Verified Allergy, Unknown, 02/17/11) Patient History Past Medical History: DM, CHF, COPD Past Surgical History: none Pertinent Family History: none Social History: Denies: smoking, alcohol use, drug use Now: No Immunizations: UTD Reviewed Nursing Documentation: PMH: Agreed; PSxH: Agreed Nursing Documentation-PMH Hx Cardiac Problems: Yes - CHF Hx Hypertension: Yes Hx Diabetes: Yes Hx Cancer: No Hx Gastrointestinal Problems: No Hx Neurological Problems: No Review of Systems All Other Systems: negative except mentioned in HPI Physical Exam Vital Signs Date Time Temp Pulse Resp B/P (MAP) Pulse Ox O2 Delivery O2 Flow Rate FiO2 12/15/18 11:33 98.1 67 22 148/75 94 Room Air Sp02 EP Interpretation: reviewed, normal General Appearance: normal inspection, well appearing, alert, GCS 15, non-toxic , mild distress Head: normocephalic, atraumatic Eyes: bilateral eye PERRL, bilateral eye EOMI ENT: normal ENT inspection, hearing grossly normal, normal pharynx, no angioedema, normal voice, TMs + canals normal, uvula midline, moist mucus membranes Neck: normal inspection, full range of motion, supple, thyroid normal, no meningismus, no bony tend Respiratory: normal inspection, lungs clear, normal breath sounds, no rhonchi, no respiratory distress, no retraction, no accessory muscle use, no wheezing, decreased breath sounds, crackles, speaking full sentences Cardiovascular #1: regular rate, rhythm, no edema, no JVD, normal capillary refill Gastrointestinal: normal inspection, normal bowel sounds, non tender, soft, no mass, no peritonitis, non-distended, no guarding, no hernia, no pulsatile mass Genitourinary: no CVA tenderness Musculoskeletal: normal inspection, back normal, normal range of motion, no calf tenderness, pelvis stable, Jairon's Sign negative Neurologic: normal inspection, alert, oriented x3, responsive, laser engraver III-XII nml as tested, motor strength/tone normal, cerebellar normal, normal gait, speech normal Psychiatric: normal inspection, judgement/insight normal, mood/affect normal, no suicidal/homicidal ideation, no delusions Skin: normal inspection, normal color, no rash Lymphatic: normal inspection, no adenopathy Medical Decision Making Diagnostic Impression: Primary Impression: Respiratory distress Additional Impression: CHF (congestive heart failure) Qualified Codes: I50.9 - Heart failure, unspecified ER Course Patient presented with acute shortness of breath found to be in acute on chronic CHF Was given IV Lasix and started on BiPAP with improvement in her dyspnea and tachypnea Chest x-ray shows bilateral pulmonary edema EKG shows sinus rhythm with first-degree block, no other ischemia Endorsed to Dr Childs for STEVE admit EKG Diagnostic Results Rate: other - 1st degree block ST Segments: no acute changes ASA given to the pt in ED: No Rhythm Strip Diag. Results EP Interpretation: yes Rate: 64 Rhythm: NSR, no PVC's, no ectopy Chest X-Ray Diagnostic Results Chest X-Ray Diagnostic Results : Chest X-Ray Ordered: Yes # of Views/Limited/Complete: 1 View Indication: Shortness of Breath EP Interpretation: Yes Interpretation: no consolidation, no effusion, no pneumothorax, other - bilateral pulm congestion Impression: Other - acute CHF Last Vital Signs Date Time Temp Pulse Resp B/P (MAP) Pulse Ox O2 Delivery O2 Flow Rate FiO2 12/15/18 11:33 67 22 Room Air 12/15/18 11:33 98.1 148/75 94 Status: improved Disposition: ADMITTED INPATIENT Condition: Serious Referrals: Pierre Childs MD (PCP) RANJITH MO M.D. Dec 15, 2018 12:42
[2018-12-15] MEDS ORDERED: Albuterol/Ipratropium 3ml neb HHN PRN (13:00)
[2018-12-15] MEDS ORDERED: Miralax 17gm pkt ORAL PRN (13:00)
--- NOTE | 2018-12-15 13:17 | Diagnostic Imaging Report ---
Indication: Dyspnea Comparison: 10/23/2018 A single view chest radiograph was obtained. Findings: Mild perivascular congestion demonstrated with cardiomegaly. There is silhouetting of the left hemidiaphragm due to ill-defined density not evaluated or characterized well on this study. IMPRESSION: CHF. Retrocardiac density. Atelectasis, infiltrate and/or pleural effusion
[2018-12-15 13:19] VITALS: BP 157/70
[2018-12-15 13:32] LABS: ANION GAP 16 mmol/L (5-15); BLOOD UREA NITROGEN 67 mg/dL (7-18); CALCIUM 8.9 MG/DL (8.5-10.1); CARBON DIOXIDE 18 MMOL/L (21-32); CHLORIDE 104 MMOL/L (98-107); CREATININE 4.6 MG/DL (0.55-1.30); POTASSIUM 5.4 MMOL/L (3.5-5.1); SODIUM 137 MMOL/L (136-145)
[2018-12-15 13:45] LABS: ALANINE AMINOTRANSFERASE 24 U/L (12-78); ALBUMIN/GLOBULIN RATIO 0.7 (1.0-2.7); ALKALINE PHOSPHATASE 121 U/L (46-116); ASPARTATE AMINO TRANSFERASE 41 U/L (15-37); BILIRUBIN,TOTAL 0.4 MG/DL (0.2-1.0); CKMB 4.6 NG/ML (0.0-3.6); CREATINE KINASE 202 U/L (26-308)
--- NOTE | 2018-12-15 14:16 | NUR ---
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
[2018-12-15 15:02] VITALS: BP 152/74
--- NOTE | 2018-12-15 15:05 | NUR ---
ED Nurse Note: Report given to NIKO Rich at ext [phone]. Pt transfered to room 237-1 per protocol with RT, RN, EMT with all belongings.
--- NOTE | 2018-12-15 15:20 | NUR ---
NURSE NOTES: Patient arrived to unit via gurney accompanied with RN. Report received from NIKO Rodriguez from ED. Patient is alert and oriented x 4 and verbally responsive. Denies pain at this time. Receiving 3L of oxygen via N/C with no distress noted. IV site intact and patent. Belongings checked with patient and RN. Pt.'s son took patient's $100 rodriguez with black bag, sunglass, and earring to home. Skin assessment done with no skin problems noted. Vitals checked with stable condition. video manager applied to the patient. Oriented to new room and environment. Bed in lowest position. Call light within reach. Will continue to monitor.
[2018-12-15 16:00] VITALS: BP 154/77
[2018-12-15] MEDS: NovoLOG Insulin Flexpen SUBQ SCH ×2 (16:48→20:59)
--- NOTE | 2018-12-15 17:48 | Cardiology Report ---
APPROVED REPORT EXAM: Two-dimensional and M-mode echocardiogram with Doppler and color Doppler. INDICATION Left ventricular function M-Mode DIMENSIONS IVSd0.9 (0.7-1.1cm)Left Atrium (MM)4.7 (1.6-4.0cm) LVDd5.0 (3.5-5.6cm)Aortic Root2.7 (2.0-3.7cm) PWd1.0 (0.7-1.1cm)Aortic Cusp Exc.1.9 (1.5-2.0cm) LVDs3.4 (2.5-4.0cm) PWs1.5 cm Normal left ventricular chamber size and wall motion. Left ventricular ejection fraction estimated to be 55 %. Mild left ventricular hypertrophy by 2D. No evidence of pericardial effusion. Possible large pleural effusion. Mild bi-atrial enlargement. Right ventricular chamber size is within normal limits. Focal aortic valve sclerosis with adequate cusp excursion. Thickened mitral valve leaflets with normal excursion. Mitral annulus and aortic root calcification. Pulmonic valve not well visualized. Normal tricuspid valve structure. IVC dilated at 2.4 cm with slight physiologic collapse suggestive of increased RA pressure. A color flow and spectral Doppler study was performed and revealed: No aortic regurgitation. Mild to moderate mitral regurgitation. Mitral inflow velocities indicates possible pseudo normalization pattern implying moderately elevated left atrial pressure (Grade II). Mild tricuspid regurgitation. Tricuspid systolic velocities suggests peak right ventricular systolic pressure of 50 mmHg, consistent with moderate pulmonary hypertension.
--- NOTE | 2018-12-15 19:42 | NUR ---
HAND-OFF: Report given to NIKO Castillo. Stable condition.
--- NOTE | 2018-12-15 19:50 | NUR ---
NURSE NOTES: Received Pt is resting on the bed and awake and alert. Family at bedside. IV sited intact and no sign of infiltration noted. On Tele monitor with SR and 1st AVB. Placed fall precaution. Will continue to care plan.
[2018-12-15 20:00] VITALS: BP 138/57
--- NOTE | 2018-12-15 20:43 | Cardiology Progress Note ---
Assessment/Plan Assessment/Plan [id number] Objective Last 24 Hour Vital Signs Date Time Temp Pulse Resp B/P (MAP) Pulse Ox O2 Delivery O2 Flow Rate FiO2 12/15/18 19:51 93 Nasal Cannula 3.0 32 12/15/18 19:51 Nasal Cannula 3.0 32 12/15/18 17:22 68 154/77 12/15/18 16:02 Nasal Cannula 3.0 12/15/18 16:00 68 12/15/18 16:00 Nasal Cannula 3.0 12/15/18 16:00 97.7 67 21 154/77 (102) 94 12/15/18 16:00 3.0 12/15/18 15:15 98.1 76 21 152/74 95 35 12/15/18 15:06 67 25 98 Facial 35 12/15/18 15:02 98.1 76 21 152/74 95 35 12/15/18 13:19 74 20 157/70 98 12/15/18 13:07 35 12/15/18 12:42 65 18 99 Facial 35 12/15/18 11:33 67 22 Room Air 12/15/18 11:33 98.1 67 22 148/75 94 Room Air 12/15/18 11:33 98.1 67 22 148/75 94 Room Air Laboratory Tests Test 12/15/18 11:25 White Blood Count 9.3 K/UL (4.8-10.8) Red Blood Count 3.43 M/UL (4.20-5.40) L Hemoglobin 9.6 G/DL (12.0-16.0) L Hematocrit 29.4 % (37.0-47.0) L Mean Corpuscular Volume 86 FL (80-99) Mean Corpuscular Hemoglobin 27.9 PG (27.0-31.0) Mean Corpuscular Hemoglobin Concent 32.6 G/DL (32.0-36.0) Red Cell Distribution Width 15.7 % (11.6-14.8) H Platelet Count 295 K/UL (150-450) Mean Platelet Volume 6.7 FL (6.5-10.1) Neutrophils (%) (Auto) 55.7 % (45.0-75.0) Lymphocytes (%) (Auto) 32.1 % (20.0-45.0) Monocytes (%) (Auto) 5.3 % (1.0-10.0) Eosinophils (%) (Auto) 5.1 % (0.0-3.0) H Basophils (%) (Auto) 1.9 % (0.0-2.0) Sodium Level 137 MMOL/L (136-145) Potassium Level 5.4 MMOL/L (3.5-5.1) H Chloride Level 104 MMOL/L (98-107) Carbon Dioxide Level 18 MMOL/L (21-32) L Anion Gap 16 mmol/L (5-15) H Blood Urea Nitrogen 67 mg/dL (7-18) H Creatinine 4.6 MG/DL (0.55-1.30) H Estimat Glomerular Filtration Rate 9.9 mL/min (>60) Glucose Level 90 MG/DL (74-106) Calcium Level 8.9 MG/DL (8.5-10.1) Total Bilirubin 0.4 MG/DL (0.2-1.0) Aspartate Amino Transf (AST/SGOT) 41 U/L (15-37) H Alanine Aminotransferase (ALT/SGPT) 24 U/L (12-78) Alkaline Phosphatase 121 U/L (46-116) H Total Creatine Kinase 202 U/L (26-308) Creatine Kinase MB 4.6 NG/ML (0.0-3.6) H Creatine Kinase MB Relative Index 2.2 Troponin I 0.035 ng/mL (0.000-0.056) Pro-B-Type Natriuretic Peptide 4147 pg/mL (0-125) H Total Protein 7.1 G/DL (6.4-8.2) Albumin 3.0 G/DL (3.4-5.0) L Globulin 4.1 g/dL Albumin/Globulin Ratio 0.7 (1.0-2.7) L Renzo Moreira MD Dec 15, 2018 20:43
[2018-12-15] MEDS: Heparin 5000 units/ml inj SUBQ SCH (20:58)
[2018-12-15] MEDS ORDERED: Atorvastatin 20mg tab ORAL SCH (21:00)
--- NOTE | 2018-12-15 22:00 | Consultation ---
DATE OF CONSULTATION: 12/15/2018 CARDIOLOGY CONSULTATION: CONSULTING PHYSICIAN: Renzo Moreira M.D. REFERRING PHYSICIANS: Pierre Childs M.D. and Maria Elena Naidu M.D. REASON FOR REFERRAL: Shortness of breath. HISTORY OF PRESENT ILLNESS: The patient is a 53-year-old female, who presents because of increasing shortness of breath for the past 1 week. Has shortness of breath at rest. Has shortness of breath when she lies down. She uses 2 pillows. There is no PND. She has occasional palpitations. She has occasional dizziness at home. She has been admitted to the hospital with diagnosis of congestive heart failure. She feels better already and she has no pain in the chest at this time recently. PAST MEDICAL HISTORY: Positive for hospitalization for heart failure with preserved LV function and chronic insufficiency, accelerated hypertension, pleural effusions, troponin leak, she has nephrotic syndrome, diabetic nephropathy, hypothyroidism, anemia, history of pericardial effusion, congestive heart failure. ALLERGIES: She has no known drug allergies. SOCIAL HISTORY: She does not smoke or drink alcoholic beverages. No drug use. REVIEW OF SYSTEMS: GASTROINTESTINAL: Negative. GENITOURINARY: Negative. PULMONARY: Occasional coughing. No wheezing. CONSTITUTIONAL: Negative. NEUROLOGICAL: Negative. PHYSICAL EXAMINATION: GENERAL: Shows to be obese, middle-aged female, in no respiratory distress. VITAL SIGNS: The patient's blood pressure has been anywhere between 148/75 to 154/77, temperature is 98.1, heart rate 68, 93% saturation on 3 liters nasal cannula. LUNGS: Bilateral crackles noted left greater than right. CARDIAC: Regular rate and rhythm. No heaves or thrills. ABDOMEN: Obese. Positive bowel sounds. EXTREMITIES: 1+ edema of the lower extremities. LABORATORY AND DIAGNOSTIC DATA: White count of 9.3, hemoglobin 9.6, platelet count of 295. Sodium was 137, potassium 5.4, chloride 104, bicarbonate of 18, BUN of 67, creatinine 4.6. Liver function tests are normal. Troponin 0.035. ProBNP 4100. Chest x-ray performed today shows CHF, retrocardiac density, atelectasis, infiltrate, or pleural effusions. An echocardiogram performed today showed ejection fraction 55%. No evidence of pericardial effusion. Large pleural effusion is noted. Biatrial enlargement, IVC of 2.4 with slight decrease, increased RA pressure, [id number] MR, grade 2 diastolic dysfunction, and pulmonary hypertension. Her electrocardiogram performed in the emergency room shows normal sinus rhythm, normal QRS axis, no ST or T-wave abnormalities. ASSESSMENT AND PLAN: 1. Congestive heart failure with preserved LV systolic function. 2. Pleural effusion on the left side. 3. Diabetes. 4. Diabetic nephropathy. 5. Chronic renal insufficiency. 6. Nephrotic syndrome. The patient is admitted to the hospital because of congestive heart failure. The patient has end-stage renal disease. Blood pressure appears to be relatively well controlled at the present time and continue serial enzymes and EKGs although she does not endorse symptoms suggestive of coronary syndrome. She likely has diastolic heart failure. Sodium fluid restriction. Diuretics to be continued overnight and repeat laboratories in the morning. The patient needs to be seen by Nephrology to help her with treatment of her renal insufficiency. I suspect with diuretics, her creatinine will increase. She is already better. With the diuretics, her blood pressure is managed adequately. She will have further treatment depending on her response in initial stages. Renzo Moreira M.D. DR: MELY JOB#: [id number] CC:
[2018-12-16] VITALS: BP 130/58
[2018-12-16 04:00] VITALS: BP 131/62
[2018-12-16 06:06] LABS: ANION GAP 9 mmol/L (5-15); BLOOD UREA NITROGEN 65 mg/dL (7-18); CALCIUM 8.7 MG/DL (8.5-10.1); CARBON DIOXIDE 24 MMOL/L (21-32); CHLORIDE 107 MMOL/L (98-107); CREATININE 4.9 MG/DL (0.55-1.30); SODIUM 140 MMOL/L (136-145)
[2018-12-16] MEDS: NovoLOG Insulin Flexpen SUBQ SCH ×4 (06:30→20:52)
--- NOTE | 2018-12-16 07:17 | NUR ---
HAND-OFF: Report given to NIKO Rich. Pt is sleeping on the bed and no sign of acute distress noted.
--- NOTE | 2018-12-16 07:25 | NUR ---
NURSE NOTES: Report received from NIKO Castillo. Observed patient in bed sleeping. Arousable by voice and verbally responsive. Denies pain at this time. IV site intact and patent. Receiving 3L of oxygen via N/C with no distress noted. Bed in lowest position. Call light within reach. Will continue to monitor.
[2018-12-16 08:00] VITALS: BP 147/69
--- NOTE | 2018-12-16 08:57 | NUR ---
RADIOLOGY DEPT CHEST X-RAY DONE.-P.DYE
[2018-12-16] MEDS ORDERED: Aspirin Baby 81mg ORAL SCH (09:00)
[2018-12-16] MEDS: Heparin 5000 units/ml inj SUBQ SCH ×2 (09:03→20:52)
--- NOTE | 2018-12-16 10:13 | Consultation ---
History of Present Illness General Date patient seen: Dec 16, 2018 Chief Complaint: Dyspnea/Respdistress Present Illness HPI 53-year-old female with PMx of Diabetes, HTN, advanced chronic diabetic nephropathy with nephrotic syndrom, CrCl18 last October was sent in by PMD for shortness of breath for one week. No associated fevers, chills, cough. Patient endorsing increased swelling to lower extremities. Pt was diagnosed to have pulmonary edema and anasarca and admitted for further management. Allergies: Coded Allergies: No Known Allergies (Verified Allergy, Unknown, 02/17/11) Medication History Scheduled Allopurinol* (Allopurinol*), 300 MG ORAL DAILY Amlodipine Besylate (Norvasc), 5 MG ORAL BID Aspirin* (Aspirin*), 81 MG ORAL DAILY, (Reported) Aspirin* (Aspirin*), 325 MG ORAL DAILY Atorvastatin Calcium* (Lipitor*), 40 MG ORAL BEDTIME, (Reported) Azithromycin* (Zithromax*), 250 MG ORAL DAILY, (Reported) Cefdinir (Cefdinir), 300 MG PO BID, (Reported) Ferrous Sulfate* (Ferrous Sulfate*), 325 MG ORAL TWICE A DAY, (Reported) Glipizide* (Glipizide*), 5 MG ORAL BIDAC, (Reported) Insulin Glargine (Lantus), Unknown Dose SUBQ BEDTIME, (Reported) Levothyroxine Sodium* (Synthroid*), 50 MCG ORAL DAILY, (Reported) Metoprolol Succinate* (Metoprolol Succinate*), 25 MG ORAL DAILY Miscellaneous Medications Insulin Lispro (Humalog Kwikpen), Unknown Dose SQ, (Reported) Patient History Healthcare decision maker Resuscitation status Full Code Advanced Directive on File Past Medical/Surgical History Past Medical/Surgical History: (1) Acute respiratory failure (2) Nephrotic syndrome (3) Diabetic nephropathy Review of Systems Constitutional: Reports: no symptoms Physical Exam General Appearance: WD/WN Lines, tubes and drains: peripheral HEENT: normocephalic, atraumatic Neck: non-tender, normal alignment Respiratory/Chest: chest wall non-tender, lungs clear Breasts: no masses Cardiovascular/Chest: normal peripheral pulses Abdomen: normal bowel sounds Genitourinary/Rectal: normal genital exam Extremities: normal range of motion Last 24 Hour Vital Signs Date Time Temp Pulse Resp B/P (MAP) Pulse Ox O2 Delivery O2 Flow Rate FiO2 12/16/18 09:02 75 147/69 12/16/18 08:00 Nasal Cannula 3.0 12/16/18 08:00 71 12/16/18 08:00 98.9 75 20 147/69 (95) 95 12/16/18 06:58 94 Nasal Cannula 3.0 32 12/16/18 06:58 Nasal Cannula 3.0 32 12/16/18 06:58 69 16 Nasal Cannula 3.0 32 12/16/18 04:00 Nasal Cannula 3.0 12/16/18 04:00 98.3 67 21 131/62 (85) 95 12/16/18 04:00 69 12/16/18 00:00 98.1 60 21 130/58 (82) 94 12/16/18 00:00 70 12/16/18 00:00 Nasal Cannula 3.0 12/15/18 20:00 74 12/15/18 20:00 Nasal Cannula 3.0 32 12/15/18 20:00 98.6 94 21 138/57 (84) 94 12/15/18 20:00 Nasal Cannula 3.0 12/15/18 19:51 93 Nasal Cannula 3.0 32 12/15/18 19:51 Nasal Cannula 3.0 32 12/15/18 17:22 68 154/77 12/15/18 16:02 Nasal Cannula 3.0 12/15/18 16:00 68 12/15/18 16:00 Nasal Cannula 3.0 12/15/18 16:00 97.7 67 21 154/77 (102) 94 12/15/18 16:00 3.0 12/15/18 15:15 98.1 76 21 152/74 95 35 12/15/18 15:06 67 25 98 Facial 35 12/15/18 15:02 98.1 76 21 152/74 95 35 12/15/18 13:19 74 20 157/70 98 12/15/18 13:07 35 12/15/18 12:42 65 18 99 Facial 35 12/15/18 11:33 67 22 Room Air 12/15/18 11:33 98.1 67 22 148/75 94 Room Air 12/15/18 11:33 98.1 67 22 148/75 94 Room Air Intake and Output 12/15/18 12/16/18 19:00 07:00 Intake Total 200 ml 120 ml Output Total 0 ml Balance 200 ml 120 ml Intake Oral 200 ml 120 ml Output Urine Total 0 ml # Voids 3 3 Laboratory Tests Test 12/15/18 11:25 12/16/18 04:05 White Blood Count 9.3 K/UL (4.8-10.8) Red Blood Count 3.43 M/UL (4.20-5.40) L Hemoglobin 9.6 G/DL (12.0-16.0) L Hematocrit 29.4 % (37.0-47.0) L Mean Corpuscular Volume 86 FL (80-99) Mean Corpuscular Hemoglobin 27.9 PG (27.0-31.0) Mean Corpuscular Hemoglobin Concent 32.6 G/DL (32.0-36.0) Red Cell Distribution Width 15.7 % (11.6-14.8) H Platelet Count 295 K/UL (150-450) Mean Platelet Volume 6.7 FL (6.5-10.1) Neutrophils (%) (Auto) 55.7 % (45.0-75.0) Lymphocytes (%) (Auto) 32.1 % (20.0-45.0) Monocytes (%) (Auto) 5.3 % (1.0-10.0) Eosinophils (%) (Auto) 5.1 % (0.0-3.0) H Basophils (%) (Auto) 1.9 % (0.0-2.0) Sodium Level 137 MMOL/L (136-145) 140 MMOL/L (136-145) Potassium Level 5.4 MMOL/L (3.5-5.1) H 4.0 MMOL/L (3.5-5.1) Chloride Level 104 MMOL/L (98-107) 107 MMOL/L (98-107) Carbon Dioxide Level 18 MMOL/L (21-32) L 24 MMOL/L (21-32) Anion Gap 16 mmol/L (5-15) H 9 mmol/L (5-15) Blood Urea Nitrogen 67 mg/dL (7-18) H 65 mg/dL (7-18) H Creatinine 4.6 MG/DL (0.55-1.30) H 4.9 MG/DL (0.55-1.30) H Estimat Glomerular Filtration Rate 9.9 mL/min (>60) 9.2 mL/min (>60) Glucose Level 90 MG/DL (74-106) 93 MG/DL (74-106) Calcium Level 8.9 MG/DL (8.5-10.1) 8.7 MG/DL (8.5-10.1) Total Bilirubin 0.4 MG/DL (0.2-1.0) Aspartate Amino Transf (AST/SGOT) 41 U/L (15-37) H Alanine Aminotransferase (ALT/SGPT) 24 U/L (12-78) Alkaline Phosphatase 121 U/L (46-116) H Total Creatine Kinase 202 U/L (26-308) Creatine Kinase MB 4.6 NG/ML (0.0-3.6) H Creatine Kinase MB Relative Index 2.2 Troponin I 0.035 ng/mL (0.000-0.056) 0.034 ng/mL (0.000-0.056) Pro-B-Type Natriuretic Peptide 4147 pg/mL (0-125) H Total Protein 7.1 G/DL (6.4-8.2) Albumin 3.0 G/DL (3.4-5.0) L Globulin 4.1 g/dL Albumin/Globulin Ratio 0.7 (1.0-2.7) L Height (Feet): 5 Height (Inches): 3.00 Weight (Pounds): 187 Medications Current Medications Medications (Trade) Dose Ordered Sig/Miguel Route PRN Reason Start Time Stop Time Status Last Admin Dose Admin Acetaminophen (Tylenol) 650 mg Q4H PRN ORAL Mild Pain/Temp > 100.5 12/15/18 20:00 01/14/19 19:59 12/15/18 19:47 Albuterol/ Ipratropium (Albuterol/ Ipratropium) 3 ml Q4H PRN HHN Shortness of Breath 12/15/18 13:00 12/20/18 12:59 Allopurinol (Allopurinol) 300 mg DAILY ORAL 12/16/18 09:00 01/15/19 08:59 12/16/18 09:02 Amlodipine Besylate (Norvasc) 5 mg BID ORAL 12/15/18 18:00 01/14/19 17:59 12/16/18 09:02 Aspirin (ASA) 81 mg DAILY ORAL 12/16/18 09:00 01/15/19 08:59 12/16/18 09:02 Atorvastatin Calcium (Lipitor) 40 mg BEDTIME ORAL 12/15/18 21:00 01/14/19 20:59 12/15/18 20:57 Dextrose (Dextrose 50%) 25 ml Q30M PRN IV Hypoglycemia 12/15/18 13:00 01/14/19 12:59 Dextrose (Dextrose 50%) 50 ml Q30M PRN IV Hypoglycemia 12/15/18 13:00 01/14/19 12:59 Furosemide (Lasix) 40 mg EVERY 8 HOURS IV 12/15/18 14:00 01/14/19 13:59 12/16/18 06:02 Heparin Sodium (Porcine) (Heparin 5000 units/ml) 5,000 units EVERY 12 HOURS SUBQ 12/15/18 21:00 01/14/19 20:59 12/16/18 09:03 Insulin Aspart (NovoLOG) BEFORE MEALS AND HS SUBQ 12/15/18 16:30 01/14/19 16:29 12/15/18 20:59 Levothyroxine Sodium (Synthroid) 50 mcg ACBREAKFAST ORAL 12/16/18 06:30 01/15/19 06:29 12/16/18 06:02 Ondansetron HCl (Zofran) 4 mg Q6H PRN IVP Nausea & Vomiting 12/15/18 13:00 01/14/19 12:59 Polyethylene Glycol (Miralax) 17 gm DAILYPRN PRN ORAL Constipation 12/15/18 13:00 01/14/19 12:59 Temazepam (Restoril) 15 mg HSPRN PRN ORAL Insomnia 12/15/18 21:00 12/22/18 20:59 Assessment/Plan Problem List: (1) Acute respiratory failure ICD Codes: J96.00 - Acute respiratory failure, unspecified whether with hypoxia or hypercapnia SNOMED: 20637793 (2) CHF (congestive heart failure) ICD Codes: I50.9 - Heart failure, unspecified SNOMED: 63631779 Qualifiers: Qualified Codes: I50.9 - Heart failure, unspecified (3) Diabetic nephropathy ICD Codes: E11.21 - Type 2 diabetes mellitus with diabetic nephropathy SNOMED: 83696994, 215935135 (4) Nephrotic syndrome ICD Codes: N04.9 - Nephrotic syndrome with unspecified morphologic changes SNOMED: 98057353 Assessment/Plan high dose lasix, considering almost end stage renal failure check electrolytes check BNP check Echo Maria Elena Naidu MD Dec 16, 2018 10:13
--- NOTE | 2018-12-16 11:21 | Diagnostic Imaging Report ---
Indication: Dyspnea Comparison: 12/15/2018 A single view chest radiograph was obtained. Findings: Pulmonary vascular congestion demonstrated with cardiomegaly. Silhouetting of the left hemidiaphragm noted. IMPRESSION: No change from one day earlier
[2018-12-16 12:00] VITALS: BP 139/66
--- NOTE | 2018-12-16 13:24 | NUR ---
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 98.0 HR 67 RR 22 B/P 148/65 K 5.4 BUN 67 CR 6.7 AST 41 ALK PHOS 125 CKMB 4.6 BNP 4147 2D ECHO EF 55% CXR= CHF IS: LASIX IV ADMITTED TO [facility]@ 1515 [facility] STATUS DCP PENDING HOSPITAL STAY
--- NOTE | 2018-12-16 14:29 | NUR ---
NURSE NOTES: Called and left message to Dr. Frank's office regarding result of post voiding residual amount. [place] said that she will inform Dr. Frank.
--- NOTE | 2018-12-16 15:10 | History & Physical ---
History and Physical History & Physicial Pierre Childs MD Dec 16, 2018 15:10
--- NOTE | 2018-12-16 15:55 | Diagnostic Imaging Report ---
APPROVED REPORT CPT Code: 82710 Present Symptoms Shortness of breath Comments: PAIN BILATERAL: Imaging reveals a patent deep venous system bilaterally. There is no evidence of thrombus within the femoral, popliteal or tibial segments. The greater saphenous veins are also within normal limits. Doppler indicates normal spontaneous flow within these segments.
[2018-12-16 16:00] VITALS: BP 130/58
--- NOTE | 2018-12-16 16:52 | Consultation ---
Consult Note Consult Note asked to eval at the request of dr Childs patient known to me from her previous admission 53-year-old female sent in by PMD for shortness of breath for one week. No associated fevers, chills, cough. Patient endorsing increased swelling to lower extremities. She took her Lasix 20 mg that she takes normally at night last night. She's never been on BiPAP or been intubated previously. She has known history of CHF, COPD and diabetes. No Known Allergies (Verified Allergy, Unknown, 02/17/11) Past Medical History: DM, CHF, COPD Hx Cardiac Problems: Yes - CHF Hx Hypertension: Yes Hx Diabetes: Yes interviewed examined data reviewed . Assessment/Plan Renal failure, Chronic likely diabetic nephropathy Nephrotic syndrom Hypoxia, CHF Chest pain, NSTEMI (non-ST elevated myocardial infarction) Hypothyroid Anemia plan; Optimize cardiac status most renal llamas already done in Oct 2018 avoid nephrotoxics per orders Lito Frank MD Dec 16, 2018 16:52
--- NOTE | 2018-12-16 17:33 | Cardiology Progress Note ---
Assessment/Plan Assessment/Plan 1. Congestive heart failure with preserved LV systolic function. 2. Pleural effusion on the left side. 3. Diabetes. 4. Diabetic nephropathy. 5. Chronic renal insufficiency. 6. Nephrotic syndrome. diuretic over nite watch renal function tele sinus cxr noted duplex neg echo noted labs noted Subjective Cardiovascular: Denies: chest pain, lightheadedness, palpitations Respiratory: Denies: shortness of breath Gastrointestinal/Abdominal: Denies: abdominal pain Genitourinary: Denies: burning Objective Last 24 Hour Vital Signs Date Time Temp Pulse Resp B/P (MAP) Pulse Ox O2 Delivery O2 Flow Rate FiO2 12/16/18 17:24 76 130/58 12/16/18 16:00 Nasal Cannula 3.0 12/16/18 16:00 98.6 76 22 130/58 (82) 94 12/16/18 15:36 73 12/16/18 12:00 Nasal Cannula 3.0 12/16/18 12:00 98.4 73 21 139/66 (90) 95 12/16/18 11:50 73 12/16/18 09:02 75 147/69 12/16/18 08:00 Nasal Cannula 3.0 12/16/18 08:00 71 12/16/18 08:00 98.9 75 20 147/69 (95) 95 12/16/18 06:58 94 Nasal Cannula 3.0 32 12/16/18 06:58 Nasal Cannula 3.0 32 12/16/18 06:58 69 16 Nasal Cannula 3.0 32 12/16/18 04:00 Nasal Cannula 3.0 12/16/18 04:00 98.3 67 21 131/62 (85) 95 12/16/18 04:00 69 12/16/18 00:00 98.1 60 21 130/58 (82) 94 12/16/18 00:00 70 12/16/18 00:00 Nasal Cannula 3.0 12/15/18 20:00 74 12/15/18 20:00 Nasal Cannula 3.0 32 12/15/18 20:00 98.6 94 21 138/57 (84) 94 12/15/18 20:00 Nasal Cannula 3.0 12/15/18 19:51 93 Nasal Cannula 3.0 32 12/15/18 19:51 Nasal Cannula 3.0 32 General Appearance: alert Neck: supple Cardiovascular: normal rate, regular rhythm Respiratory/Chest: crackles/rales Abdomen: normal bowel sounds, non tender, soft Extremities: no swelling Intake and Output 12/15/18 12/16/18 19:00 07:00 Intake Total 200 ml 120 ml Output Total 0 ml Balance 200 ml 120 ml Intake Oral 200 ml 120 ml Output Urine Total 0 ml # Voids 3 3 Laboratory Tests Test 12/16/18 04:05 Sodium Level 140 MMOL/L (136-145) Potassium Level 4.0 MMOL/L (3.5-5.1) Chloride Level 107 MMOL/L (98-107) Carbon Dioxide Level 24 MMOL/L (21-32) Anion Gap 9 mmol/L (5-15) Blood Urea Nitrogen 65 mg/dL (7-18) H Creatinine 4.9 MG/DL (0.55-1.30) H Estimat Glomerular Filtration Rate 9.2 mL/min (>60) Glucose Level 93 MG/DL (74-106) Calcium Level 8.7 MG/DL (8.5-10.1) Troponin I 0.034 ng/mL (0.000-0.056) Renzo Moreira MD Dec 16, 2018 17:33
--- NOTE | 2018-12-16 17:53 | NUR ---
TRANSFER TO FLOOR: Patient transferred to Telemetry via hospital bed. Report given to NIKO Schneider. Belongings and medications given to RN. Family informed of transfer. Stable condition.
[2018-12-16] MEDS ORDERED: Miralax 17gm pkt ORAL PRN (17:55)
[2018-12-16] MEDS ORDERED: Albuterol/Ipratropium 3ml neb HHN PRN (17:55)
--- NOTE | 2018-12-16 17:55 | NUR ---
NURSE NOTES: Received patient from [facility]. Patient alert and oriented x4 and family at the bedside. Patient oriented to room and use of the call light. Bed in the lowest position and call light within reach.
--- NOTE | 2018-12-16 19:23 | NUR ---
HAND-OFF: Report given to NIKO Mills.
--- NOTE | 2018-12-16 19:27 | NUR ---
NURSE NOTES: Pt received from NIKO Schneider alert and oriented x4 with no complaints or s/s of pain, SOB, or n/v. IV site asymptomatic and patent. Bed in lowest position, call light and belongings within reach.
[2018-12-16 20:00] VITALS: BP 151/71
[2018-12-16] MEDS: Metoprolol Tartrate 12.5mg TAB ORAL SCH (20:47)
[2018-12-16] MEDS ORDERED: Metoprolol 25mg tab ORAL SCH (21:00)
[2018-12-16] MEDS ORDERED: Atorvastatin 20mg tab ORAL SCH ×2 (21:00)
--- NOTE | 2018-12-16 21:15 | History and Physical Report ---
DATE OF ADMISSION: 12/15/2018 NOTE: INCOMPLETE DICTATION CHIEF COMPLAINT: Shortness of breath and weakness. HISTORY OF PRESENT ILLNESS: This is a 53-year-old female with past medical history significant for congestive heart failure, COPD, diabetes type 2, and hypertension, who has presented to the hospital from my office after was noted to have worsening of respiratory failure. The patient denies any fever, chills, or cough. She was noted to have increased leg edema. She has been taking Lasix 20 mg, however, she is not responding. Since the night before admission, her status is progressively worsening. She had never been using her BiPAP or been intubated in the past. Shortly after initial evaluation in emergency, the patient was admitted to the hospital with acute respiratory distress due to acute congestive heart failure and chronic . PAST MEDICAL HISTORY/PAST SURGICAL HISTORY: As above. History of congestive heart failure with preserved left ventricular function and chronic renal insufficiency. Pierre Childs M.D. DR: KRIS JOB#: [id number] CC:
--- NOTE | 2018-12-16 21:30 | History and Physical Report ---
DATE OF ADMISSION: 12/15/2018 PAST MEDICAL HISTORY AND PAST SURGICAL HISTORY: Significant for congestive heart failure with preserved left ventricular function, chronic renal insufficiency, accelerated hypertension, pleural effusion, prior history of nephrotic syndrome with chronic kidney disease, diabetes type 2 with diabetic nephropathy, hypothyroidism, anemia, and pericardial effusion. MEDICATIONS: Medications at home, please refer to medication reconciliation. ALLERGIES: No known drug allergies. SOCIAL HISTORY: Denies any smoking, alcohol, or drugs. FAMILY HISTORY: Noncontributory. REVIEW OF SYSTEMS: Mostly as above. Denies any dysuria, frequency, or hematuria. Denies any hemoptysis or hematochezia. Denies any suicidal or homicidal ideation. PHYSICAL EXAMINATION: VITAL SIGNS: Blood pressure 148/72, pulse of 68, respirations 16, and temperature 98.1. GENERAL: The patient is awake and responsive, not in acute distress. HEAD AND NECK: Pupils are equal and reactive to light. Extraocular movements are intact. Neck was supple. No JVD. LUNGS: Good air entry. No wheezing or rales. Crackles in the bases. HEART: S1, S2. Regular rhythm. No gallops. ABDOMEN: Soft and nontender. Morbidly obese. EXTREMITIES: No cyanosis or clubbing. +1 edema in bilateral lower extremities. NEUROLOGIC: Cranial nerves II through XII grossly intact. Motor is 5/5 in all extremities. Gait is intact. RECTAL: Refused and deferred. GENITOURINARY: Refused and deferred. LABORATORY AND DIAGNOSTIC DATA: On admission from the ER, WBC of 9.3, hemoglobin 9.6, hematocrit 29, and platelets is 295,000. Glucose is 137. Sodium 5.4, chloride 102, bicarbonate 18, BUN 67, and creatinine 4.6. GFR is 9.9. First troponin is 0.035. Second troponin 0.034 and alkaline phosphatase was 121. ProBNP is 4147. The patient's chest x-ray was noted to be in congestive heart failure with retrocardiac density, atelectasis, infiltrate, and pleural effusion. Echocardiogram was done, shows that the ejection fraction of 55% with a mild left ventricular hypertrophy by 2D echo. No evidence of pericardial effusion and possible large pleural effusion, mild biatrial enlargement, right ventricular chamber size within normal limits, thickening of the mitral valve leaflet with normal excision, IVC dilatation with 2.4 cm with slight etiologic collapse suggestive of the increased right atrial pressure, and tricuspid systolic velocity suggestive of the right ventricular systolic pressure of 50, consistent with moderate pulmonary hypertension. ASSESSMENT: 1. Acute CHF exacerbation on chronic with preserved ejection fraction, HFpEF. 2. Heart failure with preserved ejection fraction. 3. Chronic kidney disease, stage 4. 4. Diabetes type 2. 5. Morbid obesity. 6. Hypertension. 7. COPD. PLAN: 1. Admit the patient to monitor unit. 2. We will follow up with Dr. Renzo Moreira from Cardiology and Dr. Naidu from Pulmonary Critical Care. 3. DVT prophylaxis. 4. Heparin subcutaneous. 5. The patient is to continue home medication, Lasix IV. 6. Code status is Full Code. 7. Accu-Chek with sliding scale. Pierre Childs M.D. DR: KRIS JOB#: [id number] CC:
[2018-12-16 23:26] LABS: APPEARANCE,URINE CLEAR; BILIRUBIN, URINE NEGATIVE (NEGATIVE); COLOR,URINE PALE YELLOW; GLUCOSE, URINE (UA) 3+ (NEGATIVE); KETONES,URINE NEGATIVE (NEGATIVE); LEUKOCYTE ESTERASE ,URINE NEGATIVE (NEGATIVE); NITRITE,URINE NEGATIVE (NEGATIVE); PH,URINE 6.5 (4.5-8.0); PROTEIN,URINE 4+ (NEGATIVE); UROBILINOGEN,URINE NORMAL MG/DL (0.0-1.0)
[2018-12-17] VITALS: BP 135/98
[2018-12-17 04:00] VITALS: BP 112/57
[2018-12-17] MEDS: NovoLOG Insulin Flexpen SUBQ SCH ×2 (06:29→12:08)
--- NOTE | 2018-12-17 07:20 | NUR ---
HAND-OFF: Report given to Ramesh Darling RN.
[2018-12-17 07:21] LABS: ALANINE AMINOTRANSFERASE 22 U/L (12-78); ALBUMIN 2.9 G/DL (3.4-5.0); ALBUMIN/GLOBULIN RATIO 0.7 (1.0-2.7); ALKALINE PHOSPHATASE 120 U/L (46-116); ANION GAP 10 mmol/L (5-15); ASPARTATE AMINO TRANSFERASE 14 U/L (15-37); BILIRUBIN,TOTAL 0.3 MG/DL (0.2-1.0); BLOOD UREA NITROGEN 67 mg/dL (7-18); CALCIUM 8.7 MG/DL (8.5-10.1); CARBON DIOXIDE 26 MMOL/L (21-32); CHLORIDE 107 MMOL/L (98-107); CHOLESTEROL 141 MG/DL (< 200); CREATINE KINASE 74 U/L (26-308); CREATININE 5.3 MG/DL (0.55-1.30); FERRITIN 88 NG/ML (8-388); GAMMA GLUTAMYL TRANSPEPTIDASE 33 U/L (5-85); HDL CHOLESTEROL 40 MG/DL (40-60); PHOSPHORUS 6.9 MG/DL (2.5-4.9); POTASSIUM 4.3 MMOL/L (3.5-5.1); SODIUM 142 MMOL/L (136-145); TRIGLYCERIDES 119 MG/DL (30-150)
[2018-12-17 07:54] LABS: % IRON SATURATION 17 % (15-50); IRON 43 ug/dL (50-175); TOTAL IRON BINDING CAPACITY 249 ug/dL (250-450)
[2018-12-17 08:00] VITALS: BP 139/72
--- NOTE | 2018-12-17 08:00 | NUR ---
NURSE NOTES: Pt received from NIKO Mills. AAOx4, with no complaints or s/s of pain, SOB, or n/v. IV site asymptomatic and patent. Bed in lowest position, call light and belongings within reach.
[2018-12-17] MEDS ORDERED: Aspirin Baby 81mg ORAL SCH (09:00)
[2018-12-17] MEDS: Metoprolol Tartrate 12.5mg TAB ORAL SCH (09:52)
[2018-12-17] MEDS: Heparin 5000 units/ml inj SUBQ SCH (09:59)
[2018-12-17] MEDS ORDERED: FUROSEMIDE80 M1 ORAL (11:56)
--- NOTE | 2018-12-17 11:58 | Pulmonology Progress Note ---
Assessment/Plan Problems: (1) Acute respiratory failure (2) CHF (congestive heart failure) (3) Diabetic nephropathy (4) Nephrotic syndrome Assessment/Plan improving respiratory treatment continue laxis watch renal parameters. Subjective ROS Limited/Unobtainable: No Constitutional: Reports: no symptoms HEENT: Repors: no symptoms Respiratory: Reports: no symptoms Allergies: Coded Allergies: No Known Allergies (Verified Allergy, Unknown, 02/17/11) Objective Last 24 Hour Vital Signs Date Time Temp Pulse Resp B/P (MAP) Pulse Ox O2 Delivery O2 Flow Rate FiO2 12/17/18 09:52 70 139/72 12/17/18 09:52 70 139/72 12/17/18 08:40 Nasal Cannula 3.0 12/17/18 08:00 98.3 70 18 139/72 (94) 95 12/17/18 07:55 Nasal Cannula 3.0 32 12/17/18 07:55 93 Nasal Cannula 3.0 32 12/17/18 07:55 71 12/17/18 07:55 81 18 Nasal Cannula 3.0 32 12/17/18 04:00 97.2 65 18 112/57 (75) 95 12/17/18 04:00 62 12/17/18 00:00 71 12/17/18 00:00 98.8 67 18 135/98 (110) 99 12/16/18 20:55 95 Nasal Cannula 3.0 32 12/16/18 20:55 Nasal Cannula 3.0 32 12/16/18 20:55 79 16 Nasal Cannula 3.0 32 12/16/18 20:47 80 151/71 12/16/18 20:00 Nasal Cannula 3.0 12/16/18 20:00 76 12/16/18 20:00 98.8 80 18 151/71 (97) 97 12/16/18 17:24 76 130/58 12/16/18 16:00 Nasal Cannula 3.0 12/16/18 16:00 98.6 76 22 130/58 (82) 94 12/16/18 15:36 73 12/16/18 12:00 Nasal Cannula 3.0 12/16/18 12:00 98.4 73 21 139/66 (90) 95 Intake and Output 12/16/18 12/17/18 19:00 07:00 Intake Total 230 ml Balance 230 ml Intake Oral 230 ml # Voids 2 2 General Appearance: WD/WN HEENT: normocephalic, atraumatic Respiratory/Chest: chest wall non-tender, lungs clear Cardiovascular: normal peripheral pulses, normal rate Abdomen: normal bowel sounds, soft, non tender Extremities: no cyanosis Skin: no rash Neurologic/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 Lymphatic: no neck adenopathy Laboratory Tests 12/16/18 23:10: Urine Color Pale yellow, Urine Appearance Clear, Urine pH 6.5, Urine Specific [place] 1.010, Urine Protein 4+H, Urine Glucose (UA) 3+H, Urine Ketones Negative , Urine Blood 2+H, Urine Nitrite Negative, Urine Bilirubin Negative, Urine Urobilinogen Normal, Urine Leukocyte Esterase Negative, Urine RBC 2-4H, Urine WBC 0-2, Urine Squamous Epithelial Cells Occasional, Urine Bacteria None 12/17/18 06:00: Sodium Level 142, Potassium Level 4.3, Chloride Level 107, Carbon Dioxide Level 26, Anion Gap 10, Blood Urea Nitrogen 67H, Creatinine 5.3H, Estimat Glomerular Filtration Rate 8.5, Glucose Level 133H, Hemoglobin A1c 11.4H, Uric Acid 4.8, Calcium Level 8.7, Phosphorus Level 6.9H, Magnesium Level 2.5H, Iron Level 43L, Total Iron Binding Capacity 249L, Percent Iron Saturation 17, Unsaturated Iron Binding 206, Ferritin 88, Total Bilirubin 0.3, Gamma Glutamyl Transpeptidase 33 , Aspartate Amino Transf (AST/SGOT) 14L, Alanine Aminotransferase (ALT/SGPT) 22 , Alkaline Phosphatase 120H, Total Creatine Kinase 74, Troponin I 0.034, C- Reactive Protein, Quantitative 0.5, Pro-B-Type Natriuretic Peptide 4231H, Total Protein 6.8, Albumin 2.9L, Globulin 3.9, Albumin/Globulin Ratio 0.7L, Triglycerides Level 119, Cholesterol Level 141, LDL Cholesterol 79, HDL Cholesterol 40, Cholesterol/HDL Ratio 3.5, Vitamin B12 Level 1250H, Folate 17.1 Current Medications Medications (Trade) Dose Ordered Sig/Miguel Route PRN Reason Start Time Stop Time Status Last Admin Dose Admin Acetaminophen (Tylenol) 650 mg Q4H PRN ORAL Mild Pain/Temp > 100.5 12/16/18 17:53 01/15/19 17:52 12/16/18 21:25 Albuterol/ Ipratropium (Albuterol/ Ipratropium) 3 ml Q4H PRN HHN Shortness of Breath 12/16/18 17:55 12/20/18 17:54 Allopurinol (Allopurinol) 300 mg DAILY ORAL 12/17/18 09:00 01/15/19 08:59 12/17/18 09:52 Amlodipine Besylate (Norvasc) 5 mg BID ORAL 12/17/18 09:00 01/16/19 08:59 12/17/18 09:52 Aspirin (ASA) 81 mg DAILY ORAL 12/17/18 09:00 01/15/19 08:59 12/17/18 09:52 Atorvastatin Calcium (Lipitor) 20 mg BEDTIME ORAL 12/16/18 21:00 01/14/19 20:59 12/16/18 20:47 Dextrose (Dextrose 50%) 25 ml Q30M PRN IV Hypoglycemia 12/16/18 18:00 01/14/19 12:59 Dextrose (Dextrose 50%) 50 ml Q30M PRN IV Hypoglycemia 12/16/18 18:00 01/14/19 12:59 Furosemide (Lasix) 40 mg EVERY 8 HOURS IV 12/16/18 22:00 01/15/19 21:59 12/17/18 06:24 Heparin Sodium (Porcine) (Heparin 5000 units/ml) 5,000 units EVERY 12 HOURS SUBQ 12/16/18 21:00 01/14/19 20:59 12/17/18 09:59 Insulin Aspart (NovoLOG) BEFORE MEALS AND HS SUBQ 12/16/18 21:00 01/14/19 16:29 12/17/18 06:29 Levothyroxine Sodium (Synthroid) 50 mcg ACBREAKFAST ORAL 12/17/18 06:30 01/15/19 06:29 12/17/18 06:24 Metoprolol Tartrate (Lopressor) 12.5 mg Q12HR ORAL 12/16/18 21:00 01/15/19 20:59 12/17/18 09:52 Ondansetron HCl (Zofran) 4 mg Q6H PRN IVP Nausea & Vomiting 12/16/18 17:55 01/14/19 17:54 Pantoprazole (Protonix) 40 mg EVERY 12 HOURS ORAL 12/16/18 21:00 01/15/19 20:59 12/17/18 09:52 Polyethylene Glycol (Miralax) 17 gm DAILYPRN PRN ORAL Constipation 12/16/18 17:55 01/15/19 17:54 Temazepam (Restoril) 15 mg HSPRN PRN ORAL Insomnia 12/16/18 21:00 12/22/18 20:59 Maria Elena Naidu MD Dec 17, 2018 11:58
[2018-12-17 12:00] VITALS: BP 150/71
--- NOTE | 2018-12-17 13:00 | NUR ---
Dr. Slade spoke to patient about dialysis. Patient states she refused dialysis. Dr. Frank made nurse aware will be documented.
--- NOTE | 2018-12-17 13:27 | Nephrology Progress Note ---
Assessment/Plan Problem List: (1) Renal failure (ARF), acute on chronic (2) Nephrotic syndrome (3) CHF (congestive heart failure) Assessment Renal failure, Chronic likely diabetic nephropathy Nephrotic syndrom Hypoxia, CHF Chest pain, NSTEMI (non-ST elevated myocardial infarction) Hypothyroid Anemia Plan Optimize cardiac status dialysis treatment offered- Patient declined most renal llamas already done in Oct 2018 avoid nephrotoxics IN VIEW OF DECLINING HD: no much to add from renal stand point other than BP and BS check, Avoid Nephrotoxics- Renal diet, FU WITH PMD AND SUPPLY CHAIN DESIGN MANAGER OP UPON DISCHARGE per orders Subjective ROS Limited/Unobtainable: No Objective Objective Last 24 Hour Vital Signs Date Time Temp Pulse Resp B/P (MAP) Pulse Ox O2 Delivery O2 Flow Rate FiO2 12/17/18 12:00 97.6 71 18 150/71 (97) 95 12/17/18 09:52 70 139/72 12/17/18 09:52 70 139/72 12/17/18 08:40 Nasal Cannula 3.0 12/17/18 08:00 98.3 70 18 139/72 (94) 95 12/17/18 07:55 Nasal Cannula 3.0 32 12/17/18 07:55 93 Nasal Cannula 3.0 32 12/17/18 07:55 71 12/17/18 07:55 81 18 Nasal Cannula 3.0 32 12/17/18 04:00 97.2 65 18 112/57 (75) 95 12/17/18 04:00 62 12/17/18 00:00 71 12/17/18 00:00 98.8 67 18 135/98 (110) 99 12/16/18 20:55 95 Nasal Cannula 3.0 32 12/16/18 20:55 Nasal Cannula 3.0 32 12/16/18 20:55 79 16 Nasal Cannula 3.0 32 12/16/18 20:47 80 151/71 12/16/18 20:00 Nasal Cannula 3.0 12/16/18 20:00 76 12/16/18 20:00 98.8 80 18 151/71 (97) 97 12/16/18 17:24 76 130/58 12/16/18 16:00 Nasal Cannula 3.0 12/16/18 16:00 98.6 76 22 130/58 (82) 94 12/16/18 15:36 73 Intake and Output 2/7/19 2/8/19 19:00 07:00 Intake Total 230 ml Balance 230 ml Intake Oral 230 ml # Voids 2 2 Current Medications Medications (Trade) Dose Ordered Sig/Miguel Route PRN Reason Start Time Stop Time Status Last Admin Dose Admin Acetaminophen (Tylenol) 650 mg Q4H PRN ORAL Mild Pain/Temp > 100.5 12/16/18 17:53 01/15/19 17:52 12/16/18 21:25 Albuterol/ Ipratropium (Albuterol/ Ipratropium) 3 ml Q4H PRN HHN Shortness of Breath 12/16/18 17:55 12/20/18 17:54 Allopurinol (Allopurinol) 300 mg DAILY ORAL 12/17/18 09:00 01/15/19 08:59 12/17/18 09:52 Amlodipine Besylate (Norvasc) 5 mg BID ORAL 12/17/18 09:00 01/16/19 08:59 12/17/18 09:52 Aspirin (ASA) 81 mg DAILY ORAL 12/17/18 09:00 01/15/19 08:59 12/17/18 09:52 Atorvastatin Calcium (Lipitor) 20 mg BEDTIME ORAL 12/16/18 21:00 01/14/19 20:59 12/16/18 20:47 Dextrose (Dextrose 50%) 25 ml Q30M PRN IV Hypoglycemia 12/16/18 18:00 01/14/19 12:59 Dextrose (Dextrose 50%) 50 ml Q30M PRN IV Hypoglycemia 12/16/18 18:00 01/14/19 12:59 Furosemide (Lasix) 40 mg EVERY 8 HOURS IV 12/16/18 22:00 01/15/19 21:59 12/17/18 06:24 Heparin Sodium (Porcine) (Heparin 5000 units/ml) 5,000 units EVERY 12 HOURS SUBQ 12/16/18 21:00 01/14/19 20:59 12/17/18 09:59 Insulin Aspart (NovoLOG) BEFORE MEALS AND HS SUBQ 12/16/18 21:00 01/14/19 16:29 12/17/18 12:08 Levothyroxine Sodium (Synthroid) 50 mcg ACBREAKFAST ORAL 12/17/18 06:30 01/15/19 06:29 12/17/18 06:24 Metoprolol Tartrate (Lopressor) 12.5 mg Q12HR ORAL 12/16/18 21:00 01/15/19 20:59 12/17/18 09:52 Ondansetron HCl (Zofran) 4 mg Q6H PRN IVP Nausea & Vomiting 12/16/18 17:55 01/14/19 17:54 Pantoprazole (Protonix) 40 mg EVERY 12 HOURS ORAL 12/16/18 21:00 01/15/19 20:59 12/17/18 09:52 Polyethylene Glycol (Miralax) 17 gm DAILYPRN PRN ORAL Constipation 12/16/18 17:55 01/15/19 17:54 Temazepam (Restoril) 15 mg HSPRN PRN ORAL Insomnia 12/16/18 21:00 12/22/18 20:59 Laboratory Tests 12/16/18 23:10: Urine Color Pale yellow, Urine Appearance Clear, Urine pH 6.5, Urine Specific [place] 1.010, Urine Protein 4+H, Urine Glucose (UA) 3+H, Urine Ketones Negative , Urine Blood 2+H, Urine Nitrite Negative, Urine Bilirubin Negative, Urine Urobilinogen Normal, Urine Leukocyte Esterase Negative, Urine RBC 2-4H, Urine WBC 0-2, Urine Squamous Epithelial Cells Occasional, Urine Bacteria None 12/17/18 06:00: Sodium Level 142, Potassium Level 4.3, Chloride Level 107, Carbon Dioxide Level 26, Anion Gap 10, Blood Urea Nitrogen 67H, Creatinine 5.3H, Estimat Glomerular Filtration Rate 8.5, Glucose Level 133H, Hemoglobin A1c 11.4H, Uric Acid 4.8, Calcium Level 8.7, Phosphorus Level 6.9H, Magnesium Level 2.5H, Iron Level 43L, Total Iron Binding Capacity 249L, Percent Iron Saturation 17, Unsaturated Iron Binding 206, Ferritin 88, Total Bilirubin 0.3, Gamma Glutamyl Transpeptidase 33 , Aspartate Amino Transf (AST/SGOT) 14L, Alanine Aminotransferase (ALT/SGPT) 22 , Alkaline Phosphatase 120H, Total Creatine Kinase 74, Troponin I 0.034, C- Reactive Protein, Quantitative 0.5, Pro-B-Type Natriuretic Peptide 4231H, Total Protein 6.8, Albumin 2.9L, Globulin 3.9, Albumin/Globulin Ratio 0.7L, Triglycerides Level 119, Cholesterol Level 141, LDL Cholesterol 79, HDL Cholesterol 40, Cholesterol/HDL Ratio 3.5, Vitamin B12 Level 1250H, Folate 17.1 Height (Feet): 5 Height (Inches): 3.00 Weight (Pounds): 189 General Appearance: no apparent distress Cardiovascular: normal rate Respiratory/Chest: decreased breath sounds Abdomen: soft Lito Frank MD Dec 17, 2018 13:27
--- NOTE | 2018-12-17 14:15 | NUR ---
Home Discharge: Patient is being discharged from medical care. Awake, alert and oriented x 4. Patient verbalized understanding of DISCHARGE care instructions and prescription. All medical devices such as IV, heart monitor, and ID band were removed. Patient ambulated out with all personal belongings with steady gait to private vehicle.
--- NOTE | 2018-12-17 15:56 | Internal Med Progress Note ---
Subjective Physician Name Pierre Childs Attending Physician Pierre Childs MD Allergies: Coded Allergies: No Known Allergies (Verified Allergy, Unknown, 02/17/11) Subjective awake, alert, responsive, NAD Objective Last Vital Signs Date Time Temp Pulse Resp B/P (MAP) Pulse Ox O2 Delivery O2 Flow Rate FiO2 12/17/18 12:00 97.6 71 18 150/71 (97) 95 12/17/18 08:40 Nasal Cannula 3.0 12/17/18 07:55 32 Laboratory Tests Test 12/16/18 23:10 12/17/18 06:00 Urine Color Pale yellow Urine Appearance Clear Urine pH 6.5 (4.5-8.0) Urine Specific [employer] [place] 1.010 (1.005-1.035) Urine Protein 4+ (NEGATIVE) H Urine Glucose (UA) 3+ (NEGATIVE) H Urine Ketones Negative (NEGATIVE) Urine Blood 2+ (NEGATIVE) H Urine Nitrite Negative (NEGATIVE) Urine Bilirubin Negative (NEGATIVE) Urine Urobilinogen Normal MG/DL (0.0-1.0) Urine Leukocyte Esterase Negative (NEGATIVE) Urine RBC 2-4 /HPF (0 - 2) H Urine WBC 0-2 /HPF (0 - 2) Urine Squamous Epithelial Cells Occasional /LPF Urine Bacteria None /HPF (NONE) Sodium Level 142 MMOL/L (136-145) Potassium Level 4.3 MMOL/L (3.5-5.1) Chloride Level 107 MMOL/L (98-107) Carbon Dioxide Level 26 MMOL/L (21-32) Anion Gap 10 mmol/L (5-15) Blood Urea Nitrogen 67 mg/dL (7-18) H Creatinine 5.3 MG/DL (0.55-1.30) H Estimat Glomerular Filtration Rate 8.5 mL/min (>60) Glucose Level 133 MG/DL (74-106) H Hemoglobin A1c 11.4 % (4.3-6.0) H Uric Acid 4.8 MG/DL (2.6-7.2) Calcium Level 8.7 MG/DL (8.5-10.1) Phosphorus Level 6.9 MG/DL (2.5-4.9) H Magnesium Level 2.5 MG/DL (1.8-2.4) H Iron Level 43 ug/dL (50-175) L Total Iron Binding Capacity 249 ug/dL (250-450) L Percent Iron Saturation 17 % (15-50) Unsaturated Iron Binding 206 ug/dL (112-346) Ferritin 88 NG/ML (8-388) Total Bilirubin 0.3 MG/DL (0.2-1.0) Gamma Glutamyl Transpeptidase 33 U/L (5-85) Aspartate Amino Transf (AST/SGOT) 14 U/L (15-37) L Alanine Aminotransferase (ALT/SGPT) 22 U/L (12-78) Alkaline Phosphatase 120 U/L (46-116) H Total Creatine Kinase 74 U/L (26-308) Troponin I 0.034 ng/mL (0.000-0.056) C-Reactive Protein, Quantitative 0.5 mg/dL (0.00-0.90) Pro-B-Type Natriuretic Peptide 4231 pg/mL (0-125) H Total Protein 6.8 G/DL (6.4-8.2) Albumin 2.9 G/DL (3.4-5.0) L Globulin 3.9 g/dL Albumin/Globulin Ratio 0.7 (1.0-2.7) L Triglycerides Level 119 MG/DL (30-150) Cholesterol Level 141 MG/DL (< 200) LDL Cholesterol 79 mg/dL (<100) HDL Cholesterol 40 MG/DL (40-60) Cholesterol/HDL Ratio 3.5 (3.3-4.4) Vitamin B12 Level 1250 PG/ML (193-986) H Folate 17.1 NG/ML (8.6-58.9) Intake and Output 12/16/18 12/17/18 19:00 07:00 Intake Total 230 ml Balance 230 ml Intake Oral 230 ml # Voids 2 2 Objective GENERAL: The patient is awake and responsive, not in acute distress. HEAD AND NECK: Pupils are equal and reactive to light. Extraocular movements are intact. Neck was supple. No JVD. LUNGS: Good air entry. No wheezing or rales. No Crackles in the bases. HEART: S1, S2. Regular rhythm. No Murmur or gallops. ABDOMEN: Soft and nontender. Morbidly obese. EXTREMITIES: No cyanosis or clubbing. +1 edema in bilateral lower extremities. NEUROLOGIC: Cranial nerves II through XII grossly intact. Motor is 5/5 in all extremities. Gait is intact. Assessment/Plan Assessment/Plan ASSESSMENT: 1. Acute CHF exacerbation on chronic with preserved ejection fraction, HFpEF. 2. Heart failure with preserved ejection fraction. 3. Chronic kidney disease, stage 4. 4. Diabetes type 2. 5. Morbid obesity. 6. Hypertension. 7. COPD. Plan: Patient refused Dialysis DC home today. Pierre Childs MD Dec 17, 2018 15:56
--- NOTE | 2018-12-17 23:38 | Cardiology Report ---
APPROVED REPORT EKG Measurement Heart [id number] Sinus rhythm with 1st degree AV block Otherwise normal ECG
--- NOTE | 2018-12-19 11:17 | Discharge Summary ---
Discharge Summary Discharge Summary _ DATE OF ADMISSION: 12/15/2018 DATE OF DISCHARGE: 12/17/2018 DISCHARGED BY: Dr. Childs REASON FOR ADMISSION: 53 years old female with past medical history of diabetes mellitus, COPD, congestive heart failure, chronic kidney disease stage 4, was sent to emergency room for evaluation by her primary care provider, due to shortness of breath for one week. No associated fevers, chills, cough. Patient reported increased swelling in lower extremity. Patient reported use of Lasix 20 mg daily. Upon evaluation pulse oximetry was 94% on room air, respiratory rate was 22. Laboratory workup revealed no leukocytosis, hemoglobin 9.6, hematocrit 29.4. Potassium 5.4. BUN 57, creatinine 4.6. Pro BNP 4147. Albumin 3.0. Troponin - 0.035. EKG revealed normal sinus rhythm with first-degree AV block , no acute ischemic changes. Chest x-ray revealed bilateral pulmonary congestion Patient was admitted for further management. CONSULTANTS: line up worker Dr. Moreira pulmonary Dr. Naidu commercial energy rater Dr. Frank HOSPITAL COURSE: Patient admitted to telemetry floor. Serial troponin were negative. Azure Developer followed. EKG revealed no acute ischemic changes. Patient was ruled out for acute myocardial infarction. Echocardiogram revealed preserved ejection fraction of 55% with mild left ventricular hypertrophy. No evidence of pericardial effusion. Possible left pleural effusion. No evidence of wall motion abnormality. Right ventricular systolic pressure of 50 consistent with moderate pulmonary hypertension. Moderately elevated left atrial pressure grade 2. Diuresis provided with close monitoring of volumes and cardiorenal parameters. Patient was followed up with a chest x-ray and pro BNP. Venous Doppler bilateral lower extremity revealed no evidence of acute DVT. DVT prophylaxis provided. Supplemental oxygen provided as needed to keep pulse oximetry above 92%. Pulmonary toilet provided as needed. Lipid panel was stable. Antiplatelet therapy with aspirin was continued. Blood pressure was managed with calcium channel elida and beta-elida. Statin was continued. GI prophylaxis provided. Blood sugar was managed with sliding scale of insulin. Hemoglobin A1c - 11.4 , clearly not at goal. Patient needs further optimization of anti-glycemic regimen as outpatient. Levothyroxine was continued. Microsoft Dynamics Manager Architect closely followed . Creatinine trending up from initial 4.6 up to 5.3. Urinalysis with +4 protein. Most recent renal workup was done in October 2018 and was consistent with nephrotic syndrome. Creatinine worsened from being in range of 4-4.8 on previous admission up to 5.3 on this admission, Microsoft Dynamics Manager Architect recommended to start dialysis treatment. Patient declined hemodialysis . In lieu of declining hemodialysis , per commercial energy rater not much can be added other than blood pressure and blood sugar management. [employer] Manager Architect recommended avoid nephrotoxins and continue with renal diet. Electrolytes were corrected as needed. Patient was ready for discharge home. Pulse oximetry was stable on room air. Follow-up with primary care provider and commercial energy rater as outpatient upon discharge. FINAL DIAGNOSES: Acute on chronic CHF exacerbation with preserved ejection fraction Acute respiratory failure (secondary to CHF exacerbation) -resolved Acute on chronic renal failure Chronic kidney disease stage IV, likely due to diabetic nephropathy Nephrotic syndrome Diabetes mellitus type 2, uncontrolled Hypertension COPD Morbid obesity DISCHARGE MEDICATIONS: See Medication Reconciliation list. DISCHARGE INSTRUCTIONS: Patient was discharged home . Follow up with primary care provider in one week and commercial energy rater. I have been assigned to dictate discharge summary for this account. I was not involved in the patient's management. Clarice Urbina NP Dec 19, 2018 11:17
--- NOTE | 2018-12-19 12:15 | NUR ---
CASE MANAGEMENT: CM review and clinical information (face sheet/ DC summary/ ER MD Note/ H&P) faxed to [facility] @ [phone] and [facility] @ [phone]. T#[id number] [phone]
== END 2018-12-17 14:35 | disposition home or self-care (01) | DRG 194 ==
LOC: EMR 12:30 → 2W 13:35 → EDBEDREQ 14:33 → 2E 12-16 17:54
PROC: 5A09357 Assistance with Respiratory Ventilation, Less than 24 Consecutive Hours, Continuous Positive Airway Pressure (ICD-10-PCS; principal; 2018-12-15)
DX: I13.0 Hypertensive heart and chronic kidney disease with heart failure and stage 1 through stage 4 chronic kidney disease, or unspecified chronic kidney disease (principal); J96.01 Acute respiratory failure with hypoxia; N17.9 Acute kidney failure, unspecified; E11.22 Type 2 diabetes mellitus with diabetic chronic kidney disease; N18.4 Chronic kidney disease, stage 4 (severe); E66.01 Morbid (severe) obesity due to excess calories; I27.20 Pulmonary hypertension, unspecified; E11.65 Type 2 diabetes mellitus with hyperglycemia; I50.23 Acute on chronic systolic (congestive) heart failure; I44.0 Atrioventricular block, first degree; Z68.33 Body mass index [BMI] 33.0-33.9, adult; J44.9 Chronic obstructive pulmonary disease, unspecified; E03.9 Hypothyroidism, unspecified; Z79.4 Long term (current) use of insulin
CPT/HCPCS: 36415; 71045; 80048; 80053; 80061; 81001; 82550; 82553; 82607; 82728; 82746; 82962; 82977; 83036; 83540; 83550; 83735; 83880; 84100; 84484; 84550; 85025; 86140; 93005; 93306; 93970; 94664; 94760; 96374; 99285; J1815

== ENCOUNTER 2018-12-27 08:02 | Emergency (ER) | payer OTHER ==
[~2018-12-27] VITALS: Ht 157.5 cm; Wt 84.8 kg
[~2018-12-27 08:02] MED LIST changes: +FUROSEMIDE80 M1 ORAL
[2018-12-27 08:15] VITALS: BP 149/96
--- NOTE | 2018-12-27 08:15 | NUR ---
ED Nurse Note: A/Ox4. Ambulated in to ER due to SOB and CP / since 12/24/18 with swelling on bilateral feet. RA 79%. Placed simple mask and O2 sat of 97% noted. Per pt, CP radiating to all over her body. Hx. CHF. Pt's son at the bedside.
[2018-12-27] MEDS ORDERED: IRON325 M1 PO (08:20)
[2018-12-27] MEDS: Nitroglycerin Subl 0.4mg tab SL PRN ×3 (08:30→08:50)
--- NOTE | 2018-12-27 08:40 | NUR ---
ED Nurse Note: CP 6/10, second dose of Nitro given. BP is 134/68, will continue to monitor.
[2018-12-27 08:43] LABS: BASOPHILS % (AUTO) 1.4 % (0.0-2.0); HEMATOCRIT 29.5 % (37.0-47.0); HEMOGLOBIN 9.4 G/DL (12.0-16.0); LYMPHOCYTES % (AUTO) 24.3 % (20.0-45.0); MEAN CORPUSCULAR VOLUME 88 FL (80-99); NEUTROPHILS % (AUTO) 65.3 % (45.0-75.0); PLATELET COUNT 272 K/UL (150-450); RED BLOOD COUNT 3.33 M/UL (4.20-5.40); RED CELL DISTRIBUTION WIDTH 16.7 % (11.6-14.8); WHITE BLOOD COUNT 8.8 K/UL (4.8-10.8)
[2018-12-27 09:07] LABS: ANION GAP 6 mmol/L (5-15); BLOOD UREA NITROGEN 60 mg/dL (7-18); CALCIUM 8.4 MG/DL (8.5-10.1); CARBON DIOXIDE 23 MMOL/L (21-32); CHLORIDE 102 MMOL/L (98-107); CREATININE 4.7 MG/DL (0.55-1.30); POTASSIUM 5.1 MMOL/L (3.5-5.1); SODIUM 131 MMOL/L (136-145)
[2018-12-27 09:23] LABS: ALANINE AMINOTRANSFERASE 154 U/L (12-78); ALBUMIN 3.2 G/DL (3.4-5.0); ALBUMIN/GLOBULIN RATIO 0.8 (1.0-2.7); ALKALINE PHOSPHATASE 197 U/L (46-116); ASPARTATE AMINO TRANSFERASE 54 U/L (15-37); BILIRUBIN,TOTAL 0.2 MG/DL (0.2-1.0); CKMB 3.4 NG/ML (0.0-3.6); CREATINE KINASE 126 U/L (26-308)
[2018-12-27 09:52] VITALS: BP 147/58
--- NOTE | 2018-12-27 09:54 | NUR ---
ED Nurse Note: Denies any CP at this time. Titrate down to NC from Simple mask, NC 2L/min, O2 sat of 94-95%.
--- NOTE | 2018-12-27 12:02 | NUR ---
ED Nurse Note: Notified Dr. Hughes regarding pt's concern about having kidney stone. pt is c/o abdominal and back pain x2 weeks. Hx Kidney stone. Will follow up on the orders.
--- NOTE | 2018-12-27 12:41 | Diagnostic Imaging Report ---
Indication: Chest pain Comparison: 12/16/2018 A single view chest radiograph was obtained. Findings: Interstitial edema demonstrated with cardiomegaly. There is a small left pleural effusion suspected. Lung volumes are low. IMPRESSION: Slightly worse congestive heart failure. The last occasion.
[2018-12-27 13:00] VITALS: BP 138/57
[2018-12-27 13:01] VITALS: BP 138/57
--- NOTE | 2018-12-27 13:02 | NUR ---
ED Nurse Note: Pt was informed that they will be transferred to [facility]. Per pt, she wants to sign AMA and go to [facility]. Notified Dr. Hughes. All risk factors leaving at this time are informed to pt. Pt verbalized understanding and signed AMA formed. Pt's son at the bedside. IV and ID wrist band removed. Pt ambulated out of ER with steady gait. All belongings given to pt.
--- NOTE | 2018-12-27 13:06 | Diagnostic Imaging Report ---
Indication: Abdominal pain Technique: Continuous helical transaxial imaging of the abdomen and pelvis was obtained from the lung bases to the pubic symphysis. No intravenous contrast was administered. Coronal 2-D reformats were also obtained. Automatic Exposure Control was utilized. Total Dose length Product (DLP): 1170.[address] Dose Index Volume (CTDIvol): 19.07,19.28 mGy Comparison: none Findings: Bilateral pleural effusions are demonstrated. Posterior basilar atelectasis/consolidation noted. The heart is enlarged. There is no nephrolithiasis or hydronephrosis appreciated. The left kidney is atrophic. Urinary bladder is unremarkable. The gallbladder is distended. No obvious gallstones seen on this exam. Reticulation of the subcutaneous fat noted. Normal retrocecal appendix demonstrated. Uterus is present. Small bilateral inguinal hernias are present. Aortoiliac calcifications are noted. IMPRESSION: No nephrolithiasis or obstructive nephropathy. Distended gallbladder. No obvious gallstones. Atrophic left kidney Moderate bilateral pleural effusions and posterior basal pneumonia versus atelectasis. Mild generalized subcutaneous edema nonspecific in nature. Normal appendix Atherosclerotic vascular disease Small bilateral inguinal hernias containing fat. The CT scanner at [facility] is accredited by the [employer] and the scans are performed using dose optimization techniques as appropriate to a performed exam including Automatic Exposure control.
--- NOTE | 2018-12-27 16:29 | Emergency Room Report ---
History of Present Illness General Chief Complaint: Dyspnea/Respdistress Source: Patient Present Illness HPI 53-year-old female presents ED complaining of chest pain and shortness of breath for the last 3 days. History of CHF and hypertension. Pain is sharp, 7 out of 10, nonradiating. Notes leg swelling. Denies fevers or chills or cough. No other aggravating relieving factors. Denies any other associated symptoms Allergies: Coded Allergies: No Known Allergies (Verified Allergy, Unknown, 02/17/11) Patient History Past Medical History: DM, HTN, CHF, COPD Pertinent Family History: none Social History: Denies: smoking, alcohol use, drug use Now: No Immunizations: UTD Reviewed Nursing Documentation: PMH: Agreed; PSxH: Agreed Nursing Documentation-PMH Past Medical History: No History, Except For Hx Cardiac Problems: Yes - CHF Hx Hypertension: Yes Hx COPD: Yes Hx Diabetes: Yes Hx Cancer: No Hx Gastrointestinal Problems: No Hx Neurological Problems: No Review of Systems All Other Systems: negative except mentioned in HPI Physical Exam Vital Signs Date Time Temp Pulse Resp B/P (MAP) Pulse Ox O2 Delivery O2 Flow Rate FiO2 12/27/18 08:08 98.6 66 20 144/73 79 Room Air 12/27/18 08:15 10.0 Sp02 EP Interpretation: reviewed, normal General Appearance: no apparent distress, alert, GCS 15, non-toxic Head: normocephalic, atraumatic Eyes: bilateral eye normal inspection, bilateral eye PERRL ENT: hearing grossly normal, normal pharynx, no angioedema, normal voice Neck: full range of motion, supple/symm/no masses Respiratory: chest non-tender, lungs clear, normal breath sounds, speaking full sentences Cardiovascular #1: regular rate, rhythm, no edema Cardiovascular #2: 2+ carotid (R), 2+ carotid (L), 2+ radial (R), 2+ radial (L) , 2+ dorsalis pedis (R), 2+ dorsalis pedis (L) Gastrointestinal: normal bowel sounds, non tender, soft, non-distended, no guarding, no rebound Rectal: deferred Genitourinary: normal inspection, no CVA tenderness Musculoskeletal: back normal, gait/station normal, normal range of motion, swelling Neurologic: alert, oriented x3, responsive, motor strength/tone normal, sensory intact, speech normal Psychiatric: judgement/insight normal, memory normal, mood/affect normal, no suicidal/homicidal ideation Reflexes: 3+ bicep (R), 3+ bicep (L), 3+ tricep (R), 3+ tricep (L), 3+ knee (R) , 3+ knee (L) Skin: normal color, no rash, warm/dry, well hydrated Lymphatic: no adenopathy Medical Decision Making Diagnostic Impression: Primary Impression: chf Additional Impressions: ACS (acute coronary syndrome) Renal failure (ARF), acute on chronic Qualified Codes: N17.9 - Acute kidney failure, unspecified; N18.9 - Chronic kidney disease, unspecified ER Course Hospital Course 53-year-old female presents ED complaining of shortness of breath, chest pain, leg swelling x2 weeks Differential diagnoses include: NC/unstable angina, contusion, muscle strain, PTX, rib fracture Clinical course Patient placed on stretcher. on telemetry monitor. After initial history and physical I ordered labs, EKG, chest x-ray, ASA, b/l LE dopplers labs reviewed- no leukocytosis, hemoglobin/hematocrit stable, creatinine elevated, troponin 0.065, BNP elevated Chest x-ray- CHF with bilateral effusions EKGnormal sinus rhythm no acute ischemic changes interpreted by me Aspirin given her chest pain improved after nitroglycerin.. because of insurance will be transferred. Patient does not want to be transferred. Patient states she wishes to go home. Understands the risks of leaving. Patient has competency to make her own decisions. Signed AMA form. I. I feel this is a highly complex case requiring extensive working including EKG/Rhythm strip, Xray/CT/US, Blood/urine lab work, repeat exams while in ED, and administration of strong opiates/narcotics for pain control, admission to hospital or close patient follow up. Diagnosis - CHF exacerbation, ACS Patient left AMA Labs Test 12/27/18 08:25 White Blood Count 8.8 K/UL (4.8-10.8) Red Blood Count 3.33 M/UL (4.20-5.40) Hemoglobin 9.4 G/DL (12.0-16.0) Hematocrit 29.5 % (37.0-47.0) Mean Corpuscular Volume 88 FL (80-99) Mean Corpuscular Hemoglobin 28.3 PG (27.0-31.0) Mean Corpuscular Hemoglobin Concent 32.0 G/DL (32.0-36.0) Red Cell Distribution Width 16.7 % (11.6-14.8) Platelet Count 272 K/UL (150-450) Mean Platelet Volume 7.0 FL (6.5-10.1) Neutrophils (%) (Auto) 65.3 % (45.0-75.0) Lymphocytes (%) (Auto) 24.3 % (20.0-45.0) Monocytes (%) (Auto) 6.0 % (1.0-10.0) Eosinophils (%) (Auto) 3.0 % (0.0-3.0) Basophils (%) (Auto) 1.4 % (0.0-2.0) Sodium Level 131 MMOL/L (136-145) Potassium Level 5.1 MMOL/L (3.5-5.1) Chloride Level 102 MMOL/L (98-107) Carbon Dioxide Level 23 MMOL/L (21-32) Anion Gap 6 mmol/L (5-15) Blood Urea Nitrogen 60 mg/dL (7-18) Creatinine 4.7 MG/DL (0.55-1.30) Estimat Glomerular Filtration Rate 9.7 mL/min (>60) Glucose Level 155 MG/DL (74-106) Calcium Level 8.4 MG/DL (8.5-10.1) Total Bilirubin 0.2 MG/DL (0.2-1.0) Aspartate Amino Transf (AST/SGOT) 54 U/L (15-37) Alanine Aminotransferase (ALT/SGPT) 154 U/L (12-78) Alkaline Phosphatase 197 U/L (46-116) Total Creatine Kinase 126 U/L (26-308) Creatine Kinase MB 3.4 NG/ML (0.0-3.6) Creatine Kinase MB Relative Index 2.6 Troponin I 0.065 ng/mL (0.000-0.056) Pro-B-Type Natriuretic Peptide 6868 pg/mL (0-125) Total Protein 7.1 G/DL (6.4-8.2) Albumin 3.2 G/DL (3.4-5.0) Globulin 3.9 g/dL Albumin/Globulin Ratio 0.8 (1.0-2.7) EKG Diagnostic Results Rate: normal Rhythm: NSR ST Segments: no acute changes ASA given to the pt in ED: Yes Rhythm Strip Diag. Results EP Interpretation: yes Rhythm: NSR, no PVC's, no ectopy Chest X-Ray Diagnostic Results Chest X-Ray Diagnostic Results : Chest X-Ray Ordered: Yes # of Views/Limited/Complete: 1 View Indication: Shortness of Breath EP Interpretation: Yes Interpretation: no pneumothorax, other - CHF with bilateral effusions Impression: Other - CHF Electronically Signed by: Electronically signed by Miles Silva MD Last Vital Signs Date Time Temp Pulse Resp B/P (MAP) Pulse Ox O2 Delivery O2 Flow Rate FiO2 12/27/18 13:01 98.6 63 15 138/57 95 Nasal Cannula 2.0 Status: improved Disposition: AGAINST MEDICAL ADVICE Condition: Stable Referrals: Pierre Childs MD (PCP) Miles Silva MD Dec 27, 2018 16:29
--- NOTE | 2018-12-28 15:33 | Cardiology Report ---
APPROVED REPORT EKG Measurement Heart [id number] Sinus rhythm with 1st degree AV block Otherwise normal ECG
== END 2018-12-27 13:45 | disposition left against medical advice (07) ==
LOC: EMR 08:28
DX: I24.9 Acute ischemic heart disease, unspecified (principal); E11.22 Type 2 diabetes mellitus with diabetic chronic kidney disease; I13.0 Hypertensive heart and chronic kidney disease with heart failure and stage 1 through stage 4 chronic kidney disease, or unspecified chronic kidney disease; N18.9 Chronic kidney disease, unspecified; I50.9 Heart failure, unspecified; N17.9 Acute kidney failure, unspecified; J44.9 Chronic obstructive pulmonary disease, unspecified
CPT/HCPCS: 36415; 71045; 74176; 80053; 82550; 82553; 83880; 84484; 85025; 93005; 96374; 99284; J1940

== ENCOUNTER 2020-06-28 18:38 | Inpatient (IN) | payer MEDICARE, OTHER ==
[~2020-06-28] VITALS: Ht 162.6 cm; Wt 90.7 kg
[~2020-06-28 18:38] MED LIST changes: +IRON325 M1 PO
--- NOTE | 2020-06-28 21:37 | NUR ---
NURSE NOTES: Received patient from transport. Alert and able to verbalize needs. On 4L nasal cannula, saturating at 96%. Patient was a direct admit from [facility] for covid +, ESRD, PNA, and Anemia. Was endorsed that patient received 1 unit of prbc at ED for low hgb and 40mEq of Potassium for hypokalemia. Patient oriented to hospital policy. Call light placed within reach. Will continue to monitor. Called and left a message with Dr. Childs regarding admission orders. Awaiting call back.
--- NOTE | 2020-06-28 22:24 | NUR ---
NURSE NOTES: Home medications retrieved from Son. Admission orders from Dr. Childs noted and will carry out. Will continue to monitor.
[2020-06-28] MEDS ORDERED: CULTURELLE1 EAC1 PO (23:29)
[2020-06-28] MEDS ORDERED: NEPHROVITE1 TAB ORAL (23:29)
[2020-06-28] MEDS ORDERED: PANTOPRAZOLE SO40 MG ORAL (23:39)
[2020-06-28] MEDS ORDERED: SYNTHROID25 MCG ORAL (23:39)
[2020-06-28] MEDS ORDERED: DOCUSATE SODIU100 MG ORAL (23:39)
[2020-06-28] MEDS ORDERED: CALCIUM ACETAT667 M1 PO (23:39)
[2020-06-28] MEDS ORDERED: AMLODIPINE BESY10 MG ORAL (23:39)
[2020-06-28] MEDS ORDERED: ATORVASTATIN CA40 MG ORAL (23:39)
[2020-06-28] MEDS ORDERED: ISOSORBIDE MONO20 MG PO (23:39)
[2020-06-28] MEDS ORDERED: ASPIRIN325 MG ORAL (23:39)
[2020-06-28] MEDS ORDERED: VITAMIN D310 MCG ORAL (23:39)
[2020-06-28] MEDS ORDERED: SENNA8.6 M2 PO (23:39)
[2020-06-28] MEDS ORDERED: GLIPIZIDE5 MG ORAL (23:39)
[2020-06-28] MEDS ORDERED: ALBUTEROL SULF8.5 G1 INH (23:42)
[2020-06-29] VITALS: BP 174/81
--- NOTE | 2020-06-29 01:32 | NUR ---
NURSE NOTES: Called and left a message with Dr. Childs regarding patient high BP: 174/81. Patient has no compliants of double vision or discomfort. Patient stable. Awaiting call back. Will continue to monitor.
[2020-06-29] MEDS ORDERED: Albuterol 90mcg Inhaler 8gm INH SCH (03:30)
[2020-06-29 04:00] VITALS: BP 183/109
--- NOTE | 2020-06-29 05:27 | NUR ---
NURSE NOTES: Left a message with Dr. Childs regarding patient's elevated BP. Still awaiting response. No complaints of headache or double vision. Will continue to monitor.
[2020-06-29] MEDS: Levothyroxine 25mcg tab ORAL SCH (05:47)
[2020-06-29] MEDS: NovoLOG Insulin Flexpen SUBQ SCH ×4 (05:56→20:55)
[2020-06-29 07:17] LABS: HEMATOCRIT 23.4 % (37.0-47.0); HEMOGLOBIN 7.8 G/DL (12.0-16.0); MEAN CORPUSCULAR VOLUME 88 FL (80-99); PLATELET COUNT 346 K/UL (150-450); RED BLOOD COUNT 2.65 M/UL (4.20-5.40); RED CELL DISTRIBUTION WIDTH 14.7 % (11.6-14.8); WHITE BLOOD COUNT 10.5 K/UL (4.8-10.8)
--- NOTE | 2020-06-29 07:38 | NUR ---
NURSE HAND-OFF REPORT: Important Events on Shift:[Patient's BP was elevated. No PRN BP medication. Highest BP: 183/109. Pt's rhythm strip also showed SR w/ 1AVB. ] Patient Status: [] Diet: [renal, cardiac diet] Pending Orders: [CXR today] Pending Results/Labs:[Blood chem] Pending MD notification:[] Latest Vital Signs: Temperature 98.1 , Pulse 85 , B/P 183 /109 , Respiratory Rate 21 , O2 SAT 95 , , O2 Flow Rate 4.0 . Vital Sign Comment: [Elevated BP with no PRN bp medication] EKG Rhythm: SR w/ 1st AVB Rhythm change?: Y Notified?: Y -Dr. Amadeo LANDEROS Response: Message left await call Latest Alvarez Fall Score: 35 Fall Risk: Medium Risk Safety Measures: Call light Within Reach, Bed Alarm Zone 1, Side Rails Side Rails x2, Bed position Low and Locked. Fall Precautions: Yellow Socks Yellow Gown Door Sign Patient Fall Education Report given to [NIKO Noble].
[2020-06-29 07:57] LABS: ALANINE AMINOTRANSFERASE 40 U/L (12-78); ALBUMIN 2.5 G/DL (3.4-5.0); ALBUMIN/GLOBULIN RATIO 0.6 (1.0-2.7); ALKALINE PHOSPHATASE 157 U/L (46-116); ANION GAP 7 mmol/L (5-15); ASPARTATE AMINO TRANSFERASE 29 U/L (15-37); BILIRUBIN,TOTAL 0.6 MG/DL (0.2-1.0); BLOOD UREA NITROGEN 21 mg/dL (7-18); CALCIUM 8.6 MG/DL (8.5-10.1); CARBON DIOXIDE 27 MMOL/L (21-32); CHLORIDE 92 MMOL/L (98-107); CREATININE 3.1 MG/DL (0.55-1.30); PHOSPHORUS 3.4 MG/DL (2.5-4.9); POTASSIUM 4.6 MMOL/L (3.5-5.1); SODIUM 125 MMOL/L (136-145)
--- NOTE | 2020-06-29 07:59 | NUR ---
NURSE NOTES: Received patient up in bed awake. O2 via NC in place, no SOB or acute distress. IV line intact. GRAZYNA AV shunt intact, no bleeding noted. Bed locked in low position. Call light within reach. Will continue plan of care.
[2020-06-29 08:00] VITALS: BP 148/54
[2020-06-29] MEDS: Azithromycin 250mg tab ORAL SCH (08:30)
[2020-06-29] MEDS: Nephrovite tab (Rena-Vite) ORAL SCH (08:30)
[2020-06-29] MEDS: cefTRIAXone 1 GM in D5W 55 ML IVPB SCH (08:31)
[2020-06-29] MEDS: Heparin 5000 units/ml inj SUBQ SCH ×2 (08:32→20:56)
[2020-06-29] MEDS ORDERED: Docusate 100mg cap ORAL SCH (09:00)
[2020-06-29] MEDS ORDERED: Vitamin D 400 INTLU TAB ORAL SCH (09:00)
[2020-06-29] MEDS ORDERED: GlipiZIDE 5mg tab ORAL SCH (09:00)
--- NOTE | 2020-06-29 09:31 | Consultation ---
Consult Note Consult Note I am asked to evaluate the patient at the request of Dr. Childs for dialysis management Transferred from [facility] emergency room for admission here at [facility] Last admission patient was seen on December 2018 with the following conditions: 54-year-old female with PMx of Diabetes, HTN, recent COVID positive, advanced chronic diabetic nephropathy with nephrotic syndrome, was taken to [facility] on the route to dialysis. She was in pulmonary edema after initial treatment and dialysis in [facility], she was transferred to [facility] for further treatment. No Known Allergies (Verified Allergy, Unknown, 02/17/11) Past history: End-stage renal disease on hemodialysis Renal failure, Chronic likely diabetic nephropathy Nephrotic syndrom Hypoxia, CHF Chest pain, NSTEMI (non-ST elevated myocardial infarction) Hypothyroid Anemia Last 24 Hour Vital Signs Date Time Temp Pulse Resp B/P (MAP) Pulse Ox O2 Delivery O2 Flow Rate FiO2 06/29/20 11:40 98.1 87 17 131/64 (86) 97 06/29/20 09:00 Nasal Cannula 4.0 06/29/20 08:29 89 148/54 06/29/20 08:00 91 06/29/20 08:00 98.4 89 19 148/54 (85) 96 06/29/20 04:00 98.1 85 21 183/109 (133) 95 06/29/20 04:00 85 06/29/20 00:00 94 06/29/20 00:00 97.0 90 21 174/81 (112) 95 06/28/20 22:46 Nasal Cannula 4.0 PHYSICAL EXAMINATION: Physical examination was not performed by me because of COVID infection. The patient's evaluation at [facility] Emergency Room physical examination. CONSTITUTIONAL: She appeared oriented to place, time. She is well-developed and well-nourished, mild respiratory distress. NECK: Normal range of motion. Supple. CARDIAC: Regular rate and rhythm. Normal heart sounds and intact distal pulses. No gallops. No friction rubs. No murmurs are heard. PULMONARY: She is in respiratory distress. She had some wheezes. No rales. Mild expiratory wheezes were noted. ABDOMEN: Soft. No distention. No masses. No tenderness. No rebound. No guarding. EXTREMITIES: She had 2+ bilateral lower extremity pitting edema. LABORATORY AND DIAGNOSTIC DATA: [facility] data indicated she had on June 18, echocardiogram performed showed normal wall motion, ejection fraction 68%, normal right ventricular systolic function with PA pressure of 33 mmHg. Labs, white count of 8, hemoglobin 7.8, and platelet count of 242. Sedimentation rate of 115, reticulocyte count of 2.7. Chemistries, sodium 131, potassium 3.8, chloride 91, bicarb 30, BUN is 24, creatinine 3.7, and glucose of 161 , 146. Iron of 32, 15% saturation, LDH 196. Liver function tests are normal. GGT 135. ProBNP non-trustable with level of 23,000. Her albumin was 2.7. LDL of 62 and HDL of 42 and vitamin B12 of 6.2. TSH of 4.336. Her electrocardiogram available from [facility] only shows sinus rhythm with normal QRS axis. No new EKG is available. The patient's telemetry monitoring shows sinus rhythm. I do not appreciate any AV blocks on any of the EKGs that I personally reviewed except for possibly borderline first-degree AV block. Chest x-ray performed yesterday shows diffuse bilateral alveolar densities and infiltrates . Assessment/Plan 54-year-old female now with end-stage renal disease was last dialyzed on transferred from [facility] Patient has hyponatremia and evidence of CHF and volume overload Other conditions: Anemia COVID-19 Diabetes mellitus Hypertension Pneumonia by chest x-ray Suggestion: Based on clinical exam, chest x-ray results, lab results and hyponatremia, urgent hemodialysis with ultrafiltration ordered 1 dose of IV iron Subcu Epogen Keep the blood pressure and blood sugar in check Monitor renal parameters Hemodialysis as needed Per consultants Chest x-ray IMPRESSION: Diffuse bilateral alveolar densities, infiltrates and/or edema. Patient had 3 previous admissions and 1 emergency room visit here at [facility]. I spent an additional 36 minutes on review of medical records including prior hospital records,consult notes, progress notes, procedures , imaging labs, hemodynamics, and other clinical documentation. Over 35 min Lito Frank MD Jun 29, 2020 09:31
--- NOTE | 2020-06-29 09:52 | NUR ---
RADIOLOGY DEPT., CHEST X-RAY DONE.-P.DYE
[2020-06-29 10:25] LABS: FERRITIN 922 NG/ML (8-388)
--- NOTE | 2020-06-29 10:49 | NUR ---
NURSE NOTES: Attempted to draw blood for iron panel but failed. Lab notified, [facility] to draw. Addendum: 06/29/20 at 1109 by Aide Rooney RN Blood draw done by lab
[2020-06-29 11:40] VITALS: BP 131/64
--- NOTE | 2020-06-29 11:45 | Diagnostic Imaging Report ---
Procedure: XRAY Chest 1v Reason for study: Reason For Exam: [id number] Comparison films: 12/27/2018. FINDINGS: A single one view chest is obtained. Vascular markings are indistinct. Bilateral diffuse alveolar densities noted either infiltrates and/or edema. There is cardiomegaly and bilateral small effusions noted. The bony thorax appear unremarkable. IMPRESSION: Diffuse bilateral alveolar densities, infiltrates and/or edema.
[2020-06-29] MEDS: Atorvastatin 20mg tab ORAL SCH (11:49)
--- NOTE | 2020-06-29 12:04 | NUR ---
CASE MANAGEMENT:REVIEW TRANSFERRED FROM [facility] SI: NSTEMI. CHEST PAIN RENAL FAILURE. NEPHROTIC SYNDROME 97.0 90 21 174/81 95% ON 4L/NC H/H-7.8/23.4 NA-125 BUN+21 CR+3.1 IS: IV ROCEPHIN Q24 AZITHROMYCIN PO QD PROTONIX PO QD HEPARIN SQ Q12 NORVASC PO QD ASA PO QD CA ACETATE PO AC SYNTHROID PO QAM : DIRECTLY ADMITTED TO TELEMETRY
[2020-06-29 12:20] LABS: % IRON SATURATION 11 % (15-50); IRON 22 ug/dL (50-175); TOTAL IRON BINDING CAPACITY 200 ug/dL (250-450)
--- NOTE | 2020-06-29 12:24 | History & Physical ---
History and Physical History & Physicial Dictated for Int Med-Kareem Gilman MD Jun 29, 2020 12:24
[2020-06-29] MEDS: Docusate 100mg cap ORAL SCH ×2 (13:33→17:19)
[2020-06-29 13:58] LABS: APPEARANCE,URINE CLEAR; BILIRUBIN, URINE NEGATIVE (NEGATIVE); GLUCOSE, URINE (UA) 2+ (NEGATIVE); KETONES,URINE NEGATIVE (NEGATIVE); LEUKOCYTE ESTERASE ,URINE 2+ (NEGATIVE); NITRITE,URINE POSITIVE (NEGATIVE); PH,URINE 9 (4.5-8.0); PROTEIN,URINE 4+ (NEGATIVE); UROBILINOGEN,URINE NORMAL MG/DL (0.0-1.0)
[2020-06-29 14:06] LABS: COLOR,URINE YELLOW
--- NOTE | 2020-06-29 14:23 | Consultation ---
History of Present Illness General Date patient seen: Jun 29, 2020 Present Illness HPI 54-year-old female with PMx of Diabetes, HTN, recent COVID positive, advanced chronic diabetic nephropathy with nephrotic syndrome, was taken to [place] on the route to dialysis. She was in pulmonary edema after initial treatment and dialysis in [facility], she was transferred to [facility] for further treatment. Allergies: Coded Allergies: No Known Allergies (Verified Allergy, Unknown, 02/17/11) Medication History Scheduled Albuterol Sulfate* (Albuterol Sulfate Hfa*), 2 PUFF INH NEEDED, (Reported) Allopurinol* (Allopurinol*), 300 MG ORAL DAILY Amlodipine Besylate (Norvasc), 5 MG ORAL BID Amlodipine Besylate* (Amlodipine Besylate*), 10 MG ORAL DAILY, (Reported) Aspirin* (Aspirin*), 81 MG ORAL DAILY, (Reported) Aspirin* (Aspirin*), 325 MG ORAL DAILY Aspirin* (Aspirin*), 325 MG ORAL DAILY, (Reported) Atorvastatin Calcium* (Lipitor*), 40 MG ORAL BEDTIME, (Reported) Atorvastatin Calcium* (Atorvastatin Calcium*), 40 MG ORAL BEFORE LUNCH, ( Reported) Azithromycin* (Zithromax*), 250 MG ORAL DAILY, (Reported) Calcium Acetate (Calcium Acetate), 667 MG PO AC, (Reported) Cefdinir (Cefdinir), 300 MG PO BID, (Reported) Docusate Sodium* (Docusate Sodium*), 100 MG ORAL TWICE A DAY, (Reported) Ferrous Sulfate* (Ferrous Sulfate*), 325 MG ORAL TWICE A DAY, (Reported) Furosemide* (Lasix*), 80 MG ORAL BID Glipizide* (Glipizide*), 5 MG ORAL BIDAC, (Reported) Glipizide* (Glipizide*), 5 MG ORAL BIDAC, (Reported) Insulin Glargine (Lantus), Unknown Dose SUBQ BEDTIME, (Reported) Lactobacillus Rhamnosus Gg (Culturelle), 1 EACH PO BID, (Reported) Levothyroxine Sodium* (Synthroid*), 50 MCG ORAL DAILY, (Reported) Levothyroxine Sodium* (Synthroid*), 25 MCG ORAL DAILY, (Reported) Metoprolol Succinate* (Metoprolol Succinate*), 25 MG ORAL DAILY Pantoprazole* (Pantoprazole*), 40 MG ORAL BEFORE LUNCH, (Reported) Sennosides (Senna), 8.6 MG PO BEDTIME, (Reported) Vitamin B Cmplx/Vit C/Folic AC (Nephro-Kristel Tablet), 1 TAB ORAL DAILY, (Reported ) Vitamin D (Vitamin D3), 1,000 UNITS ORAL DAILY, (Reported) Miscellaneous Medications Ferrous Sulfate (Iron), 325 MG PO, (Reported) Insulin Lispro (Humalog Kwikpen), Unknown Dose SQ, (Reported) Isosorbide Mononitrate (Isosorbide Mononitrate), 60 MG PO, (Reported) Patient History Healthcare decision maker Resuscitation status Advanced Directive on File Past Medical/Surgical History Past Medical/Surgical History: (1) ESRD (end stage renal disease) (2) Diabetic nephropathy (3) Nephrotic syndrome Review of Systems Constitutional: Reports: no symptoms Endocrine: Reports: unexplained weight loss Hematologic/Lymphatic: Reports: no symptoms Physical Exam General Appearance: WD/WN, no apparent distress Lines, tubes and drains: peripheral HEENT: normocephalic, atraumatic Neck: non-tender, normal alignment Respiratory/Chest: chest wall non-tender, lungs clear Breasts: no masses Cardiovascular/Chest: normal peripheral pulses Abdomen: normal bowel sounds, non tender Extremities: normal range of motion, non-tender Skin Exam: normal pigmentation Neurologic: overedger II-XII grossly normal Last 24 Hour Vital Signs Date Time Temp Pulse Resp B/P (MAP) Pulse Ox O2 Delivery O2 Flow Rate FiO2 06/29/20 11:40 98.1 87 17 131/64 (86) 97 06/29/20 09:00 Nasal Cannula 4.0 06/29/20 08:29 89 148/54 06/29/20 08:00 91 06/29/20 08:00 98.4 89 19 148/54 (85) 96 06/29/20 04:00 98.1 85 21 183/109 (133) 95 06/29/20 04:00 85 06/29/20 00:00 94 06/29/20 00:00 97.0 90 21 174/81 (112) 95 06/28/20 22:46 Nasal Cannula 4.0 Intake and Output 06/28/20 06/29/20 19:00 07:00 Intake Total 220 ml Balance 220 ml Intake Oral 220 ml # Bowel Movements 1 Laboratory Tests Test 06/29/20 04:29 06/29/20 05:48 06/29/20 09:11 White Blood Count 10.5 K/UL (4.8-10.8) Red Blood Count 2.65 M/UL (4.20-5.40) L Hemoglobin 7.8 G/DL (12.0-16.0) L Hematocrit 23.4 % (37.0-47.0) L Mean Corpuscular Volume 88 FL (80-99) Mean Corpuscular Hemoglobin 29.3 PG (27.0-31.0) Mean Corpuscular Hemoglobin Concent 33.2 G/DL (32.0-36.0) Red Cell Distribution Width 14.7 % (11.6-14.8) Platelet Count 346 K/UL (150-450) Mean Platelet Volume 5.7 FL (6.5-10.1) L Neutrophils (%) (Auto) % (45.0-75.0) Lymphocytes (%) (Auto) % (20.0-45.0) Monocytes (%) (Auto) % (1.0-10.0) Eosinophils (%) (Auto) % (0.0-3.0) Basophils (%) (Auto) % (0.0-2.0) Differential Total Cells Counted 100 Neutrophils % (Manual) 79 % (45-75) H Lymphocytes % (Manual) 15 % (20-45) L Monocytes % (Manual) 4 % (1-10) Eosinophils % (Manual) 1 % (0-3) Basophils % (Manual) 1 % (0-2) Band Neutrophils 0 % (0-8) Platelet Estimate Adequate Platelet Morphology Hypochromasia Occasional Anisocytosis 1+ Sodium Level 125 MMOL/L (136-145) L Potassium Level 4.6 MMOL/L (3.5-5.1) Chloride Level 92 MMOL/L (98-107) L Carbon Dioxide Level 27 MMOL/L (21-32) Anion Gap 7 mmol/L (5-15) Blood Urea Nitrogen 21 mg/dL (7-18) H Creatinine 3.1 MG/DL (0.55-1.30) H Estimat Glomerular Filtration Rate 15.6 mL/min (>60) Glucose Level 95 MG/DL (74-106) Calcium Level 8.6 MG/DL (8.5-10.1) Phosphorus Level 3.4 MG/DL (2.5-4.9) Magnesium Level 1.9 MG/DL (1.8-2.4) Iron Level 22 ug/dL (50-175) L Total Iron Binding Capacity 200 ug/dL (250-450) L Percent Iron Saturation 11 % (15-50) L Unsaturated Iron Binding 178 ug/dL (112-346) Ferritin 922 NG/ML (8-388) H Total Bilirubin 0.6 MG/DL (0.2-1.0) Aspartate Amino Transf (AST/SGOT) 29 U/L (15-37) Alanine Aminotransferase (ALT/SGPT) 40 U/L (12-78) Alkaline Phosphatase 157 U/L (46-116) H Troponin I 0.015 ng/mL (0.000-0.056) Total Protein 6.7 G/DL (6.4-8.2) Albumin 2.5 G/DL (3.4-5.0) L Globulin 4.2 g/dL Albumin/Globulin Ratio 0.6 (1.0-2.7) L Vitamin B12 Level 690 PG/ML (193-986) Folate 22.4 NG/ML (8.6-58.9) POC Whole Blood Glucose 98 MG/DL (74-106) Arterial Blood pH 7.459 (7.350-7.450) Arterial Blood Partial Pressure CO2 39.7 mmHg (35.0-45.0) Arterial Blood Partial Pressure O2 81.6 mmHg (75.0-100.0) Arterial Blood HCO3 27.5 mmol/L (22.0-26.0) H Arterial Blood Oxygen Saturation 95.4 % (95-100) Arterial Blood Base Excess 3.4 (-2-2) H Jurgen Test Positive Height (Feet): 5 Height (Inches): 4.00 Weight (Pounds): 205 Medications Current Medications Medications (Trade) Dose Ordered Sig/Miguel Route PRN Reason Start Time Stop Time Status Last Admin Dose Admin Albuterol Sulfate (Proventil MDI) 2 puff NEEDED INH 06/29/20 03:30 09/27/20 03:29 Amlodipine Besylate (Norvasc) 10 mg DAILY ORAL 06/30/20 09:00 07/29/20 08:59 Aspirin (ASA) 325 mg DAILY ORAL 06/29/20 09:00 08/13/20 08:59 06/29/20 08:23 Atorvastatin Calcium (Lipitor) 40 mg BEFORE LUNCH ORAL 06/29/20 11:30 09/27/20 11:29 06/29/20 11:49 Azithromycin (Zithromax) 250 mg DAILY ORAL 06/29/20 09:00 07/06/20 08:59 06/29/20 08:30 Calcium Acetate (Phoslo) 667 mg BEFORE MEALS ORAL 06/29/20 06:30 09/27/20 06:29 06/29/20 11:48 Ceftriaxone Sodium 1 gm/ Dextrose 55 ml @ 110 mls/hr Q24H IVPB 06/29/20 09:00 07/06/20 08:59 06/29/20 08:31 Clonidine HCl (Catapres Tab) 0.1 mg Q4H PRN ORAL For High Blood Pressure 06/29/20 07:45 09/27/20 07:44 Dextrose (Dextrose 50%) 25 ml Q30M PRN IV Hypoglycemia 06/28/20 23:15 09/26/20 23:14 Dextrose (Dextrose 50%) 50 ml Q30M PRN IV Hypoglycemia 06/28/20 23:15 09/26/20 23:14 Docusate Sodium (Colace) 100 mg TID ORAL 06/29/20 13:00 07/29/20 08:59 06/29/20 13:33 Heparin Sodium (Porcine) (Heparin 5000 units/ml) 5,000 units EVERY 12 HOURS SUBQ 06/29/20 09:00 08/13/20 08:59 06/29/20 08:32 Insulin Aspart (NovoLOG) BEFORE MEALS AND HS SUBQ 06/29/20 06:30 09/27/20 06:29 06/29/20 11:55 Levothyroxine Sodium (Synthroid) 25 mcg ACBREAKFAST ORAL 06/29/20 06:30 07/29/20 06:29 06/29/20 05:47 Pantoprazole (Protonix) 40 mg Q12HR ORAL 06/29/20 21:00 07/29/20 11:29 Sennosides (Senokot) 8.6 mg BEDTIME ORAL 06/29/20 21:00 9/20/20 20:59 Vitamin B Complex/ Vit C/Folic Acid (Nephrovite) 1 tab DAILY ORAL 06/29/20 09:00 07/29/20 08:59 06/29/20 08:30 Assessment/Plan Problem List: (1) Renal failure (ARF), acute on chronic ICD Codes: N17.9 - Acute kidney failure, unspecified; N18.9 - Chronic kidney disease, unspecified SNOMED: 129757718 (2) ACS (acute coronary syndrome) ICD Codes: I24.9 - Acute ischemic heart disease, unspecified SNOMED: 212135977 (3) Anemia ICD Codes: D64.9 - Anemia, unspecified SNOMED: 815153890 (4) COVID-19 ICD Codes: U07.1 - COVID-19 SNOMED: 557466817 (5) ESRD (end stage renal disease) ICD Codes: N18.6 - End stage renal disease SNOMED: 57272570 (6) Diabetic nephropathy ICD Codes: E11.21 - Type 2 diabetes mellitus with diabetic nephropathy SNOMED: 50244367, 920929738 Assessment/Plan: hd respiratory treatment check electrolytes Nephrology to see check electrolytes symptomatic treatment. Maria Elena Naidu MD Jun 29, 2020 14:23
--- NOTE | 2020-06-29 15:00 | NUR ---
NURSE NOTES:WOUND CARE NOTES:Pt presented on admission with non-blanchable erythema sacrum, R and L gluteal clefts. Bilat heels are blanchable . No other skin concerns noted. Tx.Plan: Apply Moisture Barrier Paste to buttocks. Cover Sacrum with Optifoam drsg. Reposition at least every 2hours or as tolerated. Off-load heels with pillow.
[2020-06-29 16:00] VITALS: BP 130/81
--- NOTE | 2020-06-29 16:00 | NUR ---
NURSE NOTES: HD started at 1245, done. 2L out. No bleeding on AV shunt noted.
--- NOTE | 2020-06-29 17:51 | NUR ---
NURSE HAND-OFF REPORT: Important Events on Shift: HD today, 2L out Patient Status: stable Diet: cardiac renal Pending Orders: OB stool Pending Results/Labs:MRSA nares Pending notification: Latest Vital Signs: Temperature 97.7 , Pulse 72 , B/P 130 /81 , Respiratory Rate 21 , O2 SAT 98 , Nasal Cannula, O2 Flow Rate 4.0 . Vital Sign Comment: EKG Rhythm: SR with 1st SVB Rhythm change?: Y Notified?: [place] -Dr. Amadeo LANDEROS Response: no new orders Latest Alvarez Fall Score: 35 Fall Risk: Medium Risk Safety Measures: Call light Within Reach, Bed Alarm Zone 1, Side Rails Side Rails x2, Bed position Low and Locked. Fall Precautions: Yellow Socks Addendum: 06/29/20 at 1935 by Aide Rooney RN HAND-OFF: Report given to Adriana POPE.
--- NOTE | 2020-06-29 19:07 | NUR ---
NURSE NOTES: Received report from NIKO Noble. Patient alert, awake, and oriented. Able to verbalize needs. IV site intact and flushed; no IVF running at this time. Pending OB stool collection. On 4L nasal cannula, saturating between 96-100%. No complaints of pain or discomfort during the shift. Bed in lowest position, brakes engaged and bed alarm on. Call light placed within reach. Will continue to monitor.
[2020-06-29 20:00] VITALS: BP 156/81
[2020-06-29] MEDS: Sennosides 8.6mg tab ORAL SCH (20:56)
[2020-06-30] VITALS: BP 152/54
[2020-06-30 03:47] LABS: HEMATOCRIT 23.5 % (37.0-47.0); HEMOGLOBIN 7.8 G/DL (12.0-16.0); MEAN CORPUSCULAR VOLUME 89 FL (80-99); PLATELET COUNT 342 K/UL (150-450); RED BLOOD COUNT 2.65 M/UL (4.20-5.40); RED CELL DISTRIBUTION WIDTH 14.9 % (11.6-14.8)
[2020-06-30 03:56] LABS: INR 1.2 (0.9-1.1)
[2020-06-30 04:00] VITALS: BP 159/69
[2020-06-30 04:16] LABS: LACTATE DEHYDROGENASE 196 U/L (81-234)
[2020-06-30 04:19] LABS: % IRON SATURATION 15 % (15-50); IRON 32 ug/dL (50-175); TOTAL IRON BINDING CAPACITY 210 ug/dL (250-450)
[2020-06-30 04:26] LABS: CREATINE KINASE 31 U/L (26-308)
[2020-06-30 04:28] LABS: ALANINE AMINOTRANSFERASE 43 U/L (12-78); ALBUMIN 2.7 G/DL (3.4-5.0); ALBUMIN/GLOBULIN RATIO 0.6 (1.0-2.7); ALKALINE PHOSPHATASE 149 U/L (46-116); ANION GAP 10 mmol/L (5-15); ASPARTATE AMINO TRANSFERASE 14 U/L (15-37); BILIRUBIN,TOTAL 0.5 MG/DL (0.2-1.0); BLOOD UREA NITROGEN 24 mg/dL (7-18); CALCIUM 8.6 MG/DL (8.5-10.1); CARBON DIOXIDE 30 MMOL/L (21-32); CHLORIDE 91 MMOL/L (98-107); CHOLESTEROL 121 MG/DL (< 200); CREATININE 3.7 MG/DL (0.55-1.30); GAMMA GLUTAMYL TRANSPEPTIDASE 135 U/L (5-85); HDL CHOLESTEROL 42 MG/DL (40-60); PHOSPHORUS 3.6 MG/DL (2.5-4.9); POTASSIUM 3.8 MMOL/L (3.5-5.1); SODIUM 131 MMOL/L (136-145); TRIGLYCERIDES 89 MG/DL (30-150)
[2020-06-30] MEDS: NovoLOG Insulin Flexpen SUBQ SCH ×4 (05:40→22:53)
[2020-06-30] MEDS: Levothyroxine 25mcg tab ORAL SCH (05:41)
--- NOTE | 2020-06-30 07:12 | NUR ---
NURSE NOTES: Received patient up in bed awake. O2 via NC in place, no SOB or acute distress. IV line intact. GRAZYNA AV fistula site no bleeding. For OB stool collection, instructed, verbalized understanding. Bed locked in low position. Call light within reach. Will continue plan of care.
--- NOTE | 2020-06-30 07:39 | NUR ---
NURSE HAND-OFF REPORT: Important Events on Shift:[No bowel movement during the shift, so unable to collect stool for OB stool.] Patient Status: [] Diet: [cardiac, renal diet] Pending Orders: [OB stool] Pending Results/Labs:[] Pending MD notification:[] Latest Vital Signs: Temperature 97.8 , Pulse 83 , B/P 159 /69 , Respiratory Rate 22 , O2 SAT 96 , Nasal Cannula, O2 Flow Rate 4.0 . Vital Sign Comment: [] EKG Rhythm: SR w/ 1st AVB Rhythm change?: Y MD Notified?: N -Dr. Amadeo LANDEROS Response: Message left await call Latest Alvarez Fall Score: 35 Fall Risk: Medium Risk Safety Measures: Call light Within Reach, Bed Alarm Zone 1, Side Rails Side Rails x2, Bed position Low and Locked. Fall Precautions: Yellow Socks Report given to [NIKO Noble].
[2020-06-30 08:00] VITALS: BP 154/56
[2020-06-30] MEDS ORDERED: NS 275ml ONE (08:24)
[2020-06-30] MEDS ORDERED: Tubing IV Secondary IV ONE (08:24)
[2020-06-30] MEDS: Azithromycin 250mg tab ORAL SCH (09:19)
[2020-06-30] MEDS: Docusate 100mg cap ORAL SCH ×3 (09:21→17:12)
[2020-06-30] MEDS: Nephrovite tab (Rena-Vite) ORAL SCH (09:21)
[2020-06-30] MEDS: cefTRIAXone 1 GM in D5W 55 ML IVPB SCH (09:22)
[2020-06-30] MEDS: Heparin 5000 units/ml inj SUBQ SCH ×2 (09:23→22:52)
[2020-06-30] MEDS: Atorvastatin 20mg tab ORAL SCH (11:53)
[2020-06-30 12:00] VITALS: BP 135/60
--- NOTE | 2020-06-30 12:36 | NUR ---
NURSE NOTES: Sinus rhythm with 1st deg AVB notified to Dr Naidu, said to notify Dr Moreira. Dr Moreira notified, awaiting orders. Addendum: 06/30/20 at 1807 by Aide Rooney RN NURSE NOTES: Dr Moreira no new orders
--- NOTE | 2020-06-30 13:37 | Nephrology Progress Note ---
Assessment/Plan Problem List: (1) ESRD (end stage renal disease) (2) Diabetic nephropathy (3) Anemia (4) COVID-19 (5) PNA (pneumonia) (6) Electrolyte imbalance (7) Volume overload Plan June 30: Patient was dialyzed yesterday, hyponatremia resolved. Clinically improved. Will attempt dialysis tomorrow Subjective ROS Limited/Unobtainable: No Constitutional: Reports: malaise, other - Clinically improved Objective Objective Last 24 Hour Vital Signs Date Time Temp Pulse Resp B/P (MAP) Pulse Ox O2 Delivery O2 Flow Rate FiO2 06/30/20 12:00 84 06/30/20 09:20 91 154/56 06/30/20 09:00 Nasal Cannula 4.0 06/30/20 08:00 97.9 91 20 154/56 (88) 97 06/30/20 08:00 91 06/30/20 04:00 97.8 85 22 159/69 (99) 96 06/30/20 04:00 83 06/30/20 00:00 98.2 87 20 152/54 (86) 98 06/30/20 00:00 76 06/29/20 21:00 Nasal Cannula 4.0 06/29/20 20:00 87 06/29/20 20:00 97.9 88 21 156/81 (106) 100 06/29/20 16:00 75 06/29/20 16:00 97.7 72 21 130/81 (97) 98 Intake and Output 06/29/20 06/30/20 19:00 07:00 Intake Total 210 ml Output Total 2000 ml Balance -2000 ml 210 ml Intake Oral 210 ml Output Hemodialysis UF 2000 ml Laboratory Tests 06/30/20 03:30: White Blood Count 8.0, Red Blood Count 2.65L, Hemoglobin 7.8L, Hematocrit 23.5L , Mean Corpuscular Volume 89, Mean Corpuscular Hemoglobin 29.5, Mean Corpuscular Hemoglobin Concent 33.2, Red Cell Distribution Width 14.9H, Platelet Count 342, Mean Platelet Volume 5.5L, Neutrophils (%) (Auto) , Lymphocytes (%) (Auto) , Monocytes (%) (Auto) , Eosinophils (%) (Auto) , Basophils (%) (Auto) , Differential Total Cells Counted 100, Neutrophils % ( Manual) 82H, Lymphocytes % (Manual) 11L, Monocytes % (Manual) 5, Eosinophils % ( Manual) 1, Basophils % (Manual) 1, Band Neutrophils 0, Platelet Estimate Adequate, Platelet Morphology Normal, Hypochromasia 3+, Anisocytosis 1+, Spherocytes 1+ 06/30/20 03:32: Erythrocyte Sedimentation Rate 115H, Reticulocyte Count 2.7H, Prothrombin Time 12.8H, Prothromb Time International Ratio 1.2H, Activated Partial Thromboplast Time 38H, Sodium Level 131L, Potassium Level 3.8, Chloride Level 91L, Carbon Dioxide Level 30, Anion Gap 10, Blood Urea Nitrogen 24H, Creatinine 3.7H, Estimat Glomerular Filtration Rate 12.7, Glucose Level 161H, Hemoglobin A1c 7.7H , Uric Acid 4.1, Calcium Level 8.6, Phosphorus Level 3.6, Magnesium Level 2.2, Iron Level 32L, Total Iron Binding Capacity 210L, Percent Iron Saturation 15, Unsaturated Iron Binding 178, Total Bilirubin 0.5, Gamma Glutamyl Transpeptidase 135H, Aspartate Amino Transf (AST/SGOT) 14L, Alanine Aminotransferase (ALT/SGPT) 43, Alkaline Phosphatase 149H, Lactate Dehydrogenase 196, Total Creatine Kinase 31, Pro-B-Type Natriuretic Peptide 83315R, Total Protein 7.0, Albumin 2.7L, Globulin 4.3, Albumin/Globulin Ratio 0.6L, Triglycerides Level 89, Cholesterol Level 121, LDL Cholesterol 62, HDL Cholesterol 42, Cholesterol/HDL Ratio 2.9L, Carcinoembryonic Antigen [Pending], Vitamin B12 Level 605, Folate 17.8, Thyroid Stimulating Hormone (TSH) 4.336H 06/30/20 05:31: POC Whole Blood Glucose 146H Height (Feet): 5 Height (Inches): 4.00 Weight (Pounds): 210 General Appearance: no apparent distress Cardiovascular: tachycardia Respiratory/Chest: decreased breath sounds Abdomen: distended Lito Frank MD Jun 30, 2020 13:37
[2020-06-30] MEDS ORDERED: Iron Sucrose 200 MG in NS 110 ML IV SCH (15:00)
[2020-06-30 16:00] VITALS: BP 154/75
--- NOTE | 2020-06-30 16:10 | Pulmonology Progress Note ---
Subjective ROS Limited/Unobtainable: No Interval Events: doing better Allergies: Coded Allergies: No Known Allergies (Verified Allergy, Unknown, 02/17/11) Objective Last 24 Hour Vital Signs Date Time Temp Pulse Resp B/P (MAP) Pulse Ox O2 Delivery O2 Flow Rate FiO2 06/30/20 12:00 84 06/30/20 09:20 91 154/56 06/30/20 09:00 Nasal Cannula 4.0 06/30/20 08:00 97.9 91 20 154/56 (88) 97 06/30/20 08:00 91 06/30/20 04:00 97.8 85 22 159/69 (99) 96 06/30/20 04:00 83 06/30/20 00:00 98.2 87 20 152/54 (86) 98 06/30/20 00:00 76 06/29/20 21:00 Nasal Cannula 4.0 06/29/20 20:00 87 06/29/20 20:00 97.9 88 21 156/81 (106) 100 Intake and Output 06/29/20 06/30/20 19:00 07:00 Intake Total 210 ml Output Total 2000 ml Balance -2000 ml 210 ml Intake Oral 210 ml Output Hemodialysis UF 2000 ml General Appearance: WD/WN, no acute distress HEENT: normocephalic, atraumatic Respiratory: chest wall non-tender, lungs clear Breasts: no masses Cardiovascular: normal peripheral pulses Abdomen: normal bowel sounds, soft, non tender Extremities: no clubbing Skin: no rash 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 Microbiology Date/Time Source Procedure Growth Status 06/29/20 13:00 Straight Cath Urine Culture - Preliminary NO GROWTH Resulted Laboratory Tests 06/30/20 03:30: White Blood Count 8.0, Red Blood Count 2.65L, Hemoglobin 7.8L, Hematocrit 23.5L , Mean Corpuscular Volume 89, Mean Corpuscular Hemoglobin 29.5, Mean Corpuscular Hemoglobin Concent 33.2, Red Cell Distribution Width 14.9H, Platelet Count 342, Mean Platelet Volume 5.5L, Neutrophils (%) (Auto) , Lymphocytes (%) (Auto) , Monocytes (%) (Auto) , Eosinophils (%) (Auto) , Basophils (%) (Auto) , Differential Total Cells Counted 100, Neutrophils % ( Manual) 82H, Lymphocytes % (Manual) 11L, Monocytes % (Manual) 5, Eosinophils % ( Manual) 1, Basophils % (Manual) 1, Band Neutrophils 0, Platelet Estimate Adequate, Platelet Morphology Normal, Hypochromasia 3+, Anisocytosis 1+, Spherocytes 1+ 06/30/20 03:32: Erythrocyte Sedimentation Rate 115H, Reticulocyte Count 2.7H, Prothrombin Time 12.8H, Prothromb Time International Ratio 1.2H, Activated Partial Thromboplast Time 38H, Sodium Level 131L, Potassium Level 3.8, Chloride Level 91L, Carbon Dioxide Level 30, Anion Gap 10, Blood Urea Nitrogen 24H, Creatinine 3.7H, Estimat Glomerular Filtration Rate 12.7, Glucose Level 161H, Hemoglobin A1c 7.7H , Uric Acid 4.1, Calcium Level 8.6, Phosphorus Level 3.6, Magnesium Level 2.2, Iron Level 32L, Total Iron Binding Capacity 210L, Percent Iron Saturation 15, Unsaturated Iron Binding 178, Total Bilirubin 0.5, Gamma Glutamyl Transpeptidase 135H, Aspartate Amino Transf (AST/SGOT) 14L, Alanine Aminotransferase (ALT/SGPT) 43, Alkaline Phosphatase 149H, Lactate Dehydrogenase 196, Total Creatine Kinase 31, Pro-B-Type Natriuretic Peptide 03605B, Total Protein 7.0, Albumin 2.7L, Globulin 4.3, Albumin/Globulin Ratio 0.6L, Triglycerides Level 89, Cholesterol Level 121, LDL Cholesterol 62, HDL Cholesterol 42, Cholesterol/HDL Ratio 2.9L, Carcinoembryonic Antigen [Pending], Vitamin B12 Level 605, Folate 17.8, Thyroid Stimulating Hormone (TSH) 4.336H 06/30/20 05:31: POC Whole Blood Glucose 146H Current Medications Medications (Trade) Dose Ordered Sig/Miguel Route PRN Reason Start Time Stop Time Status Last Admin Dose Admin Albuterol Sulfate (Proventil MDI) 2 puff Q6H PRN INH Shortness of Breath 06/29/20 19:15 09/27/20 19:14 Amlodipine Besylate (Norvasc) 10 mg DAILY ORAL 06/30/20 09:00 07/29/20 08:59 06/30/20 09:20 Aspirin (ASA) 325 mg DAILY ORAL 06/29/20 09:00 08/13/20 08:59 06/30/20 09:19 Atorvastatin Calcium (Lipitor) 40 mg BEFORE LUNCH ORAL 06/29/20 11:30 09/27/20 11:29 06/30/20 11:53 Azithromycin (Zithromax) 250 mg DAILY ORAL 06/29/20 09:00 07/06/20 08:59 06/30/20 09:19 Calcium Acetate (Phoslo) 667 mg BEFORE MEALS ORAL 06/29/20 06:30 09/27/20 06:29 06/30/20 11:53 Ceftriaxone Sodium 1 gm/ Dextrose 55 ml @ 110 mls/hr Q24H IVPB 06/29/20 09:00 07/06/20 08:59 06/30/20 09:22 Clonidine HCl (Catapres Tab) 0.1 mg Q4H PRN ORAL For High Blood Pressure 06/29/20 07:45 09/27/20 07:44 Dextrose (Dextrose 50%) 25 ml Q30M PRN IV Hypoglycemia 06/28/20 23:15 09/26/20 23:14 Dextrose (Dextrose 50%) 50 ml Q30M PRN IV Hypoglycemia 06/28/20 23:15 09/26/20 23:14 Docusate Sodium (Colace) 100 mg TID ORAL 06/29/20 13:00 07/29/20 08:59 06/30/20 12:02 Epoetin Armando (Epoetin Armando(ESRD on dialysis)) 10,000 unit THU-THU-THU SUBQ 07/02/20 21:00 09/30/20 20:59 Heparin Sodium (Porcine) (Heparin 5000 units/ml) 5,000 units EVERY 12 HOURS SUBQ 06/29/20 09:00 08/13/20 08:59 06/30/20 09:23 Insulin Aspart (NovoLOG) BEFORE MEALS AND HS SUBQ 06/29/20 06:30 09/27/20 06:29 06/30/20 11:59 Levothyroxine Sodium (Synthroid) 50 mcg ACBREAKFAST ORAL 07/01/20 06:30 07/29/20 06:29 Pantoprazole (Protonix) 40 mg Q12HR ORAL 06/29/20 21:00 07/29/20 11:29 06/30/20 09:20 Sennosides (Senokot) 8.6 mg BEDTIME ORAL 06/29/20 21:00 07/29/20 20:59 06/29/20 20:56 Vitamin B Complex/ Vit C/Folic Acid (Nephrovite) 1 tab DAILY ORAL 06/29/20 09:00 07/29/20 08:59 06/30/20 09:21 Assessment/Plan Problems: (1) Renal failure (ARF), acute on chronic (2) ACS (acute coronary syndrome) (3) Anemia (4) COVID-19 (5) ESRD (end stage renal disease) (6) Diabetic nephropathy Assessment/Plan no new complains all reviewed respiratory treatment check electrolytes Nephrology to see check electrolytes symptomatic treatment. Maria Elena Naidu MD Jun 30, 2020 16:10
--- NOTE | 2020-06-30 16:49 | Internal Med Progress Note ---
Subjective Date of Service: Jun 30, 2020 Physician Name Kareem Fajardo Attending Physician Pierer Childs MD Current Medications Medications (Trade) Dose Ordered Sig/Miguel Route PRN Reason Start Time Stop Time Status Last Admin Dose Admin Albuterol Sulfate (Proventil MDI) 2 puff Q6H PRN INH Shortness of Breath 06/29/20 19:15 09/27/20 19:14 Amlodipine Besylate (Norvasc) 10 mg DAILY ORAL 06/30/20 09:00 07/29/20 08:59 06/30/20 09:20 Aspirin (ASA) 325 mg DAILY ORAL 06/29/20 09:00 08/13/20 08:59 06/30/20 09:19 Atorvastatin Calcium (Lipitor) 40 mg BEFORE LUNCH ORAL 06/29/20 11:30 09/27/20 11:29 06/30/20 11:53 Azithromycin (Zithromax) 250 mg DAILY ORAL 06/29/20 09:00 07/06/20 08:59 06/30/20 09:19 Calcium Acetate (Phoslo) 667 mg BEFORE MEALS ORAL 06/29/20 06:30 09/27/20 06:29 06/30/20 16:34 Ceftriaxone Sodium 1 gm/ Dextrose 55 ml @ 110 mls/hr Q24H IVPB 06/29/20 09:00 07/06/20 08:59 06/30/20 09:22 Clonidine HCl (Catapres Tab) 0.1 mg Q4H PRN ORAL For High Blood Pressure 06/29/20 07:45 09/27/20 07:44 Dextrose (Dextrose 50%) 25 ml Q30M PRN IV Hypoglycemia 06/28/20 23:15 09/26/20 23:14 Dextrose (Dextrose 50%) 50 ml Q30M PRN IV Hypoglycemia 06/28/20 23:15 09/26/20 23:14 Docusate Sodium (Colace) 100 mg TID ORAL 06/29/20 13:00 07/29/20 08:59 06/30/20 12:02 Epoetin Armando (Epoetin Armando(ESRD on dialysis)) 10,000 unit THU-WED-THU SUBQ 07/02/20 21:00 09/30/20 20:59 Heparin Sodium (Porcine) (Heparin 5000 units/ml) 5,000 units EVERY 12 HOURS SUBQ 06/29/20 09:00 08/13/20 08:59 06/30/20 09:23 Insulin Aspart (NovoLOG) BEFORE MEALS AND HS SUBQ 06/29/20 06:30 09/27/20 06:29 06/30/20 11:59 Levothyroxine Sodium (Synthroid) 50 mcg ACBREAKFAST ORAL 07/01/20 06:30 07/29/20 06:29 Pantoprazole (Protonix) 40 mg Q12HR ORAL 06/29/20 21:00 07/29/20 11:29 06/30/20 09:20 Sennosides (Senokot) 8.6 mg BEDTIME ORAL 06/29/20 21:00 07/29/20 20:59 06/29/20 20:56 Vitamin B Complex/ Vit C/Folic Acid (Nephrovite) 1 tab DAILY ORAL 06/29/20 09:00 07/29/20 08:59 06/30/20 09:21 Allergies: Coded Allergies: No Known Allergies (Verified Allergy, Unknown, 02/17/11) ROS Limited/Unobtainable: No Constitutional: Reports: no symptoms HEENT: Reports: no symptoms Cardiovascular: Reports: no symptoms Respiratory: Reports: shortness of breath Gastrointestinal/Abdominal: Reports: no symptoms Genitourinary: Reports: no symptoms Neurologic/Psychiatric: Reports: no symptoms Subjective 54 YO F admitted with shortness of breath. Now COVID 19 pneumonia. Cover for Int Gurmeet-Dr Childs Objective Last Vital Signs Date Time Temp Pulse Resp B/P (MAP) Pulse Ox O2 Delivery O2 Flow Rate FiO2 06/30/20 16:00 97.9 85 18 154/75 (101) 98 06/30/20 09:00 Nasal Cannula 4.0 General Appearance: WD/WN, no apparent distress, moderate distress EENT: PERRL/EOMI, normal ENT inspection Neck: non-tender, normal alignment, supple, normal inspection Cardiovascular: normal peripheral pulses, normal rate, regular rhythm, no gallop/murmur, no JVD Respiratory/Chest: respiratory distress, decreased breath sounds, crackles/ rales, rhonchi - bilaterally, expiratory wheezing Abdomen: normal bowel sounds, non tender, soft, no organomegaly, no mass Extremities: normal range of motion, non-tender 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, no motor/sensory deficits Skin: normal pigmentation, warm/dry Laboratory Tests Test 06/30/20 03:30 06/30/20 03:32 06/30/20 05:31 White Blood Count 8.0 K/UL (4.8-10.8) Red Blood Count 2.65 M/UL (4.20-5.40) L Hemoglobin 7.8 G/DL (12.0-16.0) L Hematocrit 23.5 % (37.0-47.0) L Mean Corpuscular Volume 89 FL (80-99) Mean Corpuscular Hemoglobin 29.5 PG (27.0-31.0) Mean Corpuscular Hemoglobin Concent 33.2 G/DL (32.0-36.0) Red Cell Distribution Width 14.9 % (11.6-14.8) H Platelet Count 342 K/UL (150-450) Mean Platelet Volume 5.5 FL (6.5-10.1) L Neutrophils (%) (Auto) % (45.0-75.0) Lymphocytes (%) (Auto) % (20.0-45.0) Monocytes (%) (Auto) % (1.0-10.0) Eosinophils (%) (Auto) % (0.0-3.0) Basophils (%) (Auto) % (0.0-2.0) Differential Total Cells Counted 100 Neutrophils % (Manual) 82 % (45-75) H Lymphocytes % (Manual) 11 % (20-45) L Monocytes % (Manual) 5 % (1-10) Eosinophils % (Manual) 1 % (0-3) Basophils % (Manual) 1 % (0-2) Band Neutrophils 0 % (0-8) Platelet Estimate Adequate Platelet Morphology Normal Hypochromasia 3+ Anisocytosis 1+ Spherocytes 1+ Erythrocyte Sedimentation Rate 115 MM/HR (0-30) H Reticulocyte Count 2.7 % (0.5-2.0) H Prothrombin Time 12.8 SEC (9.30-11.50) H Prothromb Time International Ratio 1.2 (0.9-1.1) H Activated Partial Thromboplast Time 38 SEC (23-33) H Sodium Level 131 MMOL/L (136-145) L Potassium Level 3.8 MMOL/L (3.5-5.1) Chloride Level 91 MMOL/L (98-107) L Carbon Dioxide Level 30 MMOL/L (21-32) Anion Gap 10 mmol/L (5-15) Blood Urea Nitrogen 24 mg/dL (7-18) H Creatinine 3.7 MG/DL (0.55-1.30) H Estimat Glomerular Filtration Rate 12.7 mL/min (>60) Glucose Level 161 MG/DL (74-106) H Hemoglobin A1c 7.7 % (4.3-6.0) H Uric Acid 4.1 MG/DL (2.6-7.2) Calcium Level 8.6 MG/DL (8.5-10.1) Phosphorus Level 3.6 MG/DL (2.5-4.9) Magnesium Level 2.2 MG/DL (1.8-2.4) Iron Level 32 ug/dL (50-175) L Total Iron Binding Capacity 210 ug/dL (250-450) L Percent Iron Saturation 15 % (15-50) Unsaturated Iron Binding 178 ug/dL (112-346) Total Bilirubin 0.5 MG/DL (0.2-1.0) Gamma Glutamyl Transpeptidase 135 U/L (5-85) H Aspartate Amino Transf (AST/SGOT) 14 U/L (15-37) L Alanine Aminotransferase (ALT/SGPT) 43 U/L (12-78) Alkaline Phosphatase 149 U/L (46-116) H Lactate Dehydrogenase 196 U/L (81-234) Total Creatine Kinase 31 U/L (26-308) Pro-B-Type Natriuretic Peptide 89498 pg/mL (0-125) H Total Protein 7.0 G/DL (6.4-8.2) Albumin 2.7 G/DL (3.4-5.0) L Globulin 4.3 g/dL Albumin/Globulin Ratio 0.6 (1.0-2.7) L Triglycerides Level 89 MG/DL (30-150) Cholesterol Level 121 MG/DL (< 200) LDL Cholesterol 62 mg/dL (<100) HDL Cholesterol 42 MG/DL (40-60) Cholesterol/HDL Ratio 2.9 (3.3-4.4) L Carcinoembryonic Antigen Pending Vitamin B12 Level 605 PG/ML (193-986) Folate 17.8 NG/ML (8.6-58.9) Thyroid Stimulating Hormone (TSH) 4.336 uiU/mL (0.358-3.740) POC Whole Blood Glucose 146 MG/DL (74-106) H Microbiology Date/Time Source Procedure Growth Status 06/29/20 13:00 Straight Cath Urine Culture - Preliminary NO GROWTH Resulted Intake and Output 06/29/20 06/30/20 19:00 07:00 Intake Total 210 ml Output Total 2000 ml Balance -2000 ml 210 ml Intake Oral 210 ml Output Hemodialysis UF 2000 ml Assessment/Plan Problem List: (1) Hypertension Assessment & Plan: Continue amlodipine (2) Hypothyroidism Assessment & Plan: continue levothyroxine (3) Hypercholesteremia Assessment & Plan: Continue atorvastatin (4) Diabetes mellitus Assessment & Plan: Continue novolog sliding scale (5) COVID-19 (6) PNA (pneumonia) Assessment & Plan: ID=Dr Jerry; Pulmonary=Dr Naidu. Continue oral azithromycin and ceftriaxone IV (7) ESRD (end stage renal disease) Assessment & Plan: Nephrology=Dr Frank (8) Anemia (9) Acute respiratory failure Kareem Fajardo MD Jun 30, 2020 16:49
--- NOTE | 2020-06-30 17:04 | Cardiology Progress Note ---
Assessment/Plan Assessment/Plan full noteo dicated [id number] Objective Last 24 Hour Vital Signs Date Time Temp Pulse Resp B/P (MAP) Pulse Ox O2 Delivery O2 Flow Rate FiO2 06/30/20 16:00 97.9 85 18 154/75 (101) 98 06/30/20 12:00 84 06/30/20 12:00 98.2 83 18 135/60 (85) 97 06/30/20 09:20 91 154/56 06/30/20 09:00 Nasal Cannula 4.0 06/30/20 08:00 97.9 91 20 154/56 (88) 97 06/30/20 08:00 91 06/30/20 04:00 97.8 85 22 159/69 (99) 96 06/30/20 04:00 83 06/30/20 00:00 98.2 87 20 152/54 (86) 98 06/30/20 00:00 76 06/29/20 21:00 Nasal Cannula 4.0 06/29/20 20:00 87 06/29/20 20:00 97.9 88 21 156/81 (106) 100 Intake and Output 06/29/20 06/30/20 19:00 07:00 Intake Total 210 ml Output Total 2000 ml Balance -2000 ml 210 ml Intake Oral 210 ml Output Hemodialysis UF 2000 ml Laboratory Tests Test 06/30/20 03:30 06/30/20 03:32 06/30/20 05:31 White Blood Count 8.0 K/UL (4.8-10.8) Red Blood Count 2.65 M/UL (4.20-5.40) L Hemoglobin 7.8 G/DL (12.0-16.0) L Hematocrit 23.5 % (37.0-47.0) L Mean Corpuscular Volume 89 FL (80-99) Mean Corpuscular Hemoglobin 29.5 PG (27.0-31.0) Mean Corpuscular Hemoglobin Concent 33.2 G/DL (32.0-36.0) Red Cell Distribution Width 14.9 % (11.6-14.8) H Platelet Count 342 K/UL (150-450) Mean Platelet Volume 5.5 FL (6.5-10.1) L Neutrophils (%) (Auto) % (45.0-75.0) Lymphocytes (%) (Auto) % (20.0-45.0) Monocytes (%) (Auto) % (1.0-10.0) Eosinophils (%) (Auto) % (0.0-3.0) Basophils (%) (Auto) % (0.0-2.0) Differential Total Cells Counted 100 Neutrophils % (Manual) 82 % (45-75) H Lymphocytes % (Manual) 11 % (20-45) L Monocytes % (Manual) 5 % (1-10) Eosinophils % (Manual) 1 % (0-3) Basophils % (Manual) 1 % (0-2) Band Neutrophils 0 % (0-8) Platelet Estimate Adequate Platelet Morphology Normal Hypochromasia 3+ Anisocytosis 1+ Spherocytes 1+ Erythrocyte Sedimentation Rate 115 MM/HR (0-30) H Reticulocyte Count 2.7 % (0.5-2.0) H Prothrombin Time 12.8 SEC (9.30-11.50) H Prothromb Time International Ratio 1.2 (0.9-1.1) H Activated Partial Thromboplast Time 38 SEC (23-33) H Sodium Level 131 MMOL/L (136-145) L Potassium Level 3.8 MMOL/L (3.5-5.1) Chloride Level 91 MMOL/L (98-107) L Carbon Dioxide Level 30 MMOL/L (21-32) Anion Gap 10 mmol/L (5-15) Blood Urea Nitrogen 24 mg/dL (7-18) H Creatinine 3.7 MG/DL (0.55-1.30) H Estimat Glomerular Filtration Rate 12.7 mL/min (>60) Glucose Level 161 MG/DL (74-106) H Hemoglobin A1c 7.7 % (4.3-6.0) H Uric Acid 4.1 MG/DL (2.6-7.2) Calcium Level 8.6 MG/DL (8.5-10.1) Phosphorus Level 3.6 MG/DL (2.5-4.9) Magnesium Level 2.2 MG/DL (1.8-2.4) Iron Level 32 ug/dL (50-175) L Total Iron Binding Capacity 210 ug/dL (250-450) L Percent Iron Saturation 15 % (15-50) Unsaturated Iron Binding 178 ug/dL (112-346) Total Bilirubin 0.5 MG/DL (0.2-1.0) Gamma Glutamyl Transpeptidase 135 U/L (5-85) H Aspartate Amino Transf (AST/SGOT) 14 U/L (15-37) L Alanine Aminotransferase (ALT/SGPT) 43 U/L (12-78) Alkaline Phosphatase 149 U/L (46-116) H Lactate Dehydrogenase 196 U/L (81-234) Total Creatine Kinase 31 U/L (26-308) Pro-B-Type Natriuretic Peptide 14990 pg/mL (0-125) H Total Protein 7.0 G/DL (6.4-8.2) Albumin 2.7 G/DL (3.4-5.0) L Globulin 4.3 g/dL Albumin/Globulin Ratio 0.6 (1.0-2.7) L Triglycerides Level 89 MG/DL (30-150) Cholesterol Level 121 MG/DL (< 200) LDL Cholesterol 62 mg/dL (<100) HDL Cholesterol 42 MG/DL (40-60) Cholesterol/HDL Ratio 2.9 (3.3-4.4) L Carcinoembryonic Antigen Pending Vitamin B12 Level 605 PG/ML (193-986) Folate 17.8 NG/ML (8.6-58.9) Thyroid Stimulating Hormone (TSH) 4.336 uiU/mL (0.358-3.740) POC Whole Blood Glucose 146 MG/DL (74-106) H Microbiology Date/Time Source Procedure Growth Status 06/29/20 13:00 Straight Cath Urine Culture - Preliminary NO GROWTH Resulted Renzo Moreira MD Jun 30, 2020 17:04
--- NOTE | 2020-06-30 17:44 | History and Physical Report ---
DATE OF ADMISSION: 06/28/2020 CHIEF COMPLAINT: The patient is a 54-year-old female who presents with a chief complaint of shortness of breath. HISTORY OF PRESENT ILLNESS: The patient tested COVID-19 positive two weeks previously at outside facility. The patient states she was quarantined at home. The patient then began to experience shortness of breath three days ago. Shortness of breath increased over the last two days. The patient initially presented to [facility] emergency room. The patient is transferred to [facility] for insurance purposes. The patient was admitted with COVID-19 pneumonia. REVIEW OF SYSTEMS: CONSTITUTIONAL: The patient denies weight loss or weight gain. The patient denies fever or chills. HEENT: The patient denies any ear or throat pain. The patient denies headache. CARDIOVASCULAR: The patient denies palpitations or chest pain. CHEST: The patient complains of shortness of breath as above. The patient denies wheezes. ABDOMEN: The patient denies nausea, vomiting, diarrhea, or constipation. GENITOURINARY: The patient denies dysuria or increased frequency of urination. NEUROMUSCULAR: The patient denies seizures or generalized weakness. PAST MEDICAL HISTORY: Significant for: 1. Type 2 diabetes. 2. Hypertension. 3. Hypothyroidism. PAST SURGICAL HISTORY: The patient denies. CURRENT MEDICATIONS: 1. Allopurinol 100 mg one tablet p.o. daily. 2. Amlodipine 5 mg p.o. twice daily. 3. Aspirin 81 mg p.o. daily. 4. Atorvastatin 40 mg p.o. at bedtime. 5. Iron sulfate 325 mg p.o. daily. 6. Lasix 80 mg p.o. daily. 7. Glipizide 5 mg p.o. twice daily. 8. Lantus insulin of an unknown dose subcutaneous at bedtime. 9. Isosorbide mononitrate 20 mg p.o. daily. 10. Levoxyl 0.025 mg p.o. daily. 11. Metoprolol 25 mg p.o. daily. 12. Protonix 40 mg p.o. daily. ALLERGIES: No known drug allergies. SOCIAL HISTORY: The patient is and lives at home with her family. The patient denies tobacco or alcohol use. PHYSICAL EXAMINATION: VITAL SIGNS: Temperature 98.9, respirations 20, pulse 89, blood pressure 134/56. GENERAL: The patient is well-developed and well-nourished female, in moderate respiratory distress. HEENT: Eyes, pupils are equal and responsive to light and accommodation. Extraocular movements are intact. NECK: Supple without lymphadenopathy. CHEST: Lungs are clear to auscultation bilaterally without wheezes or rales. CARDIOVASCULAR: Regular rhythm and rate. S1 and S2 are normal without murmurs, rubs, or gallops. ABDOMEN: Soft, nontender, nondistended. Positive bowel sounds. No evidence of hepatosplenomegaly. Currently, no rebound or guarding noted. EXTREMITIES: Negative for clubbing, cyanosis, or edema. RECTAL/GENITAL: Not performed. NEUROLOGIC: Cranial nerves II through XII are grossly intact without focal deficits. Motor strength is 5/5 bilaterally. Deep tendon reflexes are 2+ plantar. LABORATORY AND DIAGNOSTIC DATA: Chest x-ray demonstrated bilateral alveolar densities consistent with pneumonia. Laboratory studies, WBC 8.2, hemoglobin 6.6, hematocrit 20.6, platelets 349,000. Sodium 125, potassium 3.1, chloride 83, CO2 30, BUN 12, creatinine 2.2, glucose 73. Troponin 0.05. ASSESSMENT: This is a 54-year-old female. 1. COVID-19 positive. 2. Pneumonia bilaterally. 3. End-stage renal disease. 4. Diabetes type 2. 5. Hypertension. 6. Hypothyroidism. 7. Hypercholesterolemia. TREATMENT: 1. COVID-19 positive/pneumonia. A infectious diseases consultation is with Dr. Toro. The patient has been started empirically on intravenous ceftriaxone and oral azithromycin. A Pulmonary consultation has been obtained with Dr. Maria Elena Naidu. We will follow recommendations of Pulmonary and Infectious Diseases. 2. End-stage renal failure. A Nephrology consultation has been obtained with Dr. Lito Frank. Follow recommendations of Nephrology. 3. Diabetes type 2. NovoLog sliding scale has been instituted. 4. Hypertension. Continue amlodipine as above. 5. Hypothyroidism. Continue Synthroid as above. 6. Hypercholesterolemia. Continue atorvastatin as above. Kareem Fajardo M.D. DR: William JOB#: [id number] CC:
--- NOTE | 2020-06-30 18:12 | NUR ---
NURSE HAND-OFF REPORT: Important Events on Shift: change in rhythm Patient Status: stable Diet: cardiac renal Pending Orders: OB stool Pending Results/Labs: Pending notification: Latest Vital Signs: Temperature 97.9 , Pulse 83 , B/P 154 /75 , Respiratory Rate 18 , O2 SAT 98 , Nasal Cannula, O2 Flow Rate 4.0 . Vital Sign Comment: EKG Rhythm: SR w/ 1st AVB Rhythm change?: Y Notified?: Y -Dr Harish LANDEROS Response: No new orders Latest Alvarez Fall Score: 35 Fall Risk: Medium Risk Safety Measures: Call light Within Reach, Bed Alarm Zone 1, Side Rails Side Rails x2, Bed position Low and Locked. Fall Precautions: Yellow Socks Addendum: 06/30/20 at 1913 by Aide Rooney RN HAND-OFF: Report given to Alyssa POPE.
[2020-06-30] MEDS: Albuterol 90mcg Inhaler 8gm INH PRN (19:12)
[2020-06-30 20:00] VITALS: BP 146/82
--- NOTE | 2020-06-30 20:00 | NUR ---
NURSE NOTES: RECEIVED PATIENT LYING IN BED, AWAKE, ALERT/ORIENTED X3, VERBALLY RESPONSIVE, ABLE TO VERBALIZE SIMPLE NEEDS KNOWN IN [place], DENIES PAIN. IV INTACT TO LEFT UPPER ARM/GAUGE 20 SALINE LOCK, NO REDNESS/SWELLING NOTED. ESRD, AV SHUNT RIGHT UPPER ARM , BRUIT AUDIBLE/THRILL PALPABLE, NEXT HD SCHEDULED 07/01/20, VIP. NO SIGNS AND SYMPTOMS OF ACUTE CARDIO RESPIRATORY DISTRESS/SHORTNESS OF BREATH, DENIES CHEST PAIN, NOTED WITH GENERALIZED EDEMA. NO COMPLAINTS OF GI DISCOMFORT, CONTINENT OF B/B, UTILIZE BEDSIDE COMMODE INDEPENDENTLY. SIDE RAILS UP X2 FOR MOBILITY, BED IN LOWEST POSITION FRO SAFETY, ENCOURAGED PATIENT TO UTILIZE CALL LIGHT FOR ASSISTANCE, VERBALIZED UNDERSTANDING. CONTINUE WITH CURRENT PLAN OF CARE. NAD.
[2020-06-30] MEDS: Sennosides 8.6mg tab ORAL SCH (22:50)
--- NOTE | 2020-06-30 23:14 | Consultation ---
DATE OF CONSULTATION: 06/30/2020 CARDIOLOGY CONSULTATION CONSULTING PHYSICIAN: Renzo Moreira MD REFERRING PHYSICIAN: Maria Elena Naidu MD REASON FOR REFERRAL: First-degree AV block noted on the EKG. HISTORY OF PRESENT ILLNESS: This is a 54-year-old female whom I have seen before but more recently has been hospitalized at [facility] with COVID infection, was intubated, and subsequently extubated and treated with a course of steroids and subsequently discharged home just relatively recently. She presented to [facility] Emergency Room with shortness of breath and hypoxemia. The patient's oxygen saturation was 72% on room air. Otherwise, her vital signs were stable and she had mild respiratory distress, did not appear toxic. She did improve with 2 to 3 liters of nasal cannula. She was noted to have anemia with hemoglobin down to 6.6 down from 8.3 few days ago. Negative rectal vault for bloody stools or melena. Sodium was also noted to be down to 125 with a potassium of 3.1. Chest x-ray shows somewhat opacity in the left lung base. She was treated and was transferred to [facility] for further care. She was noted to have some first-degree AV block noted on the EKG and this consultation was subsequently requested. PAST MEDICAL HISTORY: 1. Positive for history of recent hospitalization and discharge from [facility] at which time was diagnosed with acute respiratory failure likely secondary to coronavirus disease 2018, superimposed community-acquired pneumonia status post intubation and extubation. 2. COVID-19 pneumonia. 3. Mucosal candidiasis. 4. Intermittent stridor with occasional hemoptysis secondary to intubation and granuloma; possible subglottic stenosis secondary to edema. 5. Brems-ve-zttkrbt anemia. 6. End-stage renal disease, on hemodialysis. 7. Hyperglycemia secondary to steroid use. 8. Diabetes mellitus. 9. Accelerated hypertension. 10. Constipation. 11. Congestive heart failure with preserved left ventricular systolic function. 12. Hypothyroidism. 13. Cardiorenal syndrome. 14. Pulmonary hypertension. 15. History of hepatitis C positive, negative RNA. 16. Hyperlipidemia. 17. Obesity. 18. Left saphenous vein reflux. 19. Chronic diastolic heart failure. 20. Cataract surgery. 21. Cholecystectomy. ALLERGIES: She reported no known drug allergies. SOCIAL HISTORY: She does not smoke, drink, and use drugs. REVIEW OF SYSTEMS: Per [place] records.PULMONARY: Positive coughing and mild shortness of breath. CONSTITUTIONAL: Positive for fatigue. CARDIAC: The patient has had some leg swelling. GASTROINTESTINAL: There was no abdominal pain. GENITOURINARY: No flank pain. No hematuria. PHYSICAL EXAMINATION: Physical examination was not performed by me because of COVID infection. The patient's evaluation at [facility] Emergency Room physical examination. CONSTITUTIONAL: She appeared oriented to place, time. She is well-developed and well-nourished, mild respiratory distress. NECK: Normal range of motion. Supple. CARDIAC: Regular rate and rhythm. Normal heart sounds and intact distal pulses. No gallops. No friction rubs. No murmurs are heard. PULMONARY: She is in respiratory distress. She had some wheezes. No rales. Mild expiratory wheezes were noted. ABDOMEN: Soft. No distention. No masses. No tenderness. No rebound. No guarding. EXTREMITIES: She had 2+ bilateral lower extremity pitting edema. LABORATORY AND DIAGNOSTIC DATA: [facility] data indicated she had on June 18, echocardiogram performed showed normal wall motion, ejection fraction 68%, normal right ventricular systolic function with PA pressure of 33 mmHg. Labs, white count of 8, hemoglobin 7.8, and platelet count of 242. Sedimentation rate of 115, reticulocyte count of 2.7. Chemistries, sodium 131, potassium 3.8, chloride 91, bicarb 30, BUN is 24, creatinine 3.7, and glucose of 161 146. Iron of 32, 15% saturation, LDH 196. Liver function tests are normal. GGT 135. ProBNP non-trustable with level of 23,000. Her albumin was 2.7. LDL of 62 and HDL of 42 and vitamin B12 of 6.2. TSH of 4.336. Her electrocardiogram available from [facility] only shows sinus rhythm with normal QRS axis. No new EKG is available. The patient's telemetry monitoring shows sinus rhythm. I do not appreciate any AV blocks on any of the EKGs that I personally reviewed except for possibly borderline first-degree AV block. Chest x-ray performed yesterday shows diffuse bilateral alveolar densities and infiltrates . ASSESSMENT AND PLAN: 1. Respiratory discomfort, possibly pneumonia. 2. Recent COVID infection. 3. Hyperglycemia. 4. Recent mucosal candidiasis. 5. Intermittent stridor history. 6. End-stage renal disease, on hemodialysis. 7. Diabetes mellitus. 8. History of diastolic heart failure. 9. Hypothyroidism. This patient was seen in cardiac consultation. The question about possibility of AV block has been addressed. The patient's telemetry and EKG were fully reviewed. No evidence of concerning arrhythmia at this time. She did have an echocardiogram previously at [facility] approximately 2 weeks ago, one was repeated here on 06/29; preliminary report shows normal left ventricular systolic function, ejection fraction 60% to 65%, PA pressure was 41. The patient has no signs, no symptoms of acute coronary syndrome. Her first set of cardiac enzymes here has been negative. Her last myocardial perfusion imaging was performed in January 2019 at [facility]. The patient will be treated for possibility of pneumonia. I will follow the patient along with you. She will receive some dialysis at the direction of Dr. Frank and she will be monitored on telemetry. Renzo Moreira M.D. DR: Bethany JOB#: [id number] CC:
[2020-07-01] VITALS: BP 151/79
[2020-07-01 04:00] VITALS: BP 143/77
[2020-07-01] MEDS: NovoLOG Insulin Flexpen SUBQ SCH ×4 (06:17→21:13)
--- NOTE | 2020-07-01 07:30 | NUR ---
NURSE HAND-OFF REPORT: Important Events on Shift:[UNEVENTFUL, RESTED WELL] Patient Status: [STABLE] Diet: [RENAL CARDIAC] Pending Orders: [HD TODAY 07/01/20] Pending Results/Labs:[] Pending MD notification:[] Latest Vital Signs: Temperature 98.6 , Pulse 90 , B/P 148 /80 , Respiratory Rate 18 , O2 SAT 97 , Nasal Cannula, O2 Flow Rate 4.0 . Vital Sign Comment: [] EKG Rhythm: 1st Degree HB Rhythm change?: N MD Notified?: Y -Dr Harish LANDEROS Response: Message left await call Latest Alvarez Fall Score: 35 Fall Risk: Medium Risk Safety Measures: Call light Within Reach, Bed Alarm Zone 1, Side Rails Side Rails x2, Bed position Low and Locked. Fall Precautions: Yellow Socks Report given to [MATTIE].
[2020-07-01 08:00] VITALS: BP 148/80
--- NOTE | 2020-07-01 08:11 | NUR ---
NURSE NOTES: Received report from Alyssa George RN. Patient on bedside commode, on room air, in no apparent distress.
[2020-07-01 08:52] LABS: ANION GAP 8 mmol/L (5-15); BLOOD UREA NITROGEN 36 mg/dL (7-18); CALCIUM 8.7 MG/DL (8.5-10.1); CARBON DIOXIDE 30 MMOL/L (21-32); CHLORIDE 93 MMOL/L (98-107); CREATININE 4.9 MG/DL (0.55-1.30); HEMATOCRIT 22.4 % (37.0-47.0); HEMOGLOBIN 7.1 G/DL (12.0-16.0); MEAN CORPUSCULAR VOLUME 90 FL (80-99); PLATELET COUNT 321 K/UL (150-450); POTASSIUM 4.1 MMOL/L (3.5-5.1); RED BLOOD COUNT 2.47 M/UL (4.20-5.40); RED CELL DISTRIBUTION WIDTH 15.1 % (11.6-14.8); SODIUM 130 MMOL/L (136-145); WHITE BLOOD COUNT 7.8 K/UL (4.8-10.8)
[2020-07-01] MEDS: Nephrovite tab (Rena-Vite) ORAL SCH (09:52)
[2020-07-01] MEDS: Docusate 100mg cap ORAL SCH ×3 (09:52→17:07)
[2020-07-01] MEDS: Azithromycin 250mg tab ORAL SCH (09:53)
[2020-07-01] MEDS: cefTRIAXone 1 GM in D5W 55 ML IVPB SCH (09:54)
[2020-07-01] MEDS: Heparin 5000 units/ml inj SUBQ SCH ×2 (09:56→20:42)
[2020-07-01 12:00] VITALS: BP 147/78
[2020-07-01] MEDS: Atorvastatin 20mg tab ORAL SCH (12:38)
--- NOTE | 2020-07-01 14:14 | Cardiology Progress Note ---
Assessment/Plan Assessment/Plan 1. Respiratory discomfort, possibly pneumonia. 2. Recent COVID infection. 3. Hyperglycemia. 4. Recent mucosal candidiasis. 5. Intermittent stridor history. 6. End-stage renal disease, on hemodialysis. 7. Diabetes mellitus. 8. History of diastolic heart failure. 9. Hypothyroidism needing 4 l nc trop neg tele sinus no sig cv abn at this time Subjective Subjective Received report from Alyssa George RN. Patient on bedside commode, on room air, in no apparent distress no cp cp nor sob per rn uses 4 li nc getting dialysis at this moment Objective Last 24 Hour Vital Signs Date Time Temp Pulse Resp B/P (MAP) Pulse Ox O2 Delivery O2 Flow Rate FiO2 07/01/20 12:00 91 07/01/20 12:00 98.0 91 18 147/78 (101) 98 07/01/20 09:00 90 148/80 07/01/20 09:00 Nasal Cannula 4.0 07/01/20 08:00 91 07/01/20 08:00 98.6 90 18 148/80 (102) 97 07/01/20 04:00 97.5 75 18 143/77 (99) 99 07/01/20 00:00 98.9 89 20 151/79 (103) 97 07/01/20 00:00 86 06/30/20 21:32 91 06/30/20 20:00 Nasal Cannula 4.0 06/30/20 20:00 97.6 81 18 146/82 (103) 99 06/30/20 16:00 97.9 85 18 154/75 (101) 98 06/30/20 16:00 83 Intake and Output 06/30/20 07/01/20 19:00 07:00 Intake Total 360 ml 720 ml Balance 360 ml 720 ml Intake Oral 360 ml 720 ml # Voids 3 Laboratory Tests Test 07/01/20 06:30 White Blood Count 7.8 K/UL (4.8-10.8) Red Blood Count 2.47 M/UL (4.20-5.40) L Hemoglobin 7.1 G/DL (12.0-16.0) L Hematocrit 22.4 % (37.0-47.0) L Mean Corpuscular Volume 90 FL (80-99) Mean Corpuscular Hemoglobin 28.8 PG (27.0-31.0) Mean Corpuscular Hemoglobin Concent 31.8 G/DL (32.0-36.0) L Red Cell Distribution Width 15.1 % (11.6-14.8) H Platelet Count 321 K/UL (150-450) Mean Platelet Volume 5.0 FL (6.5-10.1) L Neutrophils (%) (Auto) % (45.0-75.0) Lymphocytes (%) (Auto) % (20.0-45.0) Monocytes (%) (Auto) % (1.0-10.0) Eosinophils (%) (Auto) % (0.0-3.0) Basophils (%) (Auto) % (0.0-2.0) Differential Total Cells Counted 100 Neutrophils % (Manual) 75 % (45-75) Lymphocytes % (Manual) 17 % (20-45) L Monocytes % (Manual) 6 % (1-10) Eosinophils % (Manual) 2 % (0-3) Basophils % (Manual) 0 % (0-2) Band Neutrophils 0 % (0-8) Platelet Estimate Adequate Platelet Morphology Normal Polychromasia 1+ Hypochromasia 1+ Anisocytosis 1+ Sodium Level 130 MMOL/L (136-145) L Potassium Level 4.1 MMOL/L (3.5-5.1) Chloride Level 93 MMOL/L (98-107) L Carbon Dioxide Level 30 MMOL/L (21-32) Anion Gap 8 mmol/L (5-15) Blood Urea Nitrogen 36 mg/dL (7-18) H Creatinine 4.9 MG/DL (0.55-1.30) H Estimat Glomerular Filtration Rate 9.2 mL/min (>60) Glucose Level 189 MG/DL (74-106) H Calcium Level 8.7 MG/DL (8.5-10.1) Microbiology Date/Time Source Procedure Growth Status 06/29/20 13:00 Straight Cath Urine Culture - Preliminary Gram Positive Cocci Resulted Renzo Moreira MD Jul 01, 2020 14:14
--- NOTE | 2020-07-01 14:44 | Nephrology Progress Note ---
Assessment/Plan Problem List: (1) ESRD (end stage renal disease) (2) Diabetic nephropathy (3) Anemia (4) COVID-19 (5) PNA (pneumonia) (6) Electrolyte imbalance (7) Volume overload Plan July 01: Patient due for dialysis today. Labs reviewed. Continue per current management. June 30: Patient was dialyzed yesterday, hyponatremia resolved. Clinically improved. Will attempt dialysis tomorrow Subjective ROS Limited/Unobtainable: No Constitutional: Reports: malaise Objective Objective Last 24 Hour Vital Signs Date Time Temp Pulse Resp B/P (MAP) Pulse Ox O2 Delivery O2 Flow Rate FiO2 07/01/20 13:50 Nasal Cannula 4.0 07/01/20 12:00 91 07/01/20 12:00 98.0 91 18 147/78 (101) 98 07/01/20 09:00 90 148/80 07/01/20 09:00 Nasal Cannula 4.0 07/01/20 08:00 91 07/01/20 08:00 98.6 90 18 148/80 (102) 97 07/01/20 04:00 97.5 75 18 143/77 (99) 99 07/01/20 00:00 98.9 89 20 151/79 (103) 97 07/01/20 00:00 86 06/30/20 21:32 91 06/30/20 20:00 Nasal Cannula 4.0 06/30/20 20:00 97.6 81 18 146/82 (103) 99 06/30/20 16:00 97.9 85 18 154/75 (101) 98 06/30/20 16:00 83 Intake and Output 06/30/20 07/01/20 19:00 07:00 Intake Total 360 ml 720 ml Balance 360 ml 720 ml Intake Oral 360 ml 720 ml # Voids 3 Laboratory Tests 07/01/20 06:30: White Blood Count 7.8, Red Blood Count 2.47L, Hemoglobin 7.1L, Hematocrit 22.4L , Mean Corpuscular Volume 90, Mean Corpuscular Hemoglobin 28.8, Mean Corpuscular Hemoglobin Concent 31.8L, Red Cell Distribution Width 15.1H, Platelet Count 321, Mean Platelet Volume 5.0L, Neutrophils (%) (Auto) , Lymphocytes (%) (Auto) , Monocytes (%) (Auto) , Eosinophils (%) (Auto) , Basophils (%) (Auto) , Differential Total Cells Counted 100, Neutrophils % ( Manual) 75, Lymphocytes % (Manual) 17L, Monocytes % (Manual) 6, Eosinophils % ( Manual) 2, Basophils % (Manual) 0, Band Neutrophils 0, Platelet Estimate Adequate, Platelet Morphology Normal, Polychromasia 1+, Hypochromasia 1+, Anisocytosis 1+, Sodium Level 130L, Potassium Level 4.1, Chloride Level 93L, Carbon Dioxide Level 30, Anion Gap 8, Blood Urea Nitrogen 36H, Creatinine 4.9H, Estimat Glomerular Filtration Rate 9.2, Glucose Level 189H, Calcium Level 8.7 Height (Feet): 5 Height (Inches): 4.00 Weight (Pounds): 211 General Appearance: no apparent distress Respiratory/Chest: decreased breath sounds Abdomen: soft Lito Frank MD Jul 01, 2020 14:44
[2020-07-01 16:00] VITALS: BP 159/83
--- NOTE | 2020-07-01 16:58 | Internal Med Progress Note ---
Subjective Date of Service: Jul 01, 2020 Physician Name Kareem Fajardo Attending Physician Pierre Childs MD Current Medications Medications (Trade) Dose Ordered Sig/Miguel Route PRN Reason Start Time Stop Time Status Last Admin Dose Admin Albuterol Sulfate (Proventil MDI) 2 puff Q6H PRN INH Shortness of Breath 06/29/20 19:15 09/27/20 19:14 06/30/20 19:12 Amlodipine Besylate (Norvasc) 10 mg DAILY ORAL 06/30/20 09:00 07/29/20 08:59 06/30/20 09:20 Aspirin (ASA) 325 mg DAILY ORAL 06/29/20 09:00 08/13/20 08:59 07/01/20 09:52 Atorvastatin Calcium (Lipitor) 40 mg BEFORE LUNCH ORAL 06/29/20 11:30 09/27/20 11:29 07/01/20 12:38 Azithromycin (Zithromax) 250 mg DAILY ORAL 06/29/20 09:00 07/06/20 08:59 07/01/20 09:53 Calcium Acetate (Phoslo) 667 mg BEFORE MEALS ORAL 06/29/20 06:30 09/27/20 06:29 07/01/20 12:38 Ceftriaxone Sodium 1 gm/ Dextrose 55 ml @ 110 mls/hr Q24H IVPB 06/29/20 09:00 07/06/20 08:59 07/01/20 09:54 Clonidine HCl (Catapres Tab) 0.1 mg Q4H PRN ORAL For High Blood Pressure 06/29/20 07:45 09/27/20 07:44 Dextrose (Dextrose 50%) 25 ml Q30M PRN IV Hypoglycemia 06/28/20 23:15 09/26/20 23:14 Dextrose (Dextrose 50%) 50 ml Q30M PRN IV Hypoglycemia 06/28/20 23:15 09/26/20 23:14 Docusate Sodium (Colace) 100 mg TID ORAL 06/29/20 13:00 07/29/20 08:59 07/01/20 12:38 Epoetin Armando (Epoetin Armando(ESRD on dialysis)) 10,000 unit THU-THU-THU SUBQ 07/02/20 21:00 09/30/20 20:59 Heparin Sodium (Porcine) (Heparin 5000 units/ml) 5,000 units EVERY 12 HOURS SUBQ 06/29/20 09:00 08/13/20 08:59 07/01/20 09:56 Insulin Aspart (NovoLOG) BEFORE MEALS AND HS SUBQ 06/29/20 06:30 09/27/20 06:29 07/01/20 12:41 Levothyroxine Sodium (Synthroid) 50 mcg ACBREAKFAST ORAL 07/01/20 06:30 07/29/20 06:29 07/01/20 06:20 Pantoprazole (Protonix) 40 mg Q12HR ORAL 06/29/20 21:00 07/29/20 11:29 07/01/20 09:52 Sennosides (Senokot) 8.6 mg BEDTIME ORAL 06/29/20 21:00 07/29/20 20:59 06/30/20 22:50 Vitamin B Complex/ Vit C/Folic Acid (Nephrovite) 1 tab DAILY ORAL 06/29/20 09:00 07/29/20 08:59 07/01/20 09:52 Allergies: Coded Allergies: No Known Allergies (Verified Allergy, Unknown, 02/17/11) ROS Limited/Unobtainable: No Constitutional: Reports: no symptoms HEENT: Reports: no symptoms Cardiovascular: Reports: no symptoms Respiratory: Reports: no symptoms Gastrointestinal/Abdominal: Reports: no symptoms Genitourinary: Reports: no symptoms Neurologic/Psychiatric: Reports: no symptoms Subjective 54 YO F admitted with shortness of breath. Now COVID 19 pneumonia. Cover for Int Gurmeet-Dr Childs Objective Last Vital Signs Date Time Temp Pulse Resp B/P (MAP) Pulse Ox O2 Delivery O2 Flow Rate FiO2 07/01/20 16:00 97.7 82 20 159/83 (108) 97 07/01/20 13:50 Nasal Cannula 4.0 Laboratory Tests Test 07/01/20 06:30 White Blood Count 7.8 K/UL (4.8-10.8) Red Blood Count 2.47 M/UL (4.20-5.40) L Hemoglobin 7.1 G/DL (12.0-16.0) L Hematocrit 22.4 % (37.0-47.0) L Mean Corpuscular Volume 90 FL (80-99) Mean Corpuscular Hemoglobin 28.8 PG (27.0-31.0) Mean Corpuscular Hemoglobin Concent 31.8 G/DL (32.0-36.0) L Red Cell Distribution Width 15.1 % (11.6-14.8) H Platelet Count 321 K/UL (150-450) Mean Platelet Volume 5.0 FL (6.5-10.1) L Neutrophils (%) (Auto) % (45.0-75.0) Lymphocytes (%) (Auto) % (20.0-45.0) Monocytes (%) (Auto) % (1.0-10.0) Eosinophils (%) (Auto) % (0.0-3.0) Basophils (%) (Auto) % (0.0-2.0) Differential Total Cells Counted 100 Neutrophils % (Manual) 75 % (45-75) Lymphocytes % (Manual) 17 % (20-45) L Monocytes % (Manual) 6 % (1-10) Eosinophils % (Manual) 2 % (0-3) Basophils % (Manual) 0 % (0-2) Band Neutrophils 0 % (0-8) Platelet Estimate Adequate Platelet Morphology Normal Polychromasia 1+ Hypochromasia 1+ Anisocytosis 1+ Sodium Level 130 MMOL/L (136-145) L Potassium Level 4.1 MMOL/L (3.5-5.1) Chloride Level 93 MMOL/L (98-107) L Carbon Dioxide Level 30 MMOL/L (21-32) Anion Gap 8 mmol/L (5-15) Blood Urea Nitrogen 36 mg/dL (7-18) H Creatinine 4.9 MG/DL (0.55-1.30) H Estimat Glomerular Filtration Rate 9.2 mL/min (>60) Glucose Level 189 MG/DL (74-106) H Calcium Level 8.7 MG/DL (8.5-10.1) Microbiology Date/Time Source Procedure Growth Status 06/29/20 13:00 Straight Cath Urine Culture - Preliminary Gram Positive Cocci Resulted Intake and Output 06/30/20 07/01/20 19:00 07:00 Intake Total 360 ml 720 ml Balance 360 ml 720 ml Intake Oral 360 ml 720 ml # Voids 3 Objective General Appearance: WD/WN, no apparent distress, moderate distress EENT: PERRL/EOMI, normal ENT inspection Neck: non-tender, normal alignment, supple, normal inspection Cardiovascular: normal peripheral pulses, normal rate, regular rhythm, no gallop/murmur, no JVD Respiratory/Chest: respiratory distress, decreased breath sounds, crackles/ rales, rhonchi - bilaterally, expiratory wheezing Abdomen: normal bowel sounds, non tender, soft, no organomegaly, no mass Extremities: normal range of motion, non-tender 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 Continue oral azithromycin and ceftriaxone IV (7) ESRD (end stage renal disease) Assessment & Plan: Nephrology=Dr Frank (8) Anemia (9) Acute respiratory failure Kareem Fajardo MD Jul 01, 2020 16:58
--- NOTE | 2020-07-01 18:03 | Pulmonology Progress Note ---
Subjective ROS Limited/Unobtainable: No Interval Events: doing better Constitutional: Reports: no symptoms HEENT: Repors: no symptoms Allergies: Coded Allergies: No Known Allergies (Verified Allergy, Unknown, 02/17/11) Objective Last 24 Hour Vital Signs Date Time Temp Pulse Resp B/P (MAP) Pulse Ox O2 Delivery O2 Flow Rate FiO2 07/01/20 16:00 97.7 82 20 159/83 (108) 97 07/01/20 13:50 Nasal Cannula 4.0 07/01/20 12:00 91 07/01/20 12:00 98.0 91 18 147/78 (101) 98 07/01/20 09:00 90 148/80 07/01/20 09:00 Nasal Cannula 4.0 07/01/20 08:00 91 07/01/20 08:00 98.6 90 18 148/80 (102) 97 07/01/20 04:00 97.5 75 18 143/77 (99) 99 07/01/20 00:00 98.9 89 20 151/79 (103) 97 07/01/20 00:00 86 06/30/20 21:32 91 06/30/20 20:00 Nasal Cannula 4.0 06/30/20 20:00 97.6 81 18 146/82 (103) 99 Intake and Output 06/30/20 07/01/20 19:00 07:00 Intake Total 360 ml 720 ml Balance 360 ml 720 ml Intake Oral 360 ml 720 ml # Voids 3 General Appearance: WD/WN, no acute distress HEENT: normocephalic, atraumatic Respiratory: chest wall non-tender, lungs clear Breasts: no masses Cardiovascular: normal peripheral pulses Abdomen: normal bowel sounds, soft, non tender Extremities: no clubbing Skin: no rash 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 Microbiology Date/Time Source Procedure Growth Status 06/29/20 13:00 Straight Cath Urine Culture - Preliminary Gram Positive Cocci Resulted Laboratory Tests 07/01/20 06:30: White Blood Count 7.8, Red Blood Count 2.47L, Hemoglobin 7.1L, Hematocrit 22.4L , Mean Corpuscular Volume 90, Mean Corpuscular Hemoglobin 28.8, Mean Corpuscular Hemoglobin Concent 31.8L, Red Cell Distribution Width 15.1H, Platelet Count 321, Mean Platelet Volume 5.0L, Neutrophils (%) (Auto) , Lymphocytes (%) (Auto) , Monocytes (%) (Auto) , Eosinophils (%) (Auto) , Basophils (%) (Auto) , Differential Total Cells Counted 100, Neutrophils % ( Manual) 75, Lymphocytes % (Manual) 17L, Monocytes % (Manual) 6, Eosinophils % ( Manual) 2, Basophils % (Manual) 0, Band Neutrophils 0, Platelet Estimate Adequate, Platelet Morphology Normal, Polychromasia 1+, Hypochromasia 1+, Anisocytosis 1+, Sodium Level 130L, Potassium Level 4.1, Chloride Level 93L, Carbon Dioxide Level 30, Anion Gap 8, Blood Urea Nitrogen 36H, Creatinine 4.9H, Estimat Glomerular Filtration Rate 9.2, Glucose Level 189H, Calcium Level 8.7 Current Medications Medications (Trade) Dose Ordered Sig/Miguel Route PRN Reason Start Time Stop Time Status Last Admin Dose Admin Albuterol Sulfate (Proventil MDI) 2 puff Q6H PRN INH Shortness of Breath 06/29/20 19:15 09/27/20 19:14 06/30/20 19:12 Amlodipine Besylate (Norvasc) 10 mg DAILY ORAL 06/30/20 09:00 07/29/20 08:59 06/30/20 09:20 Aspirin (ASA) 325 mg DAILY ORAL 06/29/20 09:00 08/13/20 08:59 07/01/20 09:52 Atorvastatin Calcium (Lipitor) 40 mg BEFORE LUNCH ORAL 06/29/20 11:30 09/27/20 11:29 07/01/20 12:38 Azithromycin (Zithromax) 250 mg DAILY ORAL 06/29/20 09:00 07/06/20 08:59 07/01/20 09:53 Calcium Acetate (Phoslo) 667 mg BEFORE MEALS ORAL 06/29/20 06:30 09/27/20 06:29 07/01/20 17:07 Ceftriaxone Sodium 1 gm/ Dextrose 55 ml @ 110 mls/hr Q24H IVPB 06/29/20 09:00 07/06/20 08:59 07/01/20 09:54 Clonidine HCl (Catapres Tab) 0.1 mg Q4H PRN ORAL For High Blood Pressure 06/29/20 07:45 09/27/20 07:44 Dextrose (Dextrose 50%) 25 ml Q30M PRN IV Hypoglycemia 06/28/20 23:15 09/26/20 23:14 Dextrose (Dextrose 50%) 50 ml Q30M PRN IV Hypoglycemia 06/28/20 23:15 09/26/20 23:14 Docusate Sodium (Colace) 100 mg TID ORAL 06/29/20 13:00 07/29/20 08:59 07/01/20 17:07 Epoetin Armando (Epoetin Armando(ESRD on dialysis)) 10,000 unit THU-THU-THU SUBQ 07/02/20 21:00 09/30/20 20:59 Heparin Sodium (Porcine) (Heparin 5000 units/ml) 5,000 units EVERY 12 HOURS SUBQ 06/29/20 09:00 08/13/20 08:59 07/01/20 09:56 Insulin Aspart (NovoLOG) BEFORE MEALS AND HS SUBQ 06/29/20 06:30 09/27/20 06:29 07/01/20 17:14 Levothyroxine Sodium (Synthroid) 50 mcg ACBREAKFAST ORAL 07/01/20 06:30 07/29/20 06:29 07/01/20 06:20 Pantoprazole (Protonix) 40 mg Q12HR ORAL 06/29/20 21:00 07/29/20 11:29 07/01/20 09:52 Sennosides (Senokot) 8.6 mg BEDTIME ORAL 06/29/20 21:00 07/29/20 20:59 06/30/20 22:50 Vitamin B Complex/ Vit C/Folic Acid (Nephrovite) 1 tab DAILY ORAL 06/29/20 09:00 07/29/20 08:59 07/01/20 09:52 Assessment/Plan Problems: (1) Renal failure (ARF), acute on chronic (2) ACS (acute coronary syndrome) (3) Anemia (4) COVID-19 (5) ESRD (end stage renal disease) (6) Diabetic nephropathy Assessment/Plan doing better no new complains all reviewed respiratory treatment check electrolytes Nephrology to see check electrolytes symptomatic treatment. dc planning soon Maria Elena Naidu MD Jul 01, 2020 18:03
--- NOTE | 2020-07-01 19:12 | NUR ---
NURSE HAND-OFF REPORT: Important Events on Shift:2 liters out HD, blood pressure s/p HD 160/80. Patient Status: Stable Diet: Renal/Cardiac Pending Orders: N/A Pending Results/Labs:AM labs. Pending MD notification:N/A Latest Vital Signs: Temperature 97.7 , Pulse 87 , B/P 159 /83 , Respiratory Rate 20 , O2 SAT 97 , Nasal Cannula, O2 Flow Rate 4.0 . Vital Sign Comment: N/A EKG Rhythm: 1st Degree HB Rhythm change?: N Notified?: Y -Dr Harish LANDEROS Response: Message left await call Latest Alvarez Fall Score: 35 Fall Risk: Medium Risk Safety Measures: Call light Within Reach, Bed Alarm Zone 1, Side Rails Side Rails x2, Bed position Low and Locked. Fall Precautions: Yellow Socks Report given to Amira George RN.
[2020-07-01 20:00] VITALS: BP 157/81
--- NOTE | 2020-07-01 20:00 | NUR ---
NURSE NOTES: RECEIVED PATIENT LYING IN BED, AWAKE, VERBALLY RESPONSIVE, ABLE TO MAKE NEEDS KNOWN, DENIES PAIN. NO SIGNS AND SYMPTOMS OF ACUTE CARDIO RESPIRATORY DISTRESS/SHORTNESS OF BREATH, DENIES CHEST PAIN. IV INTACT / NO REDNESS/SWELLING NOTED TO SITE/SALINE LOCK. S/P HEMODIALYSIS, REMOVED 2L, NO ILL EFFECTS NOTED. ABDOMEN SOFT/NON DISTENDED, ACTIVE BOWEL SOUNDS, REPORTED BOWEL MOVEMENT TODAY, DENIES DIARRHEA. ASSISTED WITH PM CARE, TOLERATED WELL. SIDE RAILS UP X2 FOR MOBILITY, BED IN LOWEST POSITION FOR SAFETY, ENCOURAGED PATIENT TO UTILIZE CALL LIGHT FOR ASSISTANCE, VERBALIZED UNDERSTANDING. NAD. CONTINUE WITH CURRENT PLAN OF CARE.
[2020-07-01] MEDS: Sennosides 8.6mg tab ORAL SCH (20:41)
[2020-07-02] VITALS: BP 143/52
--- NOTE | 2020-07-02 00:25 | NUR ---
NURSE NOTES: RESTING WELL,NO DISTRESS NOTED.
[2020-07-02 04:00] VITALS: BP 156/63
[2020-07-02 06:37] LABS: ANION GAP 7 mmol/L (5-15); BLOOD UREA NITROGEN 27 mg/dL (7-18); CALCIUM 8.7 MG/DL (8.5-10.1); CARBON DIOXIDE 32 MMOL/L (21-32); CHLORIDE 97 MMOL/L (98-107); CREATININE 4.1 MG/DL (0.55-1.30); POTASSIUM 3.9 MMOL/L (3.5-5.1); SODIUM 136 MMOL/L (136-145)
[2020-07-02] MEDS: NovoLOG Insulin Flexpen SUBQ SCH ×4 (06:37→21:01)
[2020-07-02 06:46] LABS: HEMATOCRIT 22.8 % (37.0-47.0); HEMOGLOBIN 7.1 G/DL (12.0-16.0); MEAN CORPUSCULAR VOLUME 90 FL (80-99); PLATELET COUNT 311 K/UL (150-450); RED BLOOD COUNT 2.54 M/UL (4.20-5.40); RED CELL DISTRIBUTION WIDTH 15.2 % (11.6-14.8)
--- NOTE | 2020-07-02 06:48 | NUR ---
NURSE NOTES: RESTED WELL, NO SIGNIFICANT CHANGE OF CONDITION NOTED THROUGHOUT THE NIGHT. SAFETY MAINTAINED. NAD.
--- NOTE | 2020-07-02 07:20 | NUR ---
NURSE NOTES: Received patient in bed awake. O2 via NC in place, no SOB or acute distress. IV line intact. HOB elevated. Bed locked in low position. Call light within reach. Still for OB stool collection, instructed.
--- NOTE | 2020-07-02 07:41 | NUR ---
NURSE HAND-OFF REPORT: Important Events on Shift:[UNEVENTFUL NIGHT] Patient Status: [AO X4, STABLE] Diet: [RENAL CARDIAC] Pending Orders: [LABS] Pending Results/Labs:[H/H 7.1/22.8] Pending MD notification:[MESSAGE LEFT FOR MD AND ENDORSED TO AM RN TO FOLLOW UP] Latest Vital Signs: Temperature 98.5 , Pulse 91 , B/P 156 /63 , Respiratory Rate 18 , O2 SAT 97 , Nasal Cannula, O2 Flow Rate 4.0 . Vital Sign Comment: [B/P 156/63, ASYMPTOMATIC] EKG Rhythm: SRw/1st D Rhythm change?: N MD Notified?: Y -Dr Harish LANDEROS Response: Message left await call Latest Alvarez Fall Score: 35 Fall Risk: Medium Risk Safety Measures: Call light Within Reach, Bed Alarm Zone 1, Side Rails Side Rails x2, Bed position Low and Locked. Fall Precautions: Yellow Socks Report given to [DENEEN].
[2020-07-02 08:00] VITALS: BP 149/67
--- NOTE | 2020-07-02 08:38 | NUR ---
RD ASSESSMENT & RECOMMENDATIONS SEE CARE ACTIVITY FOR COMPLETE ASSESSMENT DAILY ESTIMATED NEEDS: Needs based on ESRD on HD/ 65kg abw 25-30 kcals/kg 0546-2514 total kcals 1.2-1.8 g protein/kg 78-117 g total protein 20-25 mL/kg 1860-1475 total fluid mLs NUTRITION DIAGNOSIS: Altered nutrition related lab values R/T diabetes and ESRD dx as evidenced by elev BGs (212 189) and POC glu (250 170 251 214 267), elev creat(4.1), elev BNP (56040) CURRENT DIET:RENAL, CARDIAC PO DIET RECOMMENDATIONS: RENAL + CCHO MED/ texture as tolerated ADDITIONAL RECOMMENDATIONS: * Daily calibrated bedscal wts * Monitor lytes and renal fxn * Nepro x 1 w/ variable intake * Continue Nephrovite x1 * Carb controlled diet as above for diabetes
--- NOTE | 2020-07-02 10:10 | Nephrology Progress Note ---
Assessment/Plan Problem List: (1) ESRD (end stage renal disease) (2) Diabetic nephropathy (3) Anemia (4) COVID-19 (5) PNA (pneumonia) (6) Electrolyte imbalance (7) Volume overload Plan July 02: Patient was dialyzed yesterday. Today's labs reviewed. Hemoglobin is low. Will transfuse 1 unit of packed RBCs today. Will do dialysis tomorrow. July 01: Patient due for dialysis today. Labs reviewed. Continue per current management. June 30: Patient was dialyzed yesterday, hyponatremia resolved. Clinically improved. Will attempt dialysis tomorrow Subjective ROS Limited/Unobtainable: No Constitutional: Reports: malaise, weakness Objective Objective Last 24 Hour Vital Signs Date Time Temp Pulse Resp B/P (MAP) Pulse Ox O2 Delivery O2 Flow Rate FiO2 07/02/20 08:00 98.8 87 18 149/67 (94) 95 07/02/20 04:00 98.5 91 18 156/63 (94) 97 07/02/20 03:33 86 07/02/20 00:00 98.1 86 20 143/52 (82) 96 07/01/20 23:29 93 07/01/20 21:00 Nasal Cannula 4.0 07/01/20 20:00 98.9 95 20 157/81 (106) 99 07/01/20 19:14 94 07/01/20 16:00 87 07/01/20 16:00 97.7 82 20 159/83 (108) 97 07/01/20 13:50 Nasal Cannula 4.0 07/01/20 12:00 91 07/01/20 12:00 98.0 91 18 147/78 (101) 98 Intake and Output 07/01/20 07/02/20 19:00 07:00 Intake Total 415 ml 360 ml Output Total 2000 ml Balance -1585 ml 360 ml Intake Oral 360 ml 360 ml IV Total 55 ml Output Hemodialysis UF 2000 ml # Voids 1 3 # Bowel Movements 1 1 Current Medications Medications (Trade) Dose Ordered Sig/Miguel Route PRN Reason Start Time Stop Time Status Last Admin Dose Admin Albuterol Sulfate (Proventil MDI) 2 puff Q6H PRN INH Shortness of Breath 06/29/20 19:15 09/27/20 19:14 06/30/20 19:12 Amlodipine Besylate (Norvasc) 10 mg DAILY ORAL 06/30/20 09:00 07/29/20 08:59 06/30/20 09:20 Aspirin (ASA) 325 mg DAILY ORAL 06/29/20 09:00 08/13/20 08:59 07/01/20 09:52 Atorvastatin Calcium (Lipitor) 40 mg BEFORE LUNCH ORAL 06/29/20 11:30 09/27/20 11:29 07/01/20 12:38 Azithromycin (Zithromax) 250 mg DAILY ORAL 06/29/20 09:00 07/06/20 08:59 07/01/20 09:53 Calcium Acetate (Phoslo) 667 mg BEFORE MEALS ORAL 06/29/20 06:30 09/27/20 06:29 07/02/20 06:27 Ceftriaxone Sodium 1 gm/ Dextrose 55 ml @ 110 mls/hr Q24H IVPB 06/29/20 09:00 07/06/20 08:59 07/01/20 09:54 Clonidine HCl (Catapres Tab) 0.1 mg Q4H PRN ORAL For High Blood Pressure 06/29/20 07:45 09/27/20 07:44 Dextrose (Dextrose 50%) 25 ml Q30M PRN IV Hypoglycemia 06/28/20 23:15 09/26/20 23:14 Dextrose (Dextrose 50%) 50 ml Q30M PRN IV Hypoglycemia 06/28/20 23:15 09/26/20 23:14 Docusate Sodium (Colace) 100 mg TID ORAL 06/29/20 13:00 07/29/20 08:59 07/01/20 17:07 Epoetin Armando (Epoetin Armando(ESRD on dialysis)) 10,000 unit THU-THU-THU SUBQ 07/02/20 21:00 09/30/20 20:59 Heparin Sodium (Porcine) (Heparin 5000 units/ml) 5,000 units EVERY 12 HOURS SUBQ 06/29/20 09:00 08/13/20 08:59 07/01/20 20:42 Insulin Aspart (NovoLOG) BEFORE MEALS AND HS SUBQ 06/29/20 06:30 09/27/20 06:29 07/02/20 06:37 Levothyroxine Sodium (Synthroid) 50 mcg ACBREAKFAST ORAL 07/01/20 06:30 07/29/20 06:29 07/02/20 06:27 Pantoprazole (Protonix) 40 mg Q12HR ORAL 06/29/20 21:00 07/29/20 11:29 07/01/20 20:41 Sennosides (Senokot) 8.6 mg BEDTIME ORAL 06/29/20 21:00 07/29/20 20:59 07/01/20 20:41 Vitamin B Complex/ Vit C/Folic Acid (Nephrovite) 1 tab DAILY ORAL 06/29/20 09:00 07/29/20 08:59 07/01/20 09:52 Laboratory Tests 07/01/20 20:27: POC Whole Blood Glucose 250H 07/02/20 05:30: White Blood Count 7.0, Red Blood Count 2.54L, Hemoglobin 7.1L, Hematocrit 22.8L , Mean Corpuscular Volume 90, Mean Corpuscular Hemoglobin 27.9, Mean Corpuscular Hemoglobin Concent 31.0L, Red Cell Distribution Width 15.2H, Platelet Count 311, Mean Platelet Volume 5.1L, Neutrophils (%) (Auto) , Lymphocytes (%) (Auto) , Monocytes (%) (Auto) , Eosinophils (%) (Auto) , Basophils (%) (Auto) , Differential Total Cells Counted 100, Neutrophils % ( Manual) 73, Lymphocytes % (Manual) 15L, Monocytes % (Manual) 9, Eosinophils % ( Manual) 2, Basophils % (Manual) 1, Band Neutrophils 0, Platelet Estimate Adequate, Platelet Morphology Normal, Hypochromasia 1+, Anisocytosis 1+, Sodium Level 136, Potassium Level 3.9, Chloride Level 97L, Carbon Dioxide Level 32, Anion Gap 7, Blood Urea Nitrogen 27H, Creatinine 4.1H, Estimat Glomerular Filtration Rate 11.3, Glucose Level 212H, Calcium Level 8.7 07/02/20 06:11: POC Whole Blood Glucose [Pending] Height (Feet): 5 Height (Inches): 4.00 Weight (Pounds): 201 General Appearance: no apparent distress Cardiovascular: tachycardia Respiratory/Chest: decreased breath sounds Abdomen: distended Lito Frank MD Jul 02, 2020 10:10
[2020-07-02] MEDS: Docusate 100mg cap ORAL SCH ×3 (10:17→17:08)
[2020-07-02] MEDS: cefTRIAXone 1 GM in D5W 55 ML IVPB SCH (10:17)
[2020-07-02] MEDS: Atorvastatin 20mg tab ORAL SCH (10:17)
[2020-07-02] MEDS: Nephrovite tab (Rena-Vite) ORAL SCH (10:17)
[2020-07-02] MEDS: Azithromycin 250mg tab ORAL SCH (10:18)
[2020-07-02] MEDS: Heparin 5000 units/ml inj SUBQ SCH ×2 (10:20→20:47)
[2020-07-02 12:00] VITALS: BP 169/76
--- NOTE | 2020-07-02 12:12 | Pulmonology Progress Note ---
Subjective ROS Limited/Unobtainable: No Interval Events: doing better Constitutional: Reports: no symptoms HEENT: Repors: no symptoms Allergies: Coded Allergies: No Known Allergies (Verified Allergy, Unknown, 02/17/11) Objective Last 24 Hour Vital Signs Date Time Temp Pulse Resp B/P (MAP) Pulse Ox O2 Delivery O2 Flow Rate FiO2 07/02/20 12:00 97.9 86 18 169/76 (107) 99 07/02/20 10:17 87 149/67 07/02/20 09:00 Nasal Cannula 4.0 07/02/20 08:00 98.8 87 18 149/67 (94) 95 07/02/20 08:00 92 07/02/20 04:00 98.5 91 18 156/63 (94) 97 07/02/20 03:33 86 07/02/20 00:00 98.1 86 20 143/52 (82) 96 07/01/20 23:29 93 07/01/20 21:00 Nasal Cannula 4.0 07/01/20 20:00 98.9 95 20 157/81 (106) 99 07/01/20 19:14 94 07/01/20 16:00 87 07/01/20 16:00 97.7 82 20 159/83 (108) 97 07/01/20 13:50 Nasal Cannula 4.0 Intake and Output 07/01/20 07/02/20 19:00 07:00 Intake Total 415 ml 360 ml Output Total 2000 ml Balance -1585 ml 360 ml Intake Oral 360 ml 360 ml IV Total 55 ml Output Hemodialysis UF 2000 ml # Voids 1 3 # Bowel Movements 1 1 General Appearance: WD/WN, no acute distress HEENT: normocephalic, atraumatic Respiratory: chest wall non-tender, lungs clear Breasts: no masses Cardiovascular: normal peripheral pulses Abdomen: normal bowel sounds, soft, non tender Extremities: no clubbing Skin: no rash 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 Complete 06/29/20 13:00 Straight Cath Urine Culture - Preliminary Gram Positive Cocci Resulted Laboratory Tests 07/01/20 20:27: POC Whole Blood Glucose 250H 07/02/20 05:30: White Blood Count 7.0, Red Blood Count 2.54L, Hemoglobin 7.1L, Hematocrit 22.8L , Mean Corpuscular Volume 90, Mean Corpuscular Hemoglobin 27.9, Mean Corpuscular Hemoglobin Concent 31.0L, Red Cell Distribution Width 15.2H, Platelet Count 311, Mean Platelet Volume 5.1L, Neutrophils (%) (Auto) , Lymphocytes (%) (Auto) , Monocytes (%) (Auto) , Eosinophils (%) (Auto) , Basophils (%) (Auto) , Differential Total Cells Counted 100, Neutrophils % ( Manual) 73, Lymphocytes % (Manual) 15L, Monocytes % (Manual) 9, Eosinophils % ( Manual) 2, Basophils % (Manual) 1, Band Neutrophils 0, Platelet Estimate Adequate, Platelet Morphology Normal, Hypochromasia 1+, Anisocytosis 1+, Sodium Level 136, Potassium Level 3.9, Chloride Level 97L, Carbon Dioxide Level 32, Anion Gap 7, Blood Urea Nitrogen 27H, Creatinine 4.1H, Estimat Glomerular Filtration Rate 11.3, Glucose Level 212H, Calcium Level 8.7 07/02/20 06:11: POC Whole Blood Glucose [Pending] Current Medications Medications (Trade) Dose Ordered Sig/Miguel Route PRN Reason Start Time Stop Time Status Last Admin Dose Admin Albuterol Sulfate (Proventil MDI) 2 puff Q6H PRN INH Shortness of Breath 06/29/20 19:15 09/27/20 19:14 06/30/20 19:12 Amlodipine Besylate (Norvasc) 10 mg DAILY ORAL 06/30/20 09:00 07/29/20 08:59 07/02/20 10:17 Aspirin (ASA) 325 mg DAILY ORAL 06/29/20 09:00 08/13/20 08:59 07/02/20 10:17 Atorvastatin Calcium (Lipitor) 40 mg BEFORE LUNCH ORAL 06/29/20 11:30 09/27/20 11:29 07/02/20 10:17 Azithromycin (Zithromax) 250 mg DAILY ORAL 06/29/20 09:00 07/06/20 08:59 07/02/20 10:18 Calcium Acetate (Phoslo) 667 mg BEFORE MEALS ORAL 06/29/20 06:30 09/27/20 06:29 07/02/20 10:18 Ceftriaxone Sodium 1 gm/ Dextrose 55 ml @ 110 mls/hr Q24H IVPB 06/29/20 09:00 07/06/20 08:59 07/02/20 10:17 Clonidine HCl (Catapres Tab) 0.1 mg Q4H PRN ORAL For High Blood Pressure 06/29/20 07:45 09/27/20 07:44 Dextrose (Dextrose 50%) 25 ml Q30M PRN IV Hypoglycemia 06/28/20 23:15 09/26/20 23:14 Dextrose (Dextrose 50%) 50 ml Q30M PRN IV Hypoglycemia 06/28/20 23:15 09/26/20 23:14 Docusate Sodium (Colace) 100 mg TID ORAL 06/29/20 13:00 07/29/20 08:59 07/02/20 10:17 Epoetin Armando (Epoetin Armando(ESRD on dialysis)) 10,000 unit THU-THU-THU SUBQ 07/02/20 21:00 09/30/20 20:59 Heparin Sodium (Porcine) (Heparin 5000 units/ml) 5,000 units EVERY 12 HOURS SUBQ 06/29/20 09:00 08/13/20 08:59 07/02/20 10:20 Insulin Aspart (NovoLOG) BEFORE MEALS AND HS SUBQ 06/29/20 06:30 09/27/20 06:29 07/02/20 11:58 Levothyroxine Sodium (Synthroid) 50 mcg ACBREAKFAST ORAL 07/01/20 06:30 07/29/20 06:29 07/02/20 06:27 Pantoprazole (Protonix) 40 mg Q12HR ORAL 06/29/20 21:00 07/29/20 11:29 07/02/20 10:17 Sennosides (Senokot) 8.6 mg BEDTIME ORAL 06/29/20 21:00 07/29/20 20:59 07/01/20 20:41 Vitamin B Complex/ Vit C/Folic Acid (Nephrovite) 1 tab DAILY ORAL 06/29/20 09:00 07/29/20 08:59 07/02/20 10:17 Assessment/Plan Problems: (1) Renal failure (ARF), acute on chronic (2) ACS (acute coronary syndrome) (3) Anemia (4) COVID-19 (5) ESRD (end stage renal disease) (6) Diabetic nephropathy Assessment/Plan doing better no new complains all reviewed respiratory treatment check electrolytes check electrolytes symptomatic treatment. dc planning soon Maria Elena Naidu MD Jul 02, 2020 12:12
--- NOTE | 2020-07-02 12:46 | NUR ---
CASE MANAGEMENT:REVIEW 07/02/20 SI: ACS. ANEMIA. ESRD 97.9 86 18 169/76 99% ON 4L/NC H/H-7.1/22.8 BUN+27 CR+4.1 IS: TRANSFUSE 1 UNIT PRBC'S IV ROCEPHIN Q24 AZITHROMYCIN PO QD EPOETIN SQ MWF SYNTHROID PO QM NORVASC PO QD PROTONIX PO Q12 HEPARIN SQ Q12 : TELEMETRY STATUS DCP: FROM HOME Addendum: 07/02/20 at 1301 by WES HEN PLAN: TITRATE OXYGEN
--- NOTE | 2020-07-02 13:09 | NUR ---
NURSE NOTES: 1 unit PRBC started, will monitor for adverse reactions. Consent secured in chart. Addendum: 07/02/20 at 1829 by Aide Rooney RN NURSE NOTES: BT ended at 1655, no adverse reactions noted.
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
[2020-07-02 16:00] VITALS: BP 163/99
--- NOTE | 2020-07-02 18:31 | NUR ---
NURSE HAND-OFF REPORT: Important Events on Shift:transfused 1 unit PRBC. Son requesting home O2 once discharged. Patient Status: stable Diet: cardiac renal Pending Orders: OB stool Pending Results/Labs: Pending MD notification: Latest Vital Signs: Temperature 97.7 , Pulse 85 , B/P 163 /99 , Respiratory Rate 18 , O2 SAT 100 , Nasal Cannula, O2 Flow Rate 2.5 . Vital Sign Comment: EKG Rhythm: SR with 1st deg HB Rhythm change?: Y MD Notified?: N - MD Response: MD aware of history Latest Alvarez Fall Score: 35 Fall Risk: Medium Risk Safety Measures: Call light Within Reach, Bed Alarm Zone 1, Side Rails Side Rails x2, Bed position Low and Locked. Fall Precautions: Yellow Socks Addendum: 07/02/20 at 1938 by Aide Rooney RN HAND-OFF: Report given to Snow POPE.
--- NOTE | 2020-07-02 19:30 | NUR ---
NURSE NOTES: Received pt and report from NIKO Noble. Observed pt resting in bed with both eyes open and watching television. Pt is A/Ox4. classroom monitor is in placed; pt is SR w/1st degree AVB. IV site intact, asymptomatic and patent. Pt is on 2.5L NC sating at 97%. Bed is in the lowest position, locked, and alarmed. Call light and bedside table is within reach. No signs/symptoms of acute distress noted at this time. Will continue plan of care
[2020-07-02 20:00] VITALS: BP 166/78
[2020-07-02] MEDS: Epoetin Alfa-EPBX(ESRD on dialysis)10,000 unit/ml vial SUBQ SCH (20:47)
[2020-07-02] MEDS: Sennosides 8.6mg tab ORAL SCH (20:47)
[2020-07-02 21:03] LABS: BASOPHILS % (AUTO) 1.2 % (0.0-2.0); EOSINOPHILS % (AUTO) 0.8 % (0.0-3.0); HEMATOCRIT 27.7 % (37.0-47.0); LYMPHOCYTES % (AUTO) 15.8 % (20.0-45.0); MEAN CORPUSCULAR VOLUME 90 FL (80-99); MONOCYTES % (AUTO) 4.9 % (1.0-10.0); NEUTROPHILS % (AUTO) 77.4 % (45.0-75.0); PLATELET COUNT 322 K/UL (150-450); RED BLOOD COUNT 3.08 M/UL (4.20-5.40); RED CELL DISTRIBUTION WIDTH 14.6 % (11.6-14.8); WHITE BLOOD COUNT 8.7 K/UL (4.8-10.8)
[2020-07-03] VITALS: BP 156/76
[2020-07-03 04:00] VITALS: BP 155/82
[2020-07-03] MEDS: NovoLOG Insulin Flexpen SUBQ SCH ×4 (06:19→20:25)
--- NOTE | 2020-07-03 07:50 | NUR ---
NURSE HAND-OFF REPORT: Important Events on Shift: No significant change during this shift Patient Status: Stable Diet: Cardiac, Renal Pending Results/Labs: AM labs Latest Vital Signs: Temperature 98.1 , Pulse 90 , B/P 155 /82 , Respiratory Rate 20 , O2 SAT 96 , Nasal Cannula, O2 Flow Rate 2.5 . Vital Sign Comment: [] EKG Rhythm: SR with 1st degree HB Rhythm change?: N Latest Alvarez Fall Score: 35 Fall Risk: Medium Risk Safety Measures: Call light Within Reach, Bed Alarm Zone 1, Side Rails Side Rails x2, Bed position Low and Locked. Fall Precautions: Yellow Socks Yellow Gown Door Sign Patient Fall Education Report given to NIKO Noble.
--- NOTE | 2020-07-03 07:55 | NUR ---
NURSE NOTES: Received patient in bed awake. O2 via NC at 4L in place, no SOB or acute distress. IV line intact. HD shunt on right arm, no bleeding or signs of infection. Still for OB stool collection, instructed and verbalized understanding. For HD today. HOB elevated. Bed locked in low position. Call light within reach. Will continue plan of care.
[2020-07-03 08:00] VITALS: BP 156/83
[2020-07-03 08:33] LABS: HEMATOCRIT 24.5 % (37.0-47.0); HEMOGLOBIN 7.9 G/DL (12.0-16.0); MEAN CORPUSCULAR VOLUME 89 FL (80-99); PLATELET COUNT 290 K/UL (150-450); RED BLOOD COUNT 2.75 M/UL (4.20-5.40); RED CELL DISTRIBUTION WIDTH 14.5 % (11.6-14.8); WHITE BLOOD COUNT 7.6 K/UL (4.8-10.8)
[2020-07-03 09:13] LABS: ALANINE AMINOTRANSFERASE 15 U/L (12-78); ALBUMIN 2.3 G/DL (3.4-5.0); ALBUMIN/GLOBULIN RATIO 0.6 (1.0-2.7); ALKALINE PHOSPHATASE 104 U/L (46-116); ANION GAP 8 mmol/L (5-15); ASPARTATE AMINO TRANSFERASE 7 U/L (15-37); BILIRUBIN,TOTAL 0.3 MG/DL (0.2-1.0); BLOOD UREA NITROGEN 42 mg/dL (7-18); CALCIUM 9.2 MG/DL (8.5-10.1); CARBON DIOXIDE 30 MMOL/L (21-32); CHLORIDE 95 MMOL/L (98-107); CREATININE 5.1 MG/DL (0.55-1.30); PHOSPHORUS 3.4 MG/DL (2.5-4.9); POTASSIUM 3.9 MMOL/L (3.5-5.1); SODIUM 133 MMOL/L (136-145)
[2020-07-03] MEDS: Azithromycin 250mg tab ORAL SCH (09:38)
[2020-07-03] MEDS: cefTRIAXone 1 GM in D5W 55 ML IVPB SCH (09:38)
[2020-07-03] MEDS: Nephrovite tab (Rena-Vite) ORAL SCH (09:38)
[2020-07-03] MEDS: Docusate 100mg cap ORAL SCH ×3 (09:38→17:06)
[2020-07-03] MEDS: Heparin 5000 units/ml inj SUBQ SCH ×2 (09:39→20:23)
--- NOTE | 2020-07-03 10:17 | Nephrology Progress Note ---
Assessment/Plan Problem List: (1) ESRD (end stage renal disease) (2) Diabetic nephropathy (3) Anemia (4) COVID-19 (5) PNA (pneumonia) (6) Electrolyte imbalance (7) Volume overload Plan July 03: Patient due for dialysis today. Hemoglobin remains low. Transfusion as needed. Continue per consultants. July 02: Patient was dialyzed yesterday. Today's labs reviewed. Hemoglobin is low. Will transfuse 1 unit of packed RBCs today. Will do dialysis tomorrow. July 01: Patient due for dialysis today. Labs reviewed. Continue per current management. June 30: Patient was dialyzed yesterday, hyponatremia resolved. Clinically improved. Will attempt dialysis tomorrow Subjective ROS Limited/Unobtainable: No Constitutional: Reports: malaise, weakness Objective Objective Last 24 Hour Vital Signs Date Time Temp Pulse Resp B/P (MAP) Pulse Ox O2 Delivery O2 Flow Rate FiO2 07/03/20 08:00 98.8 84 18 156/83 (107) 100 07/03/20 04:00 90 07/03/20 04:00 98.1 90 20 155/82 (106) 96 07/03/20 00:00 93 07/03/20 00:00 98.6 93 21 156/76 (102) 95 07/02/20 22:03 176/79 07/02/20 21:00 Nasal Cannula 2.5 07/02/20 20:00 98.2 92 20 166/78 (107) 97 07/02/20 20:00 92 07/02/20 16:52 163/99 07/02/20 16:00 85 07/02/20 16:00 97.7 86 18 163/99 (120) 100 07/02/20 13:00 Nasal Cannula 2.5 07/02/20 12:00 97.9 86 18 169/76 (107) 99 07/02/20 12:00 90 07/02/20 10:17 87 149/67 Intake and Output 07/02/20 07/03/20 19:00 07:00 Intake Total 445 ml 160 ml Balance 445 ml 160 ml Intake Oral 445 ml 160 ml # Voids 1 2 # Bowel Movements 2 Current Medications Medications (Trade) Dose Ordered Sig/Miguel Route PRN Reason Start Time Stop Time Status Last Admin Dose Admin Albuterol Sulfate (Proventil MDI) 2 puff Q6H PRN INH Shortness of Breath 06/29/20 19:15 09/27/20 19:14 06/30/20 19:12 Amlodipine Besylate (Norvasc) 10 mg DAILY ORAL 06/30/20 09:00 07/29/20 08:59 07/02/20 10:17 Aspirin (ASA) 325 mg DAILY ORAL 06/29/20 09:00 08/13/20 08:59 07/03/20 09:38 Atorvastatin Calcium (Lipitor) 40 mg BEFORE LUNCH ORAL 06/29/20 11:30 09/27/20 11:29 07/02/20 10:17 Azithromycin (Zithromax) 250 mg DAILY ORAL 06/29/20 09:00 07/06/20 08:59 07/03/20 09:38 Calcium Acetate (Phoslo) 667 mg BEFORE MEALS ORAL 06/29/20 06:30 09/27/20 06:29 07/03/20 06:04 Ceftriaxone Sodium 1 gm/ Dextrose 55 ml @ 110 mls/hr Q24H IVPB 06/29/20 09:00 07/06/20 08:59 07/03/20 09:38 Clonidine HCl (Catapres Tab) 0.1 mg Q4H PRN ORAL For High Blood Pressure 06/29/20 07:45 09/27/20 07:44 07/02/20 22:03 Dextrose (Dextrose 50%) 25 ml Q30M PRN IV Hypoglycemia 06/28/20 23:15 09/26/20 23:14 Dextrose (Dextrose 50%) 50 ml Q30M PRN IV Hypoglycemia 06/28/20 23:15 09/26/20 23:14 Docusate Sodium (Colace) 100 mg TID ORAL 06/29/20 13:00 07/29/20 08:59 07/03/20 09:38 Epoetin Armando (Epoetin Armando(ESRD on dialysis)) 10,000 unit THU-THU-THU SUBQ 07/02/20 21:00 09/30/20 20:59 07/02/20 20:47 Heparin Sodium (Porcine) (Heparin 5000 units/ml) 5,000 units EVERY 12 HOURS SUBQ 06/29/20 09:00 08/13/20 08:59 07/03/20 09:39 Insulin Aspart (NovoLOG) BEFORE MEALS AND HS SUBQ 06/29/20 06:30 09/27/20 06:29 07/03/20 06:19 Levothyroxine Sodium (Synthroid) 50 mcg ACBREAKFAST ORAL 07/01/20 06:30 07/29/20 06:29 07/03/20 06:04 Pantoprazole (Protonix) 40 mg Q12HR ORAL 06/29/20 21:00 07/29/20 11:29 07/03/20 09:38 Sennosides (Senokot) 8.6 mg BEDTIME ORAL 06/29/20 21:00 07/29/20 20:59 07/02/20 20:47 Vitamin B Complex/ Vit C/Folic Acid (Nephrovite) 1 tab DAILY ORAL 06/29/20 09:00 07/29/20 08:59 07/03/20 09:38 Laboratory Tests 07/02/20 20:45: White Blood Count 8.7, Red Blood Count 3.08L, Hemoglobin 9.0L, Hematocrit 27.7L , Mean Corpuscular Volume 90, Mean Corpuscular Hemoglobin 29.1, Mean Corpuscular Hemoglobin Concent 32.4, Red Cell Distribution Width 14.6, Platelet Count 322, Mean Platelet Volume 5.3L, Neutrophils (%) (Auto) 77.4H, Lymphocytes (%) (Auto) 15.8L, Monocytes (%) (Auto) 4.9, Eosinophils (%) (Auto) 0.8, Basophils (%) (Auto) 1.2 07/03/20 06:08: POC Whole Blood Glucose [Pending] 07/03/20 07:35: White Blood Count 7.6, Red Blood Count 2.75L, Hemoglobin 7.9L, Hematocrit 24.5L , Mean Corpuscular Volume 89, Mean Corpuscular Hemoglobin 28.8, Mean Corpuscular Hemoglobin Concent 32.4, Red Cell Distribution Width 14.5, Platelet Count 290, Mean Platelet Volume 5.0L, Neutrophils (%) (Auto) , Lymphocytes (%) ( Auto) , Monocytes (%) (Auto) , Eosinophils (%) (Auto) , Basophils (%) (Auto) , Differential Total Cells Counted 100, Neutrophils % (Manual) 74, Lymphocytes % ( Manual) 15L, Monocytes % (Manual) 8, Eosinophils % (Manual) 2, Basophils % ( Manual) 1, Band Neutrophils 0, Platelet Estimate Adequate, Platelet Morphology Normal, Hypochromasia 1+, Microcytosis 1+, Sodium Level 133L, Potassium Level 3.9, Chloride Level 95L, Carbon Dioxide Level 30, Anion Gap 8, Blood Urea Nitrogen 42H, Creatinine 5.1H, Estimat Glomerular Filtration Rate 8.8, Glucose Level 241H, Calcium Level 9.2, Phosphorus Level 3.4, Total Bilirubin 0.3, Aspartate Amino Transf (AST/SGOT) 7L, Alanine Aminotransferase (ALT/SGPT) 15, Alkaline Phosphatase 104, C-Reactive Protein, Quantitative 7.5H, Pro-B-Type Natriuretic Peptide 70642U, Total Protein 6.0L, Albumin 2.3L, Globulin 3.7, Albumin/Globulin Ratio 0.6L Height (Feet): 5 Height (Inches): 4.00 Weight (Pounds): 201 General Appearance: lethargic Cardiovascular: tachycardia Respiratory/Chest: decreased breath sounds Abdomen: distended Lito Frank MD Jul 03, 2020 10:17
--- NOTE | 2020-07-03 11:00 | NUR ---
NURSE NOTES: Patient noted with scattered red spots on bilateral upper and lower extremities, lower > upper. Wound nurse made aware, will make her rounds today. Addendum: 07/03/20 at 1116 by Aide Rooney RN NURSE NOTES: Wound nurse suggesting ID consult for skin rashes, says may be covid related. Dr Naidu made aware, awaiting orders for ID consult.
--- NOTE | 2020-07-03 11:01 | NUR ---
NURSE NOTES: RN tried to titrated O2 from 4L to 3L but patient refused. Said she couldn't tolerate any lower than 4L. Alyssa made aware, said will talk to patient later today.
[2020-07-03] MEDS: Atorvastatin 20mg tab ORAL SCH (11:20)
[2020-07-03 12:00] VITALS: BP 164/70
--- NOTE | 2020-07-03 12:21 | Pulmonology Progress Note ---
Subjective ROS Limited/Unobtainable: No Interval Events: doing better Constitutional: Reports: no symptoms HEENT: Repors: no symptoms Allergies: Coded Allergies: No Known Allergies (Verified Allergy, Unknown, 02/17/11) Objective Last 24 Hour Vital Signs Date Time Temp Pulse Resp B/P (MAP) Pulse Ox O2 Delivery O2 Flow Rate FiO2 07/03/20 09:00 Nasal Cannula 4.0 07/03/20 08:00 98.8 84 18 156/83 (107) 100 07/03/20 08:00 86 07/03/20 04:00 90 07/03/20 04:00 98.1 90 20 155/82 (106) 96 07/03/20 00:00 93 07/03/20 00:00 98.6 93 21 156/76 (102) 95 07/02/20 22:03 176/79 07/02/20 21:00 Nasal Cannula 2.5 07/02/20 20:00 98.2 92 20 166/78 (107) 97 07/02/20 20:00 92 07/02/20 16:52 163/99 07/02/20 16:00 85 07/02/20 16:00 97.7 86 18 163/99 (120) 100 07/02/20 13:00 Nasal Cannula 2.5 Intake and Output 07/02/20 07/03/20 19:00 07:00 Intake Total 445 ml 160 ml Balance 445 ml 160 ml Intake Oral 445 ml 160 ml # Voids 1 2 # Bowel Movements 2 General Appearance: WD/WN, no acute distress HEENT: normocephalic, atraumatic Respiratory: chest wall non-tender, lungs clear Breasts: no masses Cardiovascular: normal peripheral pulses Abdomen: normal bowel sounds, soft, non tender Extremities: no clubbing Skin: no rash 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 Laboratory Tests 07/02/20 20:45: White Blood Count 8.7, Red Blood Count 3.08L, Hemoglobin 9.0L, Hematocrit 27.7L , Mean Corpuscular Volume 90, Mean Corpuscular Hemoglobin 29.1, Mean Corpuscular Hemoglobin Concent 32.4, Red Cell Distribution Width 14.6, Platelet Count 322, Mean Platelet Volume 5.3L, Neutrophils (%) (Auto) 77.4H, Lymphocytes (%) (Auto) 15.8L, Monocytes (%) (Auto) 4.9, Eosinophils (%) (Auto) 0.8, Basophils (%) (Auto) 1.2 07/03/20 06:08: POC Whole Blood Glucose [Pending] 07/03/20 07:35: White Blood Count 7.6, Red Blood Count 2.75L, Hemoglobin 7.9L, Hematocrit 24.5L , Mean Corpuscular Volume 89, Mean Corpuscular Hemoglobin 28.8, Mean Corpuscular Hemoglobin Concent 32.4, Red Cell Distribution Width 14.5, Platelet Count 290, Mean Platelet Volume 5.0L, Neutrophils (%) (Auto) , Lymphocytes (%) ( Auto) , Monocytes (%) (Auto) , Eosinophils (%) (Auto) , Basophils (%) (Auto) , Differential Total Cells Counted 100, Neutrophils % (Manual) 74, Lymphocytes % ( Manual) 15L, Monocytes % (Manual) 8, Eosinophils % (Manual) 2, Basophils % ( Manual) 1, Band Neutrophils 0, Platelet Estimate Adequate, Platelet Morphology Normal, Hypochromasia 1+, Microcytosis 1+, Sodium Level 133L, Potassium Level 3.9, Chloride Level 95L, Carbon Dioxide Level 30, Anion Gap 8, Blood Urea Nitrogen 42H, Creatinine 5.1H, Estimat Glomerular Filtration Rate 8.8, Glucose Level 241H, Calcium Level 9.2, Phosphorus Level 3.4, Total Bilirubin 0.3, Aspartate Amino Transf (AST/SGOT) 7L, Alanine Aminotransferase (ALT/SGPT) 15, Alkaline Phosphatase 104, C-Reactive Protein, Quantitative 7.5H, Pro-B-Type Natriuretic Peptide [id number], Total Protein 6.0L, Albumin 2.3L, Globulin 3.7, Albumin/Globulin Ratio 0.6L 07/03/20 11:25: POC Whole Blood Glucose [Pending] Current Medications Medications (Trade) Dose Ordered Sig/Miguel Route PRN Reason Start Time Stop Time Status Last Admin Dose Admin Albuterol Sulfate (Proventil MDI) 2 puff Q6H PRN INH Shortness of Breath 06/29/20 19:15 09/27/20 19:14 06/30/20 19:12 Amlodipine Besylate (Norvasc) 10 mg DAILY ORAL 06/30/20 09:00 07/29/20 08:59 07/02/20 10:17 Aspirin (ASA) 325 mg DAILY ORAL 06/29/20 09:00 08/13/20 08:59 07/03/20 09:38 Atorvastatin Calcium (Lipitor) 40 mg BEFORE LUNCH ORAL 06/29/20 11:30 09/27/20 11:29 07/03/20 11:20 Azithromycin (Zithromax) 250 mg DAILY ORAL 06/29/20 09:00 07/06/20 08:59 07/03/20 09:38 Calcium Acetate (Phoslo) 667 mg BEFORE MEALS ORAL 06/29/20 06:30 09/27/20 06:29 07/03/20 11:19 Ceftriaxone Sodium 1 gm/ Dextrose 55 ml @ 110 mls/hr Q24H IVPB 06/29/20 09:00 07/06/20 08:59 07/03/20 09:38 Clonidine HCl (Catapres Tab) 0.1 mg Q4H PRN ORAL For High Blood Pressure 06/29/20 07:45 09/27/20 07:44 07/02/20 22:03 Dextrose (Dextrose 50%) 25 ml Q30M PRN IV Hypoglycemia 06/28/20 23:15 09/26/20 23:14 Dextrose (Dextrose 50%) 50 ml Q30M PRN IV Hypoglycemia 06/28/20 23:15 09/26/20 23:14 Docusate Sodium (Colace) 100 mg TID ORAL 06/29/20 13:00 07/29/20 08:59 07/03/20 12:16 Epoetin Armando (Epoetin Armando(ESRD on dialysis)) 10,000 unit THU-THU-THU SUBQ 07/02/20 21:00 09/30/20 20:59 07/02/20 20:47 Heparin Sodium (Porcine) (Heparin 5000 units/ml) 5,000 units EVERY 12 HOURS SUBQ 06/29/20 09:00 08/13/20 08:59 07/03/20 09:39 Insulin Aspart (NovoLOG) BEFORE MEALS AND HS SUBQ 06/29/20 06:30 09/27/20 06:29 07/03/20 12:19 Levothyroxine Sodium (Synthroid) 50 mcg ACBREAKFAST ORAL 07/01/20 06:30 07/29/20 06:29 07/03/20 06:04 Pantoprazole (Protonix) 40 mg Q12HR ORAL 06/29/20 21:00 07/29/20 11:29 07/03/20 09:38 Sennosides (Senokot) 8.6 mg BEDTIME ORAL 06/29/20 21:00 07/29/20 20:59 07/02/20 20:47 Vitamin B Complex/ Vit C/Folic Acid (Nephrovite) 1 tab DAILY ORAL 06/29/20 09:00 07/29/20 08:59 07/03/20 09:38 Assessment/Plan Problems: (1) Renal failure (ARF), acute on chronic (2) ACS (acute coronary syndrome) (3) Anemia (4) COVID-19 (5) ESRD (end stage renal disease) (6) Diabetic nephropathy Assessment/Plan s/p prbc yesterday doing better no new complains all reviewed respiratory treatment check electrolytes check electrolytes symptomatic treatment. dc planning soon Maria Elena Naidu MD Jul 03, 2020 12:21
--- NOTE | 2020-07-03 14:50 | Consultation ---
History of Present Illness General Date patient seen: Jul 03, 2020 Present Illness HPI 54 y/o F with hx of hypothryoidism, pHTN, Hep C ab + w/ neg viral load, obesity , s/p cholecystectomy, s/p cataract surgery, HLD, ESRD on HD, Dm2, HTN, CHF, recent COVID19 c/w acute hypoxic resp failure requiring intubation is [place] [facility] [place] with 3 days of SOB and hypoxia (72% at RA) which improved with 2-3 L NC. Was also noted to have drop of Hgb from 8.3 to 6.6 and hyponatremia to 125. Allergies: Coded Allergies: No Known Allergies (Verified Allergy, Unknown, 02/17/11) Medication History Scheduled Albuterol Sulfate* (Albuterol Sulfate Hfa*), 2 PUFF INH NEEDED, (Reported) Allopurinol* (Allopurinol*), 300 MG ORAL DAILY Amlodipine Besylate (Norvasc), 5 MG ORAL BID Amlodipine Besylate* (Amlodipine Besylate*), 10 MG ORAL DAILY, (Reported) Aspirin* (Aspirin*), 81 MG ORAL DAILY, (Reported) Aspirin* (Aspirin*), 325 MG ORAL DAILY Aspirin* (Aspirin*), 325 MG ORAL DAILY, (Reported) Atorvastatin Calcium* (Lipitor*), 40 MG ORAL BEDTIME, (Reported) Atorvastatin Calcium* (Atorvastatin Calcium*), 40 MG ORAL BEFORE LUNCH, ( Reported) Azithromycin* (Zithromax*), 250 MG ORAL DAILY, (Reported) Calcium Acetate (Calcium Acetate), 667 MG PO AC, (Reported) Cefdinir (Cefdinir), 300 MG PO BID, (Reported) Docusate Sodium* (Docusate Sodium*), 100 MG ORAL TWICE A DAY, (Reported) Ferrous Sulfate* (Ferrous Sulfate*), 325 MG ORAL TWICE A DAY, (Reported) Furosemide* (Lasix*), 80 MG ORAL BID Glipizide* (Glipizide*), 5 MG ORAL BIDAC, (Reported) Glipizide* (Glipizide*), 5 MG ORAL BIDAC, (Reported) Insulin Glargine (Lantus), Unknown Dose SUBQ BEDTIME, (Reported) Lactobacillus Rhamnosus Gg (Culturelle), 1 EACH PO BID, (Reported) Levothyroxine Sodium* (Synthroid*), 50 MCG ORAL DAILY, (Reported) Levothyroxine Sodium* (Synthroid*), 25 MCG ORAL DAILY, (Reported) Metoprolol Succinate* (Metoprolol Succinate*), 25 MG ORAL DAILY Pantoprazole* (Pantoprazole*), 40 MG ORAL BEFORE LUNCH, (Reported) Sennosides (Senna), 8.6 MG PO BEDTIME, (Reported) Vitamin B Cmplx/Vit C/Folic AC (Nephro-Kristel Tablet), 1 TAB ORAL DAILY, (Reported ) Vitamin D (Vitamin D3), 1,000 UNITS ORAL DAILY, (Reported) Miscellaneous Medications Ferrous Sulfate (Iron), 325 MG PO, (Reported) Insulin Lispro (Humalog Kwikpen), Unknown Dose SQ, (Reported) Isosorbide Mononitrate (Isosorbide Mononitrate), 60 MG PO, (Reported) Patient History Healthcare decision maker Resuscitation status Advanced Directive on File Patient History Narrative Pmhx: as above Shx: She does not smoke, drink, and use drugs. The patient is and lives at home with her family. Fhx: non contributory Review of Systems All Other Systems: negative except mentioned in HPI Physical Exam Physical Exam Narrative GENERAL: The patient is well-developed and well-nourished female, in moderate respiratory distress. HEENT: Eyes, pupils are equal and responsive to light and accommodation. Extraocular movements are intact. NECK: Supple without lymphadenopathy. CHEST: Lungs are clear to auscultation bilaterally without wheezes or rales. CARDIOVASCULAR: Regular rhythm and rate. S1 and S2 are normal without murmurs, rubs, or gallops. ABDOMEN: Soft, nontender, nondistended. Positive bowel sounds. No evidence of hepatosplenomegaly. Currently, no rebound or guarding noted. EXTREMITIES: Negative for clubbing, cyanosis, or edema. Last 24 Hour Vital Signs Date Time Temp Pulse Resp B/P (MAP) Pulse Ox O2 Delivery O2 Flow Rate FiO2 07/03/20 13:00 Nasal Cannula 4.0 07/03/20 12:00 98.2 91 18 164/70 (101) 100 07/03/20 09:00 Nasal Cannula 4.0 07/03/20 08:00 98.8 84 18 156/83 (107) 100 07/03/20 08:00 86 07/03/20 04:00 90 07/03/20 04:00 98.1 90 20 155/82 (106) 96 07/03/20 00:00 93 07/03/20 00:00 98.6 93 21 156/76 (102) 95 07/02/20 22:03 176/79 07/02/20 21:00 Nasal Cannula 2.5 07/02/20 20:00 98.2 92 20 166/78 (107) 97 07/02/20 20:00 92 07/02/20 16:52 163/99 07/02/20 16:00 85 07/02/20 16:00 97.7 86 18 163/99 (120) 100 Intake and Output 07/02/20 07/03/20 19:00 07:00 Intake Total 445 ml 160 ml Balance 445 ml 160 ml Intake Oral 445 ml 160 ml # Voids 1 2 # Bowel Movements 2 Laboratory Tests Test 07/02/20 20:45 07/03/20 06:08 07/03/20 07:35 07/03/20 11:25 White Blood Count 8.7 K/UL (4.8-10.8) 7.6 K/UL (4.8-10.8) Red Blood Count 3.08 M/UL (4.20-5.40) L 2.75 M/UL (4.20-5.40) L Hemoglobin 9.0 G/DL (12.0-16.0) L 7.9 G/DL (12.0-16.0) L Hematocrit 27.7 % (37.0-47.0) L 24.5 % (37.0-47.0) L Mean Corpuscular Volume 90 FL (80-99) 89 FL (80-99) Mean Corpuscular Hemoglobin 29.1 PG (27.0-31.0) 28.8 PG (27.0-31.0) Mean Corpuscular Hemoglobin Concent 32.4 G/DL (32.0-36.0) 32.4 G/DL (32.0-36.0) Red Cell Distribution Width 14.6 % (11.6-14.8) 14.5 % (11.6-14.8) Platelet Count 322 K/UL (150-450) 290 K/UL (150-450) Mean Platelet Volume 5.3 FL (6.5-10.1) L 5.0 FL (6.5-10.1) L Neutrophils (%) (Auto) 77.4 % (45.0-75.0) H % (45.0-75.0) Lymphocytes (%) (Auto) 15.8 % (20.0-45.0) L % (20.0-45.0) Monocytes (%) (Auto) 4.9 % (1.0-10.0) % (1.0-10.0) Eosinophils (%) (Auto) 0.8 % (0.0-3.0) % (0.0-3.0) Basophils (%) (Auto) 1.2 % (0.0-2.0) % (0.0-2.0) POC Whole Blood Glucose Pending Pending Differential Total Cells Counted 100 Neutrophils % (Manual) 74 % (45-75) Lymphocytes % (Manual) 15 % (20-45) L Monocytes % (Manual) 8 % (1-10) Eosinophils % (Manual) 2 % (0-3) Basophils % (Manual) 1 % (0-2) Band Neutrophils 0 % (0-8) Platelet Estimate Adequate Platelet Morphology Normal Hypochromasia 1+ Microcytosis 1+ Sodium Level 133 MMOL/L (136-145) L Potassium Level 3.9 MMOL/L (3.5-5.1) Chloride Level 95 MMOL/L (98-107) L Carbon Dioxide Level 30 MMOL/L (21-32) Anion Gap 8 mmol/L (5-15) Blood Urea Nitrogen 42 mg/dL (7-18) H Creatinine 5.1 MG/DL (0.55-1.30) H Estimat Glomerular Filtration Rate 8.8 mL/min (>60) Glucose Level 241 MG/DL (74-106) H Calcium Level 9.2 MG/DL (8.5-10.1) Phosphorus Level 3.4 MG/DL (2.5-4.9) Total Bilirubin 0.3 MG/DL (0.2-1.0) Aspartate Amino Transf (AST/SGOT) 7 U/L (15-37) L Alanine Aminotransferase (ALT/SGPT) 15 U/L (12-78) Alkaline Phosphatase 104 U/L (46-116) C-Reactive Protein, Quantitative 7.5 mg/dL (0.00-0.90) H Pro-B-Type Natriuretic Peptide 17956 pg/mL (0-125) H Total Protein 6.0 G/DL (6.4-8.2) L Albumin 2.3 G/DL (3.4-5.0) L Globulin 3.7 g/dL Albumin/Globulin Ratio 0.6 (1.0-2.7) L Height (Feet): 5 Height (Inches): 4.00 Weight (Pounds): 201 Medications Current Medications Medications (Trade) Dose Ordered Sig/Miguel Route PRN Reason Start Time Stop Time Status Last Admin Dose Admin Albuterol Sulfate (Proventil MDI) 2 puff Q6H PRN INH Shortness of Breath 06/29/20 19:15 09/27/20 19:14 06/30/20 19:12 Amlodipine Besylate (Norvasc) 10 mg DAILY ORAL 06/30/20 09:00 07/29/20 08:59 07/02/20 10:17 Aspirin (ASA) 325 mg DAILY ORAL 06/29/20 09:00 08/13/20 08:59 07/03/20 09:38 Atorvastatin Calcium (Lipitor) 40 mg BEFORE LUNCH ORAL 06/29/20 11:30 09/27/20 11:29 07/03/20 11:20 Azithromycin (Zithromax) 250 mg DAILY ORAL 06/29/20 09:00 07/06/20 08:59 07/03/20 09:38 Calcium Acetate (Phoslo) 667 mg BEFORE MEALS ORAL 06/29/20 06:30 09/27/20 06:29 07/03/20 11:19 Ceftriaxone Sodium 1 gm/ Dextrose 55 ml @ 110 mls/hr Q24H IVPB 06/29/20 09:00 07/06/20 08:59 07/03/20 09:38 Clonidine HCl (Catapres Tab) 0.1 mg Q4H PRN ORAL For High Blood Pressure 06/29/20 07:45 09/27/20 07:44 07/02/20 22:03 Dextrose (Dextrose 50%) 25 ml Q30M PRN IV Hypoglycemia 06/28/20 23:15 09/26/20 23:14 Dextrose (Dextrose 50%) 50 ml Q30M PRN IV Hypoglycemia 06/28/20 23:15 09/26/20 23:14 Docusate Sodium (Colace) 100 mg TID ORAL 06/29/20 13:00 07/29/20 08:59 07/03/20 12:16 Epoetin Armando (Epoetin Armando(ESRD on dialysis)) 10,000 unit THU-THU-THU SUBQ 07/02/20 21:00 09/30/20 20:59 07/02/20 20:47 Heparin Sodium (Porcine) (Heparin 5000 units/ml) 5,000 units EVERY 12 HOURS SUBQ 06/29/20 09:00 08/13/20 08:59 07/03/20 09:39 Insulin Aspart (NovoLOG) BEFORE MEALS AND HS SUBQ 06/29/20 06:30 09/27/20 06:29 07/03/20 12:19 Levothyroxine Sodium (Synthroid) 50 mcg ACBREAKFAST ORAL 07/01/20 06:30 07/29/20 06:29 07/03/20 06:04 Pantoprazole (Protonix) 40 mg Q12HR ORAL 06/29/20 21:00 07/29/20 11:29 07/03/20 09:38 Sennosides (Senokot) 8.6 mg BEDTIME ORAL 06/29/20 21:00 07/29/20 20:59 07/02/20 20:47 Vitamin B Complex/ Vit C/Folic Acid (Nephrovite) 1 tab DAILY ORAL 06/29/20 09:00 07/29/20 08:59 07/03/20 09:38 Assessment/Plan Assessment/Plan: Abx: Ceftriaxone 06/29- Azithromycin 06/29- Assessment: Afebrile No leukocytosis Acute hypoxic resp failure, recurrent - on 4l nC Pneumonia- likely superimposed bacterial -06/29 CXR: Diffuse bilateral alveolar densities, infiltrates and/or edema. recent COVID19 c/w acute hypoxic resp failure requiring intubation -admitted at [facility] Pyuria/bacteriuria- assymptomatic -u/a wbc 10-15, nit neg, leuk +2; ucx 30-40k VRE (S linezolid, macrobid); colonizer hypothryoidism pHTN Hep C ab + w/ neg viral load obesity s/p cholecystectomy s/p cataract surgery HLD ESRD on HD Dm2 HTN CHF Plan: -Continue empiric Ceftriaxone #4/5-7 and Azithromycin #4/5 -f/u cx -Monitor CBC/CMP, temperatures -sp cx, legionella ag urine -CXR am Thank you for this consultation. Will continue to follow along with you. Discussed with NIKO. Harper Huffman M.D. Jul 03, 2020 14:50
--- NOTE | 2020-07-03 15:45 | NUR ---
NURSE NOTES: Hgb 7.9, bnp [id number], Dr Evangelista santana, for CBC in AM.
[2020-07-03 16:00] VITALS: BP 137/60
--- NOTE | 2020-07-03 18:18 | Internal Med Progress Note ---
Subjective Date of Service: Jul 03, 2020 Physician Name Kareem Fajardo Attending Physician Pierre Childs MD Current Medications Medications (Trade) Dose Ordered Sig/Miguel Route PRN Reason Start Time Stop Time Status Last Admin Dose Admin Albuterol Sulfate (Proventil MDI) 2 puff Q6H PRN INH Shortness of Breath 06/29/20 19:15 09/27/20 19:14 06/30/20 19:12 Amlodipine Besylate (Norvasc) 10 mg DAILY ORAL 06/30/20 09:00 07/29/20 08:59 07/02/20 10:17 Aspirin (ASA) 325 mg DAILY ORAL 06/29/20 09:00 08/13/20 08:59 07/03/20 09:38 Atorvastatin Calcium (Lipitor) 40 mg BEFORE LUNCH ORAL 06/29/20 11:30 09/27/20 11:29 07/03/20 11:20 Azithromycin (Zithromax) 250 mg DAILY ORAL 06/29/20 09:00 07/06/20 08:59 07/03/20 09:38 Calcium Acetate (Phoslo) 667 mg BEFORE MEALS ORAL 06/29/20 06:30 09/27/20 06:29 07/03/20 16:51 Ceftriaxone Sodium 1 gm/ Dextrose 55 ml @ 110 mls/hr Q24H IVPB 06/29/20 09:00 07/06/20 08:59 07/03/20 09:38 Clonidine HCl (Catapres Tab) 0.1 mg Q4H PRN ORAL For High Blood Pressure 06/29/20 07:45 09/27/20 07:44 07/02/20 22:03 Dextrose (Dextrose 50%) 25 ml Q30M PRN IV Hypoglycemia 06/28/20 23:15 09/26/20 23:14 Dextrose (Dextrose 50%) 50 ml Q30M PRN IV Hypoglycemia 06/28/20 23:15 09/26/20 23:14 Docusate Sodium (Colace) 100 mg TID ORAL 06/29/20 13:00 07/29/20 08:59 07/03/20 17:06 Epoetin Armando (Epoetin Armando(ESRD on dialysis)) 10,000 unit THU-THU-THU SUBQ 07/02/20 21:00 09/30/20 20:59 07/02/20 20:47 Heparin Sodium (Porcine) (Heparin 5000 units/ml) 5,000 units EVERY 12 HOURS SUBQ 06/29/20 09:00 08/13/20 08:59 07/03/20 09:39 Insulin Aspart (NovoLOG) BEFORE MEALS AND HS SUBQ 06/29/20 06:30 09/27/20 06:29 07/03/20 17:05 Levothyroxine Sodium (Synthroid) 50 mcg ACBREAKFAST ORAL 07/01/20 06:30 07/29/20 06:29 07/03/20 06:04 Pantoprazole (Protonix) 40 mg Q12HR ORAL 06/29/20 21:00 07/29/20 11:29 07/03/20 09:38 Sennosides (Senokot) 8.6 mg BEDTIME ORAL 06/29/20 21:00 07/29/20 20:59 07/02/20 20:47 Vitamin B Complex/ Vit C/Folic Acid (Nephrovite) 1 tab DAILY ORAL 06/29/20 09:00 07/29/20 08:59 07/03/20 09:38 Allergies: Coded Allergies: No Known Allergies (Verified Allergy, Unknown, 02/17/11) ROS Limited/Unobtainable: No Constitutional: Reports: no symptoms HEENT: Reports: no symptoms Cardiovascular: Reports: no symptoms Respiratory: Reports: shortness of breath Gastrointestinal/Abdominal: Reports: no symptoms Genitourinary: Reports: no symptoms Neurologic/Psychiatric: Reports: no symptoms Subjective 54 YO F admitted with shortness of breath. Now COVID 19 pneumonia. Cover for Int Gurmeet-Dr Childs Objective Last Vital Signs Date Time Temp Pulse Resp B/P (MAP) Pulse Ox O2 Delivery O2 Flow Rate FiO2 07/03/20 16:00 98.6 74 18 137/60 (85) 100 07/03/20 09:00 Nasal Cannula 4.0 Laboratory Tests Test 07/02/20 20:45 07/03/20 06:08 07/03/20 07:35 07/03/20 11:25 White Blood Count 8.7 K/UL (4.8-10.8) 7.6 K/UL (4.8-10.8) Red Blood Count 3.08 M/UL (4.20-5.40) L 2.75 M/UL (4.20-5.40) L Hemoglobin 9.0 G/DL (12.0-16.0) L 7.9 G/DL (12.0-16.0) L Hematocrit 27.7 % (37.0-47.0) L 24.5 % (37.0-47.0) L Mean Corpuscular Volume 90 FL (80-99) 89 FL (80-99) Mean Corpuscular Hemoglobin 29.1 PG (27.0-31.0) 28.8 PG (27.0-31.0) Mean Corpuscular Hemoglobin Concent 32.4 G/DL (32.0-36.0) 32.4 G/DL (32.0-36.0) Red Cell Distribution Width 14.6 % (11.6-14.8) 14.5 % (11.6-14.8) Platelet Count 322 K/UL (150-450) 290 K/UL (150-450) Mean Platelet Volume 5.3 FL (6.5-10.1) L 5.0 FL (6.5-10.1) L Neutrophils (%) (Auto) 77.4 % (45.0-75.0) H % (45.0-75.0) Lymphocytes (%) (Auto) 15.8 % (20.0-45.0) L % (20.0-45.0) Monocytes (%) (Auto) 4.9 % (1.0-10.0) % (1.0-10.0) Eosinophils (%) (Auto) 0.8 % (0.0-3.0) % (0.0-3.0) Basophils (%) (Auto) 1.2 % (0.0-2.0) % (0.0-2.0) POC Whole Blood Glucose Pending Pending Differential Total Cells Counted 100 Neutrophils % (Manual) 74 % (45-75) Lymphocytes % (Manual) 15 % (20-45) L Monocytes % (Manual) 8 % (1-10) Eosinophils % (Manual) 2 % (0-3) Basophils % (Manual) 1 % (0-2) Band Neutrophils 0 % (0-8) Platelet Estimate Adequate Platelet Morphology Normal Hypochromasia 1+ Microcytosis 1+ Sodium Level 133 MMOL/L (136-145) L Potassium Level 3.9 MMOL/L (3.5-5.1) Chloride Level 95 MMOL/L (98-107) L Carbon Dioxide Level 30 MMOL/L (21-32) Anion Gap 8 mmol/L (5-15) Blood Urea Nitrogen 42 mg/dL (7-18) H Creatinine 5.1 MG/DL (0.55-1.30) H Estimat Glomerular Filtration Rate 8.8 mL/min (>60) Glucose Level 241 MG/DL (74-106) H Calcium Level 9.2 MG/DL (8.5-10.1) Phosphorus Level 3.4 MG/DL (2.5-4.9) Total Bilirubin 0.3 MG/DL (0.2-1.0) Aspartate Amino Transf (AST/SGOT) 7 U/L (15-37) L Alanine Aminotransferase (ALT/SGPT) 15 U/L (12-78) Alkaline Phosphatase 104 U/L (46-116) C-Reactive Protein, Quantitative 7.5 mg/dL (0.00-0.90) H Pro-B-Type Natriuretic Peptide 15591 pg/mL (0-125) H Total Protein 6.0 G/DL (6.4-8.2) L Albumin 2.3 G/DL (3.4-5.0) L Globulin 3.7 g/dL Albumin/Globulin Ratio 0.6 (1.0-2.7) L Test 07/03/20 16:55 POC Whole Blood Glucose Pending Intake and Output 07/02/20 07/03/20 19:00 07:00 Intake Total 445 ml 160 ml Balance 445 ml 160 ml Intake Oral 445 ml 160 ml # Voids 1 2 # Bowel Movements 2 Objective General Appearance: WD/WN, no apparent distress, moderate distress EENT: PERRL/EOMI, normal ENT inspection Neck: non-tender, normal alignment, supple, normal inspection Cardiovascular: normal peripheral pulses, normal rate, regular rhythm, no gallop/murmur, no JVD Respiratory/Chest: respiratory distress, decreased breath sounds, crackles/ rales, rhonchi - bilaterally, expiratory wheezing Abdomen: normal bowel sounds, non tender, soft, no organomegaly, no mass Extremities: normal range of motion, non-tender Neurologic: finisher polisher II-XII 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 Continue oral azithromycin and ceftriaxone IV (7) ESRD (end stage renal disease) Assessment & Plan: Nephrology=Dr Frank. Hemodialysis 07/03/20 (8) Anemia Assessment & Plan: Transfuse 1 unit PRBC 07/02/20. (9) Acute respiratory failure Kareem Fajardo MD Jul 03, 2020 18:18
--- NOTE | 2020-07-03 18:33 | Cardiology Progress Note ---
Assessment/Plan Assessment/Plan 1. Respiratory discomfort, possibly pneumonia. 2. Recent COVID infection. 3. Hyperglycemia. 4. Recent mucosal candidiasis. 5. Intermittent stridor history. 6. End-stage renal disease, on hemodialysis. 7. Diabetes mellitus. 8. History of diastolic heart failure. 9. Hypothyroidism needing 4 l nc trop neg tele sinus no vt no svt no pausses no sig cv abn at this time ecdho noted normal lv fucntion id now follwoing Subjective Subjective patient in bed awake. O2 via NC at 4L in place, no SOB or acute distress. IV line intact. HD shunt on right arm, no bleeding or signs of infection. Still for OB stool collection, instructed and verbalized understanding. For HD today. HOB elevated. Objective Last 24 Hour Vital Signs Date Time Temp Pulse Resp B/P (MAP) Pulse Ox O2 Delivery O2 Flow Rate FiO2 07/03/20 16:00 98.6 74 18 137/60 (85) 100 07/03/20 12:00 86 07/03/20 12:00 98.2 91 18 164/70 (101) 100 07/03/20 09:00 Nasal Cannula 4.0 07/03/20 08:00 98.8 84 18 156/83 (107) 100 07/03/20 08:00 86 07/03/20 04:00 90 07/03/20 04:00 98.1 90 20 155/82 (106) 96 07/03/20 00:00 93 07/03/20 00:00 98.6 93 21 156/76 (102) 95 07/02/20 22:03 176/79 07/02/20 21:00 Nasal Cannula 2.5 07/02/20 20:00 98.2 92 20 166/78 (107) 97 07/02/20 20:00 92 Intake and Output 07/02/20 07/03/20 19:00 07:00 Intake Total 445 ml 160 ml Balance 445 ml 160 ml Intake Oral 445 ml 160 ml # Voids 1 2 # Bowel Movements 2 Laboratory Tests Test 07/02/20 20:45 07/03/20 06:08 07/03/20 07:35 07/03/20 11:25 White Blood Count 8.7 K/UL (4.8-10.8) 7.6 K/UL (4.8-10.8) Red Blood Count 3.08 M/UL (4.20-5.40) L 2.75 M/UL (4.20-5.40) L Hemoglobin 9.0 G/DL (12.0-16.0) L 7.9 G/DL (12.0-16.0) L Hematocrit 27.7 % (37.0-47.0) L 24.5 % (37.0-47.0) L Mean Corpuscular Volume 90 FL (80-99) 89 FL (80-99) Mean Corpuscular Hemoglobin 29.1 PG (27.0-31.0) 28.8 PG (27.0-31.0) Mean Corpuscular Hemoglobin Concent 32.4 G/DL (32.0-36.0) 32.4 G/DL (32.0-36.0) Red Cell Distribution Width 14.6 % (11.6-14.8) 14.5 % (11.6-14.8) Platelet Count 322 K/UL (150-450) 290 K/UL (150-450) Mean Platelet Volume 5.3 FL (6.5-10.1) L 5.0 FL (6.5-10.1) L Neutrophils (%) (Auto) 77.4 % (45.0-75.0) H % (45.0-75.0) Lymphocytes (%) (Auto) 15.8 % (20.0-45.0) L % (20.0-45.0) Monocytes (%) (Auto) 4.9 % (1.0-10.0) % (1.0-10.0) Eosinophils (%) (Auto) 0.8 % (0.0-3.0) % (0.0-3.0) Basophils (%) (Auto) 1.2 % (0.0-2.0) % (0.0-2.0) POC Whole Blood Glucose Pending Pending Differential Total Cells Counted 100 Neutrophils % (Manual) 74 % (45-75) Lymphocytes % (Manual) 15 % (20-45) L Monocytes % (Manual) 8 % (1-10) Eosinophils % (Manual) 2 % (0-3) Basophils % (Manual) 1 % (0-2) Band Neutrophils 0 % (0-8) Platelet Estimate Adequate Platelet Morphology Normal Hypochromasia 1+ Microcytosis 1+ Sodium Level 133 MMOL/L (136-145) L Potassium Level 3.9 MMOL/L (3.5-5.1) Chloride Level 95 MMOL/L (98-107) L Carbon Dioxide Level 30 MMOL/L (21-32) Anion Gap 8 mmol/L (5-15) Blood Urea Nitrogen 42 mg/dL (7-18) H Creatinine 5.1 MG/DL (0.55-1.30) H Estimat Glomerular Filtration Rate 8.8 mL/min (>60) Glucose Level 241 MG/DL (74-106) H Calcium Level 9.2 MG/DL (8.5-10.1) Phosphorus Level 3.4 MG/DL (2.5-4.9) Total Bilirubin 0.3 MG/DL (0.2-1.0) Aspartate Amino Transf (AST/SGOT) 7 U/L (15-37) L Alanine Aminotransferase (ALT/SGPT) 15 U/L (12-78) Alkaline Phosphatase 104 U/L (46-116) C-Reactive Protein, Quantitative 7.5 mg/dL (0.00-0.90) H Pro-B-Type Natriuretic Peptide 04196 pg/mL (0-125) H Total Protein 6.0 G/DL (6.4-8.2) L Albumin 2.3 G/DL (3.4-5.0) L Globulin 3.7 g/dL Albumin/Globulin Ratio 0.6 (1.0-2.7) L Test 07/03/20 16:55 POC Whole Blood Glucose Pending Objective per id NECK: Supple without lymphadenopathy. CHEST: Lungs are clear to auscultation bilaterally without wheezes or rales. CARDIOVASCULAR: Regular rhythm and rate. S1 and S2 are normal without murmurs, rubs, or gallops. ABDOMEN: Soft, nontender, nondistended. Positive bowel sounds. No evidence of hepatosplenomegaly. Currently, no rebound or guarding noted. EXTREMITIES: Negative for clubbing, cyanosis, or edema. Renzo Moreira MD Jul 03, 2020 18:33
--- NOTE | 2020-07-03 19:24 | NUR ---
NURSE NOTES: HD done today, 2L out.
--- NOTE | 2020-07-03 19:24 | NUR ---
NURSE HAND-OFF REPORT: Important Events on Shift:HD today, skin rashes on BLE and MD BECKY aware Patient Status: stable Diet: cardiac renal Pending Orders: OB stool, urine legionella, sputum collection Pending Results/Labs: Pending MD notification: Latest Vital Signs: Temperature 98.6 , Pulse 79 , B/P 137 /60 , Respiratory Rate 18 , O2 SAT 100 , Nasal Cannula, O2 Flow Rate 4.0 . Vital Sign Comment: EKG Rhythm: Sinus Rhythm Rhythm change?: N Notified?: N Response: Latest Alvarez Fall Score: 35 Fall Risk: Medium Risk Safety Measures: Call light Within Reach, Bed Alarm Zone 1, Side Rails Side Rails x2, Bed position Low and Locked. Fall Precautions: Yellow Socks Yellow Gown Door Sign Patient Fall Education Report given to Hiren POPE
--- NOTE | 2020-07-03 19:24 | NUR ---
NURSE NOTES: O2 sat on room air is 78%. Placed back on NC at 4LPM.
--- NOTE | 2020-07-03 19:32 | NUR ---
NURSE NOTES: Received report from NIKO Noble. Patient is awake, alert and oriented x 3, [place] speaking. On oxygen via nasal cannula @ 4Lpm, sating 96%. On cardiac, renal diet, instructed and amenable. IV site is on left upper arm g-20 saline lock that is patent and intact. HD access is on right arm AV shunt. Safety measures are in place, bed in lowest and locked position, side rails up x 2. Call light button and bedside table within reach, instructed to call for any assistance needed, will continue plan of care.
[2020-07-03 20:00] VITALS: BP 156/63
[2020-07-03] MEDS: Sennosides 8.6mg tab ORAL SCH (20:23)
[2020-07-04] VITALS (8 sets, daily range): BP systolic 102–179; BP diastolic 62–85
[2020-07-04 05:47] LABS: BASOPHILS % (AUTO) 1.3 % (0.0-2.0); EOSINOPHILS % (AUTO) 1.3 % (0.0-3.0); HEMATOCRIT 26.3 % (37.0-47.0); HEMOGLOBIN 8.5 G/DL (12.0-16.0); LYMPHOCYTES % (AUTO) 18.8 % (20.0-45.0); MEAN CORPUSCULAR VOLUME 90 FL (80-99); MONOCYTES % (AUTO) 6.3 % (1.0-10.0); NEUTROPHILS % (AUTO) 72.2 % (45.0-75.0); PLATELET COUNT 268 K/UL (150-450); RED BLOOD COUNT 2.93 M/UL (4.20-5.40); RED CELL DISTRIBUTION WIDTH 14.7 % (11.6-14.8); WHITE BLOOD COUNT 6.5 K/UL (4.8-10.8)
[2020-07-04 06:09] LABS: ALANINE AMINOTRANSFERASE 11 U/L (12-78); ALBUMIN 2.3 G/DL (3.4-5.0); ALBUMIN/GLOBULIN RATIO 0.6 (1.0-2.7); ALKALINE PHOSPHATASE 101 U/L (46-116); ANION GAP 8 mmol/L (5-15); ASPARTATE AMINO TRANSFERASE 11 U/L (15-37); BILIRUBIN,TOTAL 0.3 MG/DL (0.2-1.0); BLOOD UREA NITROGEN 31 mg/dL (7-18); CALCIUM 8.7 MG/DL (8.5-10.1); CARBON DIOXIDE 31 MMOL/L (21-32); CHLORIDE 95 MMOL/L (98-107); CREATININE 3.9 MG/DL (0.55-1.30); PHOSPHORUS 3.6 MG/DL (2.5-4.9); POTASSIUM 4.2 MMOL/L (3.5-5.1); SODIUM 134 MMOL/L (136-145)
[2020-07-04] MEDS: NovoLOG Insulin Flexpen SUBQ SCH ×4 (06:20→21:00)
--- NOTE | 2020-07-04 07:49 | NUR ---
NURSE HAND-OFF REPORT: Important Events on Shift: patient blood sugar around 6 a.n 319, asymptomatic, insulin was given Patient Status: awake, on bed in stable condition Diet: cardiac, renal diet Pending Orders: none Pending Results/Labs:none Pending MD notification: Latest Vital Signs: Temperature 98.7 , Pulse 82 , B/P 157 /68 , Respiratory Rate 19 , O2 SAT 97 , Nasal Cannula, O2 Flow Rate 4.0 . Vital Sign Comment: EKG Rhythm: SR with 1st degree AVB Rhythm change?: N MD Notified?: N -Dr Harish LANDEROS Response: Message left await call Latest Alvarez Fall Score: 35 Fall Risk: Medium Risk Safety Measures: Call light Within Reach, Bed Alarm Zone 1, Side Rails Side Rails x2, Bed position Low and Locked. Fall Precautions: Yellow Socks Yellow Gown Door Sign Patient Fall Education Report given to NIKO Ross.
[2020-07-04] MEDS: Nephrovite tab (Rena-Vite) ORAL SCH (08:59)
[2020-07-04] MEDS: cefTRIAXone 1 GM in D5W 55 ML IVPB SCH (08:59)
[2020-07-04] MEDS: Azithromycin 250mg tab ORAL SCH (08:59)
[2020-07-04] MEDS: Docusate 100mg cap ORAL SCH ×3 (08:59→17:01)
[2020-07-04] MEDS: Heparin 5000 units/ml inj SUBQ SCH ×2 (09:01→21:00)
--- NOTE | 2020-07-04 09:45 | NUR ---
RADIOLOGY DEPT., CHEST X-RAY DONE.-P.DYE
--- NOTE | 2020-07-04 11:09 | Nephrology Progress Note ---
Assessment/Plan Problem List: (1) ESRD (end stage renal disease) (2) Diabetic nephropathy (3) Anemia (4) COVID-19 (5) PNA (pneumonia) (6) Electrolyte imbalance (7) Volume overload Plan July 04: Dialyzed yesterday. Labs reviewed. Hemoglobin 8.5. Continue per consultants. July 03: Patient due for dialysis today. Hemoglobin remains low. Transfusion as needed. Continue per consultants. July 02: Patient was dialyzed yesterday. Today's labs reviewed. Hemoglobin is low. Will transfuse 1 unit of packed RBCs today. Will do dialysis tomorrow. July 01: Patient due for dialysis today. Labs reviewed. Continue per current management. June 30: Patient was dialyzed yesterday, hyponatremia resolved. Clinically improved. Will attempt dialysis tomorrow Subjective ROS Limited/Unobtainable: No Constitutional: Reports: malaise, weakness Objective Objective Last 24 Hour Vital Signs Date Time Temp Pulse Resp B/P (MAP) Pulse Ox O2 Delivery O2 Flow Rate FiO2 07/04/20 09:00 80 102/62 07/04/20 08:00 98.2 80 19 102/62 (75) 96 07/04/20 07:33 85 07/04/20 04:00 82 07/04/20 04:00 98.7 89 19 157/68 (97) 97 07/04/20 00:00 97.5 82 20 149/69 (95) 94 07/04/20 00:00 81 07/03/20 21:00 Nasal Cannula 4.0 07/03/20 20:00 85 07/03/20 20:00 98.1 90 19 156/63 (94) 100 07/03/20 16:00 79 07/03/20 16:00 98.6 74 18 137/60 (85) 100 07/03/20 12:00 86 07/03/20 12:00 98.2 91 18 164/70 (101) 100 Intake and Output 07/03/20 07/04/20 19:00 07:00 Intake Total 630 ml Output Total 2350 ml Balance -1720 ml Intake Oral 630 ml Output Urine Total 350 ml Hemodialysis UF 2000 ml # Voids 1 1 # Bowel Movements 1 1 Current Medications Medications (Trade) Dose Ordered Sig/Miguel Route PRN Reason Start Time Stop Time Status Last Admin Dose Admin Albuterol Sulfate (Proventil MDI) 2 puff Q6H PRN INH Shortness of Breath 06/29/20 19:15 09/27/20 19:14 06/30/20 19:12 Amlodipine Besylate (Norvasc) 10 mg DAILY ORAL 06/30/20 09:00 07/29/20 08:59 07/02/20 10:17 Aspirin (ASA) 325 mg DAILY ORAL 06/29/20 09:00 08/13/20 08:59 07/04/20 08:59 Atorvastatin Calcium (Lipitor) 40 mg BEFORE LUNCH ORAL 06/29/20 11:30 09/27/20 11:29 07/03/20 11:20 Azithromycin (Zithromax) 250 mg DAILY ORAL 06/29/20 09:00 07/06/20 08:59 07/04/20 08:59 Calcium Acetate (Phoslo) 667 mg BEFORE MEALS ORAL 06/29/20 06:30 09/27/20 06:29 07/04/20 06:12 Ceftriaxone Sodium 1 gm/ Dextrose 55 ml @ 110 mls/hr Q24H IVPB 06/29/20 09:00 07/06/20 08:59 07/04/20 08:59 Clonidine HCl (Catapres Tab) 0.1 mg Q4H PRN ORAL For High Blood Pressure 06/29/20 07:45 09/27/20 07:44 07/02/20 22:03 Dextrose (Dextrose 50%) 25 ml Q30M PRN IV Hypoglycemia 06/28/20 23:15 09/26/20 23:14 Dextrose (Dextrose 50%) 50 ml Q30M PRN IV Hypoglycemia 06/28/20 23:15 09/26/20 23:14 Docusate Sodium (Colace) 100 mg TID ORAL 06/29/20 13:00 07/29/20 08:59 07/04/20 08:59 Epoetin Armando (Epoetin Armando(ESRD on dialysis)) 10,000 unit THU-WED-THU SUBQ 07/02/20 21:00 09/30/20 20:59 07/02/20 20:47 Heparin Sodium (Porcine) (Heparin 5000 units/ml) 5,000 units EVERY 12 HOURS SUBQ 06/29/20 09:00 08/13/20 08:59 07/04/20 09:01 Insulin Aspart (NovoLOG) BEFORE MEALS AND HS SUBQ 06/29/20 06:30 09/27/20 06:29 07/04/20 06:20 Levothyroxine Sodium (Synthroid) 50 mcg ACBREAKFAST ORAL 07/01/20 06:30 07/29/20 06:29 07/04/20 06:12 Pantoprazole (Protonix) 40 mg Q12HR ORAL 06/29/20 21:00 07/29/20 11:29 07/04/20 09:00 Sennosides (Senokot) 8.6 mg BEDTIME ORAL 06/29/20 21:00 07/29/20 20:59 07/03/20 20:23 Vitamin B Complex/ Vit C/Folic Acid (Nephrovite) 1 tab DAILY ORAL 06/29/20 09:00 07/29/20 08:59 07/04/20 08:59 Laboratory Tests 07/03/20 11:25: POC Whole Blood Glucose [Pending] 07/03/20 16:55: POC Whole Blood Glucose [Pending] 07/03/20 19:36: POC Whole Blood Glucose 180H 07/03/20 20:30: Stool Occult Blood Negative 07/04/20 04:40: White Blood Count 6.5, Red Blood Count 2.93L, Hemoglobin 8.5L, Hematocrit 26.3L , Mean Corpuscular Volume 90, Mean Corpuscular Hemoglobin 29.1, Mean Corpuscular Hemoglobin Concent 32.5, Red Cell Distribution Width 14.7, Platelet Count 268, Mean Platelet Volume 5.1L, Neutrophils (%) (Auto) 72.2, Lymphocytes ( %) (Auto) 18.8L, Monocytes (%) (Auto) 6.3, Eosinophils (%) (Auto) 1.3, Basophils (%) (Auto) 1.3, Sodium Level 134L, Potassium Level 4.2, Chloride Level 95L, Carbon Dioxide Level 31, Anion Gap 8, Blood Urea Nitrogen 31H, Creatinine 3.9H, Estimat Glomerular Filtration Rate 11.9, Glucose Level 287H, Calcium Level 8.7, Phosphorus Level 3.6, Magnesium Level 2.0, Total Bilirubin 0.3, Aspartate Amino Transf (AST/SGOT) 11L, Alanine Aminotransferase (ALT/SGPT) 11L, Alkaline Phosphatase 101, Total Protein 6.2L, Albumin 2.3L, Globulin 3.9, Albumin/Globulin Ratio 0.6L Height (Feet): 5 Height (Inches): 4.00 Weight (Pounds): 200 General Appearance: no apparent distress Respiratory/Chest: decreased breath sounds Abdomen: soft Lito Frank MD Jul 04, 2020 11:08
[2020-07-04] MEDS: Atorvastatin 20mg tab ORAL SCH (11:37)
--- NOTE | 2020-07-04 11:50 | NUR ---
CASE MANAGEMENT:REVIEW SI;COVID PNEUMONIA. ESRD on HD. ACS. 98.7 89 20 157/68 94% 4L NC H/H 8.5/26.3 NA 134 CL 95 BUN 3.1 CR 3.9 ALB 2.3 IS;ASA PO QD ZITHROMAX PO QD ROCEPHIN IV Q24 HEPARIN SUBQ Q12 PROTONIX PO Q12 NORVASC PO QD TELEMETRY STATUS DCP;FROM HOME
--- NOTE | 2020-07-04 11:56 | Pulmonology Progress Note ---
Subjective ROS Limited/Unobtainable: No Interval Events: doing better Constitutional: Reports: no symptoms HEENT: Repors: no symptoms Cardiovascular: Reports: no symptoms Allergies: Coded Allergies: No Known Allergies (Verified Allergy, Unknown, 02/17/11) Objective Last 24 Hour Vital Signs Date Time Temp Pulse Resp B/P (MAP) Pulse Ox O2 Delivery O2 Flow Rate FiO2 07/04/20 11:54 179/85 07/04/20 11:19 Nasal Cannula 4.0 07/04/20 09:00 80 102/62 07/04/20 08:00 98.2 80 19 102/62 (75) 96 07/04/20 07:33 85 07/04/20 04:00 82 07/04/20 04:00 98.7 89 19 157/68 (97) 97 07/04/20 00:00 97.5 82 20 149/69 (95) 94 07/04/20 00:00 81 07/03/20 21:00 Nasal Cannula 4.0 07/03/20 20:00 85 07/03/20 20:00 98.1 90 19 156/63 (94) 100 07/03/20 16:00 79 07/03/20 16:00 98.6 74 18 137/60 (85) 100 07/03/20 12:00 86 07/03/20 12:00 98.2 91 18 164/70 (101) 100 Intake and Output 07/03/20 07/04/20 19:00 07:00 Intake Total 630 ml Output Total 2350 ml Balance -1720 ml Intake Oral 630 ml Output Urine Total 350 ml Hemodialysis UF 2000 ml # Voids 1 1 # Bowel Movements 1 1 General Appearance: WD/WN, no acute distress HEENT: normocephalic, atraumatic Respiratory: chest wall non-tender, lungs clear Breasts: no masses Cardiovascular: normal peripheral pulses Abdomen: normal bowel sounds, soft, non tender Extremities: no clubbing Skin: no rash Neurologic: companion II-XII grossly normal Laboratory Tests 07/03/20 16:55: POC Whole Blood Glucose [Pending] 07/03/20 19:36: POC Whole Blood Glucose 180H 07/03/20 20:30: Stool Occult Blood Negative 07/04/20 04:40: White Blood Count 6.5, Red Blood Count 2.93L, Hemoglobin 8.5L, Hematocrit 26.3L , Mean Corpuscular Volume 90, Mean Corpuscular Hemoglobin 29.1, Mean Corpuscular Hemoglobin Concent 32.5, Red Cell Distribution Width 14.7, Platelet Count 268, Mean Platelet Volume 5.1L, Neutrophils (%) (Auto) 72.2, Lymphocytes ( %) (Auto) 18.8L, Monocytes (%) (Auto) 6.3, Eosinophils (%) (Auto) 1.3, Basophils (%) (Auto) 1.3, Sodium Level 134L, Potassium Level 4.2, Chloride Level 95L, Carbon Dioxide Level 31, Anion Gap 8, Blood Urea Nitrogen 31H, Creatinine 3.9H, Estimat Glomerular Filtration Rate 11.9, Glucose Level 287H, Calcium Level 8.7, Phosphorus Level 3.6, Magnesium Level 2.0, Total Bilirubin 0.3, Aspartate Amino Transf (AST/SGOT) 11L, Alanine Aminotransferase (ALT/SGPT) 11L, Alkaline Phosphatase 101, Total Protein 6.2L, Albumin 2.3L, Globulin 3.9, Albumin/Globulin Ratio 0.6L Current Medications Medications (Trade) Dose Ordered Sig/Miguel Route PRN Reason Start Time Stop Time Status Last Admin Dose Admin Albuterol Sulfate (Proventil MDI) 2 puff Q6H PRN INH Shortness of Breath 06/29/20 19:15 09/27/20 19:14 06/30/20 19:12 Amlodipine Besylate (Norvasc) 10 mg DAILY ORAL 06/30/20 09:00 07/29/20 08:59 07/02/20 10:17 Aspirin (ASA) 325 mg DAILY ORAL 06/29/20 09:00 08/13/20 08:59 07/04/20 08:59 Atorvastatin Calcium (Lipitor) 40 mg BEFORE LUNCH ORAL 06/29/20 11:30 09/27/20 11:29 07/04/20 11:37 Azithromycin (Zithromax) 250 mg DAILY ORAL 06/29/20 09:00 07/06/20 08:59 07/04/20 08:59 Calcium Acetate (Phoslo) 667 mg BEFORE MEALS ORAL 06/29/20 06:30 09/27/20 06:29 07/04/20 11:37 Ceftriaxone Sodium 1 gm/ Dextrose 55 ml @ 110 mls/hr Q24H IVPB 06/29/20 09:00 07/06/20 08:59 07/04/20 08:59 Clonidine HCl (Catapres Tab) 0.1 mg Q4H PRN ORAL For High Blood Pressure 06/29/20 07:45 09/27/20 07:44 07/04/20 11:54 Dextrose (Dextrose 50%) 25 ml Q30M PRN IV Hypoglycemia 06/28/20 23:15 09/26/20 23:14 Dextrose (Dextrose 50%) 50 ml Q30M PRN IV Hypoglycemia 06/28/20 23:15 09/26/20 23:14 Docusate Sodium (Colace) 100 mg TID ORAL 06/29/20 13:00 07/29/20 08:59 07/04/20 08:59 Epoetin Armando (Epoetin Armando(ESRD on dialysis)) 10,000 unit THU-THU-THU SUBQ 07/02/20 21:00 09/30/20 20:59 07/02/20 20:47 Heparin Sodium (Porcine) (Heparin 5000 units/ml) 5,000 units EVERY 12 HOURS SUBQ 06/29/20 09:00 08/13/20 08:59 07/04/20 09:01 Insulin Aspart (NovoLOG) BEFORE MEALS AND HS SUBQ 06/29/20 06:30 09/27/20 06:29 07/04/20 06:20 Levothyroxine Sodium (Synthroid) 50 mcg ACBREAKFAST ORAL 07/01/20 06:30 07/29/20 06:29 07/04/20 06:12 Pantoprazole (Protonix) 40 mg Q12HR ORAL 06/29/20 21:00 07/29/20 11:29 07/04/20 09:00 Sennosides (Senokot) 8.6 mg BEDTIME ORAL 06/29/20 21:00 07/29/20 20:59 07/03/20 20:23 Vitamin B Complex/ Vit C/Folic Acid (Nephrovite) 1 tab DAILY ORAL 06/29/20 09:00 07/29/20 08:59 07/04/20 08:59 Assessment/Plan Problems: (1) Renal failure (ARF), acute on chronic (2) ACS (acute coronary syndrome) (3) Anemia (4) COVID-19 (5) ESRD (end stage renal disease) (6) Diabetic nephropathy Assessment/Plan no new complains doing better no new complains all reviewed respiratory treatment check electrolytes check electrolytes symptomatic treatment. dc planning soon Maria Elena Naidu MD Jul 04, 2020 11:56
--- NOTE | 2020-07-04 12:37 | Diagnostic Imaging Report ---
Indication: Cough Technique: One view of the chest Comparison: 06/29/2020 Findings: Interim marked improvement of previously demonstrated bilateral interstitial and airspace infiltrates versus edema. There is minimal residual interstitial disease. The heart remains enlarged. Impression: Significantly improved bilateral interstitial and airspace infiltrates versus edema, over 5 days, with minimal residual
--- NOTE | 2020-07-04 12:55 | Infectious Diseases Prog Note ---
Assessment/Plan Assessment: Afebrile No leukocytosis Acute hypoxic resp failure, recurrent - on 4l nC Pneumonia- likely superimposed bacterial CHF exacerbation- rapid improvement of pulmonary infiltrates was likely fluid -07/03 CXR: Significantly improved bilateral interstitial and airspace infiltrates versus edema, over 5 days, with minimal residual -06/29 CXR: Diffuse bilateral alveolar densities, infiltrates and/or edema. recent COVID19 c/w acute hypoxic resp failure requiring intubation -admitted at [facility] Pyuria/bacteriuria- assymptomatic -u/a wbc 10-15, nit neg, leuk +2; ucx 30-40k VRE (S linezolid, macrobid); colonizer hypothryoidism pHTN Hep C ab + w/ neg viral load obesity s/p cholecystectomy s/p cataract surgery HLD ESRD on HD Dm2 HTN CHF Plan: -Continue empiric Ceftriaxone #5/5-7 and Azithromycin #5/5 -f/u cx -Monitor CBC/CMP, temperatures -f/u sp cx, legionella ag urine Thank you for this consultation. Will continue to follow along with you. Discussed with RN. Subjective Allergies: Coded Allergies: No Known Allergies (Verified Allergy, Unknown, 02/17/11) afebrile at 4l CXR improved Objective Last 24 Hour Vital Signs Date Time Temp Pulse Resp B/P (MAP) Pulse Ox O2 Delivery O2 Flow Rate FiO2 07/04/20 12:00 99.0 85 20 179/85 (116) 100 07/04/20 11:54 179/85 07/04/20 11:37 86 07/04/20 11:19 Nasal Cannula 4.0 07/04/20 09:00 80 102/62 07/04/20 08:00 98.2 80 19 102/62 (75) 96 07/04/20 07:33 85 07/04/20 04:00 82 07/04/20 04:00 98.7 89 19 157/68 (97) 97 07/04/20 00:00 97.5 82 20 149/69 (95) 94 07/04/20 00:00 81 07/03/20 21:00 Nasal Cannula 4.0 07/03/20 20:00 85 07/03/20 20:00 98.1 90 19 156/63 (94) 100 07/03/20 16:00 79 07/03/20 16:00 98.6 74 18 137/60 (85) 100 Height (Feet): 5 Height (Inches): 4.00 Weight (Pounds): 200 GENERAL: The patient is well-developed and well-nourished female, in moderate respiratory distress. HEENT: Eyes, pupils are equal and responsive to light and accommodation. Extraocular movements are intact. NECK: Supple without lymphadenopathy. CHEST: Lungs are clear to auscultation bilaterally without wheezes or rales. CARDIOVASCULAR: Regular rhythm and rate. S1 and S2 are normal without murmurs, rubs, or gallops. ABDOMEN: Soft, nontender, nondistended. Positive bowel sounds. No evidence of hepatosplenomegaly. EXTREMITIES: Negative for clubbing, cyanosis, or edema. Laboratory Tests Test 07/03/20 16:55 07/03/20 19:36 07/03/20 20:30 07/04/20 04:40 POC Whole Blood Glucose Pending 180 MG/DL (74-106) H Stool Occult Blood Negative (NEGATIVE) White Blood Count 6.5 K/UL (4.8-10.8) Red Blood Count 2.93 M/UL (4.20-5.40) L Hemoglobin 8.5 G/DL (12.0-16.0) L Hematocrit 26.3 % (37.0-47.0) L Mean Corpuscular Volume 90 FL (80-99) Mean Corpuscular Hemoglobin 29.1 PG (27.0-31.0) Mean Corpuscular Hemoglobin Concent 32.5 G/DL (32.0-36.0) Red Cell Distribution Width 14.7 % (11.6-14.8) Platelet Count 268 K/UL (150-450) Mean Platelet Volume 5.1 FL (6.5-10.1) L Neutrophils (%) (Auto) 72.2 % (45.0-75.0) Lymphocytes (%) (Auto) 18.8 % (20.0-45.0) L Monocytes (%) (Auto) 6.3 % (1.0-10.0) Eosinophils (%) (Auto) 1.3 % (0.0-3.0) Basophils (%) (Auto) 1.3 % (0.0-2.0) Sodium Level 134 MMOL/L (136-145) L Potassium Level 4.2 MMOL/L (3.5-5.1) Chloride Level 95 MMOL/L (98-107) L Carbon Dioxide Level 31 MMOL/L (21-32) Anion Gap 8 mmol/L (5-15) Blood Urea Nitrogen 31 mg/dL (7-18) H Creatinine 3.9 MG/DL (0.55-1.30) H Estimat Glomerular Filtration Rate 11.9 mL/min (>60) Glucose Level 287 MG/DL (74-106) H Calcium Level 8.7 MG/DL (8.5-10.1) Phosphorus Level 3.6 MG/DL (2.5-4.9) Magnesium Level 2.0 MG/DL (1.8-2.4) Total Bilirubin 0.3 MG/DL (0.2-1.0) Aspartate Amino Transf (AST/SGOT) 11 U/L (15-37) L Alanine Aminotransferase (ALT/SGPT) 11 U/L (12-78) L Alkaline Phosphatase 101 U/L (46-116) Total Protein 6.2 G/DL (6.4-8.2) L Albumin 2.3 G/DL (3.4-5.0) L Globulin 3.9 g/dL Albumin/Globulin Ratio 0.6 (1.0-2.7) L Current Medications Medications (Trade) Dose Ordered Sig/Miguel Route PRN Reason Start Time Stop Time Status Last Admin Dose Admin Albuterol Sulfate (Proventil MDI) 2 puff Q6H PRN INH Shortness of Breath 06/29/20 19:15 09/27/20 19:14 06/30/20 19:12 Amlodipine Besylate (Norvasc) 10 mg DAILY ORAL 06/30/20 09:00 07/29/20 08:59 07/02/20 10:17 Aspirin (ASA) 325 mg DAILY ORAL 06/29/20 09:00 08/13/20 08:59 07/04/20 08:59 Atorvastatin Calcium (Lipitor) 40 mg BEFORE LUNCH ORAL 06/29/20 11:30 09/27/20 11:29 07/04/20 11:37 Azithromycin (Zithromax) 250 mg DAILY ORAL 06/29/20 09:00 07/06/20 08:59 07/04/20 08:59 Calcium Acetate (Phoslo) 667 mg BEFORE MEALS ORAL 06/29/20 06:30 09/27/20 06:29 07/04/20 11:37 Ceftriaxone Sodium 1 gm/ Dextrose 55 ml @ 110 mls/hr Q24H IVPB 06/29/20 09:00 07/06/20 08:59 07/04/20 08:59 Clonidine HCl (Catapres Tab) 0.1 mg Q4H PRN ORAL For High Blood Pressure 06/29/20 07:45 09/27/20 07:44 07/04/20 11:54 Dextrose (Dextrose 50%) 25 ml Q30M PRN IV Hypoglycemia 06/28/20 23:15 09/26/20 23:14 Dextrose (Dextrose 50%) 50 ml Q30M PRN IV Hypoglycemia 06/28/20 23:15 09/26/20 23:14 Docusate Sodium (Colace) 100 mg TID ORAL 06/29/20 13:00 07/29/20 08:59 07/04/20 12:10 Epoetin Armando (Epoetin Armando(ESRD on dialysis)) 10,000 unit THU-THU-THU SUBQ 07/02/20 21:00 09/30/20 20:59 07/02/20 20:47 Heparin Sodium (Porcine) (Heparin 5000 units/ml) 5,000 units EVERY 12 HOURS SUBQ 06/29/20 09:00 08/13/20 08:59 07/04/20 09:01 Insulin Aspart (NovoLOG) BEFORE MEALS AND HS SUBQ 06/29/20 06:30 09/27/20 06:29 07/04/20 11:30 Levothyroxine Sodium (Synthroid) 50 mcg ACBREAKFAST ORAL 07/01/20 06:30 07/29/20 06:29 07/04/20 06:12 Pantoprazole (Protonix) 40 mg Q12HR ORAL 06/29/20 21:00 07/29/20 11:29 07/04/20 09:00 Sennosides (Senokot) 8.6 mg BEDTIME ORAL 06/29/20 21:00 07/29/20 20:59 07/03/20 20:23 Vitamin B Complex/ Vit C/Folic Acid (Nephrovite) 1 tab DAILY ORAL 06/29/20 09:00 07/29/20 08:59 07/04/20 08:59 Harper Huffman M.D. Jul 04, 2020 12:55
--- NOTE | 2020-07-04 14:03 | NUR ---
P.T Note: P.T evaluation completed and tx initiated . Please refer to P.T evaluation for full report.
--- NOTE | 2020-07-04 17:29 | NUR ---
NURSE NOTES: Urin specimen sent to lab waiting for result.
--- NOTE | 2020-07-04 18:15 | Internal Med Progress Note ---
Subjective Date of Service: Jul 04, 2020 Physician Name Kareem Faajrdo Attending Physician Pierre Childs MD Current Medications Medications (Trade) Dose Ordered Sig/Miguel Route PRN Reason Start Time Stop Time Status Last Admin Dose Admin Albuterol Sulfate (Proventil MDI) 2 puff Q6H PRN INH Shortness of Breath 06/29/20 19:15 09/27/20 19:14 06/30/20 19:12 Amlodipine Besylate (Norvasc) 10 mg DAILY ORAL 06/30/20 09:00 07/29/20 08:59 07/02/20 10:17 Aspirin (ASA) 325 mg DAILY ORAL 06/29/20 09:00 08/13/20 08:59 07/04/20 08:59 Atorvastatin Calcium (Lipitor) 40 mg BEFORE LUNCH ORAL 06/29/20 11:30 09/27/20 11:29 07/04/20 11:37 Calcium Acetate (Phoslo) 667 mg BEFORE MEALS ORAL 06/29/20 06:30 09/27/20 06:29 07/04/20 16:26 Ceftriaxone Sodium 1 gm/ Dextrose 55 ml @ 110 mls/hr Q24H IVPB 06/29/20 09:00 07/06/20 08:59 07/04/20 08:59 Clonidine HCl (Catapres Tab) 0.1 mg Q4H PRN ORAL For High Blood Pressure 06/29/20 07:45 09/27/20 07:44 07/04/20 16:26 Dextrose (Dextrose 50%) 25 ml Q30M PRN IV Hypoglycemia 06/28/20 23:15 09/26/20 23:14 Dextrose (Dextrose 50%) 50 ml Q30M PRN IV Hypoglycemia 06/28/20 23:15 09/26/20 23:14 Docusate Sodium (Colace) 100 mg TID ORAL 06/29/20 13:00 07/29/20 08:59 07/04/20 17:01 Epoetin Armando (Epoetin Armando(ESRD on dialysis)) 10,000 unit THU-WED-THU SUBQ 07/02/20 21:00 09/30/20 20:59 07/02/20 20:47 Heparin Sodium (Porcine) (Heparin 5000 units/ml) 5,000 units EVERY 12 HOURS SUBQ 06/29/20 09:00 08/13/20 08:59 07/04/20 09:01 Insulin Aspart (NovoLOG) BEFORE MEALS AND HS SUBQ 06/29/20 06:30 09/27/20 06:29 07/04/20 16:46 Levothyroxine Sodium (Synthroid) 50 mcg ACBREAKFAST ORAL 07/01/20 06:30 07/29/20 06:29 07/04/20 06:12 Pantoprazole (Protonix) 40 mg Q12HR ORAL 06/29/20 21:00 07/29/20 11:29 07/04/20 09:00 Sennosides (Senokot) 8.6 mg BEDTIME ORAL 06/29/20 21:00 07/29/20 20:59 07/03/20 20:23 Vitamin B Complex/ Vit C/Folic Acid (Nephrovite) 1 tab DAILY ORAL 06/29/20 09:00 07/29/20 08:59 07/04/20 08:59 Allergies: Coded Allergies: No Known Allergies (Verified Allergy, Unknown, 02/17/11) ROS Limited/Unobtainable: No Constitutional: Reports: no symptoms HEENT: Reports: no symptoms Cardiovascular: Reports: no symptoms Respiratory: Reports: shortness of breath Gastrointestinal/Abdominal: Reports: no symptoms Genitourinary: Reports: no symptoms Neurologic/Psychiatric: Reports: no symptoms Subjective 54 YO F admitted with shortness of breath. Now COVID 19 pneumonia. Cover for Int Gurmeet-Dr Childs Objective Last Vital Signs Date Time Temp Pulse Resp B/P (MAP) Pulse Ox O2 Delivery O2 Flow Rate FiO2 07/04/20 16:26 166/71 07/04/20 16:00 98.1 50 20 100 07/04/20 15:48 Nasal Cannula 4.0 Laboratory Tests Test 07/03/20 19:36 07/03/20 20:30 07/04/20 04:40 07/04/20 17:25 POC Whole Blood Glucose 180 MG/DL (74-106) H Stool Occult Blood Negative (NEGATIVE) White Blood Count 6.5 K/UL (4.8-10.8) Red Blood Count 2.93 M/UL (4.20-5.40) L Hemoglobin 8.5 G/DL (12.0-16.0) L Hematocrit 26.3 % (37.0-47.0) L Mean Corpuscular Volume 90 FL (80-99) Mean Corpuscular Hemoglobin 29.1 PG (27.0-31.0) Mean Corpuscular Hemoglobin Concent 32.5 G/DL (32.0-36.0) Red Cell Distribution Width 14.7 % (11.6-14.8) Platelet Count 268 K/UL (150-450) Mean Platelet Volume 5.1 FL (6.5-10.1) L Neutrophils (%) (Auto) 72.2 % (45.0-75.0) Lymphocytes (%) (Auto) 18.8 % (20.0-45.0) L Monocytes (%) (Auto) 6.3 % (1.0-10.0) Eosinophils (%) (Auto) 1.3 % (0.0-3.0) Basophils (%) (Auto) 1.3 % (0.0-2.0) Sodium Level 134 MMOL/L (136-145) L Potassium Level 4.2 MMOL/L (3.5-5.1) Chloride Level 95 MMOL/L (98-107) L Carbon Dioxide Level 31 MMOL/L (21-32) Anion Gap 8 mmol/L (5-15) Blood Urea Nitrogen 31 mg/dL (7-18) H Creatinine 3.9 MG/DL (0.55-1.30) H Estimat Glomerular Filtration Rate 11.9 mL/min (>60) Glucose Level 287 MG/DL (74-106) H Calcium Level 8.7 MG/DL (8.5-10.1) Phosphorus Level 3.6 MG/DL (2.5-4.9) Magnesium Level 2.0 MG/DL (1.8-2.4) Total Bilirubin 0.3 MG/DL (0.2-1.0) Aspartate Amino Transf (AST/SGOT) 11 U/L (15-37) L Alanine Aminotransferase (ALT/SGPT) 11 U/L (12-78) L Alkaline Phosphatase 101 U/L (46-116) Total Protein 6.2 G/DL (6.4-8.2) L Albumin 2.3 G/DL (3.4-5.0) L Globulin 3.9 g/dL Albumin/Globulin Ratio 0.6 (1.0-2.7) L Urine Legionella Antigen Pending Intake and Output 07/03/20 07/04/20 19:00 07:00 Intake Total 630 ml Output Total 2350 ml Balance -1720 ml Intake Oral 630 ml Output Urine Total 350 ml Hemodialysis UF 2000 ml # Voids 1 1 # Bowel Movements 1 1 Objective General Appearance: WD/WN, no apparent distress, moderate distress EENT: PERRL/EOMI, normal ENT inspection Neck: non-tender, normal alignment, supple, normal inspection Cardiovascular: normal peripheral pulses, normal rate, regular rhythm, no gallop/murmur, no JVD Respiratory/Chest: respiratory distress, decreased breath sounds, crackles/ rales, rhonchi - bilaterally, expiratory wheezing Abdomen: normal bowel sounds, non tender, soft, no organomegaly, no mass Extremities: normal range of motion, non-tender 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 Continue oral azithromycin and ceftriaxone IV (7) ESRD (end stage renal disease) Assessment & Plan: Nephrology=Dr Frank. Hemodialysis 07/03/20 (8) Anemia Assessment & Plan: S/P Transfusion 1 unit PRBC (9) Acute respiratory failure Kareem Fajardo MD Jul 04, 2020 18:14
--- NOTE | 2020-07-04 19:19 | NUR ---
NURSE HAND-OFF REPORT: Important Events on Shift: Patient Status: Diet: Pending Orders: Pending Results/Labs: Pending MD notification: Latest Vital Signs: Temperature 98.1 , Pulse 50 , B/P 155 /66 , Respiratory Rate 20 , O2 SAT 100 , Nasal Cannula, O2 Flow Rate 4.0 . Vital Sign Comment: EKG Rhythm: SR with 1st degree AVB Rhythm change?: N MD Notified?: N -Dr Harish LANDEROS Response: Message left await call Latest Alvarez Fall Score: 50 Fall Risk: High Risk Safety Measures: Call light Within Reach, Bed Alarm Zone 1, Side Rails Side Rails x2, Bed position Low and Locked. Fall Precautions: Yellow Socks Yellow Gown Door Sign Patient Fall Education Report given to . pt is awake and stable, endorsed plan of care.
--- NOTE | 2020-07-04 19:20 | NUR ---
NURSE NOTES: Received report from [place]. Patient is A+Ox3 Beninese speaking little German. On oxygen via nasal cannula @ 4L NC, sating 96%. On cardiac, renal diet, pt aware and compliant. IV site is on left upper arm 20g saline lock that is patent and intact. HD access is on right arm AV shunt. Safety measures are in place, bed in lowest and locked position, side rails up x 2. Call light button and bedside table within reach, instructed to call for any assistance needed, will continue plan of care.
[2020-07-04] MEDS: Epoetin Alfa-EPBX(ESRD on dialysis)10,000 unit/ml vial SUBQ SCH (21:00)
[2020-07-04] MEDS: Sennosides 8.6mg tab ORAL SCH (21:00)
[2020-07-05] VITALS: BP 141/59
[2020-07-05] MEDS: NovoLOG Insulin Flexpen SUBQ SCH ×4 (06:27→21:17)
[2020-07-05 07:29] LABS: ALANINE AMINOTRANSFERASE 14 U/L (12-78); ALBUMIN 2.2 G/DL (3.4-5.0); ALBUMIN/GLOBULIN RATIO 0.6 (1.0-2.7); ALKALINE PHOSPHATASE 90 U/L (46-116); ANION GAP 7 mmol/L (5-15); ASPARTATE AMINO TRANSFERASE 9 U/L (15-37); BILIRUBIN,TOTAL 0.3 MG/DL (0.2-1.0); BLOOD UREA NITROGEN 54 mg/dL (7-18); CALCIUM 8.3 MG/DL (8.5-10.1); CARBON DIOXIDE 31 MMOL/L (21-32); CHLORIDE 97 MMOL/L (98-107); CREATININE 5.1 MG/DL (0.55-1.30); PHOSPHORUS 3.3 MG/DL (2.5-4.9); POTASSIUM 4.4 MMOL/L (3.5-5.1); SODIUM 135 MMOL/L (136-145)
--- NOTE | 2020-07-05 07:30 | NUR ---
NURSE NOTES: Received pt from NIKO Drummond, pt is awake and alert, pt has NC 4LMP, Pt is on continues heart monitoring, pt has intact iv access YOSHI 20G SL. Pt has HD access GRAZYNA, dressing is intact. Pt is eating breakfast by observation. no complain of pain at this moment. all needs attended, bed is locked and is in the lowest position. call light within easy reach. will continue to monitor.
--- NOTE | 2020-07-05 07:30 | NUR ---
NURSE HAND-OFF REPORT: Important Events on Shift:[] Patient Status: [Stable] Diet: [Renal/Cardiac] Pending Orders: [AM Labs] Pending Results/Labs:[] Pending MD notification:[] Latest Vital Signs: Temperature 97.9 , Pulse 77 , B/P 141 /59 , Respiratory Rate 18 , O2 SAT 99 , Nasal Cannula, O2 Flow Rate 4.0 . Vital Sign Comment: [] EKG Rhythm: SR with 1st degree AVB Rhythm change?: N MD Notified?: N -Dr Harish LANDEROS Response: Message left await call Latest Alvarez Fall Score: 50 Fall Risk: High Risk Safety Measures: Call light Within Reach, Bed Alarm Zone 1, Side Rails Side Rails x2, Bed position Low and Locked. Fall Precautions: Yellow Socks Yellow Gown Door Sign Patient Fall Education Report given to [Vandana RN].
[2020-07-05 07:34] LABS: BASOPHILS % (AUTO) 1.2 % (0.0-2.0); EOSINOPHILS % (AUTO) 1.3 % (0.0-3.0); HEMATOCRIT 26.6 % (37.0-47.0); HEMOGLOBIN 8.7 G/DL (12.0-16.0); LYMPHOCYTES % (AUTO) 19.2 % (20.0-45.0); MEAN CORPUSCULAR VOLUME 89 FL (80-99); MONOCYTES % (AUTO) 7.1 % (1.0-10.0); NEUTROPHILS % (AUTO) 71.3 % (45.0-75.0); PLATELET COUNT 250 K/UL (150-450); RED BLOOD COUNT 2.99 M/UL (4.20-5.40); RED CELL DISTRIBUTION WIDTH 14.6 % (11.6-14.8); WHITE BLOOD COUNT 8.3 K/UL (4.8-10.8)
[2020-07-05 08:00] VITALS: BP 150/78
[2020-07-05] MEDS: cefTRIAXone 1 GM in D5W 55 ML IVPB SCH (08:57)
[2020-07-05] MEDS: Docusate 100mg cap ORAL SCH ×3 (08:57→17:08)
[2020-07-05] MEDS: Nephrovite tab (Rena-Vite) ORAL SCH (08:57)
[2020-07-05] MEDS: Heparin 5000 units/ml inj SUBQ SCH (08:59)
--- NOTE | 2020-07-05 10:00 | NUR ---
NURSE NOTES: Dr Frank visited pt and is aware about Crea 5.1 BUN 54 and RN asked MD for HD, Dr Frank stated not for today, MD may be F/U for tomorrow after checking labs.
[2020-07-05] MEDS: Atorvastatin 20mg tab ORAL SCH (11:23)
[2020-07-05 12:00] VITALS: BP 148/64
--- NOTE | 2020-07-05 12:00 | NUR ---
NURSE NOTES: Dr Naidu visited pt and is aware pt has red spots all over body, MD will F/U, no new order to RN. Will continue to monitor.
--- NOTE | 2020-07-05 12:15 | Pulmonology Progress Note ---
Subjective ROS Limited/Unobtainable: No Interval Events: doing better Constitutional: Reports: no symptoms HEENT: Repors: no symptoms Cardiovascular: Reports: no symptoms Allergies: Coded Allergies: No Known Allergies (Verified Allergy, Unknown, 02/17/11) Objective Last 24 Hour Vital Signs Date Time Temp Pulse Resp B/P (MAP) Pulse Ox O2 Delivery O2 Flow Rate FiO2 07/05/20 08:57 82 150/78 07/05/20 08:00 98.1 82 20 150/78 (102) 99 07/05/20 08:00 Nasal Cannula 2.0 07/05/20 07:26 79 07/05/20 04:00 77 07/05/20 04:00 Nasal Cannula 4.0 07/05/20 00:00 Nasal Cannula 4.0 07/05/20 00:00 85 07/05/20 00:00 97.9 85 18 141/59 (86) 99 07/04/20 20:00 98.2 84 19 150/65 (93) 98 07/04/20 20:00 74 07/04/20 20:00 Nasal Cannula 4.0 07/04/20 18:00 155/66 (95) 07/04/20 16:26 166/71 07/04/20 16:00 98.1 50 20 166/71 (102) 100 07/04/20 15:48 Nasal Cannula 4.0 07/04/20 15:32 81 07/04/20 13:30 161/77 (105) Intake and Output 07/04/20 07/05/20 19:00 07:00 Intake Total 55 ml Balance 55 ml IV Total 55 ml # Voids 2 2 # Bowel Movements 3 3 General Appearance: WD/WN, no acute distress HEENT: normocephalic, atraumatic Respiratory: chest wall non-tender, lungs clear Breasts: no masses Cardiovascular: normal peripheral pulses Abdomen: normal bowel sounds, soft, non tender Extremities: no clubbing Skin: no rash 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 normal Microbiology Date/Time Source Procedure Growth Status 07/03/20 20:30 Sputum Expectorated Gram Stain - Final Resulted 07/03/20 20:30 Sputum Expectorated Sputum Culture - Preliminary NORMAL UPPER RESPIRATORY SHAHEED PRESENT Resulted Laboratory Tests 07/04/20 16:33: POC Whole Blood Glucose 251H 07/04/20 17:25: Urine Legionella Antigen [Pending] 07/05/20 05:20: White Blood Count 8.3, Red Blood Count 2.99L, Hemoglobin 8.7L, Hematocrit 26.6L , Mean Corpuscular Volume 89, Mean Corpuscular Hemoglobin 29.2, Mean Corpuscular Hemoglobin Concent 32.8, Red Cell Distribution Width 14.6, Platelet Count 250, Mean Platelet Volume 5.3L, Neutrophils (%) (Auto) 71.3, Lymphocytes ( %) (Auto) 19.2L, Monocytes (%) (Auto) 7.1, Eosinophils (%) (Auto) 1.3, Basophils (%) (Auto) 1.2, Sodium Level 135L, Potassium Level 4.4, Chloride Level 97L, Carbon Dioxide Level 31, Anion Gap 7, Blood Urea Nitrogen 54H, Creatinine 5.1H, Estimat Glomerular Filtration Rate 8.8, Glucose Level 242H, Calcium Level 8.3L, Phosphorus Level 3.3, Total Bilirubin 0.3, Aspartate Amino Transf (AST/SGOT) 9L, Alanine Aminotransferase (ALT/SGPT) 14, Alkaline Phosphatase 90, C-Reactive Protein, Quantitative 4.9H, Pro-B-Type Natriuretic Peptide [id number], Total Protein 5.6L, Albumin 2.2L, Globulin 3.4, Albumin/ Globulin Ratio 0.6L 07/05/20 11:40: POC Whole Blood Glucose 313H Current Medications Medications (Trade) Dose Ordered Sig/Miguel Route PRN Reason Start Time Stop Time Status Last Admin Dose Admin Albuterol Sulfate (Proventil MDI) 2 puff Q6H PRN INH Shortness of Breath 06/29/20 19:15 09/27/20 19:14 06/30/20 19:12 Amlodipine Besylate (Norvasc) 10 mg DAILY ORAL 06/30/20 09:00 07/29/20 08:59 07/05/20 08:57 Aspirin (ASA) 325 mg DAILY ORAL 06/29/20 09:00 08/13/20 08:59 07/05/20 08:57 Atorvastatin Calcium (Lipitor) 40 mg BEFORE LUNCH ORAL 06/29/20 11:30 09/27/20 11:29 07/05/20 11:23 Calcium Acetate (Phoslo) 667 mg BEFORE MEALS ORAL 06/29/20 06:30 09/27/20 06:29 07/05/20 11:23 Ceftriaxone Sodium 1 gm/ Dextrose 55 ml @ 110 mls/hr Q24H IVPB 06/29/20 09:00 07/06/20 08:59 07/05/20 08:57 Clonidine HCl (Catapres Tab) 0.1 mg Q4H PRN ORAL For High Blood Pressure 06/29/20 07:45 09/27/20 07:44 07/04/20 16:26 Dextrose (Dextrose 50%) 25 ml Q30M PRN IV Hypoglycemia 06/28/20 23:15 09/26/20 23:14 Dextrose (Dextrose 50%) 50 ml Q30M PRN IV Hypoglycemia 06/28/20 23:15 09/26/20 23:14 Docusate Sodium (Colace) 100 mg TID ORAL 06/29/20 13:00 07/29/20 08:59 07/05/20 08:57 Epoetin Armando (Epoetin Armando(ESRD on dialysis)) 10,000 unit THU-THU-THU SUBQ 07/02/20 21:00 09/30/20 20:59 07/04/20 21:00 Heparin Sodium (Porcine) (Heparin 5000 units/ml) 5,000 units EVERY 12 HOURS SUBQ 06/29/20 09:00 08/13/20 08:59 07/05/20 08:59 Insulin Aspart (NovoLOG) BEFORE MEALS AND HS SUBQ 06/29/20 06:30 09/27/20 06:29 07/05/20 06:27 Levothyroxine Sodium (Synthroid) 50 mcg ACBREAKFAST ORAL 07/01/20 06:30 07/29/20 06:29 07/05/20 06:08 Pantoprazole (Protonix) 40 mg Q12HR ORAL 06/29/20 21:00 07/29/20 11:29 07/05/20 08:57 Sennosides (Senokot) 8.6 mg BEDTIME ORAL 06/29/20 21:00 07/29/20 20:59 07/04/20 21:00 Vitamin B Complex/ Vit C/Folic Acid (Nephrovite) 1 tab DAILY ORAL 06/29/20 09:00 07/29/20 08:59 07/05/20 08:57 Assessment/Plan Problems: (1) Renal failure (ARF), acute on chronic (2) ACS (acute coronary syndrome) (3) Anemia (4) COVID-19 (5) ESRD (end stage renal disease) (6) Diabetic nephropathy Assessment/Plan no new complains doing better no new complains all reviewed respiratory treatment check electrolytes check electrolytes symptomatic treatment. dc planning soon Maria Elena Naidu MD Jul 05, 2020 12:15
--- NOTE | 2020-07-05 13:07 | Infectious Diseases Prog Note ---
Assessment/Plan Assessment: Afebrile No leukocytosis Acute hypoxic resp failure, recurrent - on 4l nC >2lNC Pneumonia- likely superimposed bacterial CHF exacerbation- rapid improvement of pulmonary infiltrates was likely fluid -sp cx normal resp delgado (prelim) -07/03 CXR: Significantly improved bilateral interstitial and airspace infiltrates versus edema, over 5 days, with minimal residual -06/29 CXR: Diffuse bilateral alveolar densities, infiltrates and/or edema. B/l legs petechial lesions (non blanchable)- ?etiology- not typical for drug rash- r/o vasculitis recent COVID19 c/w acute hypoxic resp failure requiring intubation -admitted at [facility] Pyuria/bacteriuria- assymptomatic -u/a wbc 10-15, nit neg, leuk +2; ucx 30-40k VRE (S linezolid, macrobid); colonizer hypothryoidism pHTN Hep C ab + w/ neg viral load obesity s/p cholecystectomy s/p cataract surgery HLD ESRD on HD Dm2 HTN CHF Plan: -Continue empiric Ceftriaxone #6/5-7 -07/04 SP Azithromycin #5 -f/u cx -Monitor CBC/CMP, temperatures -f/u sp cx, legionella ag urine Thank you for this consultation. Will continue to follow along with you. Discussed with RN. Subjective Allergies: Coded Allergies: No Known Allergies (Verified Allergy, Unknown, 02/17/11) afebrile at2; NC developed red spots on b/l legs Objective Last 24 Hour Vital Signs Date Time Temp Pulse Resp B/P (MAP) Pulse Ox O2 Delivery O2 Flow Rate FiO2 07/05/20 12:00 Nasal Cannula 2.0 07/05/20 12:00 98.4 76 20 148/64 (92) 100 07/05/20 08:57 82 150/78 07/05/20 08:00 98.1 82 20 150/78 (102) 99 07/05/20 08:00 Nasal Cannula 2.0 07/05/20 07:26 79 07/05/20 04:00 77 07/05/20 04:00 Nasal Cannula 4.0 07/05/20 00:00 Nasal Cannula 4.0 07/05/20 00:00 85 07/05/20 00:00 97.9 85 18 141/59 (86) 99 07/04/20 20:00 98.2 84 19 150/65 (93) 98 07/04/20 20:00 74 07/04/20 20:00 Nasal Cannula 4.0 07/04/20 18:00 155/66 (95) 07/04/20 16:26 166/71 07/04/20 16:00 98.1 50 20 166/71 (102) 100 07/04/20 15:48 Nasal Cannula 4.0 07/04/20 15:32 81 07/04/20 13:30 161/77 (105) Height (Feet): 5 Height (Inches): 4.00 Weight (Pounds): 201 GENERAL: The patient is well-developed and well-nourished female, in moderate respiratory distress. HEENT: Eyes, pupils are equal and responsive to light and accommodation. Extraocular movements are intact. NECK: Supple without lymphadenopathy. CHEST: Lungs are clear to auscultation bilaterally without wheezes or rales. CARDIOVASCULAR: Regular rhythm and rate. S1 and S2 are normal without murmurs, rubs, or gallops. ABDOMEN: Soft, nontender, nondistended. Positive bowel sounds. No evidence of hepatosplenomegaly. EXTREMITIES: Negative for clubbing, cyanosis, or edema. petechial lesions, non blanchable on b/l L E Microbiology Date/Time Source Procedure Growth Status 07/03/20 20:30 Sputum Expectorated Gram Stain - Final Resulted 07/03/20 20:30 Sputum Expectorated Sputum Culture - Preliminary NORMAL UPPER RESPIRATORY DELGADO PRESENT Resulted Laboratory Tests Test 07/04/20 16:33 07/04/20 17:25 07/05/20 05:20 07/05/20 11:40 POC Whole Blood Glucose 251 MG/DL (74-106) H 313 MG/DL (74-106) H Urine Legionella Antigen Pending White Blood Count 8.3 K/UL (4.8-10.8) Red Blood Count 2.99 M/UL (4.20-5.40) L Hemoglobin 8.7 G/DL (12.0-16.0) L Hematocrit 26.6 % (37.0-47.0) L Mean Corpuscular Volume 89 FL (80-99) Mean Corpuscular Hemoglobin 29.2 PG (27.0-31.0) Mean Corpuscular Hemoglobin Concent 32.8 G/DL (32.0-36.0) Red Cell Distribution Width 14.6 % (11.6-14.8) Platelet Count 250 K/UL (150-450) Mean Platelet Volume 5.3 FL (6.5-10.1) L Neutrophils (%) (Auto) 71.3 % (45.0-75.0) Lymphocytes (%) (Auto) 19.2 % (20.0-45.0) L Monocytes (%) (Auto) 7.1 % (1.0-10.0) Eosinophils (%) (Auto) 1.3 % (0.0-3.0) Basophils (%) (Auto) 1.2 % (0.0-2.0) Sodium Level 135 MMOL/L (136-145) L Potassium Level 4.4 MMOL/L (3.5-5.1) Chloride Level 97 MMOL/L (98-107) L Carbon Dioxide Level 31 MMOL/L (21-32) Anion Gap 7 mmol/L (5-15) Blood Urea Nitrogen 54 mg/dL (7-18) H Creatinine 5.1 MG/DL (0.55-1.30) H Estimat Glomerular Filtration Rate 8.8 mL/min (>60) Glucose Level 242 MG/DL (74-106) H Calcium Level 8.3 MG/DL (8.5-10.1) L Phosphorus Level 3.3 MG/DL (2.5-4.9) Total Bilirubin 0.3 MG/DL (0.2-1.0) Aspartate Amino Transf (AST/SGOT) 9 U/L (15-37) L Alanine Aminotransferase (ALT/SGPT) 14 U/L (12-78) Alkaline Phosphatase 90 U/L (46-116) C-Reactive Protein, Quantitative 4.9 mg/dL (0.00-0.90) H Pro-B-Type Natriuretic Peptide 87444 pg/mL (0-125) H Total Protein 5.6 G/DL (6.4-8.2) L Albumin 2.2 G/DL (3.4-5.0) L Globulin 3.4 g/dL Albumin/Globulin Ratio 0.6 (1.0-2.7) L Current Medications Medications (Trade) Dose Ordered Sig/Miguel Route PRN Reason Start Time Stop Time Status Last Admin Dose Admin Albuterol Sulfate (Proventil MDI) 2 puff Q6H PRN INH Shortness of Breath 06/29/20 19:15 09/27/20 19:14 06/30/20 19:12 Amlodipine Besylate (Norvasc) 10 mg DAILY ORAL 06/30/20 09:00 07/29/20 08:59 07/05/20 08:57 Atorvastatin Calcium (Lipitor) 40 mg BEFORE LUNCH ORAL 06/29/20 11:30 09/27/20 11:29 07/05/20 11:23 Calcium Acetate (Phoslo) 667 mg BEFORE MEALS ORAL 06/29/20 06:30 09/27/20 06:29 07/05/20 11:23 Clonidine HCl (Catapres Tab) 0.1 mg Q4H PRN ORAL For High Blood Pressure 06/29/20 07:45 09/27/20 07:44 07/04/20 16:26 Dextrose (Dextrose 50%) 25 ml Q30M PRN IV Hypoglycemia 06/28/20 23:15 09/26/20 23:14 Dextrose (Dextrose 50%) 50 ml Q30M PRN IV Hypoglycemia 06/28/20 23:15 09/26/20 23:14 Docusate Sodium (Colace) 100 mg TID ORAL 06/29/20 13:00 07/29/20 08:59 07/05/20 08:57 Epoetin Armando (Epoetin Armando(ESRD on dialysis)) 10,000 unit THU-THU-THU SUBQ 07/02/20 21:00 09/30/20 20:59 07/04/20 21:00 Insulin Aspart (NovoLOG) BEFORE MEALS AND HS SUBQ 06/29/20 06:30 09/27/20 06:29 07/05/20 12:00 Levothyroxine Sodium (Synthroid) 50 mcg ACBREAKFAST ORAL 07/01/20 06:30 07/29/20 06:29 07/05/20 06:08 Pantoprazole (Protonix) 40 mg Q12HR ORAL 06/29/20 21:00 07/29/20 11:29 07/05/20 08:57 Sennosides (Senokot) 8.6 mg BEDTIME ORAL 06/29/20 21:00 07/29/20 20:59 07/04/20 21:00 Vitamin B Complex/ Vit C/Folic Acid (Nephrovite) 1 tab DAILY ORAL 06/29/20 09:00 07/29/20 08:59 07/05/20 08:57 Harper Huffman M.D. Jul 05, 2020 13:07
--- NOTE | 2020-07-05 13:41 | Nephrology Progress Note ---
Assessment/Plan Problem List: (1) ESRD (end stage renal disease) (2) Diabetic nephropathy (3) Anemia (4) COVID-19 (5) PNA (pneumonia) (6) Electrolyte imbalance (7) Volume overload Plan July 05: Due for dialysis in a.m. Labs reviewed. Blood sugar elevated. Will add low-dose Levemir. July 04: Dialyzed yesterday. Labs reviewed. Hemoglobin 8.5. Continue per consultants. July 03: Patient due for dialysis today. Hemoglobin remains low. Transfusion as needed. Continue per consultants. July 02: Patient was dialyzed yesterday. Today's labs reviewed. Hemoglobin is low. Will transfuse 1 unit of packed RBCs today. Will do dialysis tomorrow. July 01: Patient due for dialysis today. Labs reviewed. Continue per current management. June 30: Patient was dialyzed yesterday, hyponatremia resolved. Clinically improved. Will attempt dialysis tomorrow Subjective ROS Limited/Unobtainable: No Constitutional: Reports: malaise Objective Objective Last 24 Hour Vital Signs Date Time Temp Pulse Resp B/P (MAP) Pulse Ox O2 Delivery O2 Flow Rate FiO2 07/05/20 12:00 Nasal Cannula 2.0 07/05/20 12:00 98.4 76 20 148/64 (92) 100 07/05/20 11:42 78 07/05/20 08:57 82 150/78 07/05/20 08:00 98.1 82 20 150/78 (102) 99 07/05/20 08:00 Nasal Cannula 2.0 07/05/20 07:26 79 07/05/20 04:00 77 07/05/20 04:00 Nasal Cannula 4.0 07/05/20 00:00 Nasal Cannula 4.0 07/05/20 00:00 85 07/05/20 00:00 97.9 85 18 141/59 (86) 99 07/04/20 20:00 98.2 84 19 150/65 (93) 98 07/04/20 20:00 74 07/04/20 20:00 Nasal Cannula 4.0 07/04/20 18:00 155/66 (95) 07/04/20 16:26 166/71 07/04/20 16:00 98.1 50 20 166/71 (102) 100 07/04/20 15:48 Nasal Cannula 4.0 07/04/20 15:32 81 Intake and Output 07/04/20 07/05/20 18:59 06:59 Intake Total 55 ml Balance 55 ml IV Total 55 ml # Voids 2 2 # Bowel Movements 3 3 Laboratory Tests 07/04/20 16:33: POC Whole Blood Glucose 251H 07/04/20 17:25: Urine Legionella Antigen [Pending] 07/05/20 05:20: White Blood Count 8.3, Red Blood Count 2.99L, Hemoglobin 8.7L, Hematocrit 26.6L , Mean Corpuscular Volume 89, Mean Corpuscular Hemoglobin 29.2, Mean Corpuscular Hemoglobin Concent 32.8, Red Cell Distribution Width 14.6, Platelet Count 250, Mean Platelet Volume 5.3L, Neutrophils (%) (Auto) 71.3, Lymphocytes ( %) (Auto) 19.2L, Monocytes (%) (Auto) 7.1, Eosinophils (%) (Auto) 1.3, Basophils (%) (Auto) 1.2, Sodium Level 135L, Potassium Level 4.4, Chloride Level 97L, Carbon Dioxide Level 31, Anion Gap 7, Blood Urea Nitrogen 54H, Creatinine 5.1H, Estimat Glomerular Filtration Rate 8.8, Glucose Level 242H, Calcium Level 8.3L, Phosphorus Level 3.3, Total Bilirubin 0.3, Aspartate Amino Transf (AST/SGOT) 9L, Alanine Aminotransferase (ALT/SGPT) 14, Alkaline Phosphatase 90, C-Reactive Protein, Quantitative 4.9H, Pro-B-Type Natriuretic Peptide 70029M, Total Protein 5.6L, Albumin 2.2L, Globulin 3.4, Albumin/ Globulin Ratio 0.6L 07/05/20 11:40: POC Whole Blood Glucose 313H Height (Feet): 5 Height (Inches): 4.00 Weight (Pounds): 201 General Appearance: no apparent distress Cardiovascular: normal rate Respiratory/Chest: decreased breath sounds Abdomen: soft Lito Frank MD Jul 05, 2020 13:41
[2020-07-05] MEDS ORDERED: Levemir Flexpen SUBQ ONE (14:00)
--- NOTE | 2020-07-05 15:15 | NUR ---
DISCHARGE PLANNING ORDER FOR HOME O2 SENT TO [facility] P: [phone] F: [phone] RESPIRATORY O2 ASSESSMENT PROVIDED TO NIKO COLIN FOR COMPLETION. WILL FAX TO [facility] WHEN COMPLETED. Addendum: 07/05/20 at 1634 by JAYCE LYNN LVN LVN FOLLOW UP CALL MADE TO ERIC DUNN AT [facility] [phone] WITH NO ANSWER. NELIA LEFT WITH REQUEST FOR CALL BACK.
[2020-07-05 16:00] VITALS: BP 172/74
--- NOTE | 2020-07-05 16:40 | Cardiology Progress Note ---
Assessment/Plan Assessment/Plan 1. Respiratory discomfort, possibly pneumonia vs volume. 2. Recent COVID infection. 3. Hyperglycemia. 4. Recent mucosal candidiasis. 5. Intermittent stridor history. 6. End-stage renal disease, on hemodialysis. 7. Diabetes mellitus. 8. History of diastolic heart failure. 9. Hypothyroidism needing 2 l nc 100% sat cxr showed sig improvement in infiltrates may have been volume related trop neg tele sinus no vt no svt no pauses echo noted normal lv function cxr showed sig improvement noted to eber sanders adjusting med for the sonido Subjective Subjective patient in bed awake. O2 via NC at 4L in place, no SOB or acute distress. IV line intact. HD shunt on right arm, no bleeding or signs of infection. Still for OB stool collection, instructed and verbalized understanding. For HD today. HOB elevated. Objective Last 24 Hour Vital Signs Date Time Temp Pulse Resp B/P (MAP) Pulse Ox O2 Delivery O2 Flow Rate FiO2 07/05/20 16:12 172/74 07/05/20 16:00 99.1 81 20 172/74 (106) 97 07/05/20 15:51 Nasal Cannula 2.0 07/05/20 12:00 Nasal Cannula 2.0 07/05/20 12:00 98.4 76 20 148/64 (92) 100 07/05/20 11:42 78 07/05/20 08:57 82 150/78 07/05/20 08:00 98.1 82 20 150/78 (102) 99 07/05/20 08:00 Nasal Cannula 2.0 07/05/20 07:26 79 07/05/20 04:00 77 07/05/20 04:00 Nasal Cannula 4.0 07/05/20 00:00 Nasal Cannula 4.0 07/05/20 00:00 85 07/05/20 00:00 97.9 85 18 141/59 (86) 99 07/04/20 20:00 98.2 84 19 150/65 (93) 98 07/04/20 20:00 74 07/04/20 20:00 Nasal Cannula 4.0 07/04/20 18:00 155/66 (95) Intake and Output 07/04/20 07/05/20 19:00 07:00 Intake Total 55 ml Balance 55 ml IV Total 55 ml # Voids 2 2 # Bowel Movements 3 3 Laboratory Tests Test 07/04/20 17:25 07/05/20 05:20 07/05/20 11:40 07/05/20 16:18 Urine Legionella Antigen Pending White Blood Count 8.3 K/UL (4.8-10.8) Red Blood Count 2.99 M/UL (4.20-5.40) L Hemoglobin 8.7 G/DL (12.0-16.0) L Hematocrit 26.6 % (37.0-47.0) L Mean Corpuscular Volume 89 FL (80-99) Mean Corpuscular Hemoglobin 29.2 PG (27.0-31.0) Mean Corpuscular Hemoglobin Concent 32.8 G/DL (32.0-36.0) Red Cell Distribution Width 14.6 % (11.6-14.8) Platelet Count 250 K/UL (150-450) Mean Platelet Volume 5.3 FL (6.5-10.1) L Neutrophils (%) (Auto) 71.3 % (45.0-75.0) Lymphocytes (%) (Auto) 19.2 % (20.0-45.0) L Monocytes (%) (Auto) 7.1 % (1.0-10.0) Eosinophils (%) (Auto) 1.3 % (0.0-3.0) Basophils (%) (Auto) 1.2 % (0.0-2.0) Sodium Level 135 MMOL/L (136-145) L Potassium Level 4.4 MMOL/L (3.5-5.1) Chloride Level 97 MMOL/L (98-107) L Carbon Dioxide Level 31 MMOL/L (21-32) Anion Gap 7 mmol/L (5-15) Blood Urea Nitrogen 54 mg/dL (7-18) H Creatinine 5.1 MG/DL (0.55-1.30) H Estimat Glomerular Filtration Rate 8.8 mL/min (>60) Glucose Level 242 MG/DL (74-106) H Calcium Level 8.3 MG/DL (8.5-10.1) L Phosphorus Level 3.3 MG/DL (2.5-4.9) Total Bilirubin 0.3 MG/DL (0.2-1.0) Aspartate Amino Transf (AST/SGOT) 9 U/L (15-37) L Alanine Aminotransferase (ALT/SGPT) 14 U/L (12-78) Alkaline Phosphatase 90 U/L (46-116) C-Reactive Protein, Quantitative 4.9 mg/dL (0.00-0.90) H Pro-B-Type Natriuretic Peptide 26149 pg/mL (0-125) H Total Protein 5.6 G/DL (6.4-8.2) L Albumin 2.2 G/DL (3.4-5.0) L Globulin 3.4 g/dL Albumin/Globulin Ratio 0.6 (1.0-2.7) L POC Whole Blood Glucose 313 MG/DL (74-106) H 295 MG/DL (74-106) H Microbiology Date/Time Source Procedure Growth Status 07/03/20 20:30 Sputum Expectorated Gram Stain - Final Resulted 07/03/20 20:30 Sputum Expectorated Sputum Culture - Preliminary NORMAL UPPER RESPIRATORY SHAHEED PRESENT Resulted Objective per id CHEST: Lungs are clear to auscultation bilaterally without wheezes or rales. CARDIOVASCULAR: Regular rhythm and rate. S1 and S2 are normal without murmurs, rubs, or gallops. ABDOMEN: Soft, nontender, nondistended. Positive bowel sounds. No evidence of hepatosplenomegaly. Renzo Moreira MD Jul 05, 2020 16:40
[2020-07-05 17:09] VITALS: BP 163/75
--- NOTE | 2020-07-05 18:34 | Internal Med Progress Note ---
Subjective Date of Service: Jul 05, 2020 Physician Name Kareem Fajardo Attending Physician Pierre Childs MD Current Medications Medications (Trade) Dose Ordered Sig/Miguel Route PRN Reason Start Time Stop Time Status Last Admin Dose Admin Albuterol Sulfate (Proventil MDI) 2 puff Q6H PRN INH Shortness of Breath 06/29/20 19:15 09/27/20 19:14 06/30/20 19:12 Amlodipine Besylate (Norvasc) 10 mg DAILY ORAL 06/30/20 09:00 07/29/20 08:59 07/05/20 08:57 Atorvastatin Calcium (Lipitor) 40 mg BEFORE LUNCH ORAL 06/29/20 11:30 09/27/20 11:29 07/05/20 11:23 Calcium Acetate (Phoslo) 667 mg BEFORE MEALS ORAL 06/29/20 06:30 09/27/20 06:29 07/05/20 16:12 Clonidine HCl (Catapres Tab) 0.1 mg Q4H PRN ORAL For High Blood Pressure 06/29/20 07:45 09/27/20 07:44 07/05/20 16:12 Dextrose (Dextrose 50%) 25 ml Q30M PRN IV Hypoglycemia 06/28/20 23:15 09/26/20 23:14 Dextrose (Dextrose 50%) 50 ml Q30M PRN IV Hypoglycemia 06/28/20 23:15 09/26/20 23:14 Docusate Sodium (Colace) 100 mg TID ORAL 06/29/20 13:00 07/29/20 08:59 07/05/20 17:08 Epoetin Armando (Epoetin Armando(ESRD on dialysis)) 10,000 unit THU-THU-THU SUBQ 07/02/20 21:00 09/30/20 20:59 07/04/20 21:00 Insulin Aspart (NovoLOG) BEFORE MEALS AND HS SUBQ 06/29/20 06:30 09/27/20 06:29 07/05/20 16:47 Insulin Detemir (Levemir) 10 units BEDTIME SUBQ 07/05/20 21:00 10/03/20 20:59 Levothyroxine Sodium (Synthroid) 50 mcg ACBREAKFAST ORAL 07/01/20 06:30 07/29/20 06:29 8/27/20 06:08 Pantoprazole (Protonix) 40 mg Q12HR ORAL 06/29/20 21:00 07/29/20 11:29 07/05/20 08:57 Sennosides (Senokot) 8.6 mg BEDTIME ORAL 06/29/20 21:00 07/29/20 20:59 07/04/20 21:00 Vitamin B Complex/ Vit C/Folic Acid (Nephrovite) 1 tab DAILY ORAL 06/29/20 09:00 07/29/20 08:59 07/05/20 08:57 Allergies: Coded Allergies: No Known Allergies (Verified Allergy, Unknown, 02/17/11) ROS Limited/Unobtainable: No Constitutional: Reports: no symptoms HEENT: Reports: no symptoms Cardiovascular: Reports: no symptoms Respiratory: Reports: shortness of breath Gastrointestinal/Abdominal: Reports: no symptoms Genitourinary: Reports: no symptoms Neurologic/Psychiatric: Reports: no symptoms Subjective 54 YO F admitted with shortness of breath. Now COVID 19 pneumonia. Cover for Int Med-Dr Childs Objective Last Vital Signs Date Time Temp Pulse Resp B/P (MAP) Pulse Ox O2 Delivery O2 Flow Rate FiO2 07/05/20 17:09 163/75 (104) 07/05/20 16:00 99.1 81 20 97 07/05/20 15:51 Nasal Cannula 2.0 Laboratory Tests Test 07/05/20 05:20 07/05/20 11:40 07/05/20 16:18 White Blood Count 8.3 K/UL (4.8-10.8) Red Blood Count 2.99 M/UL (4.20-5.40) L Hemoglobin 8.7 G/DL (12.0-16.0) L Hematocrit 26.6 % (37.0-47.0) L Mean Corpuscular Volume 89 FL (80-99) Mean Corpuscular Hemoglobin 29.2 PG (27.0-31.0) Mean Corpuscular Hemoglobin Concent 32.8 G/DL (32.0-36.0) Red Cell Distribution Width 14.6 % (11.6-14.8) Platelet Count 250 K/UL (150-450) Mean Platelet Volume 5.3 FL (6.5-10.1) L Neutrophils (%) (Auto) 71.3 % (45.0-75.0) Lymphocytes (%) (Auto) 19.2 % (20.0-45.0) L Monocytes (%) (Auto) 7.1 % (1.0-10.0) Eosinophils (%) (Auto) 1.3 % (0.0-3.0) Basophils (%) (Auto) 1.2 % (0.0-2.0) Sodium Level 135 MMOL/L (136-145) L Potassium Level 4.4 MMOL/L (3.5-5.1) Chloride Level 97 MMOL/L (98-107) L Carbon Dioxide Level 31 MMOL/L (21-32) Anion Gap 7 mmol/L (5-15) Blood Urea Nitrogen 54 mg/dL (7-18) H Creatinine 5.1 MG/DL (0.55-1.30) H Estimat Glomerular Filtration Rate 8.8 mL/min (>60) Glucose Level 242 MG/DL (74-106) H Calcium Level 8.3 MG/DL (8.5-10.1) L Phosphorus Level 3.3 MG/DL (2.5-4.9) Total Bilirubin 0.3 MG/DL (0.2-1.0) Aspartate Amino Transf (AST/SGOT) 9 U/L (15-37) L Alanine Aminotransferase (ALT/SGPT) 14 U/L (12-78) Alkaline Phosphatase 90 U/L (46-116) C-Reactive Protein, Quantitative 4.9 mg/dL (0.00-0.90) H Pro-B-Type Natriuretic Peptide 75863 pg/mL (0-125) H Total Protein 5.6 G/DL (6.4-8.2) L Albumin 2.2 G/DL (3.4-5.0) L Globulin 3.4 g/dL Albumin/Globulin Ratio 0.6 (1.0-2.7) L POC Whole Blood Glucose 313 MG/DL (74-106) H 295 MG/DL (74-106) H Microbiology Date/Time Source Procedure Growth Status 07/03/20 20:30 Sputum Expectorated Gram Stain - Final Resulted 07/03/20 20:30 Sputum Expectorated Sputum Culture - Preliminary NORMAL UPPER RESPIRATORY SHAHEED PRESENT Resulted Intake and Output 07/04/20 07/05/20 19:00 07:00 Intake Total 55 ml Balance 55 ml IV Total 55 ml # Voids 2 2 # Bowel Movements 3 3 Objective General Appearance: WD/WN, no apparent distress, moderate distress EENT: PERRL/EOMI, normal ENT inspection Neck: non-tender, normal alignment, supple, normal inspection Cardiovascular: normal peripheral pulses, normal rate, regular rhythm, no gallop/murmur, no JVD Respiratory/Chest: respiratory distress, decreased breath sounds, crackles/ rales, rhonchi - bilaterally, expiratory wheezing Abdomen: normal bowel sounds, non tender, soft, no organomegaly, no mass Extremities: normal range of motion, non-tender 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 S/P azithromycin; Continue ceftriaxone (7) ESRD (end stage renal disease) Assessment & Plan: Nephrology=Dr Frank. Hemodialysis 07/05/20 (8) Anemia Assessment & Plan: S/P Transfusion 1 unit PRBC (9) Acute respiratory failure Kareem Fajardo MD Jul 05, 2020 18:34
--- NOTE | 2020-07-05 19:23 | NUR ---
NURSE HAND-OFF REPORT: Important Events on Shift: Patient Status: Diet: Pending Orders: Pending Results/Labs: Pending MD notification: Latest Vital Signs: Temperature 99.1 , Pulse 81 , B/P 163 /75 , Respiratory Rate 20 , O2 SAT 97 , Nasal Cannula, O2 Flow Rate 2.0 . Vital Sign Comment: EKG Rhythm: Sinus Rhythm Rhythm change?: N MD Notified?: N -Dr Harish LANDEROS Response: Message left await call Latest Alvarez Fall Score: 50 Fall Risk: High Risk Safety Measures: Call light Within Reach, Bed Alarm Zone 1, Side Rails Side Rails x2, Bed position Low and Locked. Fall Precautions: Yellow Socks Yellow Gown Door Sign Patient Fall Education Report given to .Pt is awake and stable, Endorsed plan of care. Endorsed to F/U for HD tomorrow with Dr Frank.
--- NOTE | 2020-07-05 19:39 | NUR ---
NURSE NOTES: Patient received from NIKO Ross. Patient is alert and oriented x 4. Patient was talking on the phone. Has nasal cannula at 4 L, satting at 96%. Bed is at the lowest position and call light within reach. Will continue to monitor.
[2020-07-05 20:00] VITALS: BP 151/70
[2020-07-05] MEDS: Sennosides 8.6mg tab ORAL SCH (21:00)
[2020-07-05] MEDS: Levemir Flexpen SUBQ SCH (21:16)
[2020-07-05] MEDS: Albuterol 90mcg Inhaler 8gm INH PRN (21:24)
[2020-07-06] VITALS: BP 130/57
[2020-07-06 04:00] VITALS: BP 129/59
[2020-07-06] MEDS: NovoLOG Insulin Flexpen SUBQ SCH ×4 (06:11→21:18)
[2020-07-06 06:35] LABS: BASOPHILS % (AUTO) 0.7 % (0.0-2.0); EOSINOPHILS % (AUTO) 1.6 % (0.0-3.0); HEMATOCRIT 25.7 % (37.0-47.0); HEMOGLOBIN 8.5 G/DL (12.0-16.0); LYMPHOCYTES % (AUTO) 20.9 % (20.0-45.0); MEAN CORPUSCULAR VOLUME 89 FL (80-99); MONOCYTES % (AUTO) 5.1 % (1.0-10.0); NEUTROPHILS % (AUTO) 71.7 % (45.0-75.0); PLATELET COUNT 237 K/UL (150-450); RED BLOOD COUNT 2.91 M/UL (4.20-5.40); RED CELL DISTRIBUTION WIDTH 14.5 % (11.6-14.8); WHITE BLOOD COUNT 7.7 K/UL (4.8-10.8)
[2020-07-06 07:26] LABS: ALANINE AMINOTRANSFERASE 12 U/L (12-78); ALBUMIN 2.2 G/DL (3.4-5.0); ALBUMIN/GLOBULIN RATIO 0.6 (1.0-2.7); ALKALINE PHOSPHATASE 81 U/L (46-116); ANION GAP 8 mmol/L (5-15); ASPARTATE AMINO TRANSFERASE 10 U/L (15-37); BILIRUBIN,TOTAL 0.3 MG/DL (0.2-1.0); BLOOD UREA NITROGEN 68 mg/dL (7-18); CALCIUM 8.7 MG/DL (8.5-10.1); CARBON DIOXIDE 28 MMOL/L (21-32); CHLORIDE 98 MMOL/L (98-107); CREATININE 5.8 MG/DL (0.55-1.30); PHOSPHORUS 3.4 MG/DL (2.5-4.9); POTASSIUM 4.4 MMOL/L (3.5-5.1); SODIUM 134 MMOL/L (136-145)
--- NOTE | 2020-07-06 07:50 | NUR ---
NURSE HAND-OFF REPORT: Important Events on Shift: high blood glucose covered Patient Status: stable Diet: renal/cardiac Pending Orders: n Pending Results/Labs:n Pending MD notification:n Latest Vital Signs: Temperature 98.2 , Pulse 90 , B/P 147 /77 , Respiratory Rate 20 , O2 SAT 97 , Nasal Cannula, O2 Flow Rate 2.0 . Vital Sign Comment: stable EKG Rhythm: Sinus Rhythm with first degree AV Block Rhythm change?: N MD Notified?: N -Dr Harish LANDEROS Response: Message left await call Latest Alvarez Fall Score: 50 Fall Risk: High Risk Safety Measures: Call light Within Reach, Bed Alarm Zone 1, Side Rails Side Rails x2, Bed position Low and Locked. Fall Precautions: y Yellow Socks y Yellow Gown y Door Sign y Patient Fall Education y Report given to NIKO Sharma.
--- NOTE | 2020-07-06 07:53 | NUR ---
NURSE NOTES: Received pt in bed, AO x 4. On NC 2L/min. No c/o of pain/distress. IV on YOSHI 20g noted. GRAZYNA AV shunt noted. Side rails x 2. Bed in the lowest and locked. Educated pt to call for assistance. Call light within reach. Will continue to monitor
[2020-07-06 08:00] VITALS: BP 147/77
[2020-07-06] MEDS: Nephrovite tab (Rena-Vite) ORAL SCH (08:23)
[2020-07-06] MEDS: Docusate 100mg cap ORAL SCH ×3 (08:23→16:34)
--- NOTE | 2020-07-06 09:43 | NUR ---
NURSE NOTES: Called [facility] and notified them with order for dialysis today. They will let money examiner know about the order
[2020-07-06] MEDS: Atorvastatin 20mg tab ORAL SCH (11:00)
[2020-07-06 12:00] VITALS: BP 136/61
--- NOTE | 2020-07-06 12:03 | Pulmonology Progress Note ---
Subjective ROS Limited/Unobtainable: No Interval Events: doing better Constitutional: Reports: no symptoms HEENT: Repors: no symptoms Cardiovascular: Reports: no symptoms Gastrointestinal/Abdominal: Reports: no symptoms Allergies: Coded Allergies: No Known Allergies (Verified Allergy, Unknown, 02/17/11) Objective Last 24 Hour Vital Signs Date Time Temp Pulse Resp B/P (MAP) Pulse Ox O2 Delivery O2 Flow Rate FiO2 07/06/20 08:23 90 147/77 07/06/20 08:10 Nasal Cannula 2.0 07/06/20 08:00 98.2 90 20 147/77 (100) 07/06/20 08:00 92 07/06/20 04:00 Nasal Cannula 2.0 07/06/20 04:00 98.4 87 22 129/59 (82) 07/06/20 04:00 84 07/06/20 00:00 81 07/06/20 00:00 99.7 85 22 130/57 (81) 07/06/20 00:00 Nasal Cannula 2.0 07/05/20 20:00 97.5 82 22 151/70 (97) 07/05/20 20:00 Nasal Cannula 2.0 07/05/20 20:00 82 07/05/20 17:09 163/75 (104) 07/05/20 16:12 172/74 07/05/20 16:00 99.1 81 20 172/74 (106) 97 07/05/20 15:51 Nasal Cannula 2.0 07/05/20 15:43 83 07/05/20 12:00 Nasal Cannula 2.0 07/05/20 12:00 98.4 76 20 148/64 (92) 100 Intake and Output 07/05/20 07/06/20 19:00 07:00 Intake Total 455 ml Balance 455 ml Intake Oral 400 ml IV Total 55 ml # Voids 3 1 # Bowel Movements 3 General Appearance: WD/WN, no acute distress HEENT: normocephalic, atraumatic Respiratory: chest wall non-tender, lungs clear Breasts: no masses Cardiovascular: normal peripheral pulses Abdomen: normal bowel sounds, soft, non tender Extremities: no clubbing Skin: no rash Neurologic: interactive producer II-XII grossly normal Lymphatic: no neck adenopathy Microbiology Date/Time Source Procedure Growth Status 07/03/20 20:30 Sputum Expectorated Gram Stain - Final Complete 07/03/20 20:30 Sputum Culture - Final Maren Albicans Usual Upper Respiratory Jess Complete Laboratory Tests 07/05/20 16:18: POC Whole Blood Glucose 295H 07/05/20 21:13: POC Whole Blood Glucose [Pending] 07/06/20 05:55: White Blood Count 7.7, Red Blood Count 2.91L, Hemoglobin 8.5L, Hematocrit 25.7L , Mean Corpuscular Volume 89, Mean Corpuscular Hemoglobin 29.3, Mean Corpuscular Hemoglobin Concent 33.0, Red Cell Distribution Width 14.5, Platelet Count 237, Mean Platelet Volume 5.1L, Neutrophils (%) (Auto) 71.7, Lymphocytes ( %) (Auto) 20.9, Monocytes (%) (Auto) 5.1, Eosinophils (%) (Auto) 1.6, Basophils (%) (Auto) 0.7, Erythrocyte Sedimentation Rate 49H, Sodium Level 134L, Potassium Level 4.4, Chloride Level 98, Carbon Dioxide Level 28, Anion Gap 8, Blood Urea Nitrogen 68H, Creatinine 5.8H, Estimat Glomerular Filtration Rate 7.6 , Glucose Level 222H, Calcium Level 8.7, Phosphorus Level 3.4, Magnesium Level 1.9, Total Bilirubin 0.3, Aspartate Amino Transf (AST/SGOT) 10L, Alanine Aminotransferase (ALT/SGPT) 12, Alkaline Phosphatase 81, C-Reactive Protein, Quantitative 4.6H, Total Protein 5.6L, Albumin 2.2L, Globulin 3.4, Albumin/ Globulin Ratio 0.6L 07/06/20 06:07: POC Whole Blood Glucose [Pending] 07/06/20 11:08: POC Whole Blood Glucose [Pending] Current Medications Medications (Trade) Dose Ordered Sig/Miguel Route PRN Reason Start Time Stop Time Status Last Admin Dose Admin Albuterol Sulfate (Proventil MDI) 2 puff Q6H PRN INH Shortness of Breath 06/29/20 19:15 09/27/20 19:14 07/05/20 21:24 Amlodipine Besylate (Norvasc) 10 mg DAILY ORAL 06/30/20 09:00 07/29/20 08:59 07/06/20 08:23 Atorvastatin Calcium (Lipitor) 40 mg BEFORE LUNCH ORAL 06/29/20 11:30 09/27/20 11:29 07/06/20 11:00 Calcium Acetate (Phoslo) 667 mg BEFORE MEALS ORAL 06/29/20 06:30 09/27/20 06:29 07/06/20 11:00 Clonidine HCl (Catapres Tab) 0.1 mg Q4H PRN ORAL For High Blood Pressure 06/29/20 07:45 09/27/20 07:44 07/05/20 16:12 Dextrose (Dextrose 50%) 25 ml Q30M PRN IV Hypoglycemia 06/28/20 23:15 09/26/20 23:14 Dextrose (Dextrose 50%) 50 ml Q30M PRN IV Hypoglycemia 06/28/20 23:15 09/26/20 23:14 Docusate Sodium (Colace) 100 mg TID ORAL 06/29/20 13:00 07/29/20 08:59 07/06/20 08:23 Epoetin Armando (Epoetin Armando(ESRD on dialysis)) 10,000 unit THU-THU-THU SUBQ 07/02/20 21:00 09/30/20 20:59 07/04/20 21:00 Insulin Aspart (NovoLOG) BEFORE MEALS AND HS SUBQ 06/29/20 06:30 09/27/20 06:29 07/06/20 11:43 Insulin Detemir (Levemir) 10 units BEDTIME SUBQ 07/05/20 21:00 10/03/20 20:59 07/05/20 21:16 Levothyroxine Sodium (Synthroid) 50 mcg ACBREAKFAST ORAL 07/01/20 06:30 07/29/20 06:29 07/06/20 06:02 Pantoprazole (Protonix) 40 mg Q12HR ORAL 06/29/20 21:00 07/29/20 11:29 07/06/20 08:23 Sennosides (Senokot) 8.6 mg BEDTIME ORAL 06/29/20 21:00 07/29/20 20:59 07/04/20 21:00 Vitamin B Complex/ Vit C/Folic Acid (Nephrovite) 1 tab DAILY ORAL 06/29/20 09:00 07/29/20 08:59 07/06/20 08:23 Assessment/Plan Problems: (1) ACS (acute coronary syndrome) (2) Anemia (3) COVID-19 (4) ESRD (end stage renal disease) (5) Diabetic nephropathy (6) Petechial eruption (7) Diabetes mellitus (8) Hypertension Assessment/Plan skin lesions are unchanged Pt needs a competent hematology consult, which is not available at [facility], will f/ u clinically no new complains all reviewed respiratory treatment check electrolytes check electrolytes symptomatic treatment. Maria Elena Naidu MD Jul 06, 2020 12:03
--- NOTE | 2020-07-06 12:34 | Internal Med Progress Note ---
Subjective Date of Service: Jul 06, 2020 Physician Name Kareem Fajardo Attending Physician Pierre Childs MD Current Medications Medications (Trade) Dose Ordered Sig/Miguel Route PRN Reason Start Time Stop Time Status Last Admin Dose Admin Albuterol Sulfate (Proventil MDI) 2 puff Q6H PRN INH Shortness of Breath 06/29/20 19:15 09/27/20 19:14 07/05/20 21:24 Amlodipine Besylate (Norvasc) 10 mg DAILY ORAL 06/30/20 09:00 07/29/20 08:59 07/06/20 08:23 Atorvastatin Calcium (Lipitor) 40 mg BEFORE LUNCH ORAL 06/29/20 11:30 09/27/20 11:29 07/06/20 11:00 Calcium Acetate (Phoslo) 667 mg BEFORE MEALS ORAL 06/29/20 06:30 09/27/20 06:29 07/06/20 11:00 Clonidine HCl (Catapres Tab) 0.1 mg Q4H PRN ORAL For High Blood Pressure 06/29/20 07:45 09/27/20 07:44 07/05/20 16:12 Dextrose (Dextrose 50%) 25 ml Q30M PRN IV Hypoglycemia 06/28/20 23:15 09/26/20 23:14 Dextrose (Dextrose 50%) 50 ml Q30M PRN IV Hypoglycemia 06/28/20 23:15 09/26/20 23:14 Docusate Sodium (Colace) 100 mg TID ORAL 06/29/20 13:00 07/29/20 08:59 07/06/20 08:23 Epoetin Armando (Epoetin Armando(ESRD on dialysis)) 10,000 unit THU-THU-THU SUBQ 07/02/20 21:00 09/30/20 20:59 07/04/20 21:00 Insulin Aspart (NovoLOG) BEFORE MEALS AND HS SUBQ 06/29/20 06:30 09/27/20 06:29 07/06/20 11:43 Insulin Detemir (Levemir) 10 units BEDTIME SUBQ 07/05/20 21:00 10/03/20 20:59 07/05/20 21:16 Levothyroxine Sodium (Synthroid) 50 mcg ACBREAKFAST ORAL 07/01/20 06:30 9/20/20 06:29 07/06/20 06:02 Pantoprazole (Protonix) 40 mg Q12HR ORAL 06/29/20 21:00 07/29/20 11:29 07/06/20 08:23 Sennosides (Senokot) 8.6 mg BEDTIME ORAL 06/29/20 21:00 07/29/20 20:59 07/04/20 21:00 Vitamin B Complex/ Vit C/Folic Acid (Nephrovite) 1 tab DAILY ORAL 06/29/20 09:00 07/29/20 08:59 07/06/20 08:23 Allergies: Coded Allergies: No Known Allergies (Verified Allergy, Unknown, 02/17/11) ROS Limited/Unobtainable: No Constitutional: Reports: no symptoms HEENT: Reports: no symptoms Cardiovascular: Reports: no symptoms Respiratory: Reports: shortness of breath Gastrointestinal/Abdominal: Reports: no symptoms Genitourinary: Reports: no symptoms Neurologic/Psychiatric: Reports: no symptoms Subjective 54 YO F admitted with shortness of breath. Now COVID 19 pneumonia. Cover for Int Med-Dr Childs Objective Last Vital Signs Date Time Temp Pulse Resp B/P (MAP) Pulse Ox O2 Delivery O2 Flow Rate FiO2 07/06/20 12:00 85 07/06/20 12:00 98.1 22 136/61 (86) 93 07/06/20 08:10 Nasal Cannula 2.0 Laboratory Tests Test 07/05/20 16:18 07/05/20 21:13 07/06/20 05:55 07/06/20 06:07 POC Whole Blood Glucose 295 MG/DL (74-106) H Pending Pending White Blood Count 7.7 K/UL (4.8-10.8) Red Blood Count 2.91 M/UL (4.20-5.40) L Hemoglobin 8.5 G/DL (12.0-16.0) L Hematocrit 25.7 % (37.0-47.0) L Mean Corpuscular Volume 89 FL (80-99) Mean Corpuscular Hemoglobin 29.3 PG (27.0-31.0) Mean Corpuscular Hemoglobin Concent 33.0 G/DL (32.0-36.0) Red Cell Distribution Width 14.5 % (11.6-14.8) Platelet Count 237 K/UL (150-450) Mean Platelet Volume 5.1 FL (6.5-10.1) L Neutrophils (%) (Auto) 71.7 % (45.0-75.0) Lymphocytes (%) (Auto) 20.9 % (20.0-45.0) Monocytes (%) (Auto) 5.1 % (1.0-10.0) Eosinophils (%) (Auto) 1.6 % (0.0-3.0) Basophils (%) (Auto) 0.7 % (0.0-2.0) Erythrocyte Sedimentation Rate 49 MM/HR (0-30) H Sodium Level 134 MMOL/L (136-145) L Potassium Level 4.4 MMOL/L (3.5-5.1) Chloride Level 98 MMOL/L (98-107) Carbon Dioxide Level 28 MMOL/L (21-32) Anion Gap 8 mmol/L (5-15) Blood Urea Nitrogen 68 mg/dL (7-18) H Creatinine 5.8 MG/DL (0.55-1.30) H Estimat Glomerular Filtration Rate 7.6 mL/min (>60) Glucose Level 222 MG/DL (74-106) H Calcium Level 8.7 MG/DL (8.5-10.1) Phosphorus Level 3.4 MG/DL (2.5-4.9) Magnesium Level 1.9 MG/DL (1.8-2.4) Total Bilirubin 0.3 MG/DL (0.2-1.0) Aspartate Amino Transf (AST/SGOT) 10 U/L (15-37) L Alanine Aminotransferase (ALT/SGPT) 12 U/L (12-78) Alkaline Phosphatase 81 U/L (46-116) C-Reactive Protein, Quantitative 4.6 mg/dL (0.00-0.90) H Total Protein 5.6 G/DL (6.4-8.2) L Albumin 2.2 G/DL (3.4-5.0) L Globulin 3.4 g/dL Albumin/Globulin Ratio 0.6 (1.0-2.7) L Test 07/06/20 11:08 POC Whole Blood Glucose Pending Microbiology Date/Time Source Procedure Growth Status 07/03/20 20:30 Sputum Expectorated Gram Stain - Final Complete 07/03/20 20:30 Sputum Culture - Final Maren Albicans Usual Upper Respiratory Jess Complete Intake and Output 07/05/20 07/06/20 19:00 07:00 Intake Total 455 ml Balance 455 ml Intake Oral 400 ml IV Total 55 ml # Voids 3 1 # Bowel Movements 3 Objective General Appearance: WD/WN, no apparent distress, moderate distress EENT: PERRL/EOMI, normal ENT inspection Neck: non-tender, normal alignment, supple, normal inspection Cardiovascular: normal peripheral pulses, normal rate, regular rhythm, no gallop/murmur, no JVD Respiratory/Chest: respiratory distress, decreased breath sounds, crackles/ rales, rhonchi - bilaterally, expiratory wheezing Abdomen: normal bowel sounds, non tender, soft, no organomegaly, no mass Extremities: normal range of motion, non-tender Neurologic: oyster picker II-XII 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 S/P azithromycin; Continue ceftriaxone (7) ESRD (end stage renal disease) Assessment & Plan: Nephrology=Dr Frank. Hemodialysis 07/05/20 (8) Anemia Assessment & Plan: S/P Transfusion 1 unit PRBC (9) Acute respiratory failure Kareem Fajardo MD Jul 06, 2020 12:34
--- NOTE | 2020-07-06 12:35 | Infectious Diseases Prog Note ---
Assessment/Plan Assessment: Afebrile No leukocytosis Acute hypoxic resp failure, recurrent - on 4l nC >2lNC Pneumonia- likely superimposed bacterial CHF exacerbation- rapid improvement of pulmonary infiltrates was likely fluid -sp cx normal resp delgado, C. albicans -07/03 CXR: Significantly improved bilateral interstitial and airspace infiltrates versus edema, over 5 days, with minimal residual -06/29 CXR: Diffuse bilateral alveolar densities, infiltrates and/or edema. -legionella ag urine neg B/l legs petechial lesions (non blanchable)- ?etiology- not typical for drug rash- r/o vasculitis recent COVID19 c/w acute hypoxic resp failure requiring intubation -admitted at [facility] Pyuria/bacteriuria- asymptomatic -u/a wbc 10-15, nit neg, leuk +2; ucx 30-40k VRE (S linezolid, macrobid); colonizer hypothryoidism pHTN Hep C ab + w/ neg viral load obesity s/p cholecystectomy s/p cataract surgery HLD ESRD on HD Dm2 HTN CHF Plan: -Continue to monitor off abx -07/05 SP Ceftriaxone #6 -07/04 SP Azithromycin #5 -f/u cx -Monitor CBC/CMP, temperatures -HIV ab screen, rheum w/u Thank you for this consultation. Will continue to follow along with you. Discussed with RN. Subjective Allergies: Coded Allergies: No Known Allergies (Verified Allergy, Unknown, 02/17/11) afebrile at 2L NC now off abx Objective Last 24 Hour Vital Signs Date Time Temp Pulse Resp B/P (MAP) Pulse Ox O2 Delivery O2 Flow Rate FiO2 07/06/20 12:00 85 07/06/20 12:00 98.1 89 22 136/61 (86) 93 07/06/20 08:23 90 147/77 07/06/20 08:10 Nasal Cannula 2.0 07/06/20 08:00 98.2 90 20 147/77 (100) 07/06/20 08:00 92 07/06/20 04:00 Nasal Cannula 2.0 07/06/20 04:00 98.4 87 22 129/59 (82) 07/06/20 04:00 84 07/06/20 00:00 81 07/06/20 00:00 99.7 85 22 130/57 (81) 07/06/20 00:00 Nasal Cannula 2.0 07/05/20 20:00 97.5 82 22 151/70 (97) 07/05/20 20:00 Nasal Cannula 2.0 07/05/20 20:00 82 07/05/20 17:09 163/75 (104) 07/05/20 16:12 172/74 07/05/20 16:00 99.1 81 20 172/74 (106) 97 07/05/20 15:51 Nasal Cannula 2.0 07/05/20 15:43 83 Height (Feet): 5 Height (Inches): 4.00 Weight (Pounds): 203 GENERAL: The patient is well-developed and well-nourished female, in moderate respiratory distress. HEENT: Eyes, pupils are equal and responsive to light and accommodation. Extraocular movements are intact. NECK: Supple without lymphadenopathy. CHEST: Lungs are clear to auscultation bilaterally without wheezes or rales. CARDIOVASCULAR: Regular rhythm and rate. S1 and S2 are normal without murmurs, rubs, or gallops. ABDOMEN: Soft, nontender, nondistended. Positive bowel sounds. No evidence of hepatosplenomegaly. EXTREMITIES: Negative for clubbing, cyanosis, or edema. petechial lesions, non blanchable on b/l L E Microbiology Date/Time Source Procedure Growth Status 07/03/20 20:30 Sputum Expectorated Gram Stain - Final Complete 07/03/20 20:30 Sputum Culture - Final Maren Albicans Usual Upper Respiratory Delgado Complete Laboratory Tests Test 07/05/20 16:18 07/05/20 21:13 07/06/20 05:55 07/06/20 06:07 POC Whole Blood Glucose 295 MG/DL (74-106) H Pending Pending White Blood Count 7.7 K/UL (4.8-10.8) Red Blood Count 2.91 M/UL (4.20-5.40) L Hemoglobin 8.5 G/DL (12.0-16.0) L Hematocrit 25.7 % (37.0-47.0) L Mean Corpuscular Volume 89 FL (80-99) Mean Corpuscular Hemoglobin 29.3 PG (27.0-31.0) Mean Corpuscular Hemoglobin Concent 33.0 G/DL (32.0-36.0) Red Cell Distribution Width 14.5 % (11.6-14.8) Platelet Count 237 K/UL (150-450) Mean Platelet Volume 5.1 FL (6.5-10.1) L Neutrophils (%) (Auto) 71.7 % (45.0-75.0) Lymphocytes (%) (Auto) 20.9 % (20.0-45.0) Monocytes (%) (Auto) 5.1 % (1.0-10.0) Eosinophils (%) (Auto) 1.6 % (0.0-3.0) Basophils (%) (Auto) 0.7 % (0.0-2.0) Erythrocyte Sedimentation Rate 49 MM/HR (0-30) H Sodium Level 134 MMOL/L (136-145) L Potassium Level 4.4 MMOL/L (3.5-5.1) Chloride Level 98 MMOL/L (98-107) Carbon Dioxide Level 28 MMOL/L (21-32) Anion Gap 8 mmol/L (5-15) Blood Urea Nitrogen 68 mg/dL (7-18) H Creatinine 5.8 MG/DL (0.55-1.30) H Estimat Glomerular Filtration Rate 7.6 mL/min (>60) Glucose Level 222 MG/DL (74-106) H Calcium Level 8.7 MG/DL (8.5-10.1) Phosphorus Level 3.4 MG/DL (2.5-4.9) Magnesium Level 1.9 MG/DL (1.8-2.4) Total Bilirubin 0.3 MG/DL (0.2-1.0) Aspartate Amino Transf (AST/SGOT) 10 U/L (15-37) L Alanine Aminotransferase (ALT/SGPT) 12 U/L (12-78) Alkaline Phosphatase 81 U/L (46-116) C-Reactive Protein, Quantitative 4.6 mg/dL (0.00-0.90) H Total Protein 5.6 G/DL (6.4-8.2) L Albumin 2.2 G/DL (3.4-5.0) L Globulin 3.4 g/dL Albumin/Globulin Ratio 0.6 (1.0-2.7) L Test 07/06/20 11:08 POC Whole Blood Glucose Pending Current Medications Medications (Trade) Dose Ordered Sig/Miguel Route PRN Reason Start Time Stop Time Status Last Admin Dose Admin Albuterol Sulfate (Proventil MDI) 2 puff Q6H PRN INH Shortness of Breath 06/29/20 19:15 09/27/20 19:14 07/05/20 21:24 Amlodipine Besylate (Norvasc) 10 mg DAILY ORAL 06/30/20 09:00 07/29/20 08:59 07/06/20 08:23 Atorvastatin Calcium (Lipitor) 40 mg BEFORE LUNCH ORAL 06/29/20 11:30 09/27/20 11:29 07/06/20 11:00 Calcium Acetate (Phoslo) 667 mg BEFORE MEALS ORAL 06/29/20 06:30 09/27/20 06:29 07/06/20 11:00 Clonidine HCl (Catapres Tab) 0.1 mg Q4H PRN ORAL For High Blood Pressure 06/29/20 07:45 09/27/20 07:44 07/05/20 16:12 Dextrose (Dextrose 50%) 25 ml Q30M PRN IV Hypoglycemia 06/28/20 23:15 09/26/20 23:14 Dextrose (Dextrose 50%) 50 ml Q30M PRN IV Hypoglycemia 06/28/20 23:15 09/26/20 23:14 Docusate Sodium (Colace) 100 mg TID ORAL 06/29/20 13:00 07/29/20 08:59 07/06/20 08:23 Epoetin Armando (Epoetin Armando(ESRD on dialysis)) 10,000 unit THU-THU-THU SUBQ 07/02/20 21:00 09/30/20 20:59 07/04/20 21:00 Insulin Aspart (NovoLOG) BEFORE MEALS AND HS SUBQ 06/29/20 06:30 09/27/20 06:29 07/06/20 11:43 Insulin Detemir (Levemir) 10 units BEDTIME SUBQ 07/05/20 21:00 10/03/20 20:59 07/05/20 21:16 Levothyroxine Sodium (Synthroid) 50 mcg ACBREAKFAST ORAL 07/01/20 06:30 07/29/20 06:29 07/06/20 06:02 Pantoprazole (Protonix) 40 mg Q12HR ORAL 06/29/20 21:00 07/29/20 11:29 07/06/20 08:23 Sennosides (Senokot) 8.6 mg BEDTIME ORAL 06/29/20 21:00 07/29/20 20:59 07/04/20 21:00 Vitamin B Complex/ Vit C/Folic Acid (Nephrovite) 1 tab DAILY ORAL 06/29/20 09:00 07/29/20 08:59 07/06/20 08:23 Harper Huffman M.D. Jul 06, 2020 12:35
--- NOTE | 2020-07-06 12:38 | NUR ---
SENIOR ADULTS DIRECTOR NOTE:HOME O2 S/W ERIC @ [facility] [phone] IN RE TO HOME O2 ORDER. STATES SHE S/W PATIENT IN RE TO HOME DELIVERY. ERIC REQUESTS WRITTEN MD RX FOR O2 AND SpO2 ASSESSMENT. ORDER AND O2 ASSESSMENT FAXED TO [phone]
--- NOTE | 2020-07-06 12:45 | Nephrology Progress Note ---
Assessment/Plan Problem List: (1) ESRD (end stage renal disease) (2) Diabetic nephropathy (3) Anemia (4) COVID-19 (5) PNA (pneumonia) (6) Electrolyte imbalance (7) Volume overload Plan July 06: Due for dialysis today. Continue rest July 05: Due for dialysis in a.m. Labs reviewed. Blood sugar elevated. Will add low-dose Levemir. July 04: Dialyzed yesterday. Labs reviewed. Hemoglobin 8.5. Continue per consultants. July 03: Patient due for dialysis today. Hemoglobin remains low. Transfusion as needed. Continue per consultants. July 02: Patient was dialyzed yesterday. Today's labs reviewed. Hemoglobin is low. Will transfuse 1 unit of packed RBCs today. Will do dialysis tomorrow. July 01: Patient due for dialysis today. Labs reviewed. Continue per current management. June 30: Patient was dialyzed yesterday, hyponatremia resolved. Clinically improved. Will attempt dialysis tomorrow Subjective ROS Limited/Unobtainable: No Constitutional: Reports: malaise, weakness Objective Objective Last 24 Hour Vital Signs Date Time Temp Pulse Resp B/P (MAP) Pulse Ox O2 Delivery O2 Flow Rate FiO2 07/06/20 12:00 85 07/06/20 12:00 98.1 89 22 136/61 (86) 93 07/06/20 08:23 90 147/77 07/06/20 08:10 Nasal Cannula 2.0 07/06/20 08:00 98.2 90 20 147/77 (100) 07/06/20 08:00 92 07/06/20 04:00 Nasal Cannula 2.0 07/06/20 04:00 98.4 87 22 129/59 (82) 07/06/20 04:00 84 07/06/20 00:00 81 07/06/20 00:00 99.7 85 22 130/57 (81) 07/06/20 00:00 Nasal Cannula 2.0 07/05/20 20:00 97.5 82 22 151/70 (97) 07/05/20 20:00 Nasal Cannula 2.0 07/05/20 20:00 82 07/05/20 17:09 163/75 (104) 07/05/20 16:12 172/74 07/05/20 16:00 99.1 81 20 172/74 (106) 97 07/05/20 15:51 Nasal Cannula 2.0 07/05/20 15:43 83 Intake and Output 07/05/20 07/06/20 19:00 07:00 Intake Total 455 ml Balance 455 ml Intake Oral 400 ml IV Total 55 ml # Voids 3 1 # Bowel Movements 3 Laboratory Tests 07/05/20 16:18: POC Whole Blood Glucose 295H 07/05/20 21:13: POC Whole Blood Glucose [Pending] 07/06/20 05:55: White Blood Count 7.7, Red Blood Count 2.91L, Hemoglobin 8.5L, Hematocrit 25.7L , Mean Corpuscular Volume 89, Mean Corpuscular Hemoglobin 29.3, Mean Corpuscular Hemoglobin Concent 33.0, Red Cell Distribution Width 14.5, Platelet Count 237, Mean Platelet Volume 5.1L, Neutrophils (%) (Auto) 71.7, Lymphocytes ( %) (Auto) 20.9, Monocytes (%) (Auto) 5.1, Eosinophils (%) (Auto) 1.6, Basophils (%) (Auto) 0.7, Erythrocyte Sedimentation Rate 49H, Sodium Level 134L, Potassium Level 4.4, Chloride Level 98, Carbon Dioxide Level 28, Anion Gap 8, Blood Urea Nitrogen 68H, Creatinine 5.8H, Estimat Glomerular Filtration Rate 7.6 , Glucose Level 222H, Calcium Level 8.7, Phosphorus Level 3.4, Magnesium Level 1.9, Total Bilirubin 0.3, Aspartate Amino Transf (AST/SGOT) 10L, Alanine Aminotransferase (ALT/SGPT) 12, Alkaline Phosphatase 81, C-Reactive Protein, Quantitative 4.6H, Total Protein 5.6L, Albumin 2.2L, Globulin 3.4, Albumin/ Globulin Ratio 0.6L 07/06/20 06:07: POC Whole Blood Glucose [Pending] 07/06/20 11:08: POC Whole Blood Glucose [Pending] Height (Feet): 5 Height (Inches): 4.00 Weight (Pounds): 203 General Appearance: no apparent distress, other - Coughing Cardiovascular: tachycardia - Rate 90s Respiratory/Chest: decreased breath sounds Abdomen: distended Lito Frank MD Jul 06, 2020 12:45
--- NOTE | 2020-07-06 15:04 | NUR ---
CASE MANAGEMENT:REVIEW SI;COVID PNEUMONIA. ACUTE RESPIRATORY FAILURE. 99.7 90 22 147/77 93% 2L NC H/H 8.5/25.7 ESR 49 NA 134 BUN 68 CR 5.8 BG 222 CRP 4.6 ALB 2.2 IS;INSULIN LEVEMIR AUBQ HS SYNTHROID PO AC PROTONIX PO Q12 PROVENTIL INH Q6 NORVASC PO QD CATAPRES PO Q4 PRN INSULIN NOVOLOG SUBQ TELE STATUS DCP;FROM HOME PLAN; DC HOME WHEN STABLE HOME O2 ORDER PLACED WITH HERIBERTO
[2020-07-06 16:00] VITALS: BP 172/86
--- NOTE | 2020-07-06 19:17 | NUR ---
NURSE HAND-OFF REPORT: Important Events on Shift: hemodialysis 2L output Patient Status: FC, stable Diet: Renal Pending Orders: n/a Pending Results/Labs: n/a Pending MD notification: n/a Latest Vital Signs: Temperature 98.3 , Pulse 89 , B/P 172 /86 , Respiratory Rate 22 , O2 SAT 99 , Nasal Cannula, O2 Flow Rate 2.0 . Vital Sign Comment: EKG Rhythm: SR with 1st degree AVB Rhythm change?: N MD Notified?: N -Dr Harish LANDEROS Response: Message left await call Latest Alvarez Fall Score: 50 Fall Risk: High Risk Safety Measures: Call light Within Reach, Bed Alarm Zone 1, Side Rails Side Rails x2, Bed position Low and Locked. Fall Precautions: Yellow Socks Yellow Gown Door Sign Patient Fall Education Report given to NIKO Roblero.
--- NOTE | 2020-07-06 19:38 | NUR ---
NURSE NOTES: Patient received from NIKO Sharma. Patient is awake, alert and oriented x 4. Patient is watching TV and was talking to the staff. She said she had a bowel movement using the bedside commode. Patient is at 1 L nasal cannula satting at 98%. Bed is in the lowest position, call light within reach and will continue to monitor.
[2020-07-06 20:00] VITALS: BP 134/56
[2020-07-06] MEDS: Sennosides 8.6mg tab ORAL SCH (21:00)
[2020-07-06] MEDS: Epoetin Alfa-EPBX(ESRD on dialysis)10,000 unit/ml vial SUBQ SCH (21:08)
[2020-07-06] MEDS: Levemir Flexpen SUBQ SCH (21:17)
[2020-07-07] VITALS: BP 142/60
[2020-07-07 04:00] VITALS: BP 129/55
[2020-07-07] MEDS: NovoLOG Insulin Flexpen SUBQ SCH ×4 (05:55→22:08)
--- NOTE | 2020-07-07 07:20 | NUR ---
NURSE NOTES: Nurse report given by NIKO Brooke and NIKO Roblero. Patient's awake and eating breakfast at bedside. No s/s of distress or SOB, no s/s of pain, denies chest pain, eyes open spontaneously, breathing regularly. Bed low and locked, call light within reach, side rails x2. IV is YOSHI, saline locked, patent, flushed, and asymptomatic. GRAZYNA AV shunt noted, bruit present. All needs met. Will continue to monitor closely.
--- NOTE | 2020-07-07 07:29 | NUR ---
NURSE HAND-OFF REPORT: Important Events on Shift: pt stable Patient Status: stable Diet: cardiac/renal Pending Orders: n Pending Results/Labs:n Pending MD notification:n Latest Vital Signs: Temperature 98.2 , Pulse 83 , B/P 129 /55 , Respiratory Rate 20 , O2 SAT 95 , Nasal Cannula, O2 Flow Rate 2.0 . Vital Sign Comment: stable EKG Rhythm: SR with 1st degree AVB Rhythm change?: N MD Notified?: N -Dr Harish LANDEROS Response: Message left await call Latest Alvarez Fall Score: 50 Fall Risk: High Risk y Safety Measures: Call light Within Reach, Bed Alarm Zone 1, Side Rails Side Rails x2, Bed position Low and Locked. Fall Precautions: y Yellow Socks y Yellow Gown y Door Sign y Patient Fall Education y Report given to NIKO Barth
--- NOTE | 2020-07-07 07:41 | Infectious Diseases Prog Note ---
Assessment/Plan Assessment: Afebrile No leukocytosis Acute hypoxic resp failure, recurrent - on 4l nC >2lNC Pneumonia- likely superimposed bacterial CHF exacerbation- rapid improvement of pulmonary infiltrates was likely fluid -sp cx normal resp delgado, C. albicans -07/03 CXR: Significantly improved bilateral interstitial and airspace infiltrates versus edema, over 5 days, with minimal residual -06/29 CXR: Diffuse bilateral alveolar densities, infiltrates and/or edema. -legionella ag urine neg B/l legs petechial lesions (non blanchable)- ?etiology- not typical for drug rash- r/o vasculitis recent COVID19 c/w acute hypoxic resp failure requiring intubation -admitted at [facility] Pyuria/bacteriuria- asymptomatic -u/a wbc 10-15, nit neg, leuk +2; ucx 30-40k VRE (S linezolid, macrobid); colonizer HIV screen neg Urine legionella neg RPR p hypothryoidism pHTN Hep C ab + w/ neg viral load obesity s/p cholecystectomy s/p cataract surgery HLD ESRD on HD Dm2 HTN CHF Plan: -Continue to monitor off abx -07/05 SP Ceftriaxone #6 -07/04 SP Azithromycin #5 -f/u cx -Monitor CBC/CMP, temperatures -F/u RPR Thank you for this consultation. Will continue to follow along with you. Discussed with RN. Subjective Allergies: Coded Allergies: No Known Allergies (Verified Allergy, Unknown, 02/17/11) AF NAD No leukocytosis Feels breathing and swelling is improving Objective Last 24 Hour Vital Signs Date Time Temp Pulse Resp B/P (MAP) Pulse Ox O2 Delivery O2 Flow Rate FiO2 07/07/20 04:00 83 07/07/20 04:00 98.2 85 20 129/55 (79) 95 07/07/20 00:00 98.0 89 19 142/60 (87) 96 07/07/20 00:00 81 07/06/20 21:00 Nasal Cannula 2.0 07/06/20 20:00 98.2 83 19 134/56 (82) 95 07/06/20 20:00 89 07/06/20 16:00 89 07/06/20 16:00 98.3 85 22 172/86 (114) 99 07/06/20 12:00 85 8/28/20 12:00 98.1 89 22 136/61 (86) 93 07/06/20 08:23 90 147/77 07/06/20 08:10 Nasal Cannula 2.0 07/06/20 08:00 98.2 90 20 147/77 (100) 07/06/20 08:00 92 Height (Feet): 5 Height (Inches): 4.00 Weight (Pounds): 197 Gen: NAD sitting in chair Pulm: BL chest rise on NC, speaking in full sentences Abd: Non-distended Neuro: Awake, alert, interactive Laboratory Tests Test 07/06/20 11:08 07/06/20 16:38 07/06/20 21:15 07/07/20 05:53 POC Whole Blood Glucose Pending 355 MG/DL (74-106) H Pending Pending Current Medications Medications (Trade) Dose Ordered Sig/Miguel Route PRN Reason Start Time Stop Time Status Last Admin Dose Admin Albuterol Sulfate (Proventil MDI) 2 puff Q6H PRN INH Shortness of Breath 06/29/20 19:15 09/27/20 19:14 07/05/20 21:24 Amlodipine Besylate (Norvasc) 10 mg DAILY ORAL 06/30/20 09:00 07/29/20 08:59 07/06/20 08:23 Atorvastatin Calcium (Lipitor) 40 mg BEFORE LUNCH ORAL 06/29/20 11:30 09/27/20 11:29 07/06/20 11:00 Calcium Acetate (Phoslo) 667 mg BEFORE MEALS ORAL 06/29/20 06:30 09/27/20 06:29 07/07/20 05:50 Clonidine HCl (Catapres Tab) 0.1 mg Q4H PRN ORAL For High Blood Pressure 06/29/20 07:45 09/27/20 07:44 07/05/20 16:12 Dextrose (Dextrose 50%) 25 ml Q30M PRN IV Hypoglycemia 06/28/20 23:15 09/26/20 23:14 Dextrose (Dextrose 50%) 50 ml Q30M PRN IV Hypoglycemia 06/28/20 23:15 09/26/20 23:14 Docusate Sodium (Colace) 100 mg TID ORAL 06/29/20 13:00 07/29/20 08:59 8/28/20 16:34 Epoetin Armando (Epoetin Armando(ESRD on dialysis)) 10,000 unit THU-THU-THU SUBQ 07/02/20 21:00 09/30/20 20:59 07/06/20 21:08 Insulin Aspart (NovoLOG) BEFORE MEALS AND HS SUBQ 06/29/20 06:30 09/27/20 06:29 07/07/20 05:55 Insulin Detemir (Levemir) 10 units BEDTIME SUBQ 07/05/20 21:00 10/03/20 20:59 07/06/20 21:17 Levothyroxine Sodium (Synthroid) 50 mcg ACBREAKFAST ORAL 07/01/20 06:30 07/29/20 06:29 07/07/20 05:50 Pantoprazole (Protonix) 40 mg Q12HR ORAL 06/29/20 21:00 07/29/20 11:29 07/06/20 21:07 Sennosides (Senokot) 8.6 mg BEDTIME ORAL 06/29/20 21:00 07/29/20 20:59 07/04/20 21:00 Vitamin B Complex/ Vit C/Folic Acid (Nephrovite) 1 tab DAILY ORAL 06/29/20 09:00 07/29/20 08:59 07/06/20 08:23 [place] Jerry M.D. Jul 07, 2020 07:41
[2020-07-07 07:53] LABS: BASOPHILS % (AUTO) 0.9 % (0.0-2.0); EOSINOPHILS % (AUTO) 1.8 % (0.0-3.0); HEMOGLOBIN 8.8 G/DL (12.0-16.0); LYMPHOCYTES % (AUTO) 25.5 % (20.0-45.0); MEAN CORPUSCULAR VOLUME 89 FL (80-99); MONOCYTES % (AUTO) 6.1 % (1.0-10.0); NEUTROPHILS % (AUTO) 65.8 % (45.0-75.0); PLATELET COUNT 245 K/UL (150-450); RED BLOOD COUNT 3.05 M/UL (4.20-5.40); RED CELL DISTRIBUTION WIDTH 14.8 % (11.6-14.8); WHITE BLOOD COUNT 7.3 K/UL (4.8-10.8)
[2020-07-07 07:58] VITALS: BP 158/73
[2020-07-07 08:12] LABS: ALANINE AMINOTRANSFERASE 15 U/L (12-78); ALBUMIN 2.4 G/DL (3.4-5.0); ALBUMIN/GLOBULIN RATIO 0.7 (1.0-2.7); ALKALINE PHOSPHATASE 85 U/L (46-116); ANION GAP 8 mmol/L (5-15); ASPARTATE AMINO TRANSFERASE 10 U/L (15-37); BILIRUBIN,TOTAL 0.3 MG/DL (0.2-1.0); BLOOD UREA NITROGEN 51 mg/dL (7-18); CALCIUM 8.9 MG/DL (8.5-10.1); CARBON DIOXIDE 31 MMOL/L (21-32); CHLORIDE 97 MMOL/L (98-107); CREATININE 4.7 MG/DL (0.55-1.30); PHOSPHORUS 3.7 MG/DL (2.5-4.9); POTASSIUM 3.6 MMOL/L (3.5-5.1); SODIUM 136 MMOL/L (136-145)
[2020-07-07] MEDS: Docusate 100mg cap ORAL SCH ×3 (08:49→16:58)
[2020-07-07] MEDS: Nephrovite tab (Rena-Vite) ORAL SCH (08:49)
--- NOTE | 2020-07-07 08:49 | NUR ---
RD ASSESSMENT & RECOMMENDATIONS SEE CARE ACTIVITY FOR COMPLETE ASSESSMENT DAILY ESTIMATED NEEDS: Needs based on ESRD on HD/ 65kg abw 25-30 kcals/kg 8780-6790 total kcals 1.2-1.8 g protein/kg 78-117 g total protein 20-25 mL/kg 6208-5863 total fluid mLs NUTRITION DIAGNOSIS: Altered nutrition related lab values R/T diabetes and ESRD dx as evidenced by elev BGs (212 189) and POC glu (218 355 315 220 309), elev creat(4.7), elev BNP (83836) CURRENT DIET:RENAL, CARDIAC PO DIET RECOMMENDATIONS: RENAL + CCHO MED/ texture as tolerated ADDITIONAL RECOMMENDATIONS: * Daily calibrated bedscal wts * Carb controlled diet as above for diabetes * Rec increasing long acting insulin (BGs 200's-300's) * Continue Nephrovite x1 .
--- NOTE | 2020-07-07 09:11 | Pulmonology Progress Note ---
Subjective ROS Limited/Unobtainable: No Interval Events: resp status improving, reports feeling better Constitutional: Reports: no symptoms HEENT: Repors: no symptoms Respiratory: Reports: productive cough Cardiovascular: Reports: no symptoms Gastrointestinal/Abdominal: Reports: no symptoms Genitourinary: Reports: no symptoms Psychiatric: Reports: no symptoms Skin: Reports: other - petechiase rash BLE -denies pain, mild itching Allergies: Coded Allergies: No Known Allergies (Verified Allergy, Unknown, 02/17/11) Objective Last 24 Hour Vital Signs Date Time Temp Pulse Resp B/P (MAP) Pulse Ox O2 Delivery O2 Flow Rate FiO2 07/07/20 08:50 90 162/84 07/07/20 08:50 162/82 07/07/20 07:58 98.8 90 18 158/73 (101) 98 07/07/20 04:00 83 07/07/20 04:00 98.2 85 20 129/55 (79) 95 07/07/20 00:00 98.0 89 19 142/60 (87) 96 07/07/20 00:00 81 07/06/20 21:00 Nasal Cannula 2.0 07/06/20 20:00 98.2 83 19 134/56 (82) 95 07/06/20 20:00 89 07/06/20 16:00 89 07/06/20 16:00 98.3 85 22 172/86 (114) 99 07/06/20 12:00 85 07/06/20 12:00 98.1 89 22 136/61 (86) 93 Intake and Output 07/06/20 07/07/20 19:00 07:00 Intake Total 400 ml Output Total 2000 ml 2150 ml Balance -2000 ml -1750 ml Intake Oral 400 ml Output Urine Total 150 ml Hemodialysis UF 2000 ml 2000 ml # Voids 3 2 # Bowel Movements 1 General Appearance: WD/WN, no acute distress HEENT: normocephalic, atraumatic, pharynx normal Respiratory: chest wall non-tender, decreased breath sounds Cardiovascular: normal peripheral pulses, normal rate Abdomen: normal bowel sounds, soft, non tender Extremities: no edema, pedal pulses normal Skin: other - petechiae rash BLE Neurologic: youth care specialist II-XII grossly normal, no motor/sensory deficits, alert, oriented x 3, responsive Lymphatic: no neck adenopathy Laboratory Tests 07/06/20 11:08: POC Whole Blood Glucose [Pending] 07/06/20 16:38: POC Whole Blood Glucose 355H 07/06/20 21:15: POC Whole Blood Glucose [Pending] 07/07/20 05:53: POC Whole Blood Glucose [Pending] 07/07/20 06:45: Sodium Level 136, Potassium Level 3.6, Chloride Level 97L, Carbon Dioxide Level 31, Anion Gap 8, Blood Urea Nitrogen 51H, Creatinine 4.7H, Estimat Glomerular Filtration Rate 9.6, Glucose Level 203H, Calcium Level 8.9, Phosphorus Level 3.7 , Magnesium Level 1.9, Total Bilirubin 0.3, Aspartate Amino Transf (AST/SGOT) 10L, Alanine Aminotransferase (ALT/SGPT) 15, Alkaline Phosphatase 85, Total Protein 5.9L, Albumin 2.4L, Globulin 3.5, Albumin/Globulin Ratio 0.7L, Rheumatoid Factor Screen [Pending], Cyclic Citrullinated Peptide IgG Ab [Pending ], Anti-Nuclear Antibody Screen [Pending], c-ANCA Titer [Pending], p-ANCA Titer [Pending], Anti-Double Strand DNA Antibody [Pending], Rapid Plasma Reagin [ Pending], HIV (1&2) Antibody Rapid Negative 07/07/20 06:49: White Blood Count 7.3, Red Blood Count 3.05L, Hemoglobin 8.8L, Hematocrit 27.0L , Mean Corpuscular Volume 89, Mean Corpuscular Hemoglobin 28.8, Mean Corpuscular Hemoglobin Concent 32.5, Red Cell Distribution Width 14.8, Platelet Count 245, Mean Platelet Volume 5.5L, Neutrophils (%) (Auto) 65.8, Lymphocytes ( %) (Auto) 25.5, Monocytes (%) (Auto) 6.1, Eosinophils (%) (Auto) 1.8, Basophils (%) (Auto) 0.9 Current Medications Medications (Trade) Dose Ordered Sig/Miguel Route PRN Reason Start Time Stop Time Status Last Admin Dose Admin Albuterol Sulfate (Proventil MDI) 2 puff Q6H PRN INH Shortness of Breath 06/29/20 19:15 09/27/20 19:14 07/05/20 21:24 Amlodipine Besylate (Norvasc) 10 mg DAILY ORAL 06/30/20 09:00 07/29/20 08:59 07/07/20 08:50 Atorvastatin Calcium (Lipitor) 40 mg BEFORE LUNCH ORAL 06/29/20 11:30 09/27/20 11:29 07/06/20 11:00 Calcium Acetate (Phoslo) 667 mg BEFORE MEALS ORAL 06/29/20 06:30 09/27/20 06:29 07/07/20 05:50 Clonidine HCl (Catapres Tab) 0.1 mg Q4H PRN ORAL For High Blood Pressure 06/29/20 07:45 09/27/20 07:44 07/07/20 08:50 Dextrose (Dextrose 50%) 25 ml Q30M PRN IV Hypoglycemia 06/28/20 23:15 09/26/20 23:14 Dextrose (Dextrose 50%) 50 ml Q30M PRN IV Hypoglycemia 06/28/20 23:15 09/26/20 23:14 Docusate Sodium (Colace) 100 mg TID ORAL 06/29/20 13:00 07/29/20 08:59 07/07/20 08:49 Epoetin Armando (Epoetin Armando(ESRD on dialysis)) 10,000 unit THU-THU-THU SUBQ 07/02/20 21:00 09/30/20 20:59 07/06/20 21:08 Insulin Aspart (NovoLOG) BEFORE MEALS AND HS SUBQ 06/29/20 06:30 09/27/20 06:29 07/07/20 05:55 Insulin Detemir (Levemir) 10 units BEDTIME SUBQ 07/05/20 21:00 10/03/20 20:59 07/06/20 21:17 Levothyroxine Sodium (Synthroid) 50 mcg ACBREAKFAST ORAL 07/01/20 06:30 07/29/20 06:29 07/07/20 05:50 Pantoprazole (Protonix) 40 mg Q12HR ORAL 06/29/20 21:00 07/29/20 11:29 07/07/20 08:50 Sennosides (Senokot) 8.6 mg BEDTIME ORAL 06/29/20 21:00 07/29/20 20:59 07/04/20 21:00 Vitamin B Complex/ Vit C/Folic Acid (Nephrovite) 1 tab DAILY ORAL 06/29/20 09:00 07/29/20 08:59 07/07/20 08:49 Assessment/Plan Assessment/Plan ASSESSMENT Acute hypoxemic respiratory failure- improved Recent COVID-19 pneumonia ESRD, on hemodialysis CHF with diastolic dysfunction Petechiae eruption Diabetes mellitus Hypertension Anemia of chronic renal disease PLAN OF CARE tele O2 titrate to keep sat above 90 MDI with albuterol s/p abx, SCX+ Maren CXR with rapid improvement, likely volume related, monitor volumes CRP trending down Echo with pEF 60-65% m RVSP 41 c/w mild pulmonary hypertension HD as per nephro last dialysis 07/06 monitor H&H with goal to keep hemoglobin above 7 on EPO stool OB NGT BS management with Levemir and SSI prn, HgbA1c 7.7 diabetic diet, diabetic teaching monitor clinically for petechiae rash TESS screen pending HIV nonreactive, RPR pending consider rheumatology eval case discussed and evaluated by supervising physician Clarice Urbina NP Jul 07, 2020 09:11
--- NOTE | 2020-07-07 10:38 | Nephrology Progress Note ---
Assessment/Plan Problem List: (1) ESRD (end stage renal disease) (2) Diabetic nephropathy (3) Anemia (4) COVID-19 (5) PNA (pneumonia) (6) Electrolyte imbalance (7) Volume overload Plan July 07: Dialyzed yesterday. Labs reviewed. Medication reviewed. Clonidine added to blood pressure medication. Continue to rest. July 06: Due for dialysis today. Continue rest. July 05: Due for dialysis in a.m. Labs reviewed. Blood sugar elevated. Will add low-dose Levemir. July 04: Dialyzed yesterday. Labs reviewed. Hemoglobin 8.5. Continue per consultants. July 03: Patient due for dialysis today. Hemoglobin remains low. Transfusion as needed. Continue per consultants. July 02: Patient was dialyzed yesterday. Today's labs reviewed. Hemoglobin is low. Will transfuse 1 unit of packed RBCs today. Will do dialysis tomorrow. July 01: Patient due for dialysis today. Labs reviewed. Continue per current management. June 30: Patient was dialyzed yesterday, hyponatremia resolved. Clinically improved. Will attempt dialysis tomorrow Subjective ROS Limited/Unobtainable: No Constitutional: Reports: malaise Objective Objective Last 24 Hour Vital Signs Date Time Temp Pulse Resp B/P (MAP) Pulse Ox O2 Delivery O2 Flow Rate FiO2 07/07/20 09:00 Nasal Cannula 2.0 07/07/20 08:50 90 162/84 07/07/20 08:50 162/82 07/07/20 08:00 91 07/07/20 07:58 98.8 90 18 158/73 (101) 98 07/07/20 04:00 83 07/07/20 04:00 98.2 85 20 129/55 (79) 95 07/07/20 00:00 98.0 89 19 142/60 (87) 96 07/07/20 00:00 81 07/06/20 21:00 Nasal Cannula 2.0 07/06/20 20:00 98.2 83 19 134/56 (82) 95 07/06/20 20:00 89 07/06/20 16:00 89 07/06/20 16:00 98.3 85 22 172/86 (114) 99 07/06/20 12:00 85 07/06/20 12:00 98.1 89 22 136/61 (86) 93 Intake and Output 07/06/20 07/07/20 19:00 07:00 Intake Total 400 ml Output Total 2000 ml 2150 ml Balance -2000 ml -1750 ml Intake Oral 400 ml Output Urine Total 150 ml Hemodialysis UF 2000 ml 2000 ml # Voids 3 2 # Bowel Movements 1 Current Medications Medications (Trade) Dose Ordered Sig/Miguel Route PRN Reason Start Time Stop Time Status Last Admin Dose Admin Albuterol Sulfate (Proventil MDI) 2 puff Q6H PRN INH Shortness of Breath 06/29/20 19:15 09/27/20 19:14 07/05/20 21:24 Amlodipine Besylate (Norvasc) 10 mg DAILY ORAL 06/30/20 09:00 07/29/20 08:59 07/07/20 08:50 Atorvastatin Calcium (Lipitor) 40 mg BEFORE LUNCH ORAL 06/29/20 11:30 09/27/20 11:29 07/06/20 11:00 Calcium Acetate (Phoslo) 667 mg BEFORE MEALS ORAL 06/29/20 06:30 09/27/20 06:29 07/07/20 05:50 Clonidine HCl (Catapres Tab) 0.1 mg EVERY 8 HOURS ORAL 07/07/20 14:00 10/05/20 13:59 UNV Clonidine HCl (Catapres Tab) 0.1 mg Q4H PRN ORAL For High Blood Pressure 06/29/20 07:45 09/27/20 07:44 07/07/20 08:50 Dextrose (Dextrose 50%) 25 ml Q30M PRN IV Hypoglycemia 06/28/20 23:15 09/26/20 23:14 Dextrose (Dextrose 50%) 50 ml Q30M PRN IV Hypoglycemia 06/28/20 23:15 09/26/20 23:14 Docusate Sodium (Colace) 100 mg TID ORAL 06/29/20 13:00 07/29/20 08:59 07/07/20 08:49 Epoetin Armando (Epoetin Armando(ESRD on dialysis)) 10,000 unit THU-WED-THU SUBQ 07/02/20 21:00 09/30/20 20:59 07/06/20 21:08 Insulin Aspart (NovoLOG) BEFORE MEALS AND HS SUBQ 06/29/20 06:30 09/27/20 06:29 07/07/20 05:55 Insulin Detemir (Levemir) 10 units BEDTIME SUBQ 07/05/20 21:00 10/03/20 20:59 07/06/20 21:17 Levothyroxine Sodium (Synthroid) 50 mcg ACBREAKFAST ORAL 07/01/20 06:30 07/29/20 06:29 07/07/20 05:50 Pantoprazole (Protonix) 40 mg Q12HR ORAL 06/29/20 21:00 07/29/20 11:29 07/07/20 08:50 Sennosides (Senokot) 8.6 mg BEDTIME ORAL 06/29/20 21:00 07/29/20 20:59 07/04/20 21:00 Vitamin B Complex/ Vit C/Folic Acid (Nephrovite) 1 tab DAILY ORAL 06/29/20 09:00 07/29/20 08:59 07/07/20 08:49 Laboratory Tests 07/06/20 11:08: POC Whole Blood Glucose [Pending] 07/06/20 16:38: POC Whole Blood Glucose 355H 07/06/20 21:15: POC Whole Blood Glucose [Pending] 07/07/20 05:53: POC Whole Blood Glucose [Pending] 07/07/20 06:45: Sodium Level 136, Potassium Level 3.6, Chloride Level 97L, Carbon Dioxide Level 31, Anion Gap 8, Blood Urea Nitrogen 51H, Creatinine 4.7H, Estimat Glomerular Filtration Rate 9.6, Glucose Level 203H, Calcium Level 8.9, Phosphorus Level 3.7 , Magnesium Level 1.9, Total Bilirubin 0.3, Aspartate Amino Transf (AST/SGOT) 10L, Alanine Aminotransferase (ALT/SGPT) 15, Alkaline Phosphatase 85, Total Protein 5.9L, Albumin 2.4L, Globulin 3.5, Albumin/Globulin Ratio 0.7L, Rheumatoid Factor Screen [Pending], Cyclic Citrullinated Peptide IgG Ab [Pending ], Anti-Nuclear Antibody Screen [Pending], c-ANCA Titer [Pending], p-ANCA Titer [Pending], Anti-Double Strand DNA Antibody [Pending], Rapid Plasma Reagin [ Pending], HIV (1&2) Antibody Rapid Negative 07/07/20 06:49: White Blood Count 7.3, Red Blood Count 3.05L, Hemoglobin 8.8L, Hematocrit 27.0L , Mean Corpuscular Volume 89, Mean Corpuscular Hemoglobin 28.8, Mean Corpuscular Hemoglobin Concent 32.5, Red Cell Distribution Width 14.8, Platelet Count 245, Mean Platelet Volume 5.5L, Neutrophils (%) (Auto) 65.8, Lymphocytes ( %) (Auto) 25.5, Monocytes (%) (Auto) 6.1, Eosinophils (%) (Auto) 1.8, Basophils (%) (Auto) 0.9 Height (Feet): 5 Height (Inches): 4.00 Weight (Pounds): 197 General Appearance: no apparent distress Cardiovascular: normal rate Respiratory/Chest: decreased breath sounds Abdomen: soft Objective No change Lito Frank MD Jul 07, 2020 10:38
[2020-07-07] MEDS: Atorvastatin 20mg tab ORAL SCH (11:41)
[2020-07-07 12:00] VITALS: BP 124/64
--- NOTE | 2020-07-07 14:46 | Internal Med Progress Note ---
Subjective Date of Service: Jul 07, 2020 Physician Name Kareem Fajrado Attending Physician Pierre Childs MD Current Medications Medications (Trade) Dose Ordered Sig/Miguel Route PRN Reason Start Time Stop Time Status Last Admin Dose Admin Albuterol Sulfate (Proventil MDI) 2 puff Q6H PRN INH Shortness of Breath 06/29/20 19:15 09/27/20 19:14 07/05/20 21:24 Amlodipine Besylate (Norvasc) 10 mg DAILY ORAL 06/30/20 09:00 07/29/20 08:59 07/07/20 08:50 Atorvastatin Calcium (Lipitor) 40 mg BEFORE LUNCH ORAL 06/29/20 11:30 09/27/20 11:29 07/07/20 11:41 Calcium Acetate (Phoslo) 667 mg BEFORE MEALS ORAL 06/29/20 06:30 09/27/20 06:29 07/07/20 11:41 Clonidine HCl (Catapres Tab) 0.1 mg EVERY 8 HOURS ORAL 07/07/20 14:00 10/05/20 13:59 Clonidine HCl (Catapres Tab) 0.1 mg Q4H PRN ORAL For High Blood Pressure 06/29/20 07:45 09/27/20 07:44 07/07/20 08:50 Dextrose (Dextrose 50%) 25 ml Q30M PRN IV Hypoglycemia 06/28/20 23:15 09/26/20 23:14 Dextrose (Dextrose 50%) 50 ml Q30M PRN IV Hypoglycemia 06/28/20 23:15 09/26/20 23:14 Docusate Sodium (Colace) 100 mg TID ORAL 06/29/20 13:00 07/29/20 08:59 07/07/20 08:49 Epoetin Armando (Epoetin Armando(ESRD on dialysis)) 10,000 unit MON-WED-FRI SUBQ 07/02/20 21:00 09/30/20 20:59 07/06/20 21:08 Insulin Aspart (NovoLOG) BEFORE MEALS AND HS SUBQ 06/29/20 06:30 09/27/20 06:29 07/07/20 11:42 Insulin Detemir (Levemir) 10 units BEDTIME SUBQ 07/05/20 21:00 10/03/20 20:59 07/06/20 21:17 Levothyroxine Sodium (Synthroid) 50 mcg ACBREAKFAST ORAL 07/01/20 06:30 07/29/20 06:29 07/07/20 05:50 Pantoprazole (Protonix) 40 mg Q12HR ORAL 06/29/20 21:00 07/29/20 11:29 07/07/20 08:50 Sennosides (Senokot) 8.6 mg BEDTIME ORAL 06/29/20 21:00 07/29/20 20:59 07/04/20 21:00 Vitamin B Complex/ Vit C/Folic Acid (Nephrovite) 1 tab DAILY ORAL 06/29/20 09:00 07/29/20 08:59 07/07/20 08:49 Allergies: Coded Allergies: No Known Allergies (Verified Allergy, Unknown, 02/17/11) ROS Limited/Unobtainable: No Constitutional: Reports: no symptoms HEENT: Reports: no symptoms Cardiovascular: Reports: no symptoms Respiratory: Reports: no symptoms Gastrointestinal/Abdominal: Reports: no symptoms Genitourinary: Reports: no symptoms Neurologic/Psychiatric: Reports: no symptoms Subjective 54 YO F admitted with shortness of breath. Now COVID 19 pneumonia. Cover for Int Med-Dr Childs Objective Last Vital Signs Date Time Temp Pulse Resp B/P (MAP) Pulse Ox O2 Delivery O2 Flow Rate FiO2 07/07/20 14:00 124/64 07/07/20 12:00 98.9 86 18 100 07/07/20 09:00 Nasal Cannula 2.0 Laboratory Tests Test 07/06/20 16:38 07/06/20 21:15 07/07/20 05:53 07/07/20 06:45 POC Whole Blood Glucose 355 MG/DL (74-106) H Pending Pending Sodium Level 136 MMOL/L (136-145) Potassium Level 3.6 MMOL/L (3.5-5.1) Chloride Level 97 MMOL/L (98-107) L Carbon Dioxide Level 31 MMOL/L (21-32) Anion Gap 8 mmol/L (5-15) Blood Urea Nitrogen 51 mg/dL (7-18) H Creatinine 4.7 MG/DL (0.55-1.30) H Estimat Glomerular Filtration Rate 9.6 mL/min (>60) Glucose Level 203 MG/DL (74-106) H Calcium Level 8.9 MG/DL (8.5-10.1) Phosphorus Level 3.7 MG/DL (2.5-4.9) Magnesium Level 1.9 MG/DL (1.8-2.4) Total Bilirubin 0.3 MG/DL (0.2-1.0) Aspartate Amino Transf (AST/SGOT) 10 U/L (15-37) L Alanine Aminotransferase (ALT/SGPT) 15 U/L (12-78) Alkaline Phosphatase 85 U/L (46-116) Total Protein 5.9 G/DL (6.4-8.2) L Albumin 2.4 G/DL (3.4-5.0) L Globulin 3.5 g/dL Albumin/Globulin Ratio 0.7 (1.0-2.7) L Rheumatoid Factor Screen Pending Cyclic Citrullinated Peptide IgG Ab Pending Anti-Nuclear Antibody Screen Pending c-ANCA Titer Pending p-ANCA Titer Pending Anti-Double Strand DNA Antibody Pending Rapid Plasma Reagin Pending HIV (1&2) Antibody Rapid Negative (NEGATIVE) Test 07/07/20 06:49 07/07/20 11:36 White Blood Count 7.3 K/UL (4.8-10.8) Red Blood Count 3.05 M/UL (4.20-5.40) L Hemoglobin 8.8 G/DL (12.0-16.0) L Hematocrit 27.0 % (37.0-47.0) L Mean Corpuscular Volume 89 FL (80-99) Mean Corpuscular Hemoglobin 28.8 PG (27.0-31.0) Mean Corpuscular Hemoglobin Concent 32.5 G/DL (32.0-36.0) Red Cell Distribution Width 14.8 % (11.6-14.8) Platelet Count 245 K/UL (150-450) Mean Platelet Volume 5.5 FL (6.5-10.1) L Neutrophils (%) (Auto) 65.8 % (45.0-75.0) Lymphocytes (%) (Auto) 25.5 % (20.0-45.0) Monocytes (%) (Auto) 6.1 % (1.0-10.0) Eosinophils (%) (Auto) 1.8 % (0.0-3.0) Basophils (%) (Auto) 0.9 % (0.0-2.0) POC Whole Blood Glucose 304 MG/DL (74-106) H Intake and Output 07/06/20 07/07/20 19:00 07:00 Intake Total 400 ml Output Total 2000 ml 2150 ml Balance -2000 ml -1750 ml Intake Oral 400 ml Output Urine Total 150 ml Hemodialysis UF 2000 ml 2000 ml # Voids 3 2 # Bowel Movements 1 Objective General Appearance: WD/WN, no apparent distress, moderate distress EENT: PERRL/EOMI, normal ENT inspection Neck: non-tender, normal alignment, supple, normal inspection Cardiovascular: normal peripheral pulses, normal rate, regular rhythm, no gallop/murmur, no JVD Respiratory/Chest: respiratory distress, decreased breath sounds, crackles/ rales, rhonchi - bilaterally, expiratory wheezing Abdomen: normal bowel sounds, non tender, soft, no organomegaly, no mass Extremities: normal range of motion, non-tender Neurologic: coordinator of health services II-XII 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 S/P azithromycin; Continue ceftriaxone (7) ESRD (end stage renal disease) Assessment & Plan: Nephrology=Dr Frank. Hemodialysis 07/06/20 (8) Anemia Assessment & Plan: S/P Transfusion 1 unit PRBC (9) Acute respiratory failure Kareem Fajardo MD Jul 07, 2020 14:46
[2020-07-07 16:00] VITALS: BP 143/61
--- NOTE | 2020-07-07 19:20 | NUR ---
NURSE NOTES: Received patient report from NIKO Barth. Patient shows no signs of distress or pain at the time. Patient is AO x4 and able to ambulate with walker. Patient is on 2 L nasal canula and shows no signs of respiratory distress. IV is intact and patent. There are no signs of erythema, infiltration, or bleeding. Bed is in the lowest position, call light is within reach, side rails up x3, and bed side commode is by bedside. Will continue to monitor.
--- NOTE | 2020-07-07 19:20 | NUR ---
NURSE NOTES: Received patient report from NIKO Barth. Patient shows no signs of distress or pain at the time l
--- NOTE | 2020-07-07 19:21 | NUR ---
NURSE HAND-OFF REPORT: Important Events on Shift: None Patient Status: Stable, fair Diet: CCHO (M), Renal, Cardiac Pending Orders: n/a Pending Results/Labs: lab pending Pending MD notification:n/a Latest Vital Signs: Temperature 97.7 , Pulse 85 , B/P 143 /61 , Respiratory Rate 18 , O2 SAT 97 , Nasal Cannula, O2 Flow Rate 2.0 . Vital Sign Comment: EKG Rhythm: Sinus Rhythm Rhythm change?: N MD Notified?: N -Dr Harish LANDEROS Response: Message left await call Latest Alvarez Fall Score: 50 Fall Risk: High Risk Safety Measures: Call light Within Reach, Bed Alarm Zone 1, Side Rails Side Rails x2, Bed position Low and Locked. Fall Precautions: Yellow Socks Yellow Gown Door Sign Patient Fall Education Report given to NIKO Macias
[2020-07-07 20:00] VITALS: BP 144/86
[2020-07-07] MEDS: Sennosides 8.6mg tab ORAL SCH (22:07)
[2020-07-07] MEDS: Levemir Flexpen SUBQ SCH (22:09)
[2020-07-08] VITALS: BP 134/60
[2020-07-08 04:00] VITALS: BP 132/57
[2020-07-08] MEDS: NovoLOG Insulin Flexpen SUBQ SCH ×4 (06:17→20:47)
--- NOTE | 2020-07-08 07:37 | NUR ---
NURSE HAND-OFF REPORT: Important Events on Shift:[]NA Patient Status: [Full code] Diet: []Renal, cadiac, CCHO medium Pending Orders: []NA Pending Results/Labs:[]NA Pending MD notification:[]NA Latest Vital Signs: Temperature 98.8 , Pulse 82 , B/P 132 /57 , Respiratory Rate 20 , O2 SAT 99 , Nasal Cannula, O2 Flow Rate 2.0 . Vital Sign Comment: NA[] EKG Rhythm: Sinus Rhythm Rhythm change?: N MD Notified?: -Dr Harish LANDEROS Response: Message left await call Latest Alvarez Fall Score: 50 Fall Risk: High Risk Safety Measures: Call light Within Reach, Bed Alarm Zone 1, Side Rails Side Rails x2, Bed position Low and Locked. Fall Precautions: Yellow Socks Yellow Gown Door Sign Patient Fall Education Report given to [Walker RN].
[2020-07-08 07:40] LABS: BASOPHILS % (AUTO) 0.6 % (0.0-2.0); EOSINOPHILS % (AUTO) 1.8 % (0.0-3.0); HEMATOCRIT 26.3 % (37.0-47.0); HEMOGLOBIN 8.6 G/DL (12.0-16.0); LYMPHOCYTES % (AUTO) 24.1 % (20.0-45.0); MEAN CORPUSCULAR VOLUME 88 FL (80-99); MONOCYTES % (AUTO) 7.5 % (1.0-10.0); PLATELET COUNT 261 K/UL (150-450); RED BLOOD COUNT 2.98 M/UL (4.20-5.40); RED CELL DISTRIBUTION WIDTH 14.5 % (11.6-14.8); WHITE BLOOD COUNT 7.5 K/UL (4.8-10.8)
[2020-07-08 08:00] VITALS: BP 145/78
[2020-07-08 08:00] LABS: ANION GAP 8 mmol/L (5-15); BLOOD UREA NITROGEN 63 mg/dL (7-18); CALCIUM 8.9 MG/DL (8.5-10.1); CARBON DIOXIDE 30 MMOL/L (21-32); CHLORIDE 97 MMOL/L (98-107); CREATININE 5.9 MG/DL (0.55-1.30); SODIUM 135 MMOL/L (136-145)
--- NOTE | 2020-07-08 08:00 | NUR ---
NURSE NOTES: Pt awake/alert in bed, breathing easily on 2 lpm n/c, sts breathing is getting better and denies pain at this time. Vital signs stable with SR 1st deg, block on monitor. AV shunt on GRAZYNA with good bruit and thrill. IV access YOSHI, flushed with 10 ml NS and locked. Bed left in low position, side rails up x 2 and call light left near pt's hand.
[2020-07-08] MEDS: Docusate 100mg cap ORAL SCH ×3 (08:59→17:24)
[2020-07-08] MEDS: Nephrovite tab (Rena-Vite) ORAL SCH (08:59)
--- NOTE | 2020-07-08 09:35 | Nephrology Progress Note ---
Assessment/Plan Problem List: (1) ESRD (end stage renal disease) (2) Diabetic nephropathy (3) Anemia (4) COVID-19 (5) PNA (pneumonia) (6) Electrolyte imbalance (7) Volume overload Plan July 08 last dialysis June 2018. Next dialysis tomorrow July 09. Continue same management. Blood pressure stable. July 07: Dialyzed yesterday. Labs reviewed. Medication reviewed. Clonidine added to blood pressure medication. Continue to rest. July 06: Due for dialysis today. Continue rest. July 05: Due for dialysis in a.m. Labs reviewed. Blood sugar elevated. Will add low-dose Levemir. July 04: Dialyzed yesterday. Labs reviewed. Hemoglobin 8.5. Continue per consultants. July 03: Patient due for dialysis today. Hemoglobin remains low. Transfusion as needed. Continue per consultants. July 02: Patient was dialyzed yesterday. Today's labs reviewed. Hemoglobin is low. Will transfuse 1 unit of packed RBCs today. Will do dialysis tomorrow. July 01: Patient due for dialysis today. Labs reviewed. Continue per current management. June 30: Patient was dialyzed yesterday, hyponatremia resolved. Clinically improved. Will attempt dialysis tomorrow Subjective ROS Limited/Unobtainable: No Constitutional: Reports: malaise Objective Objective Last 24 Hour Vital Signs Date Time Temp Pulse Resp B/P (MAP) Pulse Ox O2 Delivery O2 Flow Rate FiO2 07/08/20 08:59 79 145/78 07/08/20 08:53 Nasal Cannula 2.0 07/08/20 08:00 97.7 79 18 145/78 (100) 100 07/08/20 08:00 78 07/08/20 06:15 132/57 07/08/20 04:00 82 07/08/20 04:00 98.8 81 20 132/57 (82) 99 07/08/20 00:00 82 07/08/20 00:00 98.2 88 20 134/60 (84) 99 07/07/20 22:07 144/86 07/07/20 21:00 Nasal Cannula 2.0 07/07/20 20:00 97.9 89 20 144/86 (105) 96 07/07/20 20:00 85 07/07/20 16:00 97.7 85 18 143/61 (88) 97 07/07/20 16:00 85 07/07/20 14:00 124/64 07/07/20 12:00 98.9 86 18 124/64 (84) 100 07/07/20 12:00 88 Intake and Output 07/07/20 07/08/20 19:00 07:00 Intake Total 480 ml 350 ml Balance 480 ml 350 ml Intake Oral 480 ml 350 ml # Voids 1 1 Laboratory Tests 07/07/20 11:36: POC Whole Blood Glucose 304H 07/07/20 16:42: POC Whole Blood Glucose 309H 07/07/20 22:06: POC Whole Blood Glucose [Pending] 07/08/20 05:00: White Blood Count 7.5, Red Blood Count 2.98L, Hemoglobin 8.6L, Hematocrit 26.3L , Mean Corpuscular Volume 88, Mean Corpuscular Hemoglobin 28.7, Mean Corpuscular Hemoglobin Concent 32.6, Red Cell Distribution Width 14.5, Platelet Count 261, Mean Platelet Volume 5.9L, Neutrophils (%) (Auto) 66.0, Lymphocytes ( %) (Auto) 24.1, Monocytes (%) (Auto) 7.5, Eosinophils (%) (Auto) 1.8, Basophils (%) (Auto) 0.6, Sodium Level 135L, Potassium Level 4.0, Chloride Level 97L, Carbon Dioxide Level 30, Anion Gap 8, Blood Urea Nitrogen 63H, Creatinine 5.9H, Estimat Glomerular Filtration Rate 7.4, Glucose Level 174H, Calcium Level 8.9 07/08/20 06:12: POC Whole Blood Glucose [Pending] Height (Feet): 5 Height (Inches): 4.00 Weight (Pounds): 196 General Appearance: no apparent distress Cardiovascular: normal rate Respiratory/Chest: decreased breath sounds Abdomen: soft Objective No change Lito Frank MD Jul 08, 2020 09:34
--- NOTE | 2020-07-08 11:06 | Pulmonology Progress Note ---
Subjective ROS Limited/Unobtainable: No Interval Events: resp status improving, reports feeling better Allergies: Coded Allergies: No Known Allergies (Verified Allergy, Unknown, 02/17/11) Subjective afebrile, no leukocytosis on O2 via NC, no resp distress Objective Last 24 Hour Vital Signs Date Time Temp Pulse Resp B/P (MAP) Pulse Ox O2 Delivery O2 Flow Rate FiO2 07/08/20 08:59 79 145/78 07/08/20 08:53 Nasal Cannula 2.0 07/08/20 08:00 97.7 79 18 145/78 (100) 100 07/08/20 08:00 78 07/08/20 06:15 132/57 07/08/20 04:00 82 07/08/20 04:00 98.8 81 20 132/57 (82) 99 07/08/20 00:00 82 07/08/20 00:00 98.2 88 20 134/60 (84) 99 07/07/20 22:07 144/86 07/07/20 21:00 Nasal Cannula 2.0 07/07/20 20:00 97.9 89 20 144/86 (105) 96 07/07/20 20:00 85 07/07/20 16:00 97.7 85 18 143/61 (88) 97 07/07/20 16:00 85 07/07/20 14:00 124/64 07/07/20 12:00 98.9 86 18 124/64 (84) 100 07/07/20 12:00 88 Intake and Output 07/07/20 07/08/20 19:00 07:00 Intake Total 480 ml 350 ml Balance 480 ml 350 ml Intake Oral 480 ml 350 ml # Voids 1 1 General Appearance: WD/WN, no acute distress HEENT: normocephalic, atraumatic, pharynx normal Respiratory: chest wall non-tender, decreased breath sounds Cardiovascular: normal peripheral pulses, normal rate Abdomen: normal bowel sounds, soft, non tender Extremities: no edema, pedal pulses normal Skin: other - petechiae rash BLE 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, no motor/sensory deficits, alert, oriented x 3, responsive Lymphatic: no neck adenopathy Laboratory Tests 07/07/20 11:36: POC Whole Blood Glucose 304H 07/07/20 16:42: POC Whole Blood Glucose 309H 07/07/20 22:06: POC Whole Blood Glucose [Pending] 07/08/20 05:00: White Blood Count 7.5, Red Blood Count 2.98L, Hemoglobin 8.6L, Hematocrit 26.3L , Mean Corpuscular Volume 88, Mean Corpuscular Hemoglobin 28.7, Mean Corpuscular Hemoglobin Concent 32.6, Red Cell Distribution Width 14.5, Platelet Count 261, Mean Platelet Volume 5.9L, Neutrophils (%) (Auto) 66.0, Lymphocytes ( %) (Auto) 24.1, Monocytes (%) (Auto) 7.5, Eosinophils (%) (Auto) 1.8, Basophils (%) (Auto) 0.6, Sodium Level 135L, Potassium Level 4.0, Chloride Level 97L, Carbon Dioxide Level 30, Anion Gap 8, Blood Urea Nitrogen 63H, Creatinine 5.9H, Estimat Glomerular Filtration Rate 7.4, Glucose Level 174H, Calcium Level 8.9 07/08/20 06:12: POC Whole Blood Glucose [Pending] Current Medications Medications (Trade) Dose Ordered Sig/Miguel Route PRN Reason Start Time Stop Time Status Last Admin Dose Admin Albuterol Sulfate (Proventil MDI) 2 puff Q6H PRN INH Shortness of Breath 06/29/20 19:15 09/27/20 19:14 07/05/20 21:24 Amlodipine Besylate (Norvasc) 10 mg DAILY ORAL 06/30/20 09:00 07/29/20 08:59 07/08/20 08:59 Atorvastatin Calcium (Lipitor) 40 mg BEFORE LUNCH ORAL 06/29/20 11:30 09/27/20 11:29 07/07/20 11:41 Calcium Acetate (Phoslo) 667 mg BEFORE MEALS ORAL 06/29/20 06:30 09/27/20 06:29 07/08/20 06:15 Clonidine HCl (Catapres Tab) 0.1 mg EVERY 8 HOURS ORAL 07/07/20 14:00 10/05/20 13:59 07/08/20 06:15 Clonidine HCl (Catapres Tab) 0.1 mg Q4H PRN ORAL For High Blood Pressure 06/29/20 07:45 09/27/20 07:44 07/07/20 08:50 Dextrose (Dextrose 50%) 25 ml Q30M PRN IV Hypoglycemia 06/28/20 23:15 09/26/20 23:14 Dextrose (Dextrose 50%) 50 ml Q30M PRN IV Hypoglycemia 06/28/20 23:15 09/26/20 23:14 Docusate Sodium (Colace) 100 mg TID ORAL 06/29/20 13:00 07/29/20 08:59 07/08/20 08:59 Epoetin Armando (Epoetin Armando(ESRD on dialysis)) 10,000 unit THU-THU-THU SUBQ 07/02/20 21:00 09/30/20 20:59 07/06/20 21:08 Insulin Aspart (NovoLOG) BEFORE MEALS AND HS SUBQ 06/29/20 06:30 09/27/20 06:29 07/08/20 06:17 Insulin Detemir (Levemir) 10 units BEDTIME SUBQ 07/05/20 21:00 10/03/20 20:59 07/07/20 22:09 Levothyroxine Sodium (Synthroid) 50 mcg ACBREAKFAST ORAL 07/01/20 06:30 07/29/20 06:29 07/08/20 06:15 Pantoprazole (Protonix) 40 mg Q12HR ORAL 06/29/20 21:00 07/29/20 11:29 07/08/20 08:59 Sennosides (Senokot) 8.6 mg BEDTIME ORAL 06/29/20 21:00 07/29/20 20:59 07/07/20 22:07 Vitamin B Complex/ Vit C/Folic Acid (Nephrovite) 1 tab DAILY ORAL 06/29/20 09:00 07/29/20 08:59 07/08/20 08:59 Assessment/Plan Assessment/Plan ASSESSMENT Acute hypoxemic respiratory failure- improved Recent COVID-19 pneumonia ESRD, on hemodialysis CHF with diastolic dysfunction Petechiae eruption Diabetes mellitus Hypertension Anemia of chronic renal disease PLAN OF CARE tele O2 titrate to keep sat above 90 MDI with albuterol s/p abx, SCX+ Maren CXR with rapid improvement, likely volume related, monitor volumes CRP trending down Echo with pEF 60-65% , RVSP 41 c/w mild pulmonary hypertension HD as per nephro last dialysis 07/06 monitor H&H with goal to keep hemoglobin above 7 on EPO stool OB NGT BS management with Levemir and SSI prn, HgbA1c 7.7 diabetic diet, diabetic teaching monitor clinically for petechiae rash TESS screen pending HIV nonreactive, RPR pending consider rheumatology eval case discussed and evaluated by supervising physician Clarice Urbina NP Jul 08, 2020 11:06
[2020-07-08] MEDS: Atorvastatin 20mg tab ORAL SCH (11:50)
[2020-07-08 12:00] VITALS: BP 157/68
[2020-07-08] MEDS ORDERED: Tubing Blood Filter IV ONE (15:31)
[2020-07-08] MEDS ORDERED: Tubing IV Secondary IV ONE (15:31)
[2020-07-08] MEDS ORDERED: NS 500ML ONE (15:31)
--- NOTE | 2020-07-08 15:48 | Internal Med Progress Note ---
Subjective Date of Service: Jul 08, 2020 Physician Name Kareem Fajardo Attending Physician Pierre Childs MD Current Medications Medications (Trade) Dose Ordered Sig/Miguel Route PRN Reason Start Time Stop Time Status Last Admin Dose Admin Albuterol Sulfate (Proventil MDI) 2 puff Q6H PRN INH Shortness of Breath 06/29/20 19:15 09/27/20 19:14 07/05/20 21:24 Amlodipine Besylate (Norvasc) 10 mg DAILY ORAL 06/30/20 09:00 07/29/20 08:59 07/08/20 08:59 Atorvastatin Calcium (Lipitor) 40 mg BEFORE LUNCH ORAL 06/29/20 11:30 09/27/20 11:29 07/08/20 11:50 Calcium Acetate (Phoslo) 667 mg BEFORE MEALS ORAL 06/29/20 06:30 09/27/20 06:29 07/08/20 11:50 Clonidine HCl (Catapres Tab) 0.1 mg EVERY 8 HOURS ORAL 07/07/20 14:00 10/05/20 13:59 07/08/20 14:11 Clonidine HCl (Catapres Tab) 0.1 mg Q4H PRN ORAL For High Blood Pressure 06/29/20 07:45 09/27/20 07:44 07/07/20 08:50 Dextrose (Dextrose 50%) 25 ml Q30M PRN IV Hypoglycemia 06/28/20 23:15 09/26/20 23:14 Dextrose (Dextrose 50%) 50 ml Q30M PRN IV Hypoglycemia 06/28/20 23:15 09/26/20 23:14 Docusate Sodium (Colace) 100 mg TID ORAL 06/29/20 13:00 07/29/20 08:59 07/08/20 08:59 Epoetin Armando (Epoetin Armnado(ESRD on dialysis)) 10,000 unit MON-WED-FRI SUBQ 07/02/20 21:00 09/30/20 20:59 07/06/20 21:08 Insulin Aspart (NovoLOG) BEFORE MEALS AND HS SUBQ 06/29/20 06:30 09/27/20 06:29 07/08/20 11:30 Insulin Detemir (Levemir) 10 units BEDTIME SUBQ 07/05/20 21:00 10/03/20 20:59 07/07/20 22:09 Levothyroxine Sodium (Synthroid) 50 mcg ACBREAKFAST ORAL 07/01/20 06:30 07/29/20 06:29 07/08/20 06:15 Pantoprazole (Protonix) 40 mg Q12HR ORAL 06/29/20 21:00 07/29/20 11:29 07/08/20 08:59 Sennosides (Senokot) 8.6 mg BEDTIME ORAL 06/29/20 21:00 07/29/20 20:59 07/07/20 22:07 Vitamin B Complex/ Vit C/Folic Acid (Nephrovite) 1 tab DAILY ORAL 06/29/20 09:00 07/29/20 08:59 07/08/20 08:59 Allergies: Coded Allergies: No Known Allergies (Verified Allergy, Unknown, 02/17/11) ROS Limited/Unobtainable: No Constitutional: Reports: no symptoms HEENT: Reports: no symptoms Cardiovascular: Reports: no symptoms Respiratory: Reports: shortness of breath Gastrointestinal/Abdominal: Reports: no symptoms Genitourinary: Reports: no symptoms Neurologic/Psychiatric: Reports: no symptoms Subjective 54 YO F admitted with shortness of breath. Now COVID 19 pneumonia. Cover for Int Med-Dr Childs Objective Last Vital Signs Date Time Temp Pulse Resp B/P (MAP) Pulse Ox O2 Delivery O2 Flow Rate FiO2 07/08/20 14:11 157/68 07/08/20 12:00 84 07/08/20 12:00 98.1 18 100 07/08/20 08:53 Nasal Cannula 2.0 Laboratory Tests Test 07/07/20 16:42 07/07/20 22:06 07/08/20 05:00 07/08/20 06:12 POC Whole Blood Glucose 309 MG/DL (74-106) H Pending Pending White Blood Count 7.5 K/UL (4.8-10.8) Red Blood Count 2.98 M/UL (4.20-5.40) L Hemoglobin 8.6 G/DL (12.0-16.0) L Hematocrit 26.3 % (37.0-47.0) L Mean Corpuscular Volume 88 FL (80-99) Mean Corpuscular Hemoglobin 28.7 PG (27.0-31.0) Mean Corpuscular Hemoglobin Concent 32.6 G/DL (32.0-36.0) Red Cell Distribution Width 14.5 % (11.6-14.8) Platelet Count 261 K/UL (150-450) Mean Platelet Volume 5.9 FL (6.5-10.1) L Neutrophils (%) (Auto) 66.0 % (45.0-75.0) Lymphocytes (%) (Auto) 24.1 % (20.0-45.0) Monocytes (%) (Auto) 7.5 % (1.0-10.0) Eosinophils (%) (Auto) 1.8 % (0.0-3.0) Basophils (%) (Auto) 0.6 % (0.0-2.0) Sodium Level 135 MMOL/L (136-145) L Potassium Level 4.0 MMOL/L (3.5-5.1) Chloride Level 97 MMOL/L (98-107) L Carbon Dioxide Level 30 MMOL/L (21-32) Anion Gap 8 mmol/L (5-15) Blood Urea Nitrogen 63 mg/dL (7-18) H Creatinine 5.9 MG/DL (0.55-1.30) H Estimat Glomerular Filtration Rate 7.4 mL/min (>60) Glucose Level 174 MG/DL (74-106) H Calcium Level 8.9 MG/DL (8.5-10.1) Intake and Output 07/07/20 07/08/20 19:00 07:00 Intake Total 480 ml 350 ml Balance 480 ml 350 ml Intake Oral 480 ml 350 ml # Voids 1 1 Objective General Appearance: WD/WN, no apparent distress, moderate distress EENT: PERRL/EOMI, normal ENT inspection Neck: non-tender, normal alignment, supple, normal inspection Cardiovascular: normal peripheral pulses, normal rate, regular rhythm, no gallop/murmur, no JVD Respiratory/Chest: respiratory distress, decreased breath sounds, crackles/ rales, rhonchi - bilaterally, expiratory wheezing Abdomen: normal bowel sounds, non tender, soft, no organomegaly, no mass Extremities: normal range of motion, non-tender 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 S/P azithromycin and ceftriaxone (7) ESRD (end stage renal disease) Assessment & Plan: Nephrology=Dr Frank. Hemodialysis 07/06/20 (8) Anemia Assessment & Plan: S/P Transfusion 1 unit PRBC (9) Acute respiratory failure Kareem Fajardo MD Jul 08, 2020 15:48
[2020-07-08 16:00] VITALS: BP 162/69
--- NOTE | 2020-07-08 19:52 | NUR ---
NURSE NOTES: Received patient report from NIKO Cardoso. Patient shows no signs of distress or pain at the time. Patient is AO x4. She is on 2L nasal canula with no signs of respiratory distress. IV site is intact and patent. There are no signs of erythema, infiltration, or bleeding. Bed is in the lowest position, call light is within reach, side rails up x3. Patient is sitting in the chair next to her bed. She has walker next to her. Will continue to monitor.
[2020-07-08 20:00] VITALS: BP 143/59
[2020-07-08] MEDS: Sennosides 8.6mg tab ORAL SCH (20:44)
[2020-07-08] MEDS: Levemir Flexpen SUBQ SCH (20:47)
[2020-07-09] VITALS: BP 135/57
[2020-07-09 04:00] VITALS: BP 125/55
[2020-07-09] MEDS: NovoLOG Insulin Flexpen SUBQ SCH ×2 (06:08→11:31)
[2020-07-09 06:43] LABS: BASOPHILS % (AUTO) 0.6 % (0.0-2.0); EOSINOPHILS % (AUTO) 1.8 % (0.0-3.0); HEMATOCRIT 26.4 % (37.0-47.0); HEMOGLOBIN 8.6 G/DL (12.0-16.0); LYMPHOCYTES % (AUTO) 22.4 % (20.0-45.0); MEAN CORPUSCULAR VOLUME 88 FL (80-99); MONOCYTES % (AUTO) 6.1 % (1.0-10.0); NEUTROPHILS % (AUTO) 69.2 % (45.0-75.0); PLATELET COUNT 271 K/UL (150-450); RED BLOOD COUNT 2.98 M/UL (4.20-5.40); RED CELL DISTRIBUTION WIDTH 14.7 % (11.6-14.8); WHITE BLOOD COUNT 8.4 K/UL (4.8-10.8)
[2020-07-09 07:05] LABS: ANION GAP 7 mmol/L (5-15); BLOOD UREA NITROGEN 75 mg/dL (7-18); CALCIUM 8.4 MG/DL (8.5-10.1); CARBON DIOXIDE 29 MMOL/L (21-32); CHLORIDE 99 MMOL/L (98-107); CREATININE 6.5 MG/DL (0.55-1.30); POTASSIUM 4.4 MMOL/L (3.5-5.1); SODIUM 135 MMOL/L (136-145)
--- NOTE | 2020-07-09 07:18 | NUR ---
NURSE HAND-OFF REPORT: Important Events on Shift:[NA] Patient Status: [] Diet: []Cardiac/ CCHO medium/renal Pending Orders: [Hemodialysis] Pending Results/Labs:[NA] Pending MD notification:[NA] Latest Vital Signs: Temperature 98.1 , Pulse 76 , B/P 125 /55 , Respiratory Rate 20 , O2 SAT 98 , Nasal Cannula, O2 Flow Rate 2.0 . Vital Sign Comment: [NA] EKG Rhythm: Sinus Rhythm Rhythm change?: N MD Notified?: -Dr Harish LANDEROS Response: Message left await call Latest Alvarez Fall Score: 50 Fall Risk: High Risk Safety Measures: Call light Within Reach, Bed Alarm Zone 1, Side Rails Side Rails x2, Bed position Low and Locked. Fall Precautions: Yellow Socks Yellow Gown Door Sign Patient Fall Education Report given to [NIKO Barnett].
--- NOTE | 2020-07-09 07:23 | NUR ---
NURSE NOTES: Received pt in bed, AAO x 4. On RA. No c/o of sob, distress, pain at this moment. YOSHI 20g noted, with SL. GRAZYNA AV shunt noted. Side rails x 2. Bed in the lowest and locked. Call light within reach. Will continue to monitor
[2020-07-09 08:00] VITALS: BP 130/58
[2020-07-09] MEDS: Nephrovite tab (Rena-Vite) ORAL SCH (08:15)
[2020-07-09] MEDS: Docusate 100mg cap ORAL SCH ×2 (08:15→11:42)
[2020-07-09 08:33] LABS: ALANINE AMINOTRANSFERASE 8 U/L (12-78); ALBUMIN 2.4 G/DL (3.4-5.0); ALKALINE PHOSPHATASE 96 U/L (46-116); ASPARTATE AMINO TRANSFERASE 12 U/L (15-37); BILIRUBIN,DIRECT < 0.1 MG/DL (0.0-0.3); BILIRUBIN,TOTAL 0.3 MG/DL (0.2-1.0)
--- NOTE | 2020-07-09 10:31 | Nephrology Progress Note ---
Assessment/Plan Problem List: (1) ESRD (end stage renal disease) (2) Diabetic nephropathy (3) Anemia (4) COVID-19 (5) PNA (pneumonia) (6) Electrolyte imbalance (7) Volume overload Plan July 09: Due for dialysis today. Labs and medication list reviewed. Continue per consultants. July 08: Last dialysis June 2018. Next dialysis tomorrow July 09. Continue same management. Blood pressure stable. July 07: Dialyzed yesterday. Labs reviewed. Medication reviewed. Clonidine added to blood pressure medication. Continue to rest. July 06: Due for dialysis today. Continue rest. July 05: Due for dialysis in a.m. Labs reviewed. Blood sugar elevated. Will add low-dose Levemir. July 04: Dialyzed yesterday. Labs reviewed. Hemoglobin 8.5. Continue per consultants. July 03: Patient due for dialysis today. Hemoglobin remains low. Transfusion as needed. Continue per consultants. July 02: Patient was dialyzed yesterday. Today's labs reviewed. Hemoglobin is low. Will transfuse 1 unit of packed RBCs today. Will do dialysis tomorrow. July 01: Patient due for dialysis today. Labs reviewed. Continue per current management. June 30: Patient was dialyzed yesterday, hyponatremia resolved. Clinically improved. Will attempt dialysis tomorrow Subjective ROS Limited/Unobtainable: No Constitutional: Reports: malaise, weakness Objective Objective Last 24 Hour Vital Signs Date Time Temp Pulse Resp B/P (MAP) Pulse Ox O2 Delivery O2 Flow Rate FiO2 07/09/20 08:03 Room Air 07/09/20 08:00 98.0 80 20 130/58 (82) 97 07/09/20 08:00 81 07/09/20 07:41 76 125/55 07/09/20 06:00 125/55 07/09/20 04:00 98.1 79 20 125/55 (78) 98 07/09/20 04:00 76 07/09/20 00:00 97.8 91 18 135/57 (83) 98 07/09/20 00:00 82 07/08/20 21:27 143/59 07/08/20 21:00 Nasal Cannula 2.0 07/08/20 20:00 98.1 87 17 143/59 (87) 98 07/08/20 20:00 84 8/30/20 16:00 84 07/08/20 16:00 97.7 84 18 162/69 (100) 100 07/08/20 14:11 157/68 07/08/20 12:00 84 07/08/20 12:00 98.1 80 18 157/68 (97) 100 Intake and Output 07/08/20 07/09/20 19:00 07:00 Intake Total 650 ml 480 ml Output Total 600 ml Balance 650 ml -120 ml Intake Oral 650 ml 480 ml Output Urine Total 600 ml # Voids 1 2 # Bowel Movements 1 Laboratory Tests 07/08/20 17:19: POC Whole Blood Glucose [Pending] 07/08/20 19:29: POC Whole Blood Glucose [Pending] 07/09/20 04:00: White Blood Count 8.4, Red Blood Count 2.98L, Hemoglobin 8.6L, Hematocrit 26.4L , Mean Corpuscular Volume 88, Mean Corpuscular Hemoglobin 28.9, Mean Corpuscular Hemoglobin Concent 32.7, Red Cell Distribution Width 14.7, Platelet Count 271, Mean Platelet Volume 5.5L, Neutrophils (%) (Auto) 69.2, Lymphocytes ( %) (Auto) 22.4, Monocytes (%) (Auto) 6.1, Eosinophils (%) (Auto) 1.8, Basophils (%) (Auto) 0.6, Sodium Level 135L, Potassium Level 4.4, Chloride Level 99, Carbon Dioxide Level 29, Anion Gap 7, Blood Urea Nitrogen 75H, Creatinine 6.5H, Estimat Glomerular Filtration Rate 6.6, Glucose Level 223H, Calcium Level 8.4L, Phosphorus Level 5.0H, Magnesium Level 2.0, Total Bilirubin 0.3, Direct Bilirubin < 0.1, Aspartate Amino Transf (AST/SGOT) 12L, Alanine Aminotransferase (ALT/SGPT) 8L, Alkaline Phosphatase 96, Total Protein 5.6L, Albumin 2.4L 07/09/20 05:42: POC Whole Blood Glucose 225H Height (Feet): 5 Height (Inches): 4.00 Weight (Pounds): 200 General Appearance: no apparent distress Cardiovascular: normal rate Respiratory/Chest: decreased breath sounds Abdomen: soft Objective No change Lito Frank MD Jul 09, 2020 10:31
--- NOTE | 2020-07-09 10:44 | NUR ---
DISCHARGE PLANNING DR MACHADO GAVE TO/RB TO DC PATIENT HOME WITH HOME MEDS. NOTED AND CARRIED OUT. NIKO HEAD INFORMED.
[2020-07-09] MEDS: Atorvastatin 20mg tab ORAL SCH (11:42)
--- NOTE | 2020-07-09 11:48 | Pulmonology Progress Note ---
Subjective ROS Limited/Unobtainable: No Interval Events: resp status improving, reports feeling better Allergies: Coded Allergies: No Known Allergies (Verified Allergy, Unknown, 02/17/11) Objective Last 24 Hour Vital Signs Date Time Temp Pulse Resp B/P (MAP) Pulse Ox O2 Delivery O2 Flow Rate FiO2 07/09/20 08:03 Room Air 07/09/20 08:00 98.0 80 20 130/58 (82) 97 07/09/20 08:00 81 07/09/20 07:41 76 125/55 07/09/20 06:00 125/55 07/09/20 04:00 98.1 79 20 125/55 (78) 98 07/09/20 04:00 76 07/09/20 00:00 97.8 91 18 135/57 (83) 98 07/09/20 00:00 82 07/08/20 21:27 143/59 07/08/20 21:00 Nasal Cannula 2.0 07/08/20 20:00 98.1 87 17 143/59 (87) 98 07/08/20 20:00 84 07/08/20 16:00 84 07/08/20 16:00 97.7 84 18 162/69 (100) 100 07/08/20 14:11 157/68 07/08/20 12:00 84 07/08/20 12:00 98.1 80 18 157/68 (97) 100 Intake and Output 07/08/20 07/09/20 19:00 07:00 Intake Total 650 ml 480 ml Output Total 600 ml Balance 650 ml -120 ml Intake Oral 650 ml 480 ml Output Urine Total 600 ml # Voids 1 2 # Bowel Movements 1 General Appearance: WD/WN, no acute distress HEENT: normocephalic, atraumatic, pharynx normal Respiratory: chest wall non-tender, decreased breath sounds Cardiovascular: normal peripheral pulses, normal rate Abdomen: normal bowel sounds, soft, non tender Extremities: no edema, pedal pulses normal Skin: other - petechiae rash BLE 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, no motor/sensory deficits, alert, oriented x 3, responsive Lymphatic: no neck adenopathy Laboratory Tests 07/08/20 17:19: POC Whole Blood Glucose [Pending] 07/08/20 19:29: POC Whole Blood Glucose [Pending] 07/09/20 04:00: White Blood Count 8.4, Red Blood Count 2.98L, Hemoglobin 8.6L, Hematocrit 26.4L , Mean Corpuscular Volume 88, Mean Corpuscular Hemoglobin 28.9, Mean Corpuscular Hemoglobin Concent 32.7, Red Cell Distribution Width 14.7, Platelet Count 271, Mean Platelet Volume 5.5L, Neutrophils (%) (Auto) 69.2, Lymphocytes ( %) (Auto) 22.4, Monocytes (%) (Auto) 6.1, Eosinophils (%) (Auto) 1.8, Basophils (%) (Auto) 0.6, Sodium Level 135L, Potassium Level 4.4, Chloride Level 99, Carbon Dioxide Level 29, Anion Gap 7, Blood Urea Nitrogen 75H, Creatinine 6.5H, Estimat Glomerular Filtration Rate 6.6, Glucose Level 223H, Calcium Level 8.4L, Phosphorus Level 5.0H, Magnesium Level 2.0, Total Bilirubin 0.3, Direct Bilirubin < 0.1, Aspartate Amino Transf (AST/SGOT) 12L, Alanine Aminotransferase (ALT/SGPT) 8L, Alkaline Phosphatase 96, Total Protein 5.6L, Albumin 2.4L 07/09/20 05:42: POC Whole Blood Glucose 225H 07/09/20 10:39: POC Whole Blood Glucose 240H Current Medications Medications (Trade) Dose Ordered Sig/Miguel Route PRN Reason Start Time Stop Time Status Last Admin Dose Admin Albuterol Sulfate (Proventil MDI) 2 puff Q6H PRN INH Shortness of Breath 06/29/20 19:15 09/27/20 19:14 07/05/20 21:24 Amlodipine Besylate (Norvasc) 10 mg DAILY ORAL 06/30/20 09:00 07/29/20 08:59 07/08/20 08:59 Atorvastatin Calcium (Lipitor) 40 mg BEFORE LUNCH ORAL 06/29/20 11:30 09/27/20 11:29 07/09/20 11:42 Calcium Acetate (Phoslo) 667 mg BEFORE MEALS ORAL 06/29/20 06:30 09/27/20 06:29 07/09/20 11:42 Clonidine HCl (Catapres Tab) 0.1 mg EVERY 8 HOURS ORAL 07/07/20 14:00 10/05/20 13:59 07/08/20 21:27 Clonidine HCl (Catapres Tab) 0.1 mg Q4H PRN ORAL For High Blood Pressure 06/29/20 07:45 09/27/20 07:44 07/07/20 08:50 Dextrose (Dextrose 50%) 25 ml Q30M PRN IV Hypoglycemia 06/28/20 23:15 09/26/20 23:14 Dextrose (Dextrose 50%) 50 ml Q30M PRN IV Hypoglycemia 06/28/20 23:15 09/26/20 23:14 Docusate Sodium (Colace) 100 mg TID ORAL 06/29/20 13:00 07/29/20 08:59 07/09/20 11:42 Epoetin Armando (Epoetin Armando(ESRD on dialysis)) 10,000 unit THU-THU-THU SUBQ 07/02/20 21:00 09/30/20 20:59 07/06/20 21:08 Insulin Aspart (NovoLOG) BEFORE MEALS AND HS SUBQ 06/29/20 06:30 09/27/20 06:29 07/09/20 11:31 Insulin Detemir (Levemir) 10 units BEDTIME SUBQ 07/05/20 21:00 10/03/20 20:59 07/08/20 20:47 Levothyroxine Sodium (Synthroid) 50 mcg ACBREAKFAST ORAL 07/01/20 06:30 07/29/20 06:29 07/09/20 06:05 Pantoprazole (Protonix) 40 mg Q12HR ORAL 06/29/20 21:00 07/29/20 11:29 07/09/20 08:15 Sennosides (Senokot) 8.6 mg BEDTIME ORAL 06/29/20 21:00 07/29/20 20:59 07/08/20 20:44 Vitamin B Complex/ Vit C/Folic Acid (Nephrovite) 1 tab DAILY ORAL 06/29/20 09:00 07/29/20 08:59 07/09/20 08:15 Assessment/Plan Problems: (1) ACS (acute coronary syndrome) (2) Anemia (3) COVID-19 (4) ESRD (end stage renal disease) (5) Diabetic nephropathy (6) Petechial eruption (7) Diabetes mellitus (8) Hypertension Assessment/Plan skin lesions are slightly better Pt needs a competent hematology consult, which is not available at [facility] [place], will f/ u clinically c/o pain at right upper arm where HD access is all reviewed respiratory treatment check electrolytes check electrolytes symptomatic treatment. Maria Elena Naidu MD Jul 09, 2020 11:48
--- NOTE | 2020-07-09 11:57 | Diagnostic Imaging Report ---
Indication: Shortness of Technique: One view of the chest Comparison: none Findings: The heart is enlarged. No definite acute infiltrates, effusions, or congestion. There is mild chronic appearing central bronchial wall thickening. Impression: Mild cardiomegaly. No definite acute process
[2020-07-09 12:00] VITALS: BP 154/72
--- NOTE | 2020-07-09 12:04 | NUR ---
DISCHARGE PLANNING S/W PATIENTS [facility] WHO PROVIDED [facility] INFO RENAL [id number] [facility] [id number] P: [phone] F: [phone] S/W LOTUS AT RENAL TO CONFIRM PATIENTS CHAIR TIME. PER LOTUS, REQUESTS A RECENT COVID RESULT TO BE DETERMINE IF PATIENT WILL CONTINUE ON A MODIFIED SCHEDULE OR SHE IS ABLE TO RESUME ORIGINAL NON-COVID SCHEDULE. INFORMED AND ORDER OBTAINED. NOTED AND CARRIED OUT. SPENCER HEAD INFORMED. ALL CLINICALS HAVE BEEN FAXED TO [facility].
--- NOTE | 2020-07-09 13:34 | NUR ---
ADMINISTRATION SPECIALIST NOTE:HOME O2 CALL MADE TO [facility] [phone]. S/W ERIC WHO INFORMED THAT E-TANK HAS BEEN DELIVER TO PATIENT AT BEDSIDE. THIS CM INFORMED ERIC THAT PATIENT WILL DC HOME TODAY. PER ERIC, FAMILY WILL BE CONTACTED TO COORDINATE O2 CONCENTRATOR TODAY.
--- NOTE | 2020-07-09 14:10 | Infectious Diseases Prog Note ---
Assessment/Plan Assessment: Afebrile No leukocytosis Acute hypoxic resp failure, recurrent - on 4l nC >2lNC >RA Pneumonia- likely superimposed bacterial CHF exacerbation- rapid improvement of pulmonary infiltrates was likely fluid -sp cx normal resp delgado, C. albicans -07/09 CXRL Mild cardiomegaly. No definite acute process -07/03 CXR: Significantly improved bilateral interstitial and airspace infiltrates versus edema, over 5 days, with minimal residual -06/29 CXR: Diffuse bilateral alveolar densities, infiltrates and/or edema. -legionella ag urine neg B/l legs petechial lesions (non blanchable)- ?etiology- not typical for drug rash- r/o vasculitis -RPR, HIV ab screen, RF neg recent COVID19 c/w acute hypoxic resp failure requiring intubation -admitted at [facility] Pyuria/bacteriuria- asymptomatic -u/a wbc 10-15, nit neg, leuk +2; ucx 30-40k VRE (S linezolid, macrobid); colonizer HIV screen neg Urine legionella neg RPR p hypothryoidism pHTN Hep C ab + w/ neg viral load obesity s/p cholecystectomy s/p cataract surgery HLD ESRD on HD Dm2 HTN CHF Plan: -Continue to monitor off abx -07/05 SP Ceftriaxone #6 -07/04 SP Azithromycin #5 -f/u cx -Monitor CBC/CMP, temperatures -F/u rheum w/u Thank you for this consultation. Will continue to follow along with you. Discussed with RN. Subjective Allergies: Coded Allergies: No Known Allergies (Verified Allergy, Unknown, 02/17/11) afebrile at 2L NC now off abx Objective Last 24 Hour Vital Signs Date Time Temp Pulse Resp B/P (MAP) Pulse Ox O2 Delivery O2 Flow Rate FiO2 07/09/20 13:45 154/72 07/09/20 12:00 97.9 88 18 154/72 (99) 98 07/09/20 12:00 84 07/09/20 08:03 Room Air 07/09/20 08:00 98.0 80 20 130/58 (82) 97 07/09/20 08:00 81 07/09/20 07:41 76 125/55 07/09/20 06:00 125/55 07/09/20 04:00 98.1 79 20 125/55 (78) 98 07/09/20 04:00 76 07/09/20 00:00 97.8 91 18 135/57 (83) 98 07/09/20 00:00 82 07/08/20 21:27 143/59 07/08/20 21:00 Nasal Cannula 2.0 07/08/20 20:00 98.1 87 17 143/59 (87) 98 07/08/20 20:00 84 07/08/20 16:00 84 07/08/20 16:00 97.7 84 18 162/69 (100) 100 07/08/20 14:11 157/68 Height (Feet): 5 Height (Inches): 4.00 Weight (Pounds): 200 GENERAL: The patient is well-developed and well-nourished female, in moderate respiratory distress. HEENT: Eyes, pupils are equal and responsive to light and accommodation. Extraocular movements are intact. NECK: Supple without lymphadenopathy. CHEST: Lungs are clear to auscultation bilaterally without wheezes or rales. CARDIOVASCULAR: Regular rhythm and rate. S1 and S2 are normal without murmurs, rubs, or gallops. ABDOMEN: Soft, nontender, nondistended. Positive bowel sounds. No evidence of hepatosplenomegaly. EXTREMITIES: Negative for clubbing, cyanosis, or edema. petechial lesions, non blanchable on b/l L E Laboratory Tests Test 07/08/20 17:19 07/08/20 19:29 07/09/20 04:00 07/09/20 05:42 POC Whole Blood Glucose Pending Pending 225 MG/DL (74-106) H White Blood Count 8.4 K/UL (4.8-10.8) Red Blood Count 2.98 M/UL (4.20-5.40) L Hemoglobin 8.6 G/DL (12.0-16.0) L Hematocrit 26.4 % (37.0-47.0) L Mean Corpuscular Volume 88 FL (80-99) Mean Corpuscular Hemoglobin 28.9 PG (27.0-31.0) Mean Corpuscular Hemoglobin Concent 32.7 G/DL (32.0-36.0) Red Cell Distribution Width 14.7 % (11.6-14.8) Platelet Count 271 K/UL (150-450) Mean Platelet Volume 5.5 FL (6.5-10.1) L Neutrophils (%) (Auto) 69.2 % (45.0-75.0) Lymphocytes (%) (Auto) 22.4 % (20.0-45.0) Monocytes (%) (Auto) 6.1 % (1.0-10.0) Eosinophils (%) (Auto) 1.8 % (0.0-3.0) Basophils (%) (Auto) 0.6 % (0.0-2.0) Sodium Level 135 MMOL/L (136-145) L Potassium Level 4.4 MMOL/L (3.5-5.1) Chloride Level 99 MMOL/L (98-107) Carbon Dioxide Level 29 MMOL/L (21-32) Anion Gap 7 mmol/L (5-15) Blood Urea Nitrogen 75 mg/dL (7-18) H Creatinine 6.5 MG/DL (0.55-1.30) H Estimat Glomerular Filtration Rate 6.6 mL/min (>60) Glucose Level 223 MG/DL (74-106) H Calcium Level 8.4 MG/DL (8.5-10.1) L Phosphorus Level 5.0 MG/DL (2.5-4.9) H Magnesium Level 2.0 MG/DL (1.8-2.4) Total Bilirubin 0.3 MG/DL (0.2-1.0) Direct Bilirubin < 0.1 MG/DL (0.0-0.3) Aspartate Amino Transf (AST/SGOT) 12 U/L (15-37) L Alanine Aminotransferase (ALT/SGPT) 8 U/L (12-78) L Alkaline Phosphatase 96 U/L (46-116) Total Protein 5.6 G/DL (6.4-8.2) L Albumin 2.4 G/DL (3.4-5.0) L Test 07/09/20 10:39 POC Whole Blood Glucose 240 MG/DL (74-106) H Current Medications Medications (Trade) Dose Ordered Sig/Miguel Route PRN Reason Start Time Stop Time Status Last Admin Dose Admin Albuterol Sulfate (Proventil MDI) 2 puff Q6H PRN INH Shortness of Breath 06/29/20 19:15 09/27/20 19:14 07/05/20 21:24 Amlodipine Besylate (Norvasc) 10 mg DAILY ORAL 06/30/20 09:00 07/29/20 08:59 07/08/20 08:59 Atorvastatin Calcium (Lipitor) 40 mg BEFORE LUNCH ORAL 06/29/20 11:30 09/27/20 11:29 07/09/20 11:42 Calcium Acetate (Phoslo) 667 mg BEFORE MEALS ORAL 06/29/20 06:30 09/27/20 06:29 07/09/20 11:42 Clonidine HCl (Catapres Tab) 0.1 mg EVERY 8 HOURS ORAL 07/07/20 14:00 10/05/20 13:59 07/09/20 13:45 Clonidine HCl (Catapres Tab) 0.1 mg Q4H PRN ORAL For High Blood Pressure 06/29/20 07:45 09/27/20 07:44 07/07/20 08:50 Dextrose (Dextrose 50%) 25 ml Q30M PRN IV Hypoglycemia 06/28/20 23:15 09/26/20 23:14 Dextrose (Dextrose 50%) 50 ml Q30M PRN IV Hypoglycemia 06/28/20 23:15 09/26/20 23:14 Docusate Sodium (Colace) 100 mg TID ORAL 06/29/20 13:00 07/29/20 08:59 07/09/20 11:42 Epoetin Armando (Epoetin Armando(ESRD on dialysis)) 10,000 unit [id number]-[id number]-[id number] SUBQ 07/02/20 21:00 09/30/20 20:59 07/06/20 21:08 Insulin Aspart (NovoLOG) BEFORE MEALS AND HS SUBQ 06/29/20 06:30 09/27/20 06:29 07/09/20 11:31 Insulin Detemir (Levemir) 10 units BEDTIME SUBQ 07/05/20 21:00 10/03/20 20:59 07/08/20 20:47 Levothyroxine Sodium (Synthroid) 50 mcg ACBREAKFAST ORAL 07/01/20 06:30 07/29/20 06:29 07/09/20 06:05 Pantoprazole (Protonix) 40 mg Q12HR ORAL 06/29/20 21:00 07/29/20 11:29 07/09/20 08:15 Sennosides (Senokot) 8.6 mg BEDTIME ORAL 06/29/20 21:00 07/29/20 20:59 07/08/20 20:44 Vitamin B Complex/ Vit C/Folic Acid (Nephrovite) 1 tab DAILY ORAL 06/29/20 09:00 07/29/20 08:59 07/09/20 08:15 Harper Huffman M.D. Jul 09, 2020 14:10
[2020-07-09 16:00] VITALS: BP 148/70
--- NOTE | 2020-07-09 16:14 | NUR ---
NURSE NOTES: Patient is discharged to home via private vehicle accompanied by son in stable condition. RN accompanied pt down to entrance. Heart monitor, ID band, and IV was removed. No infection/bleeding on the removal site. Discharge instructions and oxygen tank were given to patient. Belongings are accounted for. Picture on the sacral taken and uploaded.
--- NOTE | 2020-07-10 09:31 | NUR ---
DUST COLLECTOR NOTE S/W ZIGGY AT [facility] [phone]. CONFIRMED PATIENTS CHAIR TIME - 1315 PM - 1615 PM
--- NOTE | 2020-07-10 12:32 | Discharge Summary ---
Discharge Summary Discharge Summary _ DATE OF ADMISSION: 06/28/2020 DATE OF DISCHARGE: 07/09/2020 DISCHARGED BY: REASON FOR ADMISSION: 54 years old female with past medical history of end-stage renal disease, on hemodialysis, diabetes mellitus, hypertension, hypothyroidism, presented with chief complaint of shortness of breath. Patient initially presented to [facility], and later was transferred to [facility] for insurance purposes. Patient apparently was tested 2 weeks ago positive for COVID-19 at the outside facility. Patient reported being quarantined at home. Patient continued to experience shortness of breath, which increased over the past 2 days. CONSULTANTS: stem shaper Dr. Moreira pulmonary Dr. Naidu ID specialist Dr. Huffman automated teller manager Dr. Frank HOSPITAL COURSE: Patient admitted to telemetry floor. Supplemental oxygen provided and titrated to keep pulse oximetry above 90%. Patient initially required high flow of oxygen Albuterol via MDI provided. Patient received empiric antibiotics. Sputum culture revealed Maren. Chest x-ray revealed rapid improvement , likely volume related . Volumes were closely monitored. Inflammatory markers were closely monitor. CRP trending down. Echocardiogram revealed preserved ejection fraction of 60 to 65% ; right ventricular systolic pressure of 41 , consistent with a mild pulmonary hypertension. Repeated COVID-19 was negative Patient was able to be weaned from high flow of oxygen down to 2 L via nasal cannula . Prior to discharge pulse oximetry stable on room air. Patient remained afebrile. Patient noted to have petechiae type rash bilateral lower extremity. Rheumatoid factor was negative . TESS screen still pending at the time of this dictation. HIV screen was negative. RPR was nonreactive. Unclear source of petechiae lesions, but not typical for drug rash. Patient need to rule out vasculitis . Follow-up with a primary care provider with referral to edge in[facility] uppers , if no improvement. Hemodialysis provided as per automated teller manager recommendation with close monitoring of volumes, renal parameters and electrolytes. Hemoglobin and hematocrit were closely monitored with goal to keep hemoglobin above 7. Patient was on Epogen. Stool for occult blood was negative. Prior to discharge hemoglobin 8.6, hematocrit 26.4 Blood sugar was managed with Levemir and sliding scale of insulin as needed. Hemoglobin A1c 7.7. Diabetic diet and diabetic teaching provided. Patient clinically stabilized and was ready for discharge FINAL DIAGNOSES: Acute hypoxemic respiratory failure-resolved Pneumonia, likely superimposed bacterial ( s/p treatment) Recent COVID-19 pneumonia with acute hypoxic respiratory failure requiring intubation ( at [facility]) End-stage renal disease, on hemodialysis CHF with diastolic dysfunction Bilateral lower extremity petechiae lesion Pyuria/bacteriuria -asymptomatic Diabetes mellitus Hypertension Anemia of chronic disease Hypothyroidism Mild pulmonary hypertension DISCHARGE MEDICATIONS: See Medication Reconciliation list. DISCHARGE INSTRUCTIONS: Patient was discharged home. Follow-up with a primary care provider in 1 week. I have been assigned to dictate discharge summary for this account. Clarice Urbina NP Jul 10, 2020 12:32
== END 2020-07-09 16:15 | disposition home or self-care (01) | DRG 193 ==
LOC: 2E 20:55
PROC: 5A1D70Z Performance of Urinary Filtration, Intermittent, Less than 6 Hours Per Day (ICD-10-PCS; principal; 2020-06-29)
PROC: 30233N1 Transfusion of Nonautologous Red Blood Cells into Peripheral Vein, Percutaneous Approach (ICD-10-PCS; 2020-07-02)
DX: J18.9 Pneumonia, unspecified organism (principal); J96.01 Acute respiratory failure with hypoxia; N18.6 End stage renal disease; I50.33 Acute on chronic diastolic (congestive) heart failure; I13.2 Hypertensive heart and chronic kidney disease with heart failure and with stage 5 chronic kidney disease, or end stage renal disease; I50.32 Chronic diastolic (congestive) heart failure; E87.1 Hypo-osmolality and hyponatremia; N04.9 Nephrotic syndrome with unspecified morphologic changes; N39.0 Urinary tract infection, site not specified; I24.9 Acute ischemic heart disease, unspecified; E11.21 Type 2 diabetes mellitus with diabetic nephropathy; E11.22 Type 2 diabetes mellitus with diabetic chronic kidney disease; Z86.19 Personal history of other infectious and parasitic diseases; E03.9 Hypothyroidism, unspecified; D63.8 Anemia in other chronic diseases classified elsewhere; E66.9 Obesity, unspecified; Z68.34 Body mass index [BMI] 34.0-34.9, adult; Z79.82 Long term (current) use of aspirin; Z79.4 Long term (current) use of insulin; E78.00 Pure hypercholesterolemia, unspecified; I27.20 Pulmonary hypertension, unspecified; I44.0 Atrioventricular block, first degree; Z90.49 Acquired absence of other specified parts of digestive tract; R23.3 Spontaneous ecchymoses
CPT/HCPCS: 36415; 36600; 71045; 80048; 80053; 80061; 80076; 81001; 82164; 82270; 82378; 82550; 82607; 82728; 82746; 82803; 82962; 82977; 83036; 83540; 83550; 83615; 83735; 83880; 84100; 84443; 84484; 84550; 85007; 85025; 85044; 85060; 85610; 85651; 85730; 86021; 86039; 86140; 86200; 86225; 86431; 86592; 86703; 86706; 86850; 86900; 86901; 86920; 87070; 87081; 87086; 87181; 87205; 93306; J1815; S5561; U0002